=== PATIENT | female | born 1960 | race Hispanic/Latino ===

== ENCOUNTER 2016-11-11 12:01 | Inpatient (IN) | payer MEDICARE, MEDICAID ==
[2016-11-11 12:01] VITALS: BMI 23.3
[2016-11-11 13:24] LABS: BASO % 0.8 % (0.0-2.0); EOS % 0.9 % (0.0-4.0); HEMOGLOBIN 14.1 g/dL (11.0-16.0); LYMPH # 1.2 K/uL (1.0-4.3); LYMPH % 28.2 % (20.0-40.0); MEAN CORPUSCULAR HEMOGLOBIN 27.5 pg (27.0-31.0); MEAN CORPUSCULAR HGB CONC 32.6 g/dL (33.0-37.0); MEAN PLATELET VOLUME 9.6 fL (7.2-11.7); MONO # 0.3 K/uL (0.0-0.8); MONO % 8.5 % (0.0-10.0); NEUT # 2.5 K/uL (1.8-7.0); NEUT % 61.6 % (50.0-75.0); NRBC % 0.2 % (0.0-2.0); RBC 5.15 Mil/uL (3.80-5.20); RED CELL DISTRIBUTION WIDTH 15.3 % (11.5-14.5); WHITE BLOOD COUNT 4.1 K/uL (4.8-10.8)
[2016-11-11 13:29] LABS: SQUAMOUS EPITHIAL 4 /hpf (0-5); URINE BACTERIA RARE (<OCC); URINE BILIRUBIN NEGATIVE (NEGATIVE); URINE BLOOD NEGATIVE (NEGATIVE); URINE CLARITY Hazy (Clear); URINE COLOR Yellow (YELLOW); URINE GLUCOSE (UA) NORMAL (Normal); URINE LEUKOCYTE ESTERASE 3+ Leu/uL (Negative); URINE NITRATE NEGATIVE (NEGATIVE); URINE PROTEIN 1+ mg/dL (NEGATIVE)
[2016-11-11 13:32] LABS: BARBITURATES, UR NEGATIVE (NEGATIVE); MEAN CELL VOLUME 84.2 fL (81.0-99.0)
[2016-11-11 13:33] LABS: BENZODIAZEPINES, UR NEGATIVE (NEGATIVE)
[2016-11-11 13:35] LABS: ALBUMIN 3.9 g/dL (3.5-5.0)
[2016-11-11 13:36] LABS: OPIATES, UR POSITIVE (NEGATIVE); PHENCYCLIDINE, UR NEGATIVE (NEGATIVE)
[2016-11-11 13:38] LABS: ALB/GLOB RATIO 0.8 (1.0-2.1); ALT/SGPT 50 U/L (9-52); AST/SGOT 51 U/L (14-36); BLOOD UREA NITROGEN 20 mg/dL (7-17); CALCIUM 8.8 mg/dl (8.6-10.4); GFR AFRICAN-AMERICAN > 60; GFR NON-AFRICAN AMERICAN > 60
--- NOTE | 2016-11-11 15:14 | C.PDOC ---
History Of Present Illness 56 year old female presents to the emergency department seeking detox from heroin and complaints of suicidal ideations. Patient has a lengthy history of heroin abuse and denies any physical complaints of homicidal ideations. Time Seen by Provider: 11/11/16 12:56 Chief Complaint (Nursing): Substance Abuse History Per: Patient History/Exam Limitations: no limitations Current Symptoms Are (Timing): Still Present Suicide/Self Injury Attempted (Context): None Associated Symptoms: Suicidal Thoughts Involuntary Hold By: None Recent travel outside of the [place]: No Past Medical History Reviewed: Historical Data, Nursing Documentation, Vital Signs Vital Signs: Last Vital Signs Temp 98.4 F 11/11/16 16:41 Pulse 79 11/11/16 16:41 Resp 18 11/11/16 20:04 BP 127/82 11/11/16 16:41 Pulse Ox 96 11/11/16 16:41 - Medical History PMH: Anemia, Anxiety, Asthma, Bipolar Disorder, Bronchitis, COPD, Depression, HIV, HTN, Mitral Valve Prolapse, Paranoia, Personality Disorder, Seizures ( withdral induced) Surgical History: Tonsillectomy Denies: Pacemaker - [facility] Procedures DETOXIFICATION SERVICES FOR SUBSTANCE ABUSE TREATMENT (02/22/15) GROUP PSYCHOTHERAPY (03/13/16) INDIVID PSYCHOTHERAP NEC (06/09/14) INDIVIDUAL PSYCHOTHERAPY, BEHAVIORAL (03/13/16) INDIVIDUAL PSYCHOTHERAPY, COGNITIVE-BEHAVIORAL (12/07/15) INTRODUCE OF OTH THERAP SUBST INTO RESP TRACT, VIA OPENING (12/07/15) INTRODUCTION OF SERUM/TOX/VACCINE INTO MUSCLE, PERC APPROACH (12/07/15) NEBULIZER THERAPY (03/30/14) OTHER GROUP THERAPY (06/09/14) Family History: States: Unknown Family Hx - Social History Hx Tobacco Use: Yes Hx Alcohol Use: No Hx Substance Use: Yes - Immunization History Hx Tetanus Toxoid Vaccination: Yes Hx Influenza Vaccination: Yes Hx Pneumococcal Vaccination: Yes Review Of Systems Constitutional: Negative for: Fever, Chills Cardiovascular: Negative for: Chest Pain, Palpitations Respiratory: Negative for: Cough, Shortness of Breath Gastrointestinal: Negative for: Nausea, Vomiting, Abdominal Pain, Diarrhea Psych: Positive for: Suicidal ideation Physical Exam - Physical Exam Appears: Non-toxic, No Acute Distress, Unkempt, Other (Patient appears disheveled ) Skin: Warm, Dry Head: Atraumatic Eye(s): bilateral: Other (pin-point pupils ) Oral Mucosa: Moist Teeth: Other (scant, poor dentition ) Neck: Supple Chest: Symmetrical, No Deformity Cardiovascular: Rhythm Regular Respiratory: Normal Breath Sounds, No Rhonchi, No Wheezing Neurological/Psych: Oriented x3, Normal Speech, Normal Cognition, Normal Cranial Nerves, Normal Motor, Normal Sensation ED Course And Treatment - Laboratory Results Result Diagrams: 11/11/16 13:15 11/11/16 13:15 O2 Sat by Pulse Oximetry: 97 (room air ) - Physician Consult Information Outcome Of Conversation: 1500: d/w Dr. Cano and Crisis Team: ok to adm to Psych. asymptomatic pyuria may be followed and NOT treated with abx. HIV meds/ HAART may be addressed by Medicine/ID. Consider restarting when stabilized on psych meds and steady compliance more likely. Disposition Doctor Will See Patient In The: Hospital Counseled Patient/Family Regarding: Studies Performed, Diagnosis - Disposition Disposition: HOSPITALIZED Disposition Time: 15:15 Condition: GOOD - Clinical Impression Clinical Impression: Depression, Opiate abuse, continuous - Scribe Statement The provider has reviewed the documentation as recorded by the Scribe Vale Florentino All medical record entries made by the Scribe were at my direction and personally dictated by me. I have reviewed the chart and agree that the record accurately reflects my personal performance of the history, physical exam, medical decision making, and the department course for this patient. I have also personally directed, reviewed, and agree with the discharge instructions and disposition.
--- NOTE | 2016-11-11 20:58 | PCM.BM ---
<Matt Montez - Last Filed: 11/11/16 20:56> Treatment Plan Problems - Problems identified on initial assessmt Depression Date Initiated: 11/11/16 Time Initiated: 17:00 Assessment reference: NA Status: Active Opiates Abuse Date Initiated: 11/11/16 Time Initiated: 17:00 Assessment reference: NA Status: Active Treatment assets and liabiliti Patient Assests: adapts well, cooperative, good support system (Lives with parents) Patient Liabilities: substance abuse (Heroin), medical problems (HIV, Hep C) - Milieu Protocol Maintain good personal hygiene: daily Encourage regular showers, daily Remind patient to perform daily oral care Maintain personal safety: every shift Educate patient to report safety concerns to staff, every shift Monitor environment for contraband/sharps Medication safety: Monitor for expected outcome, potential side effects: every shift, Assess barriers to learning: every shift, Assess readiness for medication education: every shift <Bettina Larios - Last Filed: 11/13/16 11:36> Family Contact Family involvement: Family/SO is involved Family contact: Patient agrees to contact Family contact name: Father-Saturnino Hinton Family contact comment: - Goals for Treatment Patient goals for treatment: "I want to go to rehab." Discharge/Continuing Care - Education Needs Education Needs: Patient Medication, Patient Coping Skills, Patient Community resources - Discharge Discharge Criteria: Tolerates medication w/o severe side effects, Free of Suicidal thoughts Discharge to:: Substance Abuse Rehab - Treatment Team Participation Discussed with Family/SO: Yes Was Patient/Family/SO present at Treatment Team Meeting: Yes <Roberto Torres - Last Filed: 11/13/16 11:39> - Diagnosis (1) Bipolar 1 disorder Status: Acute Interventions: 11/13/16 11:39 Attend groups take meds (2) Opioid use disorder, severe, dependence Status: Acute Interventions: 11/13/16 11:39 Attend groups take meds
[2016-11-11] MEDS ORDERED: Magnesium Hydroxide Susp 30 ml UD PO PRN (21:54)
--- NOTE | 2016-11-12 19:05 | PCM.PSYCH ---
Initial Psychiatric Evaluation - Initial Psychiatric Evaluation Type of Admission: Voluntary Legal Status: Capacity Chief Complaint (in patient's own words): My withdrawal symptoms are getting better History of Present Illness and Precipitating Events: This is a 56 years old female with the history of Bipoalr depression, heroine use disorder, HIV, Hep C, single, on SSD admitted to the unit for the treatment of depression and opioid detox. She reported that she start abusing heroin at the age of 20. She stated that she had a relapse on heroin six months ago due to depression. She reported she is injecting heroin 5 bags per day, and had positive withdrawal symptoms, if she is unable to receive any heroin. She reported guilt feeling due to heroin abuse. CAGE questionnaire was positive. Additionally she stated that she had multiple rehabs and detox in the past. However, she was unable to give any information of her last rehab. She stated denied using benzo, etoh. She reported depressed mood for more than 3 weeks and which was worsened during last week. she reported depressed mood with anhedonia, difficulty in sleep, low appetite, and difficulty in concentration. She stated that after coming to unit she is feeling safe and her SI start improving. Presently she denied SI, HI, intent or plan. She reported that she had one manic episode at the age of 25. She is on probation for threatening a person on FB. She denied any anxiety, panic attack symptoms. She denied perceptual disturbances. She is and had no children. She is living with his mother. Completed HS. She is on SSD Current Medications: Active Medications Generic Name Dose Route Start Last Admin Trade Name Freq PRN Reason Stop Dose Admin Ibuprofen 600 mg 11/11/16 21:54 Motrin Tab PO TID PRN Pain, moderate (4-7) Loperamide HCl 2 mg 11/11/16 21:54 11/12/16 05:37 Imodium PO 2 mg Q8 PRN Administration Diarrhea Magnesium Hydroxide 30 ml 11/11/16 21:54 Milk Of Magnesia PO 11/14/16 10:01 BID PRN Constipation Methadone HCl 0 mg 11/13/16 09:45 Methadone PO 11/17/16 09:44 Q24H FUAD Taper Ondansetron HCl 4 mg 11/11/16 21:54 11/12/16 05:37 Zofran Tab PO 4 mg Q8 PRN Administration Nausea/Vomiting Quetiapine Fumarate 100 mg 11/12/16 10:00 11/12/16 17:43 Seroquel PO 100 mg BID FUAD Administration Past Psychiatric History - Past Psychiatric History Prior Professional Help: Multiple hospitalization Prior Psychiatric Treatment: Dr. Gates in [place] [facility]: [facility] Duration: Varies from days to week Nature of Treatment: Detox, rehab and stabilization of mood History of Abuse: Denied History of ETOH/Drug Use: Please see HPI History of Family Illness: Denied Pertinent Medical Hx (Current Medical&Sleep Prob, Allergies): Allergies Allergy/AdvReac Type Severity Reaction Status Date / Time Penicillins Allergy pt reports Verified 11/11/16 12:23 seizures QUEtiapine [SEROquel] 300 mg PO HS 11/11/16 HIV, Hep C, but presently she is not any medication Review of Systems - Review of Systems All systems: reviewed and no additional remarkable complaints except ( Psychiatry and please see HPI) Mental Status Examination - Personal Presentation Personal Presentation: Looks older than stated age - Affect Affect: Constricted - Motor Activity Motor Activity: Calm - Reliability in Providing Information Reliability in Providing Information: Fair - Speech Speech: Organized, Coherent - Mood Mood: Depressed - Formal Thought Process Formal Thought Process: No Impairment - Hallucinations/Delusions Additional comments: Denied - Obsessions/Compulsions Obsessions: No Compulsions: No - Cognitive Functions Orientation: Person, Place, Situation, Time Sensorium: Alert Attention/Concentration: Attentive Abstract Thinking: [place] Judgement: Intact, as evidence by: Good judgement, Intact, as evidence by: Insight regarding need for hospitalization Memory: Recent intact, as evidence by: Ability to recall events of the day - Risk Additional comments: low - Strength & Assets Inventory Strength & Assets Inventory: Family support, Interests/hobbies, Cooperative - Limitations Limitations: Other Additional comments: substance abuse history DSM 5 DX - DSM 5 DSM 5 Diagnosis: 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 Start Seroquel 100 mg po BID for mood stabilization, will titrate according to her response. will consider to start Zoloft for her depression. Monitor vitals as per floor protocol. pt was encouraged to attend groups. Recommend individual and group therapy. Supportive therapy was provided. Time spend 33 minutes. Medication benefits and side effects were discussed in detail. pt verbalized understanding and in agreement with the treatment plan. Projected ELOS: 5-7 days Prognosis: fair with the treatment Discharge Plan and Discharge Criteria: as per - Smoking Cessation Smoking Cessation Initiated: Yes
--- NOTE | 2016-11-13 11:36 | PCM.PYCHPN ---
Psychiatric Progress Note - Psychiatric Progress Note Patient seen today, length of contact: 15 min Patient Chief Complaint: I ma feeling depressed. Problems Identified/Issues Discussed: Patient seen and evaluated, chart reviewed and discussed with the nurse. Patient remained isolated, confined and withdrawn. Patient reports withdrawal symptoms including nausea, headaches, cramps and sweating. She reports depressed mood and feelings of hopelessness and helplessness. She is taking medication and denied any side effects. Supportive therapy and psychoeducation were given. Medication Change: Yes (methadone taper) Medical Record Reviewed: Yes Mental Status Examination - Cognitive Function Orientation: Person, Place, Situation, Time Memory: Intact Attention: WNL Concentration: Poor Association: WNL Fund of Knowledge: Poor - Mood Mood: Depressed, Anxious - Affect Affect: Constricted - Speech Speech: Soft - Formal Thought Process Formal Thought Process: No Impairment - Suicidal Ideation Suicidal Ideation: No - Homicidal Ideation Homicidal Ideation: No Goal/Treatment Plan - Goal/Treatment Plan Need for Continued Stay: Discharge may exacerbated symptoms, Failed transitioning Progress Toward Problem(s) and Goals/Treatment Plan: MDD recurrent without psychotic features CBT Psychoeducation Supportive therapy, group therapy, individual therapy Seroquel 100 gm PO BID Sertraline 50 mg PO Daily Opioid use disorder severe CBT Psychoeducation Supportive therapy, individual therapy Use [place] for abstinence Opioid withdrawal CBT Psychoeducation Supportive therapy, individual therapy Clonidine when necessary Methadone taper - Smoking Cessation Smoking Cessation Initiated: No
--- NOTE | 2016-11-14 10:03 | PCM.PYCHPN ---
Psychiatric Progress Note - Psychiatric Progress Note Patient seen today, length of contact: 15 min Patient Chief Complaint: I am having withdrawal symptoms.' Problems Identified/Issues Discussed: Patient seen and evaluated, chart reviewed and discussed with the nurse. Today pt reports a bit improvement in her mood and withdrawal symptoms but still reports nausea, cramps and sweating. She still reports depressed mood and at times feelings of hopelessness and helplessness. She is taking medication and denied any side effects. She needs more time for stabilization. Supportive therapy and psychoeducation were given. Medication Change: Yes (methadone taper) Medical Record Reviewed: Yes Mental Status Examination - Cognitive Function Orientation: Person, Place, Situation, Time Memory: Intact Attention: WNL Concentration: Poor Association: WNL Fund of Knowledge: Poor - Mood Mood: Depressed, Anxious - Affect Affect: Constricted - Speech Speech: Soft - Formal Thought Process Formal Thought Process: No Impairment - Suicidal Ideation Suicidal Ideation: No - Homicidal Ideation Homicidal Ideation: No Goal/Treatment Plan - Goal/Treatment Plan Need for Continued Stay: Discharge may exacerbated symptoms, Severe functional impairment Progress Toward Problem(s) and Goals/Treatment Plan: MDD recurrent without psychotic features CBT Psychoeducation Supportive therapy, group therapy, individual therapy Seroquel 100 gm PO BID Sertraline 50 mg PO Daily Opioid use disorder severe CBT Psychoeducation Supportive therapy, individual therapy Use [place] for abstinence Opioid withdrawal CBT Psychoeducation Supportive therapy, individual therapy Clonidine when necessary Methadone taper - Smoking Cessation Smoking Cessation Initiated: No
--- NOTE | 2016-11-15 14:51 | PCM.PYCHPN ---
Psychiatric Progress Note - Psychiatric Progress Note Patient seen today, length of contact: 15 min Patient Chief Complaint: I am feeling depressed.' Problems Identified/Issues Discussed: Patient seen and evaluated, chart reviewed and discussed with the nurse. She still reports depressed mood and at times feelings of hopelessness and helplessness. She still reports withdrawal symptoms i.e., nausea, cramps and sweating. She is taking medication and denies any side effects. She needs more time for stabilization. Supportive therapy and psychoeducation were given. Medication Change: Yes (methadone taper) Medical Record Reviewed: Yes Mental Status Examination - Cognitive Function Orientation: Person, Place, Situation, Time Memory: Intact Attention: WNL Concentration: Poor Association: WNL Fund of Knowledge: Poor - Mood Mood: Depressed, Anxious - Affect Affect: Constricted - Speech Speech: Soft - Formal Thought Process Formal Thought Process: No Impairment - Suicidal Ideation Suicidal Ideation: No - Homicidal Ideation Homicidal Ideation: No Goal/Treatment Plan - Goal/Treatment Plan Need for Continued Stay: Discharge may exacerbated symptoms, Severe functional impairment Progress Toward Problem(s) and Goals/Treatment Plan: 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
--- NOTE | 2016-11-16 10:40 | PCM.PYCHPN ---
Psychiatric Progress Note - Psychiatric Progress Note Patient seen today, length of contact: 15 min Patient Chief Complaint: I am feeling depressed.' Problems Identified/Issues Discussed: Patient seen and evaluated, chart reviewed and discussed with the nurse. As per the staff pt became increasingly depressed and became isolated and withdrawn and started reporting feelings of hopelessness and helplessness. She is stating some withdrawal symptoms i.e., headache and sweating. She is complaint with her medications and denies any side effects. She needs more time for stabilization. After care discussed, she wants to go to the inpt. rehab. Supportive therapy and psychoeducation were given. Medication Change: Yes (methadone taper, increase zoloft) Medical Record Reviewed: Yes Mental Status Examination - Cognitive Function Orientation: Person, Place, Situation, Time Memory: Intact Attention: WNL Concentration: Poor Association: WNL Fund of Knowledge: Poor - Mood Mood: Depressed, Anxious - Affect Affect: Constricted - Speech Speech: Soft - Formal Thought Process Formal Thought Process: No Impairment - Suicidal Ideation Suicidal Ideation: No - Homicidal Ideation Homicidal Ideation: No Goal/Treatment Plan - Goal/Treatment Plan Need for Continued Stay: Discharge may exacerbated symptoms, Severe functional impairment Progress Toward Problem(s) and Goals/Treatment Plan: 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
--- NOTE | 2016-11-17 10:49 | PCM.PYCHPN ---
Psychiatric Progress Note - Psychiatric Progress Note Patient seen today, length of contact: 15 min Patient Chief Complaint: I am feeling depressed.' Problems Identified/Issues Discussed: Patient seen and evaluated, chart reviewed and discussed with the nurse. Patient reports improvement in her mood and says medications "are helping" and that she is "hanging in there." She remained isolated and withdrawn. Patient reports no problems being able to sleep and denies any physical complaints. Patient still reports improvement in the withdrawal symptoms. She needs more time for stabilization. After care discussed, she wants to go to the inpt. rehab. Supportive therapy and psychoeducation were given. Medication Change: Yes (methadone taper, increase zoloft) Medical Record Reviewed: Yes Mental Status Examination - Cognitive Function Orientation: Person, Place, Situation, Time Memory: Intact Attention: WNL Concentration: Poor Association: WNL Fund of Knowledge: Poor - Mood Mood: Depressed, Anxious - Affect Affect: Constricted - Speech Speech: Soft - Formal Thought Process Formal Thought Process: No Impairment - Suicidal Ideation Suicidal Ideation: No - Homicidal Ideation Homicidal Ideation: No Goal/Treatment Plan - Goal/Treatment Plan Need for Continued Stay: Discharge may exacerbated symptoms, Severe functional impairment Progress Toward Problem(s) and Goals/Treatment Plan: 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
--- NOTE | 2016-11-18 20:18 | PCM.PYCHPN ---
Psychiatric Progress Note - Psychiatric Progress Note Patient seen today, length of contact: 15 min Patient Chief Complaint: "Nervous" Problems Identified/Issues Discussed: The pt is seen, chart reviewed, case discussed with staff. Support given, CBT and SC used briefly No new symptoms reported, improving slowly and needs some more time No SEs from medications, risks discussed. After care discussed, she is interested in rehabs but not sure if she is calling them. Support and guidance provided Medication Change: No Medical Record Reviewed: Yes Mental Status Examination - Cognitive Function Orientation: Person, Place, Situation, Time Memory: Intact Attention: WNL Concentration: Poor Association: WNL Fund of Knowledge: Poor - Mood Mood: Depressed, Anxious - Affect Affect: Constricted - Speech Speech: Soft - Formal Thought Process Formal Thought Process: No Impairment - Suicidal Ideation Suicidal Ideation: No - Homicidal Ideation Homicidal Ideation: No Goal/Treatment Plan - Goal/Treatment Plan Need for Continued Stay: Discharge may exacerbated symptoms, Severe functional impairment Progress Toward Problem(s) and Goals/Treatment Plan: Continue medications Support and psychoeducation daily Attend groups and activities daily After care planning by - inpatient rehab Estimated Date of D/C: 11/22/16
[2016-11-19 08:50] VITALS: O2SAT 99
--- NOTE | 2016-11-19 19:33 | PCM.PYCHPN ---
Psychiatric Progress Note - Psychiatric Progress Note Patient seen today, length of contact: 15 min Patient Chief Complaint: "I can't sleep" Problems Identified/Issues Discussed: The pt is seen, chart reviewed, case discussed with staff. Support given, HS seroquel started No new symptoms reported, improving slowly and needs some more time No SEs from medications, risks discussed. After care discussed, wants rehab Medication Change: No Medical Record Reviewed: Yes Mental Status Examination - Cognitive Function Orientation: Person, Place, Situation, Time Memory: Intact Attention: WNL Concentration: Poor Association: WNL Fund of Knowledge: Poor - Mood Mood: Depressed, Anxious - Affect Affect: Constricted - Speech Speech: Soft - Formal Thought Process Formal Thought Process: No Impairment - Suicidal Ideation Suicidal Ideation: No - Homicidal Ideation Homicidal Ideation: No Goal/Treatment Plan - Goal/Treatment Plan Need for Continued Stay: Discharge may exacerbated symptoms, Severe functional impairment Progress Toward Problem(s) and Goals/Treatment Plan: Continue medications Support and psychoeducation daily Attend groups and activities daily After care planning by GARETT - inpatient rehab Estimated Date of D/C: 11/22/16
[2016-11-20 07:46] VITALS: TEMP 98
[2016-11-21 07:15] VITALS: BP 135/83; PULSE 90; RESP 20
--- NOTE | 2016-11-21 09:46 | PCM.PYCHDC ---
Mental Status Examination - Mental Status Examination Orientation: Person, Place, Situation, Time Memory: Intact Mood: Neutral Affect: Constricted Speech: Soft Attention: WNL Concentration: WNL Association: WNL Fund of Knowledge: WNL Formal Thought Process: No Impairment Description of patient's judgement and insight: good, fair Psychotic Thoughts and Behaviors: denies any AVH Suicidal Ideation: No Current Homicidal Ideation?: No Discharge Summary - Discharge Note Reason for Hospitalization: This is a 56 years old female with the history of Bipoalr depression, heroine use disorder, HIV, Hep C, single, on SSD admitted to the unit for the treatment of depression and opioid detox. She reported that she start abusing heroin at the age of 20. She stated that she had a relapse on heroin six months ago due to depression. She reported she is injecting heroin 5 bags per day, and had positive withdrawal symptoms, if she is unable to receive any heroin. She reported guilt feeling due to heroin abuse. CAGE questionnaire was positive. Additionally she stated that she had multiple rehabs and detox in the past. However, she was unable to give any information of her last rehab. She stated denied using benzo, etoh. She reported depressed mood for more than 3 weeks and which was worsened during last week. she reported depressed mood with anhedonia, difficulty in sleep, low appetite, and difficulty in concentration. She stated that after coming to unit she is feeling safe and her SI start improving. Presently she denied SI, HI, intent or plan. She reported that she had one manic episode at the age of 25. She is on probation for threatening a person on FB. She denied any anxiety, panic attack symptoms. She denied perceptual disturbances. She is and had no children. She is living with his mother. Completed HS. She is on SSD Psychiatric History (includes Medical, Family, Personal Hx): Detox, rehab and stabilization of mood Consultations:: List each consultation separately and include: 1. Reason for request. 2. Findings. 3. Follow-up Summary of Hospital Course include:: 1. Description of specific treatment plan utilized for patients during their course of treatmen. 2. Summarize the time- course for resolution of acute symptoms and/or regressed behaviors. 3. Describe issues identified and worked on during hospitalization. 4. Describe medication utilized. 5. Describe medical problems identified and treated. 6. Reassessment of suicide risk Summary of Hospital Course: During the course of her stay, patient (pt) started progressively improving and she no longer remained anxious, depressed and suicidal. Her mood was getting better and she started attending groups and meetings and started socializing. The doses of her medications were maximized and patient denied any feelings of hopelessness, helplessness, and worthlessness, denied any problem with the sleep or appetite, denied suicidal ideation or homicidal ideation. Pt denied any auditory or visual hallucinations. Patient reported improvement in her mood and tolerated these medications very well and denied any side effects. 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 Pt was educated and counseled about the risks of drinking and abusing drugs. Pt was educated and counseled to go to the ER or call 911 if pt develop suicidal ideation or homicidal ideation, worsening of symptoms or severe side effects of the meds. Prescriptions/Medication Reconciliation: QUEtiapine [Seroquel] 200 mg PO HS #30 tab QUEtiapine [Seroquel] 100 mg PO DAILY #30 tab Sertraline [Zoloft] 100 mg PO DAILY #30 tab - Smoking Cessation Smoking Cessation Medication prescribed: No - Antipsychotic Medications Pt discharged on 2 or more routine antipsychotic medications: No
--- NOTE | 2016-11-21 15:40 | PCM.PYCHPN ---
Psychiatric Progress Note - Psychiatric Progress Note Patient seen today, length of contact: 15 min Patient Chief Complaint: I am feeling depressed.' Problems Identified/Issues Discussed: Patient seen and evaluated, chart reviewed and discussed with the nurse. Staff reports patient is improving and she is attending groups and meetings. She reports improvement in her mood however, she remained isolated and withdrawn. Patient also reports improvement in the withdrawal symptoms. She needs more time for stabilization. After care discussed, she wants to go to the inpt. rehab. Supportive therapy and psychoeducation were given. Medication Change: No Medical Record Reviewed: Yes Mental Status Examination - Cognitive Function Orientation: Person, Place, Situation, Time Memory: Intact Attention: WNL Concentration: WNL Association: WN Fund of Knowledge: [facility] Decription of patient's judgement and insights: good, fair - Mood Mood: Neutral - Affect Affect: Constricted - Speech Speech: Soft - Formal Thought Process Formal Thought Process: No Impairment Psychotic Thoughts and Behaviors: denies any AVH - Suicidal Ideation Suicidal Ideation: No - Homicidal Ideation Homicidal Ideation: No Goal/Treatment Plan - Goal/Treatment Plan Need for Continued Stay: Discharge may exacerbated symptoms, Severe functional impairment Progress Toward Problem(s) and Goals/Treatment Plan: Education: Pt was educated and counseled about the risks and benefits of taking and not taking medications. Pt was educated and counseled about the risks of drinking and abusing drugs. Pt was educated and counseled to go to the ER or call 911 if pt develop suicidal ideation or homicidal ideation, worsening of symptoms or severe side effects of the meds. Estimated Date of D/C: 11/22/16 - Smoking Cessation Smoking Cessation Initiated: No
== END 2016-11-21 11:50 | disposition home or self-care (01) | DRG 885 ==
LOC: C.ER 12:01 → C.9E 15:13 → C.5E 16:32
PROVIDERS: ADMIT Psychiatry & Neurology Psychiatry; ATTEND Psychiatry & Neurology Psychiatry
PROC: GZ3ZZZZ Medication Management (ICD-10-PCS; principal; 2016-11-11)
PROC: GZHZZZZ Group Psychotherapy (ICD-10-PCS; 2016-11-11)
PROC: GZ56ZZZ Individual Psychotherapy, Supportive (ICD-10-PCS; 2016-11-11)
PROC: HZ89ZZZ Medication Management for Substance Abuse Treatment, Other Replacement Medication (ICD-10-PCS; 2016-11-11)
PROC: HZ59ZZZ Individual Psychotherapy for Substance Abuse Treatment, Supportive (ICD-10-PCS; 2016-11-11)
DX: F33.9 Major depressive disorder, recurrent, unspecified (principal); R45.851 Suicidal ideations; F11.23 Opioid dependence with withdrawal; F60.9 Personality disorder, unspecified; J44.9 Chronic obstructive pulmonary disease, unspecified; I10 Essential (primary) hypertension; I34.1 Nonrheumatic mitral (valve) prolapse; Z21 Asymptomatic human immunodeficiency virus [HIV] infection status; B18.2 Chronic viral hepatitis C; F17.210 Nicotine dependence, cigarettes, uncomplicated

== ENCOUNTER 2017-01-29 09:20 | Inpatient (IN) | payer MEDICARE, MEDICAID ==
[2017-01-29 09:20] VITALS: BMI 23.3
[2017-01-29] MEDS ORDERED: Permethrin 5% Cream(60 gm) TOP ONE (09:54)
--- NOTE | 2017-01-29 10:00 | C.PDOC ---
History Of Present Illness 56 year old female with PMHX of HIV (non-compliant) substance abuse, bipolar, depression presents to the ED for evaluation of depression and suicidal ideation for past few days. Patient states she does not have medications including Xanax and "feels depressed". She reports she feels very depressed and wants to kill herself. Patient has had multiple previous admission to psych in the past. Otherwise, pt denies any physical complaints, denies CP, SOB, dyspnea , diaphoresis, palpitation, cough, abd. pain, N/V/D, UTi sx. At the time of evaluation, appears comfortable, not in any apparent distress. Time Seen by Provider: 01/29/17 09:42 Chief Complaint (Nursing): Substance Abuse History Per: Patient History/Exam Limitations: no limitations Onset/Duration Of Symptoms: Persistent Current Symptoms Are (Timing): Still Present Pain Scale Rating Of: 0 Associated Symptoms: Depression, Suicidal Thoughts Involuntary Hold By: None Recent travel outside of the [place]: No Additional History Per: Prior Records Past Medical History Reviewed: Historical Data, Nursing Documentation, Vital Signs Vital Signs: Last Vital Signs Temp 97.6 F 01/29/17 14:39 Pulse 83 01/29/17 16:19 Resp 20 01/29/17 14:39 BP 117/84 01/29/17 16:19 Pulse Ox 98 01/29/17 12:27 - Medical History PMH: Anemia, Anxiety, Asthma, Bipolar Disorder, Bronchitis, COPD, Depression, HIV, HTN, Mitral Valve Prolapse, Paranoia, Personality Disorder, Seizures ( withdrawal induced) Surgical History: Tonsillectomy Denies: Pacemaker - [facility] Procedures DETOXIFICATION SERVICES FOR SUBSTANCE ABUSE TREATMENT (02/22/15) GROUP PSYCHOTHERAPY (11/21/16) INDIV PSYCHOTHERAPY FOR SUBSTANCE ABUSE TREATMENT, SUPPORT (11/11/16) INDIVID PSYCHOTHERAP NEC (06/09/14) INDIVIDUAL PSYCHOTHERAPY, BEHAVIORAL (03/13/16) INDIVIDUAL PSYCHOTHERAPY, COGNITIVE-BEHAVIORAL (12/07/15) INDIVIDUAL PSYCHOTHERAPY, SUPPORTIVE (11/21/16) INTRODUCE OF OTH THERAP SUBST INTO RESP TRACT, VIA OPENING (12/07/15) INTRODUCTION OF SERUM/TOX/VACCINE INTO MUSCLE, PERC APPROACH (12/07/15) MEDICATION MANAGEMENT (11/11/16) MEDS MGMT FOR SUBSTANCE ABUSE TREATMENT, OTH REPL MED (11/11/16) NEBULIZER THERAPY (03/30/14) OTHER GROUP THERAPY (06/09/14) Family History: States: Unknown Family Hx - Social History Hx Tobacco Use: Yes Hx Alcohol Use: No Hx Substance Use: Yes - Immunization History Hx Tetanus Toxoid Vaccination: Yes Hx Influenza Vaccination: Yes Hx Pneumococcal Vaccination: Yes Review Of Systems Constitutional: Negative for: Fever, Chills Cardiovascular: Negative for: Chest Pain Respiratory: Negative for: Cough, Shortness of Breath Gastrointestinal: Negative for: Nausea, Vomiting, Abdominal Pain Psych: Positive for: Depression, Suicidal ideation Physical Exam - Physical Exam Appears: Non-toxic, No Acute Distress Skin: Warm, Dry, Other (Diffuse body scratches. No sign of cellulitis. ) Head: Atraumatic, Normacephalic Eye(s): bilateral: PERRL Nose: No Flaring, No Discharge Oral Mucosa: Moist, No Drooling Tongue: Normal Appearing Lips: Normal Appearing Throat: No Erythema, No Drooling Neck: Trachea Midline, Supple Chest: Symmetrical, No Deformity, No Ecchymosis, No Subcutaneous Emphysema Cardiovascular: Rhythm Regular, No Murmur, No JVD Respiratory: No Decreased Breath Sounds, No Accessory Muscle Use, No Rales, No Rhonchi, No Stridor, No Wheezing Gastrointestinal/Abdominal: Soft, No Tenderness, No Distention, No Guarding, No Rebound Back: No CVA Tenderness Extremity: Normal ROM, No Pedal Edema, No Deformity Neurological/Psych: Oriented x3, Normal Speech, Normal Motor, Normal Sensation, Normal Reflexes ED Course And Treatment - Laboratory Results Result Diagrams: 01/29/17 10:02 01/29/17 10:02 Lab Interpretation: No Changes Compared To Prior Results ECG: Interpreted By Me, Viewed By Me Interpretation Of ECG: SR@77/min, NAD, no acute T wave or ST-T changes. O2 Sat by Pulse Oximetry: 100 (RA) Pulse Ox Interpretation: Normal - Radiology CXR: Interpreted by Me, Viewed By Me, Read By Radiologist CXR Interpretation: Yes: No Acute Disease Progress Note: EKG, CXR, and labs were ordered. Permethrin 5% cream was applied. Patient will be evaluated by electric utility lineworker. Blood work review and appears without acute changes compare to previous visits. Pt was seen by roller shop utility worker and admission to psych floor s/o with Dx: Bipolar, depression, polysubstances abuse recommend. Pt remained stable durig th ED evaluation. non-toxic. Appropriate, agrees with plan. Disposition - Disposition Disposition: HOSPITALIZED Disposition Time: 11:55 Condition: STABLE - Clinical Impression Clinical Impression: Opioid use disorder, severe, dependence, HIV (human immunodeficiency virus infection), Bipolar disorder - PA / DRIVER MANAGER / Resident Statement MD/DO has reviewed & agrees with the documentation as recorded. - Scribe Statement The provider has reviewed the documentation as recorded by the Nahunibbrett Florentino All medical record entries made by the Shraddha were at my direction and personally dictated by me. I have reviewed the chart and agree that the record accurately reflects my personal performance of the history, physical exam, medical decision making, and the department course for this patient. I have also personally directed, reviewed, and agree with the discharge instructions and disposition.
--- NOTE | 2017-01-29 10:07 | RAD ---
HISTORY: Detox/Psy COMPARISON: Comparison made with prior study 05/23/2016. TECHNIQUE: Chest PA and lateral FINDINGS: LUNGS: Mild bibasilar atelectasis left greater than right. PLEURA: No significant pleural effusion identified. No pneumothorax apparent. CARDIOVASCULAR: Normal. OSSEOUS STRUCTURES: Re- demonstrated are several loops left anterolateral rib fracture deformities. Additionally there also appears be old healed fracture deformity left clavicle VISUALIZED UPPER ABDOMEN: Normal. OTHER FINDINGS: None. IMPRESSION: Mild bibasilar atelectasis left greater than right
[2017-01-29 10:08] LABS: BASO # 0.1 K/uL (0.0-0.2); BASO % 1.4 % (0.0-2.0); EOS # 0.2 K/uL (0.0-0.7); EOS % 5.8 % (0.0-4.0); HEMATOCRIT 40.5 % (34.0-47.0); LYMPH # 0.9 K/uL (1.0-4.3); MEAN CELL VOLUME 85.4 fL (81.0-99.0); MEAN CORPUSCULAR HEMOGLOBIN 28.2 pg (27.0-31.0); MEAN PLATELET VOLUME 8.9 fL (7.2-11.7); MONO # 0.2 K/uL (0.0-0.8); MONO % 5.8 % (0.0-10.0); NRBC % 0.1 % (0.0-2.0); RED CELL DISTRIBUTION WIDTH 16.3 % (11.5-14.5); WHITE BLOOD COUNT 4.1 K/uL (4.8-10.8)
[2017-01-29 10:16] LABS: RBC URINE 1 /hpf (0-3); URINE BILIRUBIN NEGATIVE (NEGATIVE); URINE BLOOD NEGATIVE (NEGATIVE); URINE COLOR Yellow (YELLOW); URINE GLUCOSE (UA) NORMAL (Normal); URINE KETONE 2+ mg/dL (NEGATIVE); URINE LEUKOCYTE ESTERASE TRACE Leu/uL (Negative); URINE PROTEIN 1+ mg/dL (NEGATIVE); WBC URINE 3 /hpf (0-5)
[2017-01-29 10:17] LABS: CHLORIDE 104 mmol/L (98-107); POTASSIUM 4.2 mmol/L (3.6-5.2); SODIUM 139 mmol/L (132-148)
[2017-01-29 10:19] LABS: ALB/GLOB RATIO 0.9 (1.0-2.1); ALKALINE PHOSPHATASE 86 U/L (38-126); AST/SGOT 33 U/L (14-36); BILIRUBIN,TOTAL 0.6 mg/dL (0.2-1.3); BLOOD UREA NITROGEN 22 mg/dL (7-17); CARBON DIOXIDE 21 mmol/L (22-30); GFR AFRICAN-AMERICAN > 60
[2017-01-29 10:20] LABS: ALCOHOL SERUM < 10 mg/dl (0-10); ALT/SGPT 30 U/L (9-52); CALCIUM 9.2 mg/dl (8.6-10.4); GLUCOSE,RANDOM 72 mg/dL (65-105)
--- NOTE | 2017-01-29 13:01 | CARD ---
APPROVED REPORT EKG Measurement Heart [id number] <Conclusion> Normal sinus rhythm Normal ECG
--- NOTE | 2017-01-29 14:11 | PCM.BM ---
<Karen Vaughn - Last Filed: 01/29/17 14:08> Treatment Plan Problems - Problems identified on initial assessmt Depression Date Initiated: 01/29/17 Time Initiated: 13:40 Assessment reference: NA Status: Active Substance Abuse Date Initiated: 01/29/17 Time Initiated: 13:40 Assessment reference: NA Status: Active Treatment assets and liabiliti Patient Assests: adapts well, cooperative, self-reliant, ADL independent, good support system, negotiates basic needs, cognitively intact, strong yan Patient Liabilities: live alone (Lives with parents), physical pain, financial problems, substance abuse (Opiates, Xanax 6mg daily), medical problems (HIV, HTN , Neuropathy, Asthma, bronchitis) - Milieu Protocol Maintain good personal hygiene: daily Encourage regular showers, daily Remind patient to perform daily oral care, other Assist patient to perform ADL's (Self) Conduct patient checks and document Observation sheet: Q15 minutes (Safety) Maintain personal safety: every shift Educate patient to report safety concerns to staff, every shift Monitor environment for contraband/sharps Medication safety: Monitor for expected outcome, potential side effects: every shift, Assess barriers to learning: every shift, Assess readiness for medication education: every shift <Bettina Larios - Last Filed: 01/31/17 11:14> Family Contact Family contact: Patient agrees to contact Family contact name: Saturnino Hinton-father Family contacted how many times per week?: 1 - Goals for Treatment Patient goals for treatment: "I want to go to a methadone clinic." Discharge/Continuing Care - Education Needs Education Needs: Patient Medication, Patient Coping Skills, Patient Placement options, Patient Community resources - Discharge Discharge Criteria: Tolerates medication w/o severe side effects, No longer exhibiting s/s of withdrawal, Reduction of target symptoms Discharge to:: Home - Treatment Team Participation Discussed with Family/SO: Yes Was Patient/Family/SO present at Treatment Team Meeting: Yes <Vikash Cuellar - Last Filed: 02/02/17 12:12> - Diagnosis (1) Bipolar disorder, current episode mixed, moderate Status: Acute Interventions: Assess/adjust medications daily and/or as needed SEE patient on him individual basis 7x/week to assess status of hallucinations. Discuss risks, benefits, side effects and alternatives of medications. 02/02/17 12:09 (2) Opiate dependence Status: Acute Interventions: Assess 7x/week regarding severity of withdrawal Educated regarding risks, benefits, side effects and alternatives of medications Used motivational interview for abstinence Used CBT for relapse prevention Medication management for withdrawal symptoms Encouraged medication assisted treatment 02/02/17 12:11 (3) Moderate sedative, hypnotic, or anxiolytic use disorder Status: Acute Interventions: Assess 7x/week regarding severity of withdrawal Educated regarding risks, benefits, side effects and alternatives of medications Used motivational interview for abstinence Used CBT for relapse prevention Medication management for withdrawal symptoms Encouraged medication assisted treatment 02/02/17 12:11
[2017-01-29] MEDS ORDERED: Oxymetazoline 0.05% Nasal Spray (30 ml) NS PRN (16:57)
[2017-01-29] MEDS ORDERED: Albuterol HFA 90 mcg/actuation (8 g) IH PRN (16:57)
[2017-01-29] MEDS: Emtricitabine-Tenofovir 200 mg-300 mg Tab PO SCH (17:34)
[2017-01-29] MEDS ORDERED: Phenytoin 100 mg/4 ml Oral Susp UD PO SCH (18:00)
[2017-01-30] MEDS: Emtricitabine-Tenofovir 200 mg-300 mg Tab PO SCH (09:36)
--- NOTE | 2017-01-30 10:44 | PCM.PSYCH ---
Initial Psychiatric Evaluation - Initial Psychiatric Evaluation Type of Admission: Voluntary Legal Status: Capacity Chief Complaint (in patient's own words): "I just feel sad, I'm using, I need help" History of Present Illness and Precipitating Events: Pt is a 56 year old female with a PMH of Bronchitis, HIV, Neuropathy, and HTN who presented to the ED on 01/29/17 for worsening depression and suicidal ideation. Pt is , has no children and lives in [place] with her parents. Pt is currently unemployed and collecting SSD. Pt's highest level of education is 12th grade. Pt states that lately she has been feeling depressed. She states that this occurs when she feels discouraged because "I get high and I can't stay clean". Pt reports a past psych admission approximately 6-8 months ago on the unit due to worsening depression. She reports following up once a month with Dr. Rory Nolan who prescribes Seroquel and Ambien for her. Pt reports that she has been using heroin since she was 20 years old. She uses approximately 5 bags a day, IV. Pt reports she has been to multiple detoxes in the past "way too many to count" as well as rehab. Her last rehab was 2 years ago at [place]. Pt reports that she was on a Methadone program in the past where she was able to stay clean for approximately 3 years. Pt denies any overdoses in the past. She states she stopped taking her HIV medications because "I was getting high". Pt denies other substance use. Denies alcohol use. States she smokes 1-2 cigarettes a day. Pt also reports taking approximately six 1mg pills a day. Pt reports that in the past when she has stopped taking the Xanax she has had seizures. Pt is currently experiencing mild withdrawal symptoms such as diarrhea, nausea. Pt reports a psychiatric history of Manic depression and Bipolar disorder. After care discussed. Pt states she would like to go back on a Methadone program since this has worked for her in the past. She also mentioned that she would like to follow up with a program where she can speak to a counselor, because "this was so helpful for me". Pt is encouraged to do so and speak with counselors and SW if needed. Current Medications: Active Medications Generic Name Dose Route Start Last Admin Trade Name Freq PRN Reason Stop Dose Admin Acetaminophen 650 mg 01/29/17 16:14 Tylenol 325mg Tab PO Q6 PRN Fever >100.4 F Albuterol 2 puff 01/29/17 16:57 Ventolin Hfa 90 Mcg/Actuation (8 G) IH RQ4 PRN Shortness of Breath Calcium Carbonate 500 mg 01/29/17 17:00 01/30/17 09:35 Oscal PO 500 mg BIDCC FUAD Administration Clonidine HCl 0.1 mg 01/29/17 16:16 Catapres PO Q8 PRN COWS Score More or Equal to 5 Emtricitabine/Tenofovir 1 tab 01/29/17 17:00 01/30/17 09:36 Truvada 200 Mg-300 Mg PO 1 tab DAILY FUAD Administration Ergocalciferol 1 cap 02/05/17 10:00 Drisdol 50,000 Intl Units Cap PO QWK FUAD Hydrochlorothiazide 25 mg 01/29/17 17:15 01/30/17 09:36 Hydrodiuril PO 25 mg DAILY FUAD Administration Loperamide HCl 2 mg 01/29/17 16:14 Imodium PO Q8 PRN Diarrhea Lorazepam 1 mg 01/29/17 16:14 01/29/17 21:36 Ativan PO 1 mg Q6 PRN Administration Anxiety Methadone HCl 10 mg 01/31/17 10:00 Methadone PO 02/03/17 09:59 DAILY FUAD Taper Nevirapine 200 mg 01/29/17 18:00 01/30/17 09:35 Viramune PO 200 mg BID FUAD Administration Ondansetron HCl 4 mg 01/29/17 16:14 Zofran Tab PO Q8H PRN Nausea/Vomiting Oxymetazoline HCl 0 ml 01/29/17 16:57 Afrin 0.05% NS Q12 PRN Nasal congestion Phenytoin Sodium 100 mg 01/29/17 18:00 01/30/17 09:36 Dilantin PO 100 mg TID FUAD Administration Pneumococcal Polyvalent Vaccine 0.5 ml 02/01/17 10:00 Pneumovax 23 Vaccine IM 02/01/17 10:01 .ONCE ONE Raltegravir 400 mg 01/29/17 18:00 01/30/17 09:37 Isentress PO 400 mg BID FUAD Administration Trazodone HCl 50 mg 01/29/17 22:00 01/29/17 21:32 Desyrel PO 50 mg HS FUAD Administration Past Psychiatric History - Past Psychiatric History Previous Treatment History: Inpatient Pertinent Medical Hx (Current Medical&Sleep Prob, Allergies): Allergies Allergy/AdvReac Type Severity Reaction Status Date / Time Penicillins Allergy pt reports Verified 11/11/16 12:23 seizures Albuterol HFA [Ventolin HFA 90 mcg/actuation (8 g)] 2 puff IH Q4H PRN 11/21/16 Emtricitabine/Tenofovir Diso [Truvada 200 MG-300 MG] 1 tab PO DAILY 11/21/16 Fluticasone/Salmeterol 250/50 [Advair Diskus 250/50] 1 puff IH Q12H 11/21/16 Nevirapine [Viramune] 200 mg PO BID 11/21/16 Valsartan/Hydrochlorothiazide [Valsartan-Hctz 80-12.5 mg Tab] 1 tab PO DAILY 11/30 Calcium Carbonate [Oscal] 500 mg PO BIDWM tab 12/08/16 Cholecalciferol [Vitamin D 1000 IU] 1,000 iu PO DAILY tab 12/08/16 Gabapentin [Neurontin] 600 mg PO TID #45 tab 12/08/16 Oxymetazoline HCl [Nasal Decongestant 15 ml] 1 spr NS Q12 PRN bottle 12/08/16 QUEtiapine [SEROquel] 300 mg PO HS #15 tab 12/08/16 QUEtiapine [Seroquel] 100 mg PO BID #30 tab 12/08/16 Raltegravir Potassium [Isentress] 400 mg PO BID tab 12/08/16 Sertraline [Zoloft] 150 mg PO DAILY #45 tab 12/08/16 Valsartan [Diovan] 40 mg PO DAILY tab 12/08/16 Zolpidem [Ambien] 5 mg PO HS PRN #15 tab 12/08/16 Permethrin 5% [Permethrin] 1 appl TP DAILY #1 tube 01/23/17 Review of Systems - Review of Systems All systems: reviewed and no additional remarkable complaints except - Gastrointestinal Gastrointestinal: Diarrhea, Nausea - Psychiatric Psychiatric: Anxiety, Irritability, Suicidal Ideation Mental Status Examination - Personal Presentation Personal Presentation: Looks older than stated age - Affect Affect: Constricted, Depressed - Motor Activity Motor Activity: Calm - Reliability in Providing Information Reliability in Providing Information: Good - Speech Speech: Organized - Mood Mood: Depressed, Anxious - Formal Thought Process Formal Thought Process: No Impairment - Obsessions/Compulsions Obsessions: No Compulsions: No - Cognitive Functions Orientation: Person, Place, Situation, Time Sensorium: Alert Attention/Concentration: Attentive Abstract Thinking: [place] Estimate of Intelligence: Average Judgement: Imparied, as evidence by: Poor judgement, Imparied, as evidence by: Lack of insight into illness Memory: Recent intact, as evidence by: Ability to recall events of the day, Remote intact, as evidenced by: Abilit to recall sig. life events - Risk Risk: Suicidal, Diminished functioning - Strength & Assets Inventory Strength & Assets Inventory: Family support, Skills, Life experience, Cooperative - Limitations Limitations: Living alone DSM 5 DX - DSM 5 DSM 5 Diagnosis: Bipolar disorder, mixed moderate Opioid use disorder, severe Opioid withdrawal Sedative/Hypnotic use disorder, severe Sedative/Hypnotic withdrawal - Recommended/Plan of Treatment Treatment Recommendations and Plan of Treatment: Bipolar disorder, mixed moderate Opioid use disorder, severe Opioid withdrawal Sedative/Hypnotic use disorder, severe Sedative/Hypnotic withdrawal Methadone detox Clonidine 0.1mg PO Q8 PRN Lorazepam 1mg PO Q6 PRN Methadone taper Trazodone 50mg PO HS FUAD Continue as needed medications Attend groups and activities Supportive therapy and psychoeducation AL for abstinence CBT for relapse prevention Encourage MAT Refer to rehab or IOP Attend self-help groups as well Projected ELOS: 5-7 days Prognosis: Fair with treatment - Smoking Cessation Smoking Cessation Initiated: No
[2017-01-31] MEDS: Emtricitabine-Tenofovir 200 mg-300 mg Tab PO SCH (10:34)
--- NOTE | 2017-01-31 11:26 | PCM.PYCHPN ---
Psychiatric Progress Note - Psychiatric Progress Note Patient seen today, length of contact: 17 mins Patient Chief Complaint: "I'm hanging in there, but doing okay" Problems Identified/Issues Discussed: The pt is seen, chart reviewed, case discussed with staff. Pt reports that she did not sleep very well last night and is still experiencing some anxiety. Pt complains of some withdrawal symptoms such as nausea and diarrhea. She reports that her mood is "okay". Support given, CBT and CO used briefly No new symptoms reported, improving slowly and needs more time No SEs from medications, risks discussed. After care discussed. Pt plans to attend a Methadone program, most likely [facility], since she has been there in the past. Pt is encouraged to do so. She also reports that she previously attend [facility] and would like to attend this program as well. Will speak with counselors and SW to help with this. Medication Change: Yes (Methadone dose changes daily ) Medical Record Reviewed: Yes Mental Status Examination - Cognitive Function Orientation: Person, Place, Situation, Time Memory: Intact Attention: WNL Concentration: WNL Association: WNL Fund of Knowledge: WNL - Mood Mood: Depressed, Anxious - Affect Affect: Constricted, Depressed - Speech Speech: Appropriate - Formal Thought Process Formal Thought Process: No Impairment - Suicidal Ideation Suicidal Ideation: No - Homicidal Ideation Homicidal Ideation: No Goal/Treatment Plan - Goal/Treatment Plan Need for Continued Stay: Remain at risks for inpatient hospitalization, Discharge may exacerbated symptoms Progress Toward Problem(s) and Goals/Treatment Plan: Bipolar disorder, mixed moderate Opioid use disorder, severe Opioid withdrawal Sedative/Hypnotic use disorder, severe Sedative/Hypnotic withdrawal Methadone detox Continue as needed medications Attend groups and activities Supportive therapy and psychoeducation CO for abstinence CBT for relapse prevention Encourage MAT Refer to rehab or IOP Attend self-help groups as well 17 mins
[2017-02-01] MEDS ORDERED: Pneumococcal 23-Valent Vaccine IM ONE (10:00)
[2017-02-01] MEDS: Emtricitabine-Tenofovir 200 mg-300 mg Tab PO SCH (10:29)
--- NOTE | 2017-02-01 11:25 | PCM.PYCHPN ---
Psychiatric Progress Note - Psychiatric Progress Note Patient seen today, length of contact: 18 mins Patient Chief Complaint: " I can not stop throwing up" Problems Identified/Issues Discussed: The pt is seen, chart reviewed, case discussed with staff. Pt reports that although she is taking Zofran, she is still vomiting and feeling nauseous and therefore has not been eating much. She also reports that she has not been sleeping well. Her mood is improving. Support given, CBT and MD used briefly No new symptoms reported, improving slowly and needs more time No SEs from medications, risks discussed. After care discussed. Pt wants to attend [facility] [place] in order to start a Methadone program which she has tried in the past with success. Pt is encouraged to do so. Medication Change: Yes (Methadone dose changes daily ) Medical Record Reviewed: Yes Mental Status Examination - Cognitive Function Orientation: Person, Place, Situation, Time Memory: Intact Attention: WNL Concentration: WNL Association: WNL Fund of Knowledge: WNL - Mood Mood: Neutral - Affect Affect: Constricted - Speech Speech: Appropriate - Formal Thought Process Formal Thought Process: No Impairment - Suicidal Ideation Suicidal Ideation: No - Homicidal Ideation Homicidal Ideation: No Goal/Treatment Plan - Goal/Treatment Plan Need for Continued Stay: Remain at risks for inpatient hospitalization, Discharge may exacerbated symptoms Progress Toward Problem(s) and Goals/Treatment Plan: Methadone detox Continue as needed medications Attend groups and activities Supportive therapy and psychoeducation MD for abstinence CBT for relapse prevention Encourage MAT Refer to rehab or IOP Attend self-help groups as well 18 mins
[2017-02-02] MEDS: Emtricitabine-Tenofovir 200 mg-300 mg Tab PO SCH (10:47)
--- NOTE | 2017-02-02 12:15 | PCM.PYCHPN ---
Psychiatric Progress Note - Psychiatric Progress Note Patient seen today, length of contact: 15 minute Patient Chief Complaint: I'm feeling better Problems Identified/Issues Discussed: Patient seen. Chart reviewed. Case discussed with the staff. Issues related to illness and treatment were discussed with the patient. Reported compliant with treatment with no adverse affects. Tolerating treatment very well. Feels better with very mild withdrawal symptoms. Better mood but decreased sleep. We will increase the dose of trazodone from 50 mg to 100 mg at night Continue rest of the treatment as before At the time of evaluation, patient was awake alert oriented 3, had no delusions , no auditory or visual hallucinations, no suicidal ideations or homicidal ideations. Medical Problems: Bronchitis Hypertension HIV Neuropathy Diagnostic Results: Reviewed DSM 5 Symptoms Update: Some improvement with treatment Medication Change: No (Dose of trazodone increased to 100 mg) Medical Record Reviewed: Yes Mental Status Examination - Cognitive Function Orientation: Person, Place, Situation, Time Memory: Intact Attention: WNL Concentration: WNL Association: WNL Fund of Knowledge: [facility] Decription of patient's judgement and insights: Fair - Mood Mood: Depressed - Affect Affect: Depressed - Speech Speech: Appropriate - Formal Thought Process Formal Thought Process: No Impairment Psychotic Thoughts and Behaviors: None - Suicidal Ideation Suicidal Ideation: No - Homicidal Ideation Homicidal Ideation: No Goal/Treatment Plan - Goal/Treatment Plan Need for Continued Stay: Remain at risks for inpatient hospitalization, Discharge may exacerbated symptoms, Severe functional impairment Progress Toward Problem(s) and Goals/Treatment Plan: Patient education Supportive therapy Continue treatment as before with increased the dose of trazodone from 50 mg to 100 mg [facility], for follow-up care. Estimated Date of D/C: 02/05/17 - Smoking Cessation Smoking Cessation Initiated: No
[2017-02-03] MEDS: Emtricitabine-Tenofovir 200 mg-300 mg Tab PO SCH (09:51)
--- NOTE | 2017-02-03 20:31 | PCM.PYCHPN ---
Psychiatric Progress Note - Psychiatric Progress Note Patient seen today, length of contact: 15 minute Patient Chief Complaint: I need Methadone Problems Identified/Issues Discussed: Patient was seen. Chart was reviewed important content noted. Nurse input received. Patient has no new complaints. No events overnight. Patient slept well and is eating well. Patient stated that he wants to start on Methadone maintenance treatment before d/c. She denies any depressive symptoms. Denies suicidal or homicidal ideations. Patient does not report hallucinations. No delusions elicited. No paranoia elicited. Patient has remained in good clinical and behavioral control. Patient is finding medications beneficial and would like to continue with treatment plan. Patient appreciated that treatment team is trying to help. Diagnostic Results: reviewed Medication Change: Yes (Dose of trazodone increased to 100 mg) Medical Record Reviewed: Yes Mental Status Examination - Cognitive Function Orientation: Person, Place, Situation, Time Memory: Intact Attention: WNL Concentration: WNL Association: WNL Fund of Knowledge: WNL - Mood Mood: Depressed - Affect Affect: Depressed - Speech Speech: Appropriate - Formal Thought Process Formal Thought Process: No Impairment - Suicidal Ideation Suicidal Ideation: No - Homicidal Ideation Homicidal Ideation: No Goal/Treatment Plan - Goal/Treatment Plan Need for Continued Stay: Remain at risks for inpatient hospitalization, Discharge may exacerbated symptoms, Severe functional impairment Progress Toward Problem(s) and Goals/Treatment Plan: Continue current management and medications. Attend groups and activities Individual therapy Patient educated about risks, benefits, side effects & alternatives of meds. Pt verbalized understanding & agreed with the above. Therapy in milieu. Estimated Date of D/C: 02/05/17 - Smoking Cessation Smoking Cessation Initiated: No
[2017-02-04] MEDS: Emtricitabine-Tenofovir 200 mg-300 mg Tab PO SCH (10:29)
--- NOTE | 2017-02-04 18:46 | PCM.PYCHPN ---
Psychiatric Progress Note - Psychiatric Progress Note Patient seen today, length of contact: 15 minute Patient Chief Complaint: I'm better Problems Identified/Issues Discussed: Patient was seen. Chart was reviewed important content noted. Nurse input received that pt has med seeking behavior. Patient has no new complaints. No events overnight. Patient slept well and is eating well. Patient stated that he wants to start on Methadone maintenance treatment before d/c. She denies any depressive symptoms. Denies suicidal or homicidal ideations. Patient does not report hallucinations. No delusions elicited. No paranoia elicited. Patient has remained in good clinical and behavioral control. Patient is finding medications beneficial and would like to continue with treatment plan. Patient appreciated that treatment team is trying to help. Diagnostic Results: reviewed DSM 5 Symptoms Update: Bipolar d/o current mixed episode Opioid use d/o Opioid withdrawal. Sedative, hypnotic or anxiolytic use d/o Medication Change: No Medical Record Reviewed: Yes Mental Status Examination - Cognitive Function Orientation: Person, Place, Situation, Time Memory: Intact Attention: WNL Concentration: WNL Association: WNL Fund of Knowledge: WNL Decription of patient's judgement and insights: limited/limited Addtional comments: Pt is superficially cooperative - Mood Mood: Depressed - Affect Affect: Constricted, Depressed - Speech Speech: Appropriate - Formal Thought Process Formal Thought Process: No Impairment - Suicidal Ideation Suicidal Ideation: No - Homicidal Ideation Homicidal Ideation: No Goal/Treatment Plan - Goal/Treatment Plan Need for Continued Stay: Remain at risks for inpatient hospitalization, Discharge may exacerbated symptoms, Severe functional impairment Progress Toward Problem(s) and Goals/Treatment Plan: Continue current management and medications. Attend groups and activities Individual therapy Patient educated about risks, benefits, side effects & alternatives of meds. Pt verbalized understanding & agreed with the above. Therapy in milieu. Estimated Date of D/C: 02/05/17 - Smoking Cessation Smoking Cessation Initiated: Yes
[2017-02-05 08:13] VITALS: BP 103/69; PULSE 84; RESP 16; TEMP 97.9; O2SAT 99
[2017-02-05] MEDS: Emtricitabine-Tenofovir 200 mg-300 mg Tab PO SCH (09:25)
[2017-02-05] MEDS ORDERED: Ergocalciferol 50,000 Intl Units Cap PO SCH (10:00)
--- NOTE | 2017-02-05 18:46 | PCM.PYCHDC ---
Mental Status Examination - Mental Status Examination Orientation: Person, Place, Situation, Time Memory: Intact Mood: Neutral Affect: Other (Appropriate) Speech: Appropriate Attention: WNL Concentration: WNL Association: WNL Fund of Knowledge: WNL Formal Thought Process: No Impairment Description of patient's judgement and insight: Fair Psychotic Thoughts and Behaviors: None Suicidal Ideation: No Current Homicidal Ideation?: No Discharge Summary - Discharge Note Reason for Hospitalization: Bipolar disorder Opiate use disorder Anxiolytics use disorder Laboratory Data: Review Consultations:: List each consultation separately and include: 1. Reason for request. 2. Findings. 3. Follow-up Summary of Hospital Course include:: 1. Description of specific treatment plan utilized for patients during their course of treatmen. 2. Summarize the time- course for resolution of acute symptoms and/or regressed behaviors. 3. Describe issues identified and worked on during hospitalization. 4. Describe medication utilized. 5. Describe medical problems identified and treated. 6. Reassessment of suicide risk Summary of Hospital Course: Pt is a 56 year old female with a PMH of Bronchitis, HIV, Neuropathy, and HTN who presented to the ED on 01/29/17 for worsening depression and suicidal ideation. Pt is , has no children and lives in [place] with her parents. Pt is currently unemployed and collecting SSD. Pt's highest level of education is 12th grade. Pt states that lately she has been feeling depressed. She states that this occurs when she feels discouraged because "I get high and I can't stay clean". Pt reports a past psych admission approximately 6-8 months ago on the unit due to worsening depression. She reports following up once a month with Dr. Rory Nolan who prescribes Seroquel and Ambien for her. Pt reports that she has been using heroin since she was 20 years old. She uses approximately 5 bags a day, IV. Pt reports she has been to multiple detoxes in the past "way too many to count" as well as rehab. Her last rehab was 2 years ago at [place]. Pt reports that she was on a Methadone program in the past where she was able to stay clean for approximately 3 years. Pt denies any overdoses in the past. She states she stopped taking her HIV medications because "I was getting high". Pt denies other substance use. Denies alcohol use. States she smokes 1-2 cigarettes a day. Pt also reports taking approximately six 1mg pills a day. Pt reports that in the past when she has stopped taking the Xanax she has had seizures. Pt is currently experiencing mild withdrawal symptoms such as diarrhea, nausea. Pt reports a psychiatric history of Manic depression and Bipolar disorder. After care discussed. Pt states she would like to go back on a Methadone program since this has worked for her in the past. She also mentioned that she would like to follow up with a program where she can speak to a counselor, because "this was so helpful for me". Pt is encouraged to do so and speak with counselors and SW if needed. During her stay in the hospital patient was treated with methadone, Ativan, Psychotropic medications and when necessary medications. With the above treatment patient started feeling better. She was also attending groups and other activities on the unit. Today patient was stable and ready for discharge. History time of evaluation and discharge, patient was stable, awake alert oriented 3, had no delusions, no auditory or visual hallucinations, no suicidal ideations or homicidal ideations. - Diagnosis (1) Bipolar disorder, current episode mixed, moderate Status: Acute (2) Opiate dependence Status: Acute (3) Moderate sedative, hypnotic, or anxiolytic use disorder Status: Acute - Final Diagnosis (DSM 5) Condition upon Discharge: STABLE Disposition: HOME/ ROUTINE Follow-up Treatment Plan: Patient wants to go [facility] after discharge from the hospital, for follow-up care. - Smoking Cessation Smoking Cessation Medication prescribed: No - Antipsychotic Medications Pt discharged on 2 or more routine antipsychotic medications: No
== END 2017-02-05 11:57 | disposition home or self-care (01) | DRG 885 ==
LOC: C.ER 09:20 → C.9E 12:00 → C.5E 12:39
PROVIDERS: ADMIT Psychiatry & Neurology Psychiatry; ATTEND Psychiatry & Neurology Psychiatry
PROC: GZ56ZZZ Individual Psychotherapy, Supportive (ICD-10-PCS; principal; 2017-01-29)
PROC: HZ52ZZZ Individual Psychotherapy for Substance Abuse Treatment, Cognitive-Behavioral (ICD-10-PCS; 2017-01-29)
PROC: HZ59ZZZ Individual Psychotherapy for Substance Abuse Treatment, Supportive (ICD-10-PCS; 2017-01-29)
PROC: HZ56ZZZ Individual Psychotherapy for Substance Abuse Treatment, Psychoeducation (ICD-10-PCS; 2017-01-29)
PROC: HZ2ZZZZ Detoxification Services for Substance Abuse Treatment (ICD-10-PCS; 2017-01-29)
PROC: GZ58ZZZ Individual Psychotherapy, Cognitive-Behavioral (ICD-10-PCS; 2017-01-29)
DX: F31.62 Bipolar disorder, current episode mixed, moderate (principal); B20 Human immunodeficiency virus [HIV] disease; R45.851 Suicidal ideations; F11.23 Opioid dependence with withdrawal; F13.239 Sedative, hypnotic or anxiolytic dependence with withdrawal, unspecified; F17.210 Nicotine dependence, cigarettes, uncomplicated; J44.9 Chronic obstructive pulmonary disease, unspecified; D64.9 Anemia, unspecified; F41.9 Anxiety disorder, unspecified; G62.9 Polyneuropathy, unspecified; I10 Essential (primary) hypertension; Z91.19 Patient's noncompliance with other medical treatment and regimen

== ENCOUNTER 2017-11-11 17:23 | Inpatient (IN) | payer MEDICARE, MEDICAID ==
[2017-11-11 17:24] VITALS: BMI 23.3
[2017-11-11 18:22] LABS: EOS # 0.1 K/uL (0.0-0.7); EOS % 1.7 % (0.0-4.0); HEMOGLOBIN 12.5 g/dL (11.0-16.0); LYMPH # 1.3 K/uL (1.0-4.3); LYMPH % 33.3 % (20.0-40.0); MEAN CELL VOLUME 84.9 fL (81.0-99.0); MEAN CORPUSCULAR HEMOGLOBIN 28.2 pg (27.0-31.0); MEAN CORPUSCULAR HGB CONC 33.2 g/dL (33.0-37.0); MEAN PLATELET VOLUME 8.7 fL (7.2-11.7); MONO # 0.3 K/uL (0.0-0.8); MONO % 7.2 % (0.0-10.0); NEUT # 2.1 K/uL (1.8-7.0); NEUT % 56.8 % (50.0-75.0); NRBC % 0.1 % (0.0-2.0); RBC 4.45 Mil/uL (3.80-5.20); RED CELL DISTRIBUTION WIDTH 16.7 % (11.5-14.5); WHITE BLOOD COUNT 3.8 K/uL (4.8-10.8)
[2017-11-11 18:37] LABS: SQUAMOUS EPITHIAL 1 /hpf (0-5); URINE BACTERIA RARE (<OCC); URINE BILIRUBIN NEGATIVE (NEGATIVE); URINE BLOOD NEGATIVE (NEGATIVE); URINE CLARITY Clear (Clear); URINE COLOR Yellow (YELLOW); URINE GLUCOSE (UA) NORMAL (Normal); URINE LEUKOCYTE ESTERASE 1+ Leu/uL (Negative); URINE PROTEIN NEGATIVE (NEGATIVE)
[2017-11-11 18:38] LABS: ALB/GLOB RATIO 1.2 (1.0-2.1); ALBUMIN 3.8 g/dL (3.5-5.0); ALT/SGPT 49 U/L (9-52); AST/SGOT 35 U/L (14-36); BLOOD UREA NITROGEN 21 mg/dL (7-17); CALCIUM 8.3 mg/dl (8.6-10.4); GFR AFRICAN-AMERICAN > 60; GFR NON-AFRICAN AMERICAN 57
[2017-11-11 18:39] LABS: BARBITURATES, UR NEGATIVE (NEGATIVE); PHENCYCLIDINE, UR NEGATIVE (NEGATIVE)
[2017-11-11 18:56] LABS: BENZODIAZEPINES, UR POSITIVE (NEGATIVE); OPIATES, UR POSITIVE (NEGATIVE)
--- NOTE | 2017-11-11 19:01 | C.PDOC ---
Time Seen by Provider: 11/11/17 17:51 Chief Complaint (Nursing): Substance Abuse History Per: Patient Onset/Duration Of Symptoms: Days Current Symptoms Are (Timing): Still Present Suicide/Self Injury Attempted (Context): None Modifying Factor(s): Narcotics Severity: Moderate Associated Symptoms: Depression. denies: Suicidal Thoughts, Suicidal Plan Additional History Per: Prior Records Past Medical History Reviewed: Historical Data, Nursing Documentation, Vital Signs Vital Signs: Last Vital Signs Temp 98.7 F 11/11/17 19:53 Pulse 16 L 11/11/17 19:53 Resp 73 H 11/11/17 19:53 BP 118/81 11/11/17 19:53 Pulse Ox 98 11/11/17 19:53 - Medical History PMH: Anemia, Anxiety, Asthma, Bipolar Disorder, Bronchitis, COPD, Depression, HIV, HTN, Hypercholesterolemia, Mitral Valve Prolapse, Paranoia, Personality Disorder, Seizures (withdrawal induced) Surgical History: Tonsillectomy - [facility] Procedures DETOXIFICATION SERVICES FOR SUBSTANCE ABUSE TREATMENT (01/29/17) GROUP PSYCHOTHERAPY (10/08/17) INDIV PSYCHOTHERAPY FOR SUBSTANCE ABUSE TREATMENT, SUPPORT (01/29/17) INDIV PSYCHOTHERAPY FOR SUBSTANCE ABUSE, COGNITIV BEHAVIORAL (01/29/17) INDIV PSYCHOTHERAPY FOR SUBSTANCE ABUSE, PSYCHOEDUCATION (01/29/17) INDIVID PSYCHOTHERAP NEC (06/09/14) INDIVIDUAL PSYCHOTHERAPY, BEHAVIORAL (07/10/17) INDIVIDUAL PSYCHOTHERAPY, COGNITIVE-BEHAVIORAL (10/08/17) INDIVIDUAL PSYCHOTHERAPY, SUPPORTIVE (01/29/17) INTRODUCE OF OTH THERAP SUBST INTO RESP TRACT, VIA OPENING (12/07/15) INTRODUCTION OF SERUM/TOX/VACCINE INTO MUSCLE, PERC APPROACH (12/07/15) MEDICATION MANAGEMENT (11/11/16) MEDS MGMT FOR SUBSTANCE ABUSE TREATMENT, OTH REPL MED (11/11/16) NEBULIZER THERAPY (03/30/14) OTHER GROUP THERAPY (06/09/14) Family History: States: Unknown Family Hx - Social History Hx Tobacco Use: Yes Hx Alcohol Use: No Hx Substance Use: Yes (Snorts Heroin. Abuses Xanax.) - Immunization History Hx Tetanus Toxoid Vaccination: Yes (07/2017) Hx Influenza Vaccination: Yes Hx Pneumococcal Vaccination: Yes (07/2017) Review Of Systems Except As Marked, All Systems Reviewed And Found Negative. Constitutional: Negative for: Fever Cardiovascular: Negative for: Chest Pain Respiratory: Negative for: Shortness of Breath Gastrointestinal: Negative for: Abdominal Pain Genitourinary: Negative for: Dysuria, Incontinence Musculoskeletal: Negative for: Neck Pain Skin: Positive for: Lesions (due to "skin picking" secondary to heroin abuse) Neurological: Negative for: Weakness, Numbness, Seizures Physical Exam - Physical Exam Appears: Non-toxic, No Acute Distress Skin: Warm, Dry Head: Atraumatic Eye(s): bilateral: PERRL, EOMI Neck: Normal ROM, Supple Cardiovascular: Rhythm Regular Respiratory: Normal Breath Sounds, No Accessory Muscle Use Gastrointestinal/Abdominal: Soft, No Tenderness Back: No CVA Tenderness Extremity: Normal ROM, No Pedal Edema, No Calf Tenderness Neurological/Psych: Oriented x3, Normal Motor, Normal Sensation ED Course And Treatment - Laboratory Results Result Diagrams: 11/11/17 18:18 11/11/17 18:18 Interpretation Of Abnormal: 1+ LE in urine, but denies urinary symptoms. Urine C &S sent. O2 Sat by Pulse Oximetry: 98 Pulse Ox Interpretation: Normal Progress Note: Pt is medically stable for detox admission. However, urine C&S should be followed up by the service and pt should be started on an antibiotic if positive. Disposition Counseled Patient/Family Regarding: Studies Performed, Diagnosis - Disposition Disposition: HOSPITALIZED Disposition Time: 19:57 Condition: STABLE - Clinical Impression Clinical Impression: Opioid use disorder, Benzodiazepine abuse Decision To Admit - Pt Status Changed To: Hospital Disposition Of: Inpatient - Admit Certification Admit to Inpatient:: After my assessment, the patient will require hospitalization for at least two midnights. This is because of the severity of symptoms shown, intensity of services needed, and/or the medical risk in this patient being treated as an outpatient. - InPatient: Physician Admission Certification: I certify that this patient requires 2 or more midnights of care for the following reason:: Detox. - . Bed Request Type: Detox Admitting Physician: Monique Cano Patient Diagnosis: Opioid use disorder, Benzodiazepine abuse
--- NOTE | 2017-11-11 20:31 | PCM.BM ---
<Ebenezer Elliott - Last Filed: 11/11/17 20:30> Treatment Plan Problems - Problems identified on initial assessmt potential for opiate withdrawal Date Initiated: 11/11/17 Time Initiated: 20:30 Status: Active Treatment assets and liabiliti Patient Assests: adapts well, cooperative, self-reliant, ADL independent, good support system, negotiates basic needs, cognitively intact, strong yan Patient Liabilities: substance abuse, medical problems - Milieu Protocol Maintain good personal hygiene: daily Encourage regular showers, daily Remind patient to perform daily oral care, daily Assist patient to perform ADL's Conduct patient checks and document Observation sheet: Q15 minutes Maintain personal safety: every shift Educate patient to report safety concerns to staff, every shift Monitor environment for contraband/sharps Medication safety: Monitor for expected outcome, potential side effects: every shift, Assess barriers to learning: every shift, Assess readiness for medication education: every shift <Mica Barbosa - Last Filed: 11/12/17 15:36> Family Contact Family involvement: Famliy/SO not involved - Goals for Treatment Patient goals for treatment: COMPLETE DETOX AND TRANSITION TO AN IOP. Discharge/Continuing Care - Education Needs Education Needs: Patient Medication, Patient Diagnosis/Disease Process, Patient Coping Skills, Patient Anger Management skills, Patient Placement options, Patient Community resources - Discharge Discharge Criteria: No longer exhibiting s/s of withdrawal, Reduction of target symptoms Discharge to:: Home - Treatment Team Participation Patient/Family/SO Statement: 11/12/17 15:37 "I'D LIKE TO TRY FREEDOM OF CHOICE." Discussed with Family/SO: No Was Patient/Family/SO present at Treatment Team Meeting: Yes <Juan José Goodwin - Last Filed: 11/13/17 15:03> - Diagnosis (1) Opioid use disorder Status: Acute Interventions: 11/13/17 15:02 * Assess 7x/week regarding severity of withdrawal * Educate regarding risks, benefits, side effects and alternatives of medications * Use Motivational Interviewing for abstinence * Use CBT for relapse prevention * Medication management for withdrawal symptoms * Encourage medication assisted treatment * (2) Benzodiazepine abuse Status: Chronic Interventions: 11/13/17 15:02 * Assess 7x/week regarding severity of withdrawal * Educate regarding risks, benefits, side effects and alternatives of medications * Use Motivational Interviewing for abstinence * Use CBT for relapse prevention * Medication management for withdrawal symptoms * Encourage medication assisted treatment * (3) Bipolar disorder, current episode mixed, moderate Status: Acute Interventions: 11/13/17 15:03 * Assess/adjust medications daily and /or as needed * See patient on an individual basis 7x/week to assess level of manic behaviors and stability * Discuss risks, benefits, side effects and alternatives of medications *
--- NOTE | 2017-11-12 08:43 | PCM.PSYCH ---
Initial Psychiatric Evaluation - Initial Psychiatric Evaluation Type of Admission: Voluntary Legal Status: Capacity Chief Complaint (in patient's own words): "I am withdrawing" History of Present Illness and Precipitating Events: She is seen, chart reviewed and case discussed. She is well-known from previous admissions. Pt is a 57 year old female with a PMH of Bronchitis, HIV, Neuropathy, and HTN who presented to the ED with opioid and benzo detox. Pt is , has no children and lives in [place] with her parents. Pt is currently unemployed and collecting SSD. Pt's highest level of education is 12th grade. Pt reports that she has been using heroin since she was 20 years old. She uses approximately 10 bags a day, IV. Pt reports she has been to multiple detoxes in the past, as well as rehabs. Her last rehab was 3 years ago at [facility]. Pt reports that she was on a Methadone program in the past where she was able to stay clean for approximately 3 years. Pt denies any overdoses in the past. Pt also reports taking approximately 10 Xanax 1mg pills a day. Pt reports that in the past when she has stopped taking the Xanax she has had seizures. Pt denies other substance use. Denies alcohol use. States she smokes 1-2 cigarettes a day. Pt reports a psychiatric history of bipolar disorder. She has been admitted numerous times She has HIV, but not on meds currently (she will discuss with her PCP) and asthma Family history positive for substance abuse Current Medications: Active Medications Generic Name Dose Route Start Last Admin Trade Name Freq PRN Reason Stop Dose Admin Chlordiazepoxide 25 mg 11/11/17 21:45 11/12/17 05:11 Librium PO 11/15/17 21:44 25 mg Q6 FUAD Administration Taper Clonidine HCl 0.1 mg 11/11/17 21:13 Catapres PO Q4H PRN Symptoms of alcohol withdrawl Dicyclomine HCl 10 mg 11/11/17 21:13 Bentyl PO Q6 PRN Muscle spasm Hydroxyzine HCl 25 mg 11/11/17 21:13 11/12/17 05:30 Atarax PO 25 mg Q6 PRN Administration Anxiety Loperamide HCl 2 mg 11/11/17 21:13 Imodium PO Q8 PRN Diarrhea Methadone HCl 0 mg 11/12/17 10:00 Methadone PO 11/17/17 09:59 Q24H FUAD Taper Multivitamins 1 tab 11/12/17 10:00 Hexavitamin PO DAILY FUAD Ondansetron HCl 4 mg 11/11/17 21:13 Zofran Tab PO Q8H PRN Nausea/Vomiting Trazodone HCl 50 mg 11/11/17 21:13 Desyrel PO HS PRN Insomnia Past Psychiatric History - Past Psychiatric History Previous Treatment History: Inpatient Pertinent Medical Hx (Current Medical&Sleep Prob, Allergies): Allergies Allergy/AdvReac Type Severity Reaction Status Date / Time Penicillins Allergy pt reports Verified 07/09/17 17:08 seizures Albuterol HFA [Ventolin HFA 90 mcg/actuation (8 g)] 2 puff IH Q4H PRN #1 inhaler 07/19/17 Gabapentin [Neurontin] 300 mg PO TID #90 cap 07/19/17 Raltegravir Potassium [Isentress] 400 mg PO BID 10/06/17 Emtricitabine/Tenofovir Diso [Truvada 200 MG-300 MG] 1 tab PO DAILY #30 tab 08/31 Mirtazapine [Remeron] 15 mg PO HS #30 tab 10/18/17 Quetiapine Fumarate [Seroquel] 400 mg PO HS #30 tablet 10/18/17 traZODone [Desyrel] 200 mg PO HS #60 tab 10/18/17 Albuterol HFA [Ventolin HFA 90 mcg/actuation (8 g)] 1 puff IH ASDIR #1 unit 10/31 Review of Systems - Neurological Neurological: Tremor, Weakness - Psychiatric Psychiatric: Abnormal Sleep Pattern, Anhedonia, Anxiety, Behavioral Changes, Change in Appetite, Depression, Difficulty Concentrating, Mood Swings, Panic Attacks. absent: Homicidal Ideation, Suicidal Ideation Mental Status Examination - Personal Presentation Personal Presentation: Looks older than stated age - Affect Affect: Constricted - Motor Activity Motor Activity: Calm - Reliability in Providing Information Reliability in Providing Information: Good - Speech Speech: Organized - Mood Mood: Depressed, Anxious - Formal Thought Process Formal Thought Process: No Impairment - Cognitive Functions Orientation: Person, Place, Situation, Time Sensorium: Alert Attention/Concentration: Easily distracted Estimate of Intelligence: Average Judgement: Intact, as evidence by: Insight regarding need for hospitalization Memory: Recent intact, as evidence by: Ability to recall events of the day, Remote impaired as evidenced by: Inability to recall sig life events - Risk Risk: Seizure, Withdrawal, Diminished functioning - Strength & Assets Inventory Strength & Assets Inventory: Family support, Cooperative DSM 5 DX - DSM 5 DSM 5 Diagnosis: Opioid use disorder, severe Opioid withdrawal Sedative/Hypnotic use disorder, severe Sedative/Hypnotic withdrawal Tobacco Use disorder - severe Bipolar disorder, depressed, moderate HIV Asthma - Recommended/Plan of Treatment Treatment Recommendations and Plan of Treatment: Methadone detox Librium detox Gabapentin for seizure risk, neuropathy Seroquel for bipolar d/o Continue as needed medications Attend groups and activities Supportive therapy and psychoeducation [place] for abstinence CBT for relapse prevention Encourage MAT Refer to rehab or IOP Attend self-help groups as well 35 min Projected ELOS: 5 days Prognosis: good w treatment - Smoking Cessation Smoking Cessation Initiated: Yes
[2017-11-12] MEDS: Multiple Vitamins Tab PO SCH (09:26)
[2017-11-13] MEDS: Multiple Vitamins Tab PO SCH (09:14)
--- NOTE | 2017-11-13 15:02 | PCM.PYCHPN ---
Psychiatric Progress Note - Psychiatric Progress Note Patient seen today, length of contact: 16 min Patient Chief Complaint: "I am better today" Problems Identified/Issues Discussed: The pt is seen, chart reviewed, case discussed with staff. The pt is compliant with medications and reports no side-effects. Symptoms are improving but needs more time to stabilize. Pt attends groups and activities. Support given, psycho-education provided. After care discussed. CD4 and Vit D levels checked b/c of fatigue Medication Change: Yes (detox changes daily) Medical Record Reviewed: Yes Mental Status Examination - Cognitive Function Orientation: Person, Place, Situation, Time Memory: Impaired Attention: Poor Concentration: Poor Association: WNL Fund of Knowledge: WNL - Mood Mood: Depressed, Anxious - Affect Affect: Constricted - Speech Speech: Appropriate - Formal Thought Process Formal Thought Process: No Impairment - Suicidal Ideation Suicidal Ideation: No - Homicidal Ideation Homicidal Ideation: No Goal/Treatment Plan - Goal/Treatment Plan Need for Continued Stay: Discharge may exacerbated symptoms, Severe functional impairment Progress Toward Problem(s) and Goals/Treatment Plan: Methadone detox Librium detox Gabapentin for seizure risk, neuropathy Seroquel for bipolar d/o Continue as needed medications Attend groups and activities Supportive therapy and psychoeducation [place] for abstinence CBT for relapse prevention Encourage MAT Refer to rehab or IOP Attend self-help groups as well
[2017-11-14] MEDS: Multiple Vitamins Tab PO SCH (09:36)
[2017-11-14] MEDS: Tmp-Smz 800 mg-160 mg DS Tab PO SCH (09:38)
[2017-11-14] MEDS: Ergocalciferol 50,000 Intl Units Cap PO SCH (10:04)
--- NOTE | 2017-11-14 12:21 | PCM.PYCHPN ---
Psychiatric Progress Note - Psychiatric Progress Note Patient seen today, length of contact: 16 min Patient Chief Complaint: "I am OK" Problems Identified/Issues Discussed: The pt is seen, chart reviewed, case discussed with staff. The pt is compliant with medications and reports no side-effects. Symptoms are improving but needs more time to stabilize. Pt attends groups and activities. Support given, psycho-education provided. After care discussed. CD4 and Vit D levels checked b/c of fatigue Medication Change: Yes (detox changes daily) Medical Record Reviewed: Yes Mental Status Examination - Cognitive Function Orientation: Person, Place, Situation, Time Memory: Impaired Attention: Poor Concentration: Poor Association: WNL Fund of Knowledge: WNL - Mood Mood: Depressed, Anxious - Affect Affect: Constricted - Speech Speech: Appropriate - Formal Thought Process Formal Thought Process: No Impairment - Suicidal Ideation Suicidal Ideation: No - Homicidal Ideation Homicidal Ideation: No Goal/Treatment Plan - Goal/Treatment Plan Need for Continued Stay: Discharge may exacerbated symptoms, Severe functional impairment Progress Toward Problem(s) and Goals/Treatment Plan: Methadone detox Librium detox Gabapentin for seizure risk, neuropathy Seroquel for bipolar d/o Continue as needed medications Attend groups and activities Supportive therapy and psychoeducation [place] for abstinence CBT for relapse prevention Encourage MAT Refer to rehab or IOP Attend self-help groups as well
[2017-11-15] MEDS ORDERED: Albuterol HFA 90 mcg/actuation (8 g) INH PRN ×2 (07:04→08:00)
--- NOTE | 2017-11-15 07:58 | CP.PCM.CON ---
History of Present Illness - History of Present Illness History of Present Illness: PGY3 Medicine Consult: Patient is a 57 year old female with past medical history of HIV, HIV-neuropathy , Hepatitis C, Hypertension, who is currently admitted to Detox unit for opioid , benzo, heroin detox. Patient reports using 5 bags of heroin daily by combination of IV injection and snorting. Patient admits to history of HIV which was treated with AZT in the past, but she stopped medication due to development of neuropathy. She denies starting alternative HIV treatment. Patient also admits to history of Hepatitis C, diagnosed 26 years ago per patient. She states she was being treated for Hep C at one point but could not continue the therapy (patient does not recall treatment name.) Patient reports she takes methadone chronically for back pain and reports that she scratches herself when she does not get methadone. Medicine team is consulted for fever of 101.5, measured at 6:48AM on 11/15/17. Patient reports waking up around 5:30AM feeling weak. She reports "irritation" with urination, as well as increased urinary frequency. Patient denies hematuria. Patient reports chronic cough that is occasionally productive of white-yellow phlegm, but states she had an episode last night of shortness of breath. Patient admits to watery diarrhea which began during detox. 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 absent: Chills, Fever - EENT Eyes: absent: Change in Vision Nose/Mouth/Throat: Sore Throat. absent: Mouth Pain - Cardiovascular Cardiovascular: absent: Chest Pain, Dyspnea, Edema, Leg Edema, Lightheadedness - Respiratory Respiratory: Cough. absent: Hemoptysis, Pain on Inspiration, Chest Congestion, Pain with Coughing - Gastrointestinal Gastrointestinal: Diarrhea. absent: Constipation, Nausea, Vomiting - Genitourinary Genitourinary: Dysuria, Urinary Frequency. absent: Flank Pain - Musculoskeletal Musculoskeletal: Back Pain, Tingling - Integumentary Integumentary: Wounds (forearm excoriations). absent: Rash, Skin Ulcer, Sores - Neurological Neurological: Tingling (lower extremities), Weakness. absent: Dizziness, Syncope - Psychiatric Psychiatric: Abnormal Sleep Pattern - Endocrine Endocrine: Fatigue Past Patient History - Infectious Disease Hx of Infectious Diseases: None - Past Medical History & Family History Past Medical History?: Yes - Past Social History Smoking Status: Light Smoker < 10 Cigarettes Daily - CARDIAC Hx Cardiac Disorders: No (Patient denied) Hx Hypertension: Yes - PULMONARY Hx Tuberculosis: No (Patient denied) - NEUROLOGICAL HX Cerebrovascular Accident: No (Patient denied) Hx Seizures: Yes (withdrawal induced) - HEENT Other/Comment: uses reading glasses - RENAL Hx Chronic Kidney Disease: No - ENDOCRINE/METABOLIC Hx Endocrine Disorders: No - HEMATOLOGICAL/ONCOLOGICAL Hx Cancer: No (Patient denied) Hx Hepatitis C: Yes Hx Human Immunodeficiency Virus (HIV): Yes - INTEGUMENTARY Other/Comment: scratches on back healing - MUSCULOSKELETAL/RHEUMATOLOGICAL Hx Musculoskeletal Disorders: No - GASTROINTESTINAL Hx Gastrointestinal Disorders: No - GENITOURINARY/GYNECOLOGICAL Hx Sexually Transmitted Disorders: No (Patient denied) - PSYCHIATRIC Hx Substance Use: Yes - SURGICAL HISTORY Hx Tonsillectomy: Yes - ANESTHESIA Hx Anesthesia: Yes Hx Anesthesia Reactions: No Hx Malignant Hyperthermia: No Meds Allergies/Adverse Reactions: Allergies Allergy/AdvReac Type Severity Reaction Status Date / Time Penicillins Allergy pt reports Verified 07/09/17 17:08 seizures - Medications Medications: Current Medications Acetaminophen (Tylenol 325mg Tab) 650 mg PO Q6 PRN PRN Reason: Fever >100.4 F Albuterol (Ventolin Hfa 90 Mcg/Actuation (8 G)) 1 puff INH RQ4 PRN PRN Reason: Shortness of Breath Chlordiazepoxide (Librium) 25 mg PO DAILY FUAD PRN Reason: Taper Stop: 11/15/17 21:44 Last Admin: 11/14/17 17:16 Dose: 25 mg Clonidine HCl (Catapres) 0.1 mg PO Q4H PRN PRN Reason: Symptoms of alcohol withdrawl Dicyclomine HCl (Bentyl) 10 mg PO Q6 PRN PRN Reason: Muscle spasm Ergocalciferol (Drisdol 50,000 Intl Units Cap) 1 cap PO Q7D [facility] Last Admin: 11/14/17 10:04 Dose: 1 cap Gabapentin (Neurontin) 300 mg PO TID [facility] Last Admin: 11/14/17 17:16 Dose: 300 mg Hydroxyzine HCl (Atarax) 25 mg PO Q6 PRN PRN Reason: Anxiety Last Admin: 11/14/17 12:16 Dose: 25 mg Loperamide HCl (Imodium) 2 mg PO Q8 PRN PRN Reason: Diarrhea Methadone HCl (Methadone) 10 mg PO Q24H [facility] PRN Reason: Taper Stop: 11/17/17 09:59 Last Admin: 11/14/17 10:03 Dose: 10 mg Mirtazapine (Remeron) 15 mg PO HS [facility] Last Admin: 11/14/17 21:08 Dose: 15 mg Multivitamins (Hexavitamin) 1 tab PO DAILY [facility] Last Admin: 11/14/17 09:36 Dose: 1 tab Nitrofurantoin Macrocrystals (Macrobid) 100 mg PO Q12H [facility] PRN Reason: Protocol Last Admin: 11/15/17 06:49 Dose: 100 mg Ondansetron HCl (Zofran Tab) 4 mg PO Q8H PRN PRN Reason: Nausea/Vomiting Quetiapine Fumarate (Seroquel) 200 mg PO HS [facility] Last Admin: 11/14/17 21:08 Dose: 200 mg Trazodone HCl (Desyrel) 100 mg PO HS PRN PRN Reason: Insomnia Last Admin: 11/14/17 21:09 Dose: 100 mg Trimethoprim/Sulfamethoxazole (Bactrim Ds Tab) 1 tab PO MWF [facility] PRN Reason: Protocol Last Admin: 11/14/17 09:38 Dose: Not Given Physical Exam - Constitutional Appears: Unkempt, Older Than Stated Age - Head Exam Head Exam: ATRAUMATIC, NORMOCEPHALIC - Eye Exam Eye Exam: EOMI - ENT Exam ENT Exam: Mucous Membranes Moist Additional comments: no white patches/ exudates in oropharynx beefy tongue appearance - Respiratory Exam Respiratory Exam: Rhonchi (cleared after cough), NORMAL BREATHING PATTERN. absent: Respiratory Distress - Cardiovascular Exam Cardiovascular Exam: Tachycardia, +S1, +S2 - GI/Abdominal Exam GI & Abdominal Exam: Normal Bowel Sounds, Soft. absent: Tenderness - Extremities Exam Extremities exam: Positive for: normal inspection, tenderness (light palpation of anterior lower legs bilaterally). Negative for: pedal edema - Back Exam Back exam: absent: CVA tenderness (L), CVA tenderness (R) - Neurological Exam Neurological exam: Alert - Skin Skin Exam: Dry, Warm Additional comments: excoriations on forearms Results - Vital Signs Recent Vital Signs: Last Vital Signs Temp 101 F H 11/15/17 07:04 Pulse 123 H 11/15/17 07:04 Resp 20 11/15/17 07:04 BP 114/65 11/15/17 07:04 Pulse Ox 88 L 11/15/17 07:04 - Labs Result Diagrams: 11/15/17 10:58 11/15/17 10:58 Assessment & Plan - Assessment and Plan (Free Text) Assessment: Fever urine culture obtained 11/11/17 positive for group C strep will repeat culture obtained by straight cath will continue current regimen of macrobid 100mg PO Q12h until repeat cultures result check blood cultures CBC/CMP/ ESR/ CRP tylenol 650mg PO q6 prn fever Chest xray 11/15/17: interval pathology left lung base mixed imaging findings. Inflammatory and neoplastic etiologies compatible with this. Follow up imaging to ensure complete resolution recommended (see full report) Chest CT ordered due to abnormal chest xray. Chest CT 11/15/17: left lower lobe consolidation, multifocal small ill-defined nodular opacities right upper lobe and right lower lobe, likely infectious or inflammatory. Multifocal subsegmental atelectasis. Probable residual thymic tissue in anterior mediastinum. (see full report) Chronic Bronchitis start advair 250/50 Q12h albuterol q4h HIV Absolute CD4 count 214 per 08/2017 labs repeat lymphocyte subset panel pending continue Bactrim DS PO MWF for PCP prophylaxis Hepatitis C HCV RNA Detected in 08/2017 labs 1a genotype patient advised for outpatient GI workup for treatment Opioid/ Heroin detox continue medications and management as per detox/ psychiatry team
--- NOTE | 2017-11-15 08:47 | RAD ---
Date of service: 11/15/2017 HISTORY: cough, fever COMPARISON: 01/29/2017 FINDINGS: LUNGS: Interval nodular opacity in the lateral left lung base infiltrate and or neoplasm considerations. Additional left infrahilar more medial patchy infiltrate suggested. PLEURA: No significant pleural effusion identified, no pneumothorax apparent. CARDIOVASCULAR: Normal heart size. Pulmonary vasculature probably top-normal. OSSEOUS STRUCTURES: Deformities per old healed fractures: Multiple left anterolateral ribs and left clavicle. VISUALIZED UPPER ABDOMEN: Moderate bowel gas distension OTHER FINDINGS: None. IMPRESSION: Interval pathology left lung base mixed imaging findings. Inflammatory and neoplastic etiologies compatible with this. Follow-up imaging to ensure complete resolution recommended.
[2017-11-15] MEDS: Multiple Vitamins Tab PO SCH (09:42)
[2017-11-15] MEDS ORDERED: Albuterol-Ipratrop 3 mg / 0.5 (3 ml) UD INH ONE (11:00)
[2017-11-15 11:13] LABS: BASO % 0.2 % (0.0-2.0); EOS % 0.1 % (0.0-4.0); HEMOGLOBIN 11.6 g/dL (11.0-16.0); LYMPH # 0.6 K/uL (1.0-4.3); LYMPH % 12.5 % (20.0-40.0); MEAN CELL VOLUME 85.9 fL (81.0-99.0); MEAN CORPUSCULAR HEMOGLOBIN 28.5 pg (27.0-31.0); MEAN CORPUSCULAR HGB CONC 33.2 g/dL (33.0-37.0); MEAN PLATELET VOLUME 9.6 fL (7.2-11.7); MONO # 0.3 K/uL (0.0-0.8); MONO % 6.3 % (0.0-10.0); NEUT # 3.7 K/uL (1.8-7.0); NEUT % 80.9 % (50.0-75.0); RBC 4.08 Mil/uL (3.80-5.20); RED CELL DISTRIBUTION WIDTH 16.3 % (11.5-14.5); WHITE BLOOD COUNT 4.6 K/uL (4.8-10.8)
[2017-11-15] MEDS: Saccharomyces Boulardi 250 mg Cap PO SCH ×2 (11:17→18:55)
--- NOTE | 2017-11-15 11:48 | PCM.PYCHPN ---
Psychiatric Progress Note - Psychiatric Progress Note Patient seen today, length of contact: 16 min Patient Chief Complaint: I fell down yesterday.' Problems Identified/Issues Discussed: Patient seen and evaluated, chart reviewed and discussed with the nurse. She reports improvement in the withdrawal symptoms. However she reports she fell down yesterday. She denies any AVH or any paranoia. Patient is compliant with medications and denies any side effects. Symptoms are improving but need more time to stabilize. Support and psychoeducation given. Medication Change: Yes (detox changes daily) Medical Record Reviewed: Yes Mental Status Examination - Cognitive Function Orientation: Person, Place, Situation, Time Memory: Impaired Attention: Poor Concentration: Poor Association: WNL Fund of Knowledge: WNL - Mood Mood: Depressed, Anxious - Affect Affect: Constricted - Speech Speech: Appropriate - Formal Thought Process Formal Thought Process: No Impairment - Suicidal Ideation Suicidal Ideation: No - Homicidal Ideation Homicidal Ideation: No Goal/Treatment Plan - Goal/Treatment Plan Need for Continued Stay: Discharge may exacerbated symptoms, Severe functional impairment Progress Toward Problem(s) and Goals/Treatment Plan: Methadone detox Librium detox Gabapentin for seizure risk, neuropathy Seroquel for bipolar d/o Continue as needed medications Attend groups and activities Supportive therapy and psychoeducation [place] for abstinence CBT for relapse prevention Encourage MAT Refer to rehab or IOP Attend self-help groups as well
[2017-11-15 11:52] LABS: ALB/GLOB RATIO 1.1 (1.0-2.1); ALBUMIN 3.6 g/dL (3.5-5.0); ALT/SGPT 38 U/L (9-52); AST/SGOT 42 U/L (14-36); BLOOD UREA NITROGEN 12 mg/dL (7-17); CALCIUM 8.4 mg/dl (8.6-10.4); GFR AFRICAN-AMERICAN > 60; GFR NON-AFRICAN AMERICAN > 60
--- NOTE | 2017-11-15 12:48 | CT ---
Date of service: 11/15/2017 PROCEDURE: CT HEAD WITHOUT CONTRAST. HISTORY: questionable fall, fever COMPARISON: None available. TECHNIQUE: Axial computed tomography images were obtained through the head/brain without intravenous contrast. Radiation dose: Total exam DLP = 812.68 mGy-cm. This CT exam was performed using one or more of the following dose reduction techniques: Automated exposure control, adjustment of the mA and/or kV according to patient size, and/or use of iterative reconstruction technique. FINDINGS: HEMORRHAGE: No intracranial hemorrhage. BRAIN: Ramirez-white matter differentiation is preserved. There is no mass, mass effect or abnormal extra-axial fluid collection. There is no territorial infarction. The midline sagittal structures are normal. VENTRICLES: The ventricles are normal in size, shape and configuration. CALVARIUM: There is no calvarial fracture or extracranial soft tissue swelling. PARANASAL SINUSES: There is chronic ethmoid sinusitis and mild mucosal thickening in the left sphenoid chamber. MASTOID AIR CELLS: Predominantly clear. OTHER FINDINGS: None. IMPRESSION: No acute intracranial abnormality.
--- NOTE | 2017-11-15 13:18 | CT ---
Date of service: 11/15/2017 PROCEDURE: CT Chest without contrast HISTORY: abnormal chest xray, fever COMPARISON: None available. TECHNIQUE: Contiguous axial images were obtained through the chest without intravenous contrast enhancement. Sagittal and coronal reconstructions were performed. Radiation dose (DLP): 145.80 mGy-cm. This CT exam was performed using one or more of the following dose reduction techniques: Automated exposure control, adjustment of the mA and/or kV according to patient size, and/or use of iterative reconstruction technique. FINDINGS: LUNGS: Left lower lobe consolidation. Patchy consolidations/ atelectasis in superior segment left lower lobe. Multifocal small ill-defined nodular opacities in the posterior segment right upper lobe and in the superior segment right lower lobe, likely infectious or inflammatory. Probable subsegmental atelectasis estella basal segment right lower lobe. . MEDIASTINUM: Unremarkable thoracic aorta. No aneurysm. Normal sized heart. Main pulmonary artery unremarkable. No vascular congestion. No lymphadenopathy. Ill-defined soft tissue density in the anterior mediastinum consistent with residual thymic tissue. Please note that this is mildly unusual in a patient of this age but nevertheless is consistent with this diagnosis. Doubt mediastinal neoplasm. PLEURA: No pleural fluid. No pneumothorax. BONES: No fracture. No destructive lesion. UPPER ABDOMEN: Grossly unremarkable. OTHER FINDINGS: None. IMPRESSION: Left lower lobe consolidation. Multifocal small ill-defined nodular opacities right upper lobe and right lower lobe, likely infectious or inflammatory. Multifocal subsegmental atelectasis. Probable residual thymic tissue in the anterior mediastinum. See discussion above. No other significant abnormality.
--- NOTE | 2017-11-15 13:22 | CP.PCM.PCO ---
Physician Communication Note - Physician Communication Note Physician Communication Note: Pt's Temp was 101.6 at 9:30am.
[2017-11-15] MEDS: Albuterol-Ipratrop 3 mg / 0.5 (3 ml) UD INH SCH ×3 (13:39→23:58)
[2017-11-15 17:35] LABS: % CD4 (T HELPER CELL) 21 Percent (30-61); % CD8 (SUPPRESSOR T CELL) 68 Percent (12-42); ABSOLUTE CD4 CELLS 291 Cells/mcL (490-1740); ABSOLUTE CD8 CELLS 937 Cells/mcL (180-1170); ABSOLUTE LYMPHOCYTES 1376 Cells/mcL (850-3900); HELPER/SUPPRESSOR RATIO 0.31 Ratio (0.86-5.00)
--- NOTE | 2017-11-15 17:44 | CP.PCM.CON ---
History of Present Illness - History of Present Illness History of Present Illness: dictated Past Patient History - Infectious Disease Hx of Infectious Diseases: None - Past Medical History & Family History Past Medical History?: Yes - Past Social History Smoking Status: Light Smoker < 10 Cigarettes Daily - CARDIAC Hx Cardiac Disorders: No (Patient denied) Hx Hypertension: Yes - PULMONARY Hx Tuberculosis: No (Patient denied) - NEUROLOGICAL HX Cerebrovascular Accident: No (Patient denied) Hx Seizures: Yes (withdrawal induced) - HEENT Other/Comment: uses reading glasses - RENAL Hx Chronic Kidney Disease: No - ENDOCRINE/METABOLIC Hx Endocrine Disorders: No - HEMATOLOGICAL/ONCOLOGICAL Hx Cancer: No (Patient denied) Hx Hepatitis C: Yes Hx Human Immunodeficiency Virus (HIV): Yes - INTEGUMENTARY Other/Comment: scratches on back healing - MUSCULOSKELETAL/RHEUMATOLOGICAL Hx Musculoskeletal Disorders: No - GASTROINTESTINAL Hx Gastrointestinal Disorders: No - GENITOURINARY/GYNECOLOGICAL Hx Sexually Transmitted Disorders: No (Patient denied) - PSYCHIATRIC Hx Substance Use: Yes - SURGICAL HISTORY Hx Tonsillectomy: Yes - ANESTHESIA Hx Anesthesia: Yes Hx Anesthesia Reactions: No Hx Malignant Hyperthermia: No Meds Allergies/Adverse Reactions: Allergies Allergy/AdvReac Type Severity Reaction Status Date / Time Penicillins Allergy pt reports Verified 07/09/17 17:08 seizures - Medications Medications: Current Medications Acetaminophen (Tylenol 325mg Tab) 650 mg PO Q6 PRN PRN Reason: Fever >100.4 F Last Admin: 11/15/17 14:23 Dose: 650 mg Albuterol/Ipratropium (Duoneb 3 Mg/0.5 Mg (3 Ml) Ud) 3 ml INH RQ4 [facility] Last Admin: 11/15/17 13:39 Dose: 3 ml Chlordiazepoxide (Librium) 25 mg PO DAILY [facility] PRN Reason: Taper Stop: 11/15/17 21:44 Last Admin: 11/15/17 09:43 Dose: 25 mg Clonidine HCl (Catapres) 0.1 mg PO Q4H PRN PRN Reason: Symptoms of alcohol withdrawl Dicyclomine HCl (Bentyl) 10 mg PO Q6 PRN PRN Reason: Muscle spasm Ergocalciferol (Drisdol 50,000 Intl Units Cap) 1 cap PO Q7D [facility] Last Admin: 11/14/17 10:04 Dose: 1 cap Gabapentin (Neurontin) 300 mg PO TID [facility] Last Admin: 11/15/17 13:39 Dose: 300 mg Hydroxyzine HCl (Atarax) 25 mg PO Q6 PRN PRN Reason: Anxiety Last Admin: 11/14/17 12:16 Dose: 25 mg Sodium Chloride (Sodium Chloride 0.9%) 1,000 mls @ 100 mls/hr IV .Q10H [facility] Tigecycline 100 mg/ Sodium (Chloride) 100 mls @ 100 mls/hr IVPB ONCE ONE Stop: 11/15/17 17:59 Loperamide HCl (Imodium) 2 mg PO Q8 PRN PRN Reason: Diarrhea Methadone HCl (Methadone) 5 mg PO Q24H [facility] PRN Reason: Taper Stop: 11/17/17 09:59 Last Admin: 11/15/17 09:43 Dose: 5 mg Mirtazapine (Remeron) 15 mg PO HS [facility] Last Admin: 11/14/17 21:08 Dose: 15 mg Multivitamins (Hexavitamin) 1 tab PO DAILY [facility] Last Admin: 11/15/17 09:42 Dose: 1 tab Nitrofurantoin Macrocrystals (Macrobid) 100 mg PO Q12H [facility] PRN Reason: Protocol Last Admin: 11/15/17 06:49 Dose: 100 mg Ondansetron HCl (Zofran Tab) 4 mg PO Q8H PRN PRN Reason: Nausea/Vomiting Quetiapine Fumarate (Seroquel) 200 mg PO HS [facility] Last Admin: 11/14/17 21:08 Dose: 200 mg Saccharomyces Boulardii (Florastor) 250 mg PO BID [facility] Last Admin: 11/15/17 11:17 Dose: 250 mg Fluticasone/Salmeterol (Advair Diskus 250/50) 1 puff INH RQ12 [facility] Trazodone HCl (Desyrel) 100 mg PO HS PRN PRN Reason: Insomnia Last Admin: 11/14/17 21:09 Dose: 100 mg Trimethoprim/Sulfamethoxazole (Bactrim Ds Tab) 1 tab PO MWF [facility] PRN Reason: Protocol Last Admin: 11/14/17 09:38 Dose: Not Given Results - Vital Signs Recent Vital Signs: Last Vital Signs Temp 101.1 F H 11/15/17 15:28 Pulse 100 H 11/15/17 15:28 Resp 18 11/15/17 15:28 BP 110/80 11/15/17 15:28 Pulse Ox 95 11/15/17 15:28 - Labs Result Diagrams: 11/15/17 10:58 11/15/17 10:58 Labs: Laboratory Results - last 24 hr 11/13/17 11/15/17 11/15/17 17:00 10:58 10:58 WBC 4.6 L RBC 4.08 Hgb 11.6 Hct 35.1 MCV 85.9 MCH 28.5 MCHC 33.2 RDW 16.3 H Plt Count 125 L MPV 9.6 Neut % (Auto) 80.9 H Lymph % (Auto) 12.5 L Caroline % (Auto) 6.3 Eos % (Auto) 0.1 Baso % (Auto) 0.2 Neut # (Auto) 3.7 Lymph # (Auto) 0.6 L Caroline # (Auto) 0.3 Eos # (Auto) 0.0 Baso # (Auto) 0.0 ESR 36 H Sodium 137 Potassium 4.0 Chloride 101 Carbon Dioxide 27 Anion Gap 14 BUN 12 Creatinine 0.9 Est GFR ( Amer) > 60 Est GFR (Non-Af Amer) > 60 Random Glucose 131 H Calcium 8.4 L Phosphorus 3.1 Magnesium 1.8 Total Bilirubin 0.4 AST 42 H ALT 38 Alkaline Phosphatase 75 C-React Prot High Sens Total Protein 6.8 Albumin 3.6 Globulin 3.2 Albumin/Globulin Ratio 1.1 Beta HCG, Quant < 2.39 Absolute Lymphs (Flow) 1376 % CD4 Cells 21 L Absolute CD4 Count 291 L T-Help/Suppress Ratio 0.31 L % CD8 Cells 68 H Absolute CD8 Count 937 11/15/17 10:58 WBC RBC Hgb Hct MCV MCH MCHC RDW Plt Count MPV Neut % (Auto) Lymph % (Auto) Caroline % (Auto) Eos % (Auto) Baso % (Auto) Neut # (Auto) Lymph # (Auto) Caroline # (Auto) Eos # (Auto) Baso # (Auto) ESR Sodium Potassium Chloride Carbon Dioxide Anion Gap BUN Creatinine Est GFR ( Amer) Est GFR (Non-Af Amer) Random Glucose Calcium Phosphorus Magnesium Total Bilirubin AST ALT Alkaline Phosphatase C-React Prot High Sens > 15.00 H Total Protein Albumin Globulin Albumin/Globulin Ratio Beta HCG, Quant Absolute Lymphs (Flow) % CD4 Cells Absolute CD4 Count T-Help/Suppress Ratio % CD8 Cells Absolute CD8 Count
[2017-11-15] MEDS: Sodium Chloride 0.9% 1,000 ML IV SCH (18:20)
[2017-11-15] MEDS: Fluticasone-Salmeterol 250-50mcg Diskus INH SCH (20:26)
[2017-11-16] MEDS: Sodium Chloride 0.9% 1,000 ML IV SCH ×3 (01:45→21:44)
[2017-11-16] MEDS: Albuterol-Ipratrop 3 mg / 0.5 (3 ml) UD INH SCH ×6 (03:34→23:50)
--- NOTE | 2017-11-16 04:58 | CON ---
Copied To: Cristina Waller MD Attending MD: Cristina Waller MD DATE: 11/15/2017 INFECTIOUS DISEASE CONSULT REQUESTED BY: Tamy Quintanilla DO HISTORY OF PRESENT ILLNESS: This patient is a 57-year-old female. She was transferred today to the medical side as she has been admitted for detox from medications, opioids, benzo, and heroin detox. She says she is 57-year-old, but she started doing drugs when she was 13-year-old. She has HIV for a very long time and she has developed HIV-related neuropathy now, and she has not taken any HIV medicine for now. She has hep C diagnosed 26 years ago and she says she was being treated for hep C at one point, but she did not complete the treatment. She takes chronically methadone for back pain and she scratches herself when she does not get methadone due to anxiety. She did have a fever of 101.5 today this morning and then she felt very weak. She has also burning in urination and increased frequency. Denies any blood in the urine and also has been having cough with whitish sputum. She says two weeks ago she was in [facility] and she was treated for bronchitis. She also received Bactrim as well as Cipro as she is allergic to penicillin. She has outpatient psychiatrist. PAST MEDICAL HISTORY: Significant for HIV, hep C, HIV-related neuropathy, insomnia, IV drug abuse, chronic bronchitis. SURGICAL HISTORY: Significant for tonsillectomy. FAMILY HISTORY: Noncontributory. She says she told her father that she was going to [facility] for detox. SOCIAL HISTORY: She smoked three cigarettes per day for 20 years. Denies alcohol abuse. She lives with her parents in [place]. She uses five bags of heroin per day, she snorts it and also uses IV. She is a life smoker, less than 10 cigarettes a day. ALLERGIES: TO PENICILLIN. SHE SAYS IT CAUSED SEIZURE A CHILD. She does not ever recall taking any other medications. MEDICATIONS: Here include Tylenol, albuterol, Librium. She is on clonidine, dicyclomine, ergocalciferol, gabapentin, hydroxyzine, loperamide, methadone, mirtazapine, multivitamin. She was started on nitrofurantoin yesterday. She is also on Zofran, Seroquel, and trazodone. She is on Bactrim, which was started for Sunday, Sunday and Sunday. REVIEW OF SYSTEMS: She is very tired and sick looking. She denies any ear problems. Denies any sore throat. No eye issues. Denies any chest pain. She is coughing. Denies any sputum with blood. Denies any tightness of chest. She does have diarrhea. She has been on antibiotics recently. She also has dysuria, urinary frequency. Denies any skin rash or open wound. Does complain of tingling in her lower extremities because of neuropathy. She has scratch groves on her forearm. She is chronically fatigued due to her disease. She denies any heart issues with endocarditis. She does give history of hypertension. No history of TB. She denies any stroke in the past, but had withdrawal seizures. She uses reading glasses. She denies any kidney issues. Denies any diabetes. She denies any cancer. She has HIV disease and hep C positive. Scratches her skin and the fever is just a day. She has been having cough for last three days. PHYSICAL EXAMINATION: VITAL SIGNS: I find her temperature is 102.1 right now, heart rate of 101, blood pressure 107/64, respirations are 20. I saw her around 4 o'clock, while she was still going to come down to the medical unit. HEENT: Head is atraumatic, normocephalic. Pupils are reacting to light. NECK: Supple. JVP is flat. LUNGS: Clear. No crackles or rales present. Have rhonchi bilaterally. HEART: S1, S2, tachycardic. No murmurs appreciated. ABDOMEN: Soft, nontender. No guarding, no rigidity present. EXTREMITIES: Have no edema, clubbing, or cyanosis at this time. Scratch groves are present on the upper extremities. LABORATORY DATA: Labs are noted. White count is 4.6, hemoglobin 11.6, hematocrit is 35.8, platelet count is 125, is low. BUN is 12, creatinine 0.9. Glucose is 131. Sodium 137, potassium 4, chloride 101, CO2 is 27. UA had leukocytes 1+ and wbc 15. Urine culture is positive for group C Streptococcus, 50 to 100,000 group C Streptococcus was seen in the urine. She also had chest x-ray done. A chest CT was done which shows left lower consolidation, multifocal, small ill-defined nodular opacity, right upper lobe and right lower lobe, most likely infectious or inflammatory, multifocal subsegmental atelectasis, probable residual thymic in the anterior mediastinum. ASSESSMENT AND PLAN: At this time, since she is a intravenous drug abuser and is for detox, now with pneumonia. The hospital does not have Avelox or Levaquin, and she just used Cipro. She is bolaños allergic. The next choice I would think would be Tygacil. I would start her on that and leave the Bactrim Sunday, Sunday, and Sunday for PCP prophylaxis. CD-4 count has already been sent, we will wait for it and also to get a sputum C and S, as she is coughing and she had group C Streptococcus in the urine. I would also get an echocardiogram just to be sure to rule out any vegetation, and blood cultures have been ordered. She is on a lot of medications for diarrhea including Imodium. I would also check her for Clostridium difficile. Right now, also we will get an LDH level done, but her saturation was 98% as told by the nurse to me. We have to keep in mind that her CD-4 count was 217 in August and she may have Pneumocystis carinii pneumonia, but it seems like a localized pneumonia. We will follow. Cristina Waller MD
--- NOTE | 2017-11-16 07:14 | CP.PCM.PN ---
Subjective - Date & Time of Evaluation Date of Evaluation: 11/16/17 Time of Evaluation: 07:14 - Subjective Subjective: Medicine Progress Note for Dr. Quintanilla Patient examined at bedside. States that she has abdominal pain as well as pain in her lower extremities bilaterally. She attributes her pain due to an episode of falling down stairs prior to admission. Denies chest pain, shortness of breath, nausea, vomiting, changes in bowel movements, dysuria. Objective - Vital Signs/Intake and Output Vital Signs (last 24 hours): Temp Pulse Resp BP Pulse Ox 100.1 F H 107 H 20 110/64 94 L 11/16/17 00:00 11/16/17 00:00 11/16/17 00:00 11/16/17 00:00 11/16/17 00:00 - Medications Medications: Current Medications Acetaminophen (Tylenol 325mg Tab) 650 mg PO Q6 PRN PRN Reason: Fever >100.4 F Last Admin: 11/15/17 20:00 Dose: 650 mg Albuterol/Ipratropium (Duoneb 3 Mg/0.5 Mg (3 Ml) Ud) 3 ml INH RQ4 [facility] Last Admin: 11/16/17 03:34 Dose: 3 ml Clonidine HCl (Catapres) 0.1 mg PO Q4H PRN PRN Reason: Symptoms of alcohol withdrawl Dicyclomine HCl (Bentyl) 10 mg PO Q6 PRN PRN Reason: Muscle spasm Ergocalciferol (Drisdol 50,000 Intl Units Cap) 1 cap PO Q7D [facility] Last Admin: 11/14/17 10:04 Dose: 1 cap Gabapentin (Neurontin) 300 mg PO TID [facility] Last Admin: 11/15/17 18:00 Dose: 300 mg Hydroxyzine HCl (Atarax) 25 mg PO Q6 PRN PRN Reason: Anxiety Last Admin: 11/14/17 12:16 Dose: 25 mg Sodium Chloride (Sodium Chloride 0.9%) 1,000 mls @ 100 mls/hr IV .Q10H [facility] Last Admin: 11/16/17 01:45 Dose: 100 mls/hr Tigecycline 50 mg/ Sodium (Chloride) 100 mls @ 100 mls/hr IVPB Q12H [facility] PRN Reason: Protocol Loperamide HCl (Imodium) 2 mg PO Q8 PRN PRN Reason: Diarrhea Methadone HCl (Methadone) 5 mg PO Q24H [facility] PRN Reason: Taper Stop: 11/17/17 09:59 Last Admin: 11/15/17 09:43 Dose: 5 mg Mirtazapine (Remeron) 15 mg PO HS [facility] Last Admin: 11/15/17 21:54 Dose: 15 mg Multivitamins (Hexavitamin) 1 tab PO DAILY [facility] Last Admin: 11/15/17 09:42 Dose: 1 tab Nitrofurantoin Macrocrystals (Macrobid) 100 mg PO Q12H [facility] PRN Reason: Protocol Last Admin: 11/15/17 19:53 Dose: 100 mg Ondansetron HCl (Zofran Tab) 4 mg PO Q8H PRN PRN Reason: Nausea/Vomiting Quetiapine Fumarate (Seroquel) 200 mg PO HS [facility] Last Admin: 11/15/17 21:54 Dose: 200 mg Saccharomyces Boulardii (Florastor) 250 mg PO BID [facility] Last Admin: 11/15/17 18:55 Dose: 250 mg Fluticasone/Salmeterol (Advair Diskus 250/50) 1 puff INH RQ12 [facility] Last Admin: 11/15/17 20:26 Dose: 1 puff Trazodone HCl (Desyrel) 100 mg PO PRN PRN Reason: Insomnia Last Admin: 11/14/17 21:09 Dose: 100 mg Trimethoprim/Sulfamethoxazole (Bactrim Ds Tab) 1 tab PO MWF [facility] PRN Reason: Protocol Last Admin: 11/14/17 09:38 Dose: Not Given - Labs Labs: 11/15/17 10:58 11/15/17 10:58 - Constitutional Appears: Non-toxic, No Acute Distress, Agitated - Head Exam Head Exam: ATRAUMATIC, NORMOCEPHALIC - Eye Exam Eye Exam: EOMI, Normal appearance - ENT Exam ENT Exam: Mucous Membranes Moist, Normal Exam - Neck Exam Neck Exam: Normal Inspection - Respiratory Exam Respiratory Exam: Rales (rales in left lower lung gilman). absent: Wheezes, Respiratory Distress - Cardiovascular Exam Cardiovascular Exam: REGULAR RHYTHM, +S1, +S2 - GI/Abdominal Exam GI & Abdominal Exam: Distended, Soft, Tenderness, Normal Bowel Sounds. absent: Firm, Rigid, Organomegaly Additional comments: Diffusely tender abdomen - Extremities Exam Extremities Exam: Full ROM, Normal Capillary Refill, Normal Inspection - Back Exam Back Exam: NORMAL INSPECTION - Neurological Exam Neurological Exam: Alert, Awake, CN II-XII Intact, Oriented x3 - Psychiatric Exam Psychiatric exam: Agitated, Normal Mood - Skin Skin Exam: Dry, Intact, Normal Color Assessment and Plan - Assessment and Plan (Free Text) Plan: Community acquired pneumonia - Urine culture positive for group C strep - Mycoplasma negative - ESR 36.0 (H), CRP>15.0 (H) - Chest x-ray shows interval pathology left lung base mixed imaging findings. Inflammatory and neoplastic etiologies compatible with this. - Chest CT shows left lower lobe consolidation, multifocal small ill-defined nodular opacities right upper lobe and right lower lobe, likely infectious or inflammatory. Multifocal subsegmental atelectasis. Probable residual thymic tissue in anterior mediastinum. - ABG pO2 47 - ID consulted. Recs appreciated. - O2 via nonrebreather - Nebulizer treatments - Aztreonam 1 gm Q8H - Tygacil 100 mg IV Q12H - Florastor 250 mg PO BID - IVF 100 ccs/hour - Tylenol 650mg PO q6 PRN fever - Followup blood cultures - Followup strep pneumo urine antigen, legionella urine antigen Chronic bronchitis - Advair 250/50 Q12h - Duonebs RQ4 - Mucinex 600 mg PO BID - Tessalon perles 100 mg PO TID HIV - Absolute CD4 count 214 per 08/2017 labs. Repeat absolute CD4 count 291. - Bactrim DS PO MWF for PCP prophylaxis Hepatitis C - HCV RNA Detected in 08/2017 labs - 1a genotype - Patient advised for outpatient GI workup for treatment Opioid/heroin detox - Continue management as per detox/psychiatry team PPX - SCDs Dispo: Pending resolution of pneumonia. Emily Perdue PGY-1
[2017-11-16] MEDS: Fluticasone-Salmeterol 250-50mcg Diskus INH SCH ×2 (08:18→20:09)
[2017-11-16] MEDS: Tmp-Smz 800 mg-160 mg DS Tab PO SCH (09:37)
[2017-11-16] MEDS: Multiple Vitamins Tab PO SCH (10:37)
[2017-11-16] MEDS: Saccharomyces Boulardi 250 mg Cap PO SCH ×2 (10:37→18:17)
--- NOTE | 2017-11-16 11:13 | PCM.PYCHPN ---
Psychiatric Progress Note - Psychiatric Progress Note Patient seen today, length of contact: 16 min Patient Chief Complaint: "I am not well" Problems Identified/Issues Discussed: The pt is seen, chart reviewed, case discussed with staff. She is now transferred to medicine with pneumonia Support and psychoeducation given No new symptoms reported, improving slowly and needs more time Detox ending soon No SEs from medications, risks discussed. After care discussed: She will go to [facility] Medication Change: Yes (detox changes daily) Medical Record Reviewed: Yes Mental Status Examination - Cognitive Function Orientation: Person, Place, Situation, Time Memory: Impaired Attention: Poor Concentration: Poor Association: WNL Fund of Knowledge: WNL - Mood Mood: Depressed, Anxious - Affect Affect: Constricted - Speech Speech: Appropriate - Formal Thought Process Formal Thought Process: No Impairment - Suicidal Ideation Suicidal Ideation: No - Homicidal Ideation Homicidal Ideation: No Goal/Treatment Plan - Goal/Treatment Plan Need for Continued Stay: Discharge may exacerbated symptoms, Severe functional impairment Progress Toward Problem(s) and Goals/Treatment Plan: Methadone detox Librium detox Gabapentin for seizure risk, neuropathy Seroquel for bipolar d/o Continue as needed medications Attend groups and activities Supportive therapy and psychoeducation [place] for abstinence CBT for relapse prevention Encourage MAT Refer to rehab or IOP Attend self-help groups as well
[2017-11-16 12:23] LABS: ARTERIAL BLOOD GAS HCO3 23.4 mmol/L (21-28); ARTERIAL BLOOD GAS HEMOGLOBIN 10.5 g/dL (11.7-17.4); ARTERIAL BLOOD GAS O2 SAT 87.1 % (95-98); ARTERIAL BLOOD GAS PCO2 45 mm/Hg (35-45); ARTERIAL BLOOD GAS PH 7.34 (7.35-7.45); ARTERIAL BLOOD GAS PO2 47 mm/Hg (80-100); ARTERIAL BLOOD GAS TCO2 25.7 mmol/L (22-28)
--- NOTE | 2017-11-16 16:37 | CP.PCM.PN ---
Subjective - Date & Time of Evaluation Date of Evaluation: 11/16/17 Time of Evaluation: 03:15 - Subjective Subjective: dictated Objective - Vital Signs/Intake and Output Vital Signs (last 24 hours): Temp Pulse Resp BP Pulse Ox 101.0 F H 107 H 20 132/71 112 H 11/16/17 08:04 11/16/17 00:00 11/16/17 08:00 11/16/17 08:00 11/16/17 08:00 Intake and Output: 11/16/17 11/16/17 06:59 18:59 Intake Total 300 Balance 300 - Medications Medications: Current Medications Acetaminophen (Tylenol 325mg Tab) 650 mg PO Q6 PRN PRN Reason: Fever >100.4 F Last Admin: 11/16/17 08:04 Dose: 650 mg Albuterol/Ipratropium (Duoneb 3 Mg/0.5 Mg (3 Ml) Ud) 3 ml INH RQ4 [facility] Last Admin: 11/16/17 15:40 Dose: 3 ml Benzonatate (Tessalon Perles) 100 mg PO TID [facility] Clonidine HCl (Catapres) 0.1 mg PO Q4H PRN PRN Reason: Symptoms of alcohol withdrawl Dicyclomine HCl (Bentyl) 10 mg PO Q6 PRN PRN Reason: Muscle spasm Docusate Sodium (Colace) 100 mg PO BID [facility] Ergocalciferol (Drisdol 50,000 Intl Units Cap) 1 cap PO Q7D [facility] Last Admin: 11/14/17 10:04 Dose: 1 cap Gabapentin (Neurontin) 300 mg PO TID [facility] Last Admin: 11/16/17 14:20 Dose: 300 mg Guaifenesin (Mucinex La) 600 mg PO BID [facility] Hydroxyzine HCl (Atarax) 25 mg PO Q6 PRN PRN Reason: Anxiety Last Admin: 11/14/17 12:16 Dose: 25 mg Sodium Chloride (Sodium Chloride 0.9%) 1,000 mls @ 100 mls/hr IV .Q10H [facility] Last Admin: 11/16/17 10:45 Dose: Not Given Tigecycline 50 mg/ Sodium (Chloride) 100 mls @ 100 mls/hr IVPB Q12H [facility] PRN Reason: Protocol Last Admin: 11/16/17 12:25 Dose: 100 mls/hr Methadone HCl (Methadone) 5 mg PO Q24H [facility] PRN Reason: Taper Stop: 11/17/17 09:59 Last Admin: 11/16/17 10:37 Dose: 5 mg Mirtazapine (Remeron) 15 mg PO HS [facility] Last Admin: 11/15/17 21:54 Dose: 15 mg Multivitamins (Hexavitamin) 1 tab PO DAILY [facility] Last Admin: 11/16/17 10:37 Dose: 1 tab Ondansetron HCl (Zofran Tab) 4 mg PO Q8H PRN PRN Reason: Nausea/Vomiting Quetiapine Fumarate (Seroquel) 200 mg PO HS [facility] Last Admin: 11/15/17 21:54 Dose: 200 mg Saccharomyces Boulardii (Florastor) 250 mg PO BID [facility] Last Admin: 11/16/17 10:37 Dose: 250 mg Fluticasone/Salmeterol (Advair Diskus 250/50) 1 puff INH RQ12 [facility] Last Admin: 11/16/17 08:18 Dose: Not Given Trazodone HCl (Desyrel) 100 mg PO HS PRN PRN Reason: Insomnia Last Admin: 11/14/17 21:09 Dose: 100 mg - Labs Labs: 11/15/17 10:58 11/15/17 10:58
[2017-11-16 17:06] LABS: BASO % 0.2 % (0.0-2.0); EOS % 0.2 % (0.0-4.0); LYMPH # 0.9 K/uL (1.0-4.3); LYMPH % 14.8 % (20.0-40.0); MEAN CELL VOLUME 86.7 fL (81.0-99.0); MEAN CORPUSCULAR HEMOGLOBIN 28.1 pg (27.0-31.0); MEAN CORPUSCULAR HGB CONC 32.4 g/dL (33.0-37.0); MEAN PLATELET VOLUME 8.9 fL (7.2-11.7); MONO # 0.5 K/uL (0.0-0.8); MONO % 8.6 % (0.0-10.0); NEUT # 4.8 K/uL (1.8-7.0); NEUT % 76.2 % (50.0-75.0); NRBC % 0.1 % (0.0-2.0); RBC 4.28 Mil/uL (3.80-5.20); RED CELL DISTRIBUTION WIDTH 16.5 % (11.5-14.5); WHITE BLOOD COUNT 6.3 K/uL (4.8-10.8)
[2017-11-16 17:27] LABS: ALBUMIN 3.4 g/dL (3.5-5.0); ALT/SGPT 30 U/L (9-52); AST/SGOT 31 U/L (14-36); BLOOD UREA NITROGEN 14 mg/dL (7-17); CALCIUM 8.3 mg/dl (8.6-10.4); GFR AFRICAN-AMERICAN > 60; GFR NON-AFRICAN AMERICAN > 60
[2017-11-16] MEDS: guaiFENesin 600 mg ER Tab PO SCH (18:20)
[2017-11-16] MEDS: Aztreonam 1 GM in Sodium Chloride 0.9% 100 ML IVPB SCH (18:21)
--- NOTE | 2017-11-16 20:44 | CARD ---
APPROVED REPORT Date of service: 11/16/2017 EXAM: Two-dimensional and M-mode echocardiogram with Doppler and color Doppler. Other Information Quality : GoodRhythm : INDICATION Infection:Rule out subacute bacterial endocarditis IVDA 2D DIMENSIONS IVSd0.9 (0.7-1.1cm)LVDd3.6 (3.9-5.9cm) PWd0.8 (0.7-1.1cm)LVDs2.0 (2.5-4.0cm) FS (%) 44.2 %LVEF (%)76.3 (>50%) M-Mode DIMENSIONS Left Atrium (MM)3.30 (2.5-4.0cm)IVSd0.81 (0.7-1.1cm) Aortic Root3.28 (2.2-3.7cm)LVDd3.78 (4.0-5.6cm) Aortic Cusp Exc.2.39 (1.5-2.0cm)PWd1.00 (0.7-1.1cm) FS (%) 40 %LVDs2.26 (2.0-3.8cm) LVEF (%)72 (>50%) Mitral Valve MV E Sivjmphv29.5cm/sMV A Fuflpmuz13.0cm/sE/A ratio0.6 TDI E/Lateral E'0.0E/Medial E'0.0 Tricuspid Valve TR Peak [id number]/sTR Peak Gr.[id number] LEFT VENTRICLE The left ventricle is normal size. There is normal left ventricular wall thickness. The left ventricular function is normal. The left ventricular ejection fraction is within the normal range. 66% No regional wall motion abnormalities noted. Transmitral Doppler flow pattern is Grade I-abnormal relaxation pattern. No left ventricle thrombus noted on this study. There is no ventricular septal defect visualized. There is no left ventricular aneurysm. There is no mass noted in the left ventricle. RIGHT VENTRICLE The right ventricle is normal size. There is normal right ventricular wall thickness. The right ventricular systolic function is normal. ATRIA The left atrium size is normal. The right atrium size is normal. The interatrial septum is intact with no evidence for an atrial septal defect. AORTIC VALVE The aortic valve is normal in structure and function. Mild aortic regurgitation is present. There is no aortic valvular stenosis. There is no aortic valvular vegetation. MITRAL VALVE The mitral valve is normal in structure and function. There is no evidence of mitral valve prolapse. There is no mitral valve stenosis. There is no mitral valve regurgitation noted. TRICUSPID VALVE The tricuspid valve is normal in structure and function. There is mild tricuspid valve regurgitation noted. Estimated PA systolic pressure is 37 mm Hg. There is no tricuspid valve prolapse or vegetation. There is no tricuspid valve stenosis. PULMONIC VALVE The pulmonary valve is normal in structure and function. There is no pulmonic valvular regurgitation. There is no pulmonic valvular stenosis. GREAT VESSELS The aortic root is normal in size. The ascending aorta is normal in size. The pulmonary artery is normal. The IVC is normal in size and collapses >50% with inspiration. PERICARDIAL EFFUSION The pericardium appears normal. There is no pleural effusion. <Conclusion> The left ventricular function is normal. Transmitral Doppler flow pattern is Grade I-abnormal relaxation pattern. Mild aortic regurgitation is present.
--- NOTE | 2017-11-16 20:54 | CARD ---
APPROVED REPORT Date of service: 11/15/2017 EKG Measurement Heart [id number] <Conclusion> Sinus tachycardia Otherwise normal ECG
[2017-11-17] MEDS: Aztreonam 1 GM in Sodium Chloride 0.9% 100 ML IVPB SCH ×3 (01:00→18:51)
--- NOTE | 2017-11-17 01:30 | PN ---
Copied To: Cristina Waller MD Attending MD: Cristina Waller MD DATE: 11/16/2017 INFECTIOUS DISEASE FOLLOWUP SUBJECTIVE: The patient is still having fevers of 102, pulse is 88, blood pressure is 148/73, respirations are 20. She was here for substance abuse, and she wanted treatment done. She is a drug addict. She is falling asleep, but she says she feels a little better. I had put her on Tygacil yesterday as she was having fever. She has a history of bronchitis. She was in [facility] before. Has HIV disease, bronchitis. She is not taking any medications for HIV. She was in the methadone program before. She has been using heroin since 20 years. She snores. I am not sure if she is IV drug abuser because she is falling asleep and is still febrile. PHYSICAL EXAMINATION: VITAL SIGNS: Her temperature remains 102, pulse is 88, blood pressure 148/73, respirations are 20. HEENT: Head is atraumatic, normocephalic. NECK: Supple. LUNGS: Have bilateral wheezes and rhonchi bilaterally. Had some decreased breath sounds on left base. HEART: S1, S2 are regular and tachycardic. ABDOMEN: Soft, nontender. No guarding, no rigidity present. EXTREMITIES: Have no edema, clubbing, or cyanosis. LABORATORY DATA: White count is 6.3, hemoglobin 12, hematocrit 37.1, platelet count is 132. She did have an ABG which looks like as pCO2 is 45, pO2 is 47, pH is 7.34. I am not sure if this is measured. Hemoglobin is 12.6, carboxyhemoglobin is 1.7, so that is high. Hemoglobin oxygen saturation is only 85%, so we will need to increase the oxygenation. Sodium is 142, potassium 4.3, chlorides are 105, CO2 is 29, BUN is 13, and creatinine is 0.9 at this time and we did the cultures yesterday. Cultures are all negative so for. Urine culture had group C Streptococci. ASSESSMENT AND PLAN: At this time, I have added Azactam also and continued the Tygacil, and I made the Bactrim once a day dose for PCP prophylaxis, and we will follow. This patient also will get an echocardiogram to be sure she has no vegetation as there is a history of drug abuse and may need a CAT scan of the chest if she does not improve further and a pulmonary evaluation. We will wait for it since we have just added the antibiotics, and she is getting respiratory treatments. She has human immunodeficiency virus, but she has had CD4 count of 271. Last one was 271, so I doubt she has PCP but she does have significant pneumonia with infection versus inflammation in the lungs. LDH was normal, so doubt PCP. Cristina Waller MD
[2017-11-17] MEDS: Albuterol-Ipratrop 3 mg / 0.5 (3 ml) UD INH SCH ×5 (03:26→19:45)
[2017-11-17 07:05] LABS: BASO % 0.2 % (0.0-2.0); EOS % 0.1 % (0.0-4.0); HEMOGLOBIN 11.5 g/dL (11.0-16.0); LYMPH # 0.6 K/uL (1.0-4.3); LYMPH % 10.9 % (20.0-40.0); MEAN CELL VOLUME 86.1 fL (81.0-99.0); MEAN CORPUSCULAR HEMOGLOBIN 28.3 pg (27.0-31.0); MEAN CORPUSCULAR HGB CONC 32.9 g/dL (33.0-37.0); MEAN PLATELET VOLUME 9.4 fL (7.2-11.7); MONO # 0.5 K/uL (0.0-0.8); MONO % 8.1 % (0.0-10.0); NEUT # 4.6 K/uL (1.8-7.0); NEUT % 80.7 % (50.0-75.0); RBC 4.05 Mil/uL (3.80-5.20); RED CELL DISTRIBUTION WIDTH 16.6 % (11.5-14.5); WHITE BLOOD COUNT 5.7 K/uL (4.8-10.8)
[2017-11-17 07:17] LABS: ALBUMIN 3.1 g/dL (3.5-5.0); CALCIUM 8.2 mg/dl (8.6-10.4); GFR AFRICAN-AMERICAN > 60; GFR NON-AFRICAN AMERICAN > 60
[2017-11-17 07:18] LABS: ALT/SGPT 24 U/L (9-52); AST/SGOT 36 U/L (14-36); BLOOD UREA NITROGEN 16 mg/dL (7-17)
[2017-11-17] MEDS: Fluticasone-Salmeterol 250-50mcg Diskus INH SCH ×2 (08:00→19:45)
[2017-11-17] MEDS: Multiple Vitamins Tab PO SCH (09:23)
[2017-11-17] MEDS: Tmp-Smz 800 mg-160 mg DS Tab PO SCH (09:23)
[2017-11-17] MEDS: Saccharomyces Boulardi 250 mg Cap PO SCH ×2 (09:24→18:57)
[2017-11-17] MEDS: guaiFENesin 600 mg ER Tab PO SCH ×2 (09:24→18:55)
--- NOTE | 2017-11-17 11:23 | CP.PCM.PN ---
Subjective - Date & Time of Evaluation Date of Evaluation: 11/17/17 Time of Evaluation: 10:00 - Subjective Subjective: Hospitalist Progress Note for Dr. Quintanilla Patient examined at bedside. States that she is feeling much better today with improved breathing. However still experiencing some abdominal pain as well as constipation. Denies chest pain, nausea, vomiting, dysuria. Objective - Vital Signs/Intake and Output Vital Signs (last 24 hours): Temp Pulse Resp BP Pulse Ox 97.6 F 111 H 20 118/80 97 11/17/17 07:28 11/17/17 07:28 11/17/17 07:28 11/17/17 07:28 11/17/17 07:28 Intake and Output: 11/17/17 11/17/17 06:59 18:59 Intake Total 2150 Balance 2150 - Medications Medications: Current Medications Acetaminophen (Tylenol 325mg Tab) 650 mg PO Q6 PRN PRN Reason: Fever >100.4 F Last Admin: 11/17/17 00:30 Dose: 650 mg Albuterol/Ipratropium (Duoneb 3 Mg/0.5 Mg (3 Ml) Ud) 3 ml INH RQ4 [facility] Last Admin: 11/17/17 08:01 Dose: 3 ml Benzonatate (Tessalon Perles) 100 mg PO TID [facility] Last Admin: 11/17/17 09:24 Dose: 100 mg Clonidine HCl (Catapres) 0.1 mg PO Q4H PRN PRN Reason: Symptoms of alcohol withdrawl Dicyclomine HCl (Bentyl) 10 mg PO Q6 PRN PRN Reason: Muscle spasm Docusate Sodium (Colace) 100 mg PO BID [facility] Last Admin: 11/17/17 09:24 Dose: 100 mg Ergocalciferol (Drisdol 50,000 Intl Units Cap) 1 cap PO Q7D [facility] Last Admin: 11/14/17 10:04 Dose: 1 cap Gabapentin (Neurontin) 300 mg PO TID [facility] Last Admin: 11/17/17 09:23 Dose: 300 mg Guaifenesin (Mucinex La) 600 mg PO BID [facility] Last Admin: 11/17/17 09:24 Dose: 600 mg Hydroxyzine HCl (Atarax) 25 mg PO Q6 PRN PRN Reason: Anxiety Last Admin: 11/17/17 09:23 Dose: 25 mg Sodium Chloride (Sodium Chloride 0.9%) 1,000 mls @ 100 mls/hr IV .Q10H [facility] Last Admin: 11/16/17 21:44 Dose: Not Given Tigecycline 50 mg/ Sodium (Chloride) 100 mls @ 100 mls/hr IVPB Q12H [facility] PRN Reason: Protocol Last Admin: 11/17/17 09:30 Dose: 100 mls/hr Aztreonam 1 gm/ Sodium (Chloride) 100 mls @ 200 mls/hr IVPB Q8H [facility] PRN Reason: Protocol Last Admin: 11/17/17 01:00 Dose: 200 mls/hr Mirtazapine (Remeron) 15 mg PO HS [facility] Last Admin: 11/16/17 21:41 Dose: 15 mg Multivitamins (Hexavitamin) 1 tab PO DAILY [facility] Last Admin: 11/17/17 09:23 Dose: 1 tab Ondansetron HCl (Zofran Tab) 4 mg PO Q8H PRN PRN Reason: Nausea/Vomiting Quetiapine Fumarate (Seroquel) 200 mg PO HS [facility] Last Admin: 11/16/17 21:40 Dose: 200 mg Saccharomyces Boulardii (Florastor) 250 mg PO BID [facility] Last Admin: 11/17/17 09:24 Dose: 250 mg Fluticasone/Salmeterol (Advair Diskus 250/50) 1 puff INH RQ12 [facility] Last Admin: 11/17/17 08:00 Dose: 1 puff Trazodone HCl (Desyrel) 100 mg PO HS PRN PRN Reason: Insomnia Last Admin: 11/14/17 21:09 Dose: 100 mg Trimethoprim/Sulfamethoxazole (Bactrim Ds Tab) 1 tab PO DAILY [facility] PRN Reason: Protocol Last Admin: 11/17/17 09:23 Dose: 1 tab - Labs Labs: 11/17/17 06:52 11/17/17 06:52 - Additional Findings Additional findings: - Constitutional Appears: Non-toxic, No Acute Distress - Head Exam Head Exam: ATRAUMATIC, NORMOCEPHALIC - Eye Exam Eye Exam: EOMI, Normal appearance - ENT Exam ENT Exam: Mucous Membranes Moist, Normal Exam - Neck Exam Neck Exam: Normal Inspection - Respiratory Exam Respiratory Exam: Rales (rales in left lower lung gilman). absent: Wheezes, Respiratory Distress - Cardiovascular Exam Cardiovascular Exam: REGULAR RHYTHM, +S1, +S2 - GI/Abdominal Exam GI & Abdominal Exam: Distended, Soft, Tenderness, Normal Bowel Sounds. absent: Firm, Rigid, Organomegaly Additional comments: Diffusely tender abdomen - Extremities Exam Extremities Exam: Full ROM, Normal Capillary Refill, Normal Inspection - Back Exam Back Exam: NORMAL INSPECTION - Neurological Exam Neurological Exam: Alert, Awake, CN II-XII Intact, Oriented x3 - Psychiatric Exam Psychiatric exam: Normal Affect, Normal Mood - Skin Skin Exam: Dry, Intact, Normal Color. Assessment and Plan - Assessment and Plan (Free Text) Plan: Community acquired pneumonia - Tmax overnight 102.0 - Urine culture positive for group C strep - Mycoplasma negative - ESR 36.0 (H), CRP>15.0 (H) - Chest x-ray shows interval pathology left lung base mixed imaging findings. Inflammatory and neoplastic etiologies compatible with this. - Chest CT shows left lower lobe consolidation, multifocal small ill-defined nodular opacities right upper lobe and right lower lobe, likely infectious or inflammatory. Multifocal subsegmental atelectasis. Probable residual thymic tissue in anterior mediastinum. - ABG pO2 47 - ID consulted. Recs appreciated. - O2 via nonrebreather - Nebulizer treatments - Aztreonam 1 gm Q8H - Tygacil 100 mg IV Q12H - Florastor 250 mg PO BID - IVF 100 ccs/hour - Tylenol 650mg PO q6 PRN fever - Blood cultures x2 no growth after 24 hours. Urine culture no growth. - Followup strep pneumo urine antigen, legionella urine antigen Chronic bronchitis - Advair 250/50 Q12h - Duonebs RQ4 - Mucinex 600 mg PO BID - Tessalon perles 100 mg PO TID HIV - Absolute CD4 count 214 per 08/2017 labs. Repeat absolute CD4 count 291. - Bactrim DS PO MWF for PCP prophylaxis Hepatitis C - HCV RNA Detected in 08/2017 labs - 1a genotype - Patient advised for outpatient GI workup for treatment Opioid/heroin abuse - ECHO ordered to rule out vegetations. Shows normal LVEF, transmitral doppler flow pattern Grade I-abnormal relaxation pattern. Mild aortic regurgitation. - Continue detox management as per detox/psychiatry team PPX - SCDs Dispo: Pending resolution of pneumonia. Emily Perdue PGY-1
--- NOTE | 2017-11-17 14:18 | CP.PCM.PN ---
Subjective - Date & Time of Evaluation Date of Evaluation: 11/17/17 Time of Evaluation: 02:15 - Subjective Subjective: dictated Objective - Vital Signs/Intake and Output Vital Signs (last 24 hours): Temp Pulse Resp BP Pulse Ox 97.6 F 111 H 20 118/80 97 11/17/17 07:28 11/17/17 07:28 11/17/17 07:28 11/17/17 07:28 11/17/17 07:28 Intake and Output: 11/17/17 11/17/17 06:59 18:59 Intake Total 2150 800 Balance 2150 800 - Medications Medications: Current Medications Acetaminophen (Tylenol 325mg Tab) 650 mg PO Q6 PRN PRN Reason: Fever >100.4 F Last Admin: 11/17/17 00:30 Dose: 650 mg Albuterol/Ipratropium (Duoneb 3 Mg/0.5 Mg (3 Ml) Ud) 3 ml INH RQ4 [facility] Last Admin: 11/17/17 12:55 Dose: 3 ml Benzonatate (Tessalon Perles) 100 mg PO TID [facility] Last Admin: 11/17/17 09:24 Dose: 100 mg Clonidine HCl (Catapres) 0.1 mg PO Q4H PRN PRN Reason: Symptoms of alcohol withdrawl Dicyclomine HCl (Bentyl) 10 mg PO Q6 PRN PRN Reason: Muscle spasm Docusate Sodium (Colace) 100 mg PO BID [facility] Last Admin: 11/17/17 09:24 Dose: 100 mg Ergocalciferol (Drisdol 50,000 Intl Units Cap) 1 cap PO Q7D [facility] Last Admin: 11/14/17 10:04 Dose: 1 cap Gabapentin (Neurontin) 300 mg PO TID [facility] Last Admin: 11/17/17 13:30 Dose: 300 mg Guaifenesin (Mucinex La) 600 mg PO BID [facility] Last Admin: 11/17/17 09:24 Dose: 600 mg Hydrocortisone (Cortizone 1% Cream) 0 gm TOP BID [facility] Hydroxyzine HCl (Atarax) 25 mg PO Q6 PRN PRN Reason: Anxiety Last Admin: 11/17/17 09:23 Dose: 25 mg Sodium Chloride (Sodium Chloride 0.9%) 1,000 mls @ 100 mls/hr IV .Q10H [facility] Last Admin: 11/16/17 21:44 Dose: Not Given Tigecycline 50 mg/ Sodium (Chloride) 100 mls @ 100 mls/hr IVPB Q12H [facility] PRN Reason: Protocol Last Admin: 11/17/17 09:30 Dose: 100 mls/hr Aztreonam 1 gm/ Sodium (Chloride) 100 mls @ 200 mls/hr IVPB Q8H [facility] PRN Reason: Protocol Last Admin: 11/17/17 13:27 Dose: 200 mls/hr Mirtazapine (Remeron) 15 mg PO HS [facility] Last Admin: 11/16/17 21:41 Dose: 15 mg Multivitamins (Hexavitamin) 1 tab PO DAILY [facility] Last Admin: 11/17/17 09:23 Dose: 1 tab Ondansetron HCl (Zofran Tab) 4 mg PO Q8H PRN PRN Reason: Nausea/Vomiting Quetiapine Fumarate (Seroquel) 200 mg PO HS [facility] Last Admin: 11/16/17 21:40 Dose: 200 mg Saccharomyces Boulardii (Florastor) 250 mg PO BID [facility] Last Admin: 11/17/17 09:24 Dose: 250 mg Fluticasone/Salmeterol (Advair Diskus 250/50) 1 puff INH RQ12 [facility] Last Admin: 11/17/17 08:00 Dose: 1 puff Trazodone HCl (Desyrel) 100 mg PO HS PRN PRN Reason: Insomnia Last Admin: 11/14/17 21:09 Dose: 100 mg Trimethoprim/Sulfamethoxazole (Bactrim Ds Tab) 1 tab PO DAILY [facility] PRN Reason: Protocol Last Admin: 11/17/17 09:23 Dose: 1 tab - Labs Labs: 11/17/17 06:52 11/17/17 06:52
--- NOTE | 2017-11-17 16:26 | CP.PCM.PN ---
Subjective - Date & Time of Evaluation Date of Evaluation: 11/17/17 Time of Evaluation: 16:20 - Subjective Subjective: Medical Attending note: Patient seen and examined at bedside. Patient denies headache, denies chest pain, denies dizziness, reports has had a bowel movement today, denies abdominal pain, denies urinary complaints. She reports she feels weak but reports she is coughing up phlegm. Objective - Vital Signs/Intake and Output Vital Signs (last 24 hours): Temp Pulse Resp BP Pulse Ox 99.3 F 111 H 20 127/67 94 L 11/17/17 15:10 11/17/17 15:10 11/17/17 15:10 11/17/17 15:10 11/17/17 15:10 Intake and Output: 11/17/17 11/17/17 06:59 18:59 Intake Total 2150 800 Balance 2150 800 - Medications Medications: Current Medications Acetaminophen (Tylenol 325mg Tab) 650 mg PO Q6 PRN PRN Reason: Fever >100.4 F Last Admin: 11/17/17 00:30 Dose: 650 mg Albuterol/Ipratropium (Duoneb 3 Mg/0.5 Mg (3 Ml) Ud) 3 ml INH RQ4 [facility] Last Admin: 11/17/17 12:55 Dose: 3 ml Benzonatate (Tessalon Perles) 100 mg PO TID [facility] Last Admin: 11/17/17 14:51 Dose: 100 mg Clonidine HCl (Catapres) 0.1 mg PO Q4H PRN PRN Reason: Symptoms of alcohol withdrawl Dicyclomine HCl (Bentyl) 10 mg PO Q6 PRN PRN Reason: Muscle spasm Docusate Sodium (Colace) 100 mg PO BID [facility] Last Admin: 11/17/17 09:24 Dose: 100 mg Ergocalciferol (Drisdol 50,000 Intl Units Cap) 1 cap PO Q7D [facility] Last Admin: 11/14/17 10:04 Dose: 1 cap Gabapentin (Neurontin) 300 mg PO TID [facility] Last Admin: 11/17/17 13:30 Dose: 300 mg Guaifenesin (Mucinex La) 600 mg PO BID [facility] Last Admin: 11/17/17 09:24 Dose: 600 mg Hydrocortisone (Cortizone 1% Cream) 0 gm TOP BID [facility] Hydroxyzine HCl (Atarax) 25 mg PO Q6 PRN PRN Reason: Anxiety Last Admin: 11/17/17 09:23 Dose: 25 mg Sodium Chloride (Sodium Chloride 0.9%) 1,000 mls @ 100 mls/hr IV .Q10H [facility] Last Admin: 11/16/17 21:44 Dose: Not Given Tigecycline 50 mg/ Sodium (Chloride) 100 mls @ 100 mls/hr IVPB Q12H [facility] PRN Reason: Protocol Last Admin: 11/17/17 09:30 Dose: 100 mls/hr Aztreonam 1 gm/ Sodium (Chloride) 100 mls @ 200 mls/hr IVPB Q8H [facility] PRN Reason: Protocol Last Admin: 11/17/17 13:27 Dose: 200 mls/hr Mirtazapine (Remeron) 15 mg PO HS [facility] Last Admin: 11/16/17 21:41 Dose: 15 mg Multivitamins (Hexavitamin) 1 tab PO DAILY [facility] Last Admin: 11/17/17 09:23 Dose: 1 tab Ondansetron HCl (Zofran Tab) 4 mg PO Q8H PRN PRN Reason: Nausea/Vomiting Quetiapine Fumarate (Seroquel) 200 mg PO HS [facility] Last Admin: 11/16/17 21:40 Dose: 200 mg Saccharomyces Boulardii (Florastor) 250 mg PO BID [facility] Last Admin: 11/17/17 09:24 Dose: 250 mg Fluticasone/Salmeterol (Advair Diskus 250/50) 1 puff INH RQ12 [facility] Last Admin: 11/17/17 08:00 Dose: 1 puff Trazodone HCl (Desyrel) 100 mg PO HS PRN PRN Reason: Insomnia Last Admin: 11/14/17 21:09 Dose: 100 mg Trimethoprim/Sulfamethoxazole (Bactrim Ds Tab) 1 tab PO DAILY [facility] PRN Reason: Protocol Last Admin: 11/17/17 09:23 Dose: 1 tab - Labs Labs: 11/17/17 06:52 11/17/17 06:52 - Constitutional Appears: Non-toxic, No Acute Distress - Head Exam Head Exam: NORMAL INSPECTION - Eye Exam Eye Exam: EOMI - ENT Exam ENT Exam: Mucous Membranes Moist - Respiratory Exam Respiratory Exam: Decreased Breath Sounds, Rhonchi, NORMAL BREATHING PATTERN - Cardiovascular Exam Cardiovascular Exam: REGULAR RHYTHM, +S1, +S2 - GI/Abdominal Exam GI & Abdominal Exam: Soft, Normal Bowel Sounds. absent: Distended, Firm, Guarding, Rigid, Tenderness, Rebound - Extremities Exam Extremities Exam: absent: Pedal Edema, Tenderness - Back Exam Back Exam: absent: CVA tenderness (L), CVA tenderness (R) - Neurological Exam Neurological Exam: Alert, Awake, Oriented x3 - Psychiatric Exam Psychiatric exam: Normal Affect, Normal Mood - Skin Skin Exam: Dry, Intact, Normal Color, Warm Assessment and Plan (1) Pneumonia Assessment & Plan: Dr. Waller (ID) on case-->help appreciated IV abx: Aztrenonam Igm IVPB Q8H (active since 11/16/17) Tigecycline 50mg IVQ12H (active since 11/16/17) TMP-SMX 1 tab PO daily for PCP ppx CT Chest (11/15/17): left lower lobe consolidation. Multifocal small ill defined nodular opacities right upper and lower lobe, likely infectious or inflammatory. Multifocal subsegmetal atelectasis. Probably residula thymic tissue in the anterior mediastinum. Head CT (11/15/17): no acute abnormality Negative Legionella Negative Mycoplasma Pneumoniae IgM Tylenol 650mg PO Q6H PRN F> 100.4F Albuterol 3ml INH RQ$H [facility] Tessalon Perles 100mg PO TID Mucinex 600mg PO BID 11/15/17 Blood culture: no growth after 48 hours X2 12/06/17 Blood culture: no growth after 24hours Status: Acute (2) COPD (chronic obstructive pulmonary disease) Assessment & Plan: Duoneb RQ4H ]Advair 250/50 1 puff [id number] Status: Acute (3) HIV (human immunodeficiency virus infection) Assessment & Plan: History of noncompliance HIV: 4.39 CD4 291 On Bactrim for PCP ppx Status: Chronic (4) Hepatitis C Assessment & Plan: Hepatitis C+ Type 1a Status: Chronic (5) Tachycardia Assessment & Plan: order ekg check d-dimer Check TSH/ Free T4 If d-dimer positive, then Ct angio Status: Acute (6) Urinary tract infection Assessment & Plan: Macrobid completed 11/16/17 Urine culture 11/15/17: no growth Status: Acute (7) Prophylactic measure Assessment & Plan: Heparin 5000 units subq Q8H Florastor 250mg PO BID PT/OT Eval Status: Acute
[2017-11-17] MEDS: Hydrocortisone 1% Cream (30 GM) TOP SCH (18:53)
--- NOTE | 2017-11-17 20:00 | PN ---
Copied To: Cristina Waller MD Attending MD: Cristina Waller MD DATE: 11/17/2017 SUBJECTIVE: The patient is more awake, alert, but she says she was in [facility], so I do not think she is totally there. She is mixing up Sudheer with [employer]. T-max was 101.5 last night, now it is 97, heart rate of 111, blood pressure 118/80, respirations are 20. She is on Tygacil and Azactam at this time due to her penicillin allergies. She is also on Bactrim for PCP prophylaxis. PHYSICAL EXAMINATION: HEENT: Head is atraumatic. Tongue is moist. NECK: Supple. LUNGS: Have bilateral rhonchi, occasional crackles otherwise. HEART: S1 and S2 tachycardic. ABDOMEN: Soft, nontender. No guarding, no rigidity present. EXTREMITIES: Have no edema. White count is 5.7, hemoglobin 11.5, hematocrit 34.9, platelet count is 136,000. Sodium is 141, potassium 4.3, chloride 108, CO2 is 25, BUN is 16, creatinine 0.7. The patient has a group C UTI. We are waiting for the urine culture. She says she is voiding okay, so we will get that. We will also order a sputum culture as she says she is bringing sputum, and she is being treated for bilateral pneumonia at this time and is HIV positive and the CD4 count is 271 recently, and we are waiting for the viral load. We will continue same antibiotics. Mycoplasma IgM was negative. Immunologic shows her CD4 count is 291, so I do not expect any PCP. Opiates were positive, as she has substance abuse with them. We will follow. I am waiting for UA, urine C and S to be repeated as she did have a urine culture positive and was septic with UTI, pneumonia, and was febrile when admitted here. Cristina Waller MD
[2017-11-17] MEDS ORDERED: Iodixanol 320 MG/ML 100 ML BOTTLE IV ONE (22:12)
[2017-11-18] MEDS: Albuterol-Ipratrop 3 mg / 0.5 (3 ml) UD INH SCH ×7 (01:43→23:58)
[2017-11-18] MEDS: Aztreonam 1 GM in Sodium Chloride 0.9% 100 ML IVPB SCH ×3 (02:31→18:38)
[2017-11-18] MEDS: Fluticasone-Salmeterol 250-50mcg Diskus INH SCH ×2 (07:35→21:13)
[2017-11-18 08:17] LABS: EOS # 0.2 K/uL (0.0-0.7); EOS % 2.7 % (0.0-4.0); HEMOGLOBIN 10.6 g/dL (11.0-16.0); LYMPH # 1.2 K/uL (1.0-4.3); MEAN CORPUSCULAR HEMOGLOBIN 28.4 pg (27.0-31.0); MONO # 0.6 K/uL (0.0-0.8)
[2017-11-18 08:22] LABS: BASO % 0.6 % (0.0-2.0); LYMPH % 15.8 % (20.0-40.0); MEAN CELL VOLUME 85.5 fL (81.0-99.0); MEAN CORPUSCULAR HGB CONC 33.2 g/dL (33.0-37.0); MEAN PLATELET VOLUME 9.2 fL (7.2-11.7); MONO % 7.9 % (0.0-10.0); NEUT # 5.5 K/uL (1.8-7.0); NRBC % 0.3 % (0.0-2.0); RBC 3.75 Mil/uL (3.80-5.20); RED CELL DISTRIBUTION WIDTH 16.8 % (11.5-14.5); WHITE BLOOD COUNT 7.5 K/uL (4.8-10.8)
[2017-11-18 08:47] LABS: ALB/GLOB RATIO 0.9 (1.0-2.1); ALT/SGPT 27 U/L (9-52); AST/SGOT 33 U/L (14-36); BLOOD UREA NITROGEN 20 mg/dL (7-17); CALCIUM 7.9 mg/dl (8.6-10.4); GFR AFRICAN-AMERICAN > 60; GFR NON-AFRICAN AMERICAN > 60
--- NOTE | 2017-11-18 09:14 | CP.PCM.PN ---
Subjective - Date & Time of Evaluation Date of Evaluation: 11/18/17 Time of Evaluation: 09:14 Objective - Vital Signs/Intake and Output Vital Signs (last 24 hours): Temp Pulse Resp BP Pulse Ox 98.3 F 92 H 20 127/82 96 11/18/17 07:20 11/18/17 07:20 11/18/17 07:20 11/18/17 07:20 11/18/17 07:20 Intake and Output: 11/18/17 11/18/17 06:59 18:59 Intake Total 750 Balance 750 - Medications Medications: Current Medications Acetaminophen (Tylenol 325mg Tab) 650 mg PO Q6 PRN PRN Reason: Fever >100.4 F Last Admin: 11/17/17 00:30 Dose: 650 mg Albuterol/Ipratropium (Duoneb 3 Mg/0.5 Mg (3 Ml) Ud) 3 ml INH RQ4 [facility] Last Admin: 11/18/17 07:35 Dose: 3 ml Benzonatate (Tessalon Perles) 100 mg PO TID [facility] Last Admin: 11/17/17 18:59 Dose: 100 mg Clonidine HCl (Catapres) 0.1 mg PO Q4H PRN PRN Reason: Symptoms of alcohol withdrawl Dicyclomine HCl (Bentyl) 10 mg PO Q6 PRN PRN Reason: Muscle spasm Docusate Sodium (Colace) 100 mg PO BID [facility] Last Admin: 11/17/17 18:57 Dose: 100 mg Ergocalciferol (Drisdol 50,000 Intl Units Cap) 1 cap PO Q7D [facility] Last Admin: 11/14/17 10:04 Dose: 1 cap Gabapentin (Neurontin) 300 mg PO TID [facility] Last Admin: 11/17/17 18:56 Dose: 300 mg Guaifenesin (Mucinex La) 600 mg PO BID [facility] Last Admin: 11/17/17 18:55 Dose: 600 mg Heparin Sodium (Porcine) (Heparin) 5,000 units SC Q8 [facility] Last Admin: 11/18/17 06:01 Dose: 5,000 units Hydrocortisone (Cortizone 1% Cream) 0 gm TOP BID [facility] Last Admin: 11/17/17 18:53 Dose: 1 applic Hydroxyzine HCl (Atarax) 25 mg PO Q6 PRN PRN Reason: Anxiety Last Admin: 11/17/17 09:23 Dose: 25 mg Tigecycline 50 mg/ Sodium (Chloride) 100 mls @ 100 mls/hr IVPB Q12H [facility] PRN Reason: Protocol Last Admin: 11/18/17 08:35 Dose: 100 mls/hr Aztreonam 1 gm/ Sodium (Chloride) 100 mls @ 200 mls/hr IVPB Q8H [facility] PRN Reason: Protocol Last Admin: 11/18/17 02:31 Dose: 200 mls/hr Mirtazapine (Remeron) 15 mg PO HS [facility] Last Admin: 11/17/17 21:58 Dose: 15 mg Multivitamins (Hexavitamin) 1 tab PO DAILY [facility] Last Admin: 11/17/17 09:23 Dose: 1 tab Ondansetron HCl (Zofran Tab) 4 mg PO Q8H PRN PRN Reason: Nausea/Vomiting Quetiapine Fumarate (Seroquel) 200 mg PO HS [facility] Last Admin: 11/17/17 21:58 Dose: 200 mg Saccharomyces Boulardii (Florastor) 250 mg PO BID [facility] Last Admin: 11/17/17 18:57 Dose: 250 mg Fluticasone/Salmeterol (Advair Diskus 250/50) 1 puff INH RQ12 [facility] Last Admin: 11/18/17 07:35 Dose: 1 puff Trazodone HCl (Desyrel) 100 mg PO HS PRN PRN Reason: Insomnia Last Admin: 11/14/17 21:09 Dose: 100 mg Trimethoprim/Sulfamethoxazole (Bactrim Ds Tab) 1 tab PO DAILY [facility] PRN Reason: Protocol Last Admin: 11/17/17 09:23 Dose: 1 tab - Labs Labs: 11/18/17 08:01 11/18/17 08:01
[2017-11-18] MEDS: Multiple Vitamins Tab PO SCH (09:44)
[2017-11-18] MEDS: Saccharomyces Boulardi 250 mg Cap PO SCH ×2 (09:44→18:39)
[2017-11-18] MEDS: Tmp-Smz 800 mg-160 mg DS Tab PO SCH (09:44)
[2017-11-18] MEDS: guaiFENesin 600 mg ER Tab PO SCH ×2 (09:44→18:39)
[2017-11-18] MEDS: Hydrocortisone 1% Cream (30 GM) TOP SCH ×2 (09:45→18:19)
--- NOTE | 2017-11-18 10:00 | CP.PCM.PN ---
Subjective - Date & Time of Evaluation Date of Evaluation: 11/18/17 Time of Evaluation: 09:55 - Subjective Subjective: Medical Attending Note: Patient seen and examined at bedside. Patient denies headache, denies chest pain, reports cough is more productive, denies hemotypsis, denies nausea, denies vomitting, denies abdominal pain, reports only had one bowel movement, denies urinary complaints. Objective - Vital Signs/Intake and Output Vital Signs (last 24 hours): Temp Pulse Resp BP Pulse Ox 98.3 F 92 H 20 127/82 96 11/18/17 07:20 11/18/17 07:20 11/18/17 07:20 11/18/17 07:20 11/18/17 07:20 Intake and Output: 11/18/17 11/18/17 06:59 18:59 Intake Total 750 Balance 750 - Medications Medications: Current Medications Acetaminophen (Tylenol 325mg Tab) 650 mg PO Q6 PRN PRN Reason: Fever >100.4 F Last Admin: 11/17/17 00:30 Dose: 650 mg Albuterol/Ipratropium (Duoneb 3 Mg/0.5 Mg (3 Ml) Ud) 3 ml INH RQ4 [facility] Last Admin: 11/18/17 07:35 Dose: 3 ml Benzonatate (Tessalon Perles) 100 mg PO TID [facility] Last Admin: 11/18/17 09:44 Dose: 100 mg Clonidine HCl (Catapres) 0.1 mg PO Q4H PRN PRN Reason: Symptoms of alcohol withdrawl Dicyclomine HCl (Bentyl) 10 mg PO Q6 PRN PRN Reason: Muscle spasm Docusate Sodium (Colace) 100 mg PO BID [facility] Last Admin: 11/18/17 09:44 Dose: 100 mg Ergocalciferol (Drisdol 50,000 Intl Units Cap) 1 cap PO Q7D [facility] Last Admin: 11/14/17 10:04 Dose: 1 cap Gabapentin (Neurontin) 300 mg PO TID [facility] Last Admin: 11/18/17 09:44 Dose: 300 mg Guaifenesin (Mucinex La) 600 mg PO BID [facility] Last Admin: 11/18/17 09:44 Dose: 600 mg Heparin Sodium (Porcine) (Heparin) 5,000 units SC Q8 [facility] Last Admin: 11/18/17 06:01 Dose: 5,000 units Hydrocortisone (Cortizone 1% Cream) 0 gm TOP BID [facility] Last Admin: 11/18/17 09:45 Dose: 1 applic Hydroxyzine HCl (Atarax) 25 mg PO Q6 PRN PRN Reason: Anxiety Last Admin: 11/17/17 09:23 Dose: 25 mg Tigecycline 50 mg/ Sodium (Chloride) 100 mls @ 100 mls/hr IVPB Q12H [facility] PRN Reason: Protocol Last Admin: 11/18/17 08:35 Dose: 100 mls/hr Aztreonam 1 gm/ Sodium (Chloride) 100 mls @ 200 mls/hr IVPB Q8H [facility] PRN Reason: Protocol Last Admin: 11/18/17 09:45 Dose: 200 mls/hr Mirtazapine (Remeron) 15 mg PO HS [facility] Last Admin: 11/17/17 21:58 Dose: 15 mg Multivitamins (Hexavitamin) 1 tab PO DAILY [facility] Last Admin: 11/18/17 09:44 Dose: 1 tab Ondansetron HCl (Zofran Tab) 4 mg PO Q8H PRN PRN Reason: Nausea/Vomiting Potassium Phos/Sodium Phos (Neutra-Phos) 1 pkt PO TIDAC [facility] Stop: 11/18/17 16:31 Quetiapine Fumarate (Seroquel) 200 mg PO HS [facility] Last Admin: 11/17/17 21:58 Dose: 200 mg Saccharomyces Boulardii (Florastor) 250 mg PO BID [facility] Last Admin: 11/18/17 09:44 Dose: 250 mg Fluticasone/Salmeterol (Advair Diskus 250/50) 1 puff INH RQ12 [facility] Last Admin: 11/18/17 07:35 Dose: 1 puff Trazodone HCl (Desyrel) 100 mg PO HS PRN PRN Reason: Insomnia Last Admin: 11/14/17 21:09 Dose: 100 mg Trimethoprim/Sulfamethoxazole (Bactrim Ds Tab) 1 tab PO DAILY [facility] PRN Reason: Protocol Last Admin: 11/18/17 09:44 Dose: 1 tab - Labs Labs: 11/18/17 08:01 11/18/17 08:01 - Constitutional Appears: Non-toxic, No Acute Distress - Head Exam Head Exam: NORMAL INSPECTION - Eye Exam Eye Exam: EOMI - ENT Exam ENT Exam: Mucous Membranes Moist - Respiratory Exam Respiratory Exam: Decreased Breath Sounds, Rales, Rhonchi, NORMAL BREATHING PATTERN. absent: Respiratory Distress, Stridor - Cardiovascular Exam Cardiovascular Exam: REGULAR RHYTHM, +S1, +S2 - GI/Abdominal Exam GI & Abdominal Exam: Soft, Normal Bowel Sounds. absent: Firm, Guarding, Rigid, Tenderness, Pulsatile Mass, Rebound - Extremities Exam Extremities Exam: absent: Pedal Edema, Tenderness - Back Exam Back Exam: absent: CVA tenderness (L), CVA tenderness (R) - Neurological Exam Neurological Exam: Alert, Awake, Oriented x3 - Psychiatric Exam Psychiatric exam: Normal Affect, Normal Mood - Skin Skin Exam: Dry, Intact, Normal Color, Warm Assessment and Plan (1) Pneumonia Status: Acute (2) COPD (chronic obstructive pulmonary disease) Status: Acute (3) HIV (human immunodeficiency virus infection) Status: Chronic (4) Hepatitis C Status: Chronic (5) Tachycardia Status: Acute (6) Urinary tract infection Status: Acute (7) Prophylactic measure Status: Acute Attending/Attestation - Attestation I have personally seen and examined this patient.: Yes I have fully participated in the care of the patient.: Yes I have reviewed all pertinent clinical information, including history, physical exam and plan: Yes Notes (Text): (1) Pneumonia Assessment & Plan: * Dr. Waller (ID) on case-->help appreciated * Dr. Montano (Pulm) consulting engineer-->f/u in regards to worsening pneumonia; will it require thoracentesis? * IV abx: * Aztrenonam Igm IVPB Q8H (active since 11/16/17) * Tigecycline 50mg IVQ12H (active since 11/16/17) * TMP-SMX 1 tab PO daily for PCP ppx (active since 11/17/17) * CT Chest (11/15/17): left lower lobe consolidation. Multifocal small ill defined nodular opacities right upper and lower lobe, likely infectious or inflammatory. Multifocal subsegmetal atelectasis. Probably residula thymic tissue in the anterior mediastinum. * Awaiting official report of CT Chest-->appears worsening compared to 11/15/17 * Head CT (11/15/17): no acute abnormality * Negative Legionella * Negative Mycoplasma Pneumoniae IgM * Tylenol 650mg PO Q6H PRN F> 100.4F * Albuterol 3ml INH RQ4H [facility] * Start Mucomyst INH Q4H * Tessalon Perles 100mg PO TID * Mucinex 600mg PO BID * Nurse communication: for chest physiotherapy given patient report productive cough * 11/15/17 Blood culture: no growth after 48 hours X2 * 12/06/17 Blood culture: no growth after 24hours * Pending sputum culture (11/17/17) * Ordered second sputum culture (11/18/17) Status: Acute (2) COPD (chronic obstructive pulmonary disease) Assessment & Plan: * Duoneb RQ4H * ]Advair 250/50 1 puff [id number] Status: Acute (3) HIV (human immunodeficiency virus infection) Assessment & Plan: * History of noncompliance * HIV: 4.39 * CD4 291 * On Bactrim for PCP ppx Status: Chronic (4) Hepatitis C Assessment & Plan: * Hepatitis C+; Type 1a Status: Chronic (5) Tachycardia Assessment & Plan: * D-dimer: elevated * Per prelim: CT angio negative for PE; awaiting official read * venous doppler in light of positive d-dimer * Thyroid studies within normal Status: Acute (6) Urinary tract infection Assessment & Plan: * Macrobid completed 11/16/17 * Urine culture 11/15/17: no growth Status: Acute (7) Prophylactic measure Assessment & Plan: * Heparin 5000 units subq Q8H * Florastor 250mg PO BID * PT/OT Eval * Incentive spirometer Status: Acute Disposition: Pending pulmonary consult. start incentive spirometry. awaiting sputum sample. Awaiting official report of CT angio (11/17/17) but pneumonia appears worsening. Patient is on IV abx for pnuemona.
[2017-11-18] MEDS: Potassium & Sodium Phosphate PO SCH ×2 (11:20→16:37)
[2017-11-18] MEDS: Acetylcysteine 20% Inhal Soln (4ml) INH SCH ×4 (11:40→23:58)
--- NOTE | 2017-11-18 11:51 | CT ---
Date of service: 11/18/2017 PROCEDURE: CT Chest with contrast (Pulmonary Angiogram) HISTORY: Elevated d-dimer COMPARISON: None available. TECHNIQUE: Axial computed tomography images were obtained of the chest in the pulmonary arterial phase of enhancement. Coronal and sagittal reformatted images were created and reviewed. Intravenous contrast dose: Visipaque 320, 100 cc Radiation dose: Total exam DLP = 228.52 mGy-cm. This CT exam was performed using one or more of the following dose reduction techniques: Automated exposure control, adjustment of the mA and/or kV according to patient size, and/or use of iterative reconstruction technique. FINDINGS: PULMONARY ARTERIES: Unremarkable. No pulmonary embolism. AORTA: No acute findings. No thoracic aortic aneurysm. LUNGS: Bilateral lower lobe infiltrates appear increased at the left greater than right lower lobes and this mild increase noted at the right middle lobe as well. No definite pulmonary mass or central airway lesion is appreciable. PLEURAL SPACES: Mild bilateral pleural effusions are identified. Trace pericardial effusion or thickening HEART: Stable cardiomegaly. LYMPH NODES: No lymphadenopathy. BONES, CHEST WALL: Unremarkable. No fracture or destructive lesion OTHER FINDINGS: Likely residual thymic tissue reiterated with neoplasm not favored. Hyperdense cyst or nodule right renal middle pole laterally. IMPRESSION: 1. No CT evidence to suggest pulmonary embolus. 2. Interval worsening left lower lobe pneumonitis and likely also at right middle and lower lobes though atelectasis is likely a concave min diagnosis. 3. Hyperdense cyst or nodule right midpole kidney. Follow-up renal ultrasound is recommended.
--- NOTE | 2017-11-18 18:00 | CP.PCM.PN ---
Subjective - Date & Time of Evaluation Date of Evaluation: 11/18/17 Time of Evaluation: 01:40 - Subjective Subjective: dictated Objective - Vital Signs/Intake and Output Vital Signs (last 24 hours): Temp Pulse Resp BP Pulse Ox 99.8 F H 89 20 114/76 93 L 11/18/17 15:12 11/18/17 15:12 11/18/17 15:12 11/18/17 15:12 11/18/17 15:12 Intake and Output: 11/18/17 11/18/17 06:59 18:59 Intake Total 750 600 Balance 750 600 - Medications Medications: Current Medications Acetaminophen (Tylenol 325mg Tab) 650 mg PO Q6 PRN PRN Reason: Fever >100.4 F Last Admin: 11/17/17 00:30 Dose: 650 mg Acetylcysteine (Acetylcysteine 20%) 4 ml INH RQ4 [facility] Last Admin: 11/18/17 16:20 Dose: Not Given Albuterol/Ipratropium (Duoneb 3 Mg/0.5 Mg (3 Ml) Ud) 3 ml INH RQ4 [facility] Last Admin: 11/18/17 16:20 Dose: Not Given Benzonatate (Tessalon Perles) 100 mg PO TID [facility] Last Admin: 11/18/17 13:43 Dose: 100 mg Clonidine HCl (Catapres) 0.1 mg PO Q4H PRN PRN Reason: Symptoms of alcohol withdrawl Dicyclomine HCl (Bentyl) 10 mg PO Q6 PRN PRN Reason: Muscle spasm Docusate Sodium (Colace) 100 mg PO BID [facility] Last Admin: 11/18/17 09:44 Dose: 100 mg Ergocalciferol (Drisdol 50,000 Intl Units Cap) 1 cap PO Q7D [facility] Last Admin: 11/14/17 10:04 Dose: 1 cap Gabapentin (Neurontin) 300 mg PO TID [facility] Last Admin: 11/18/17 13:43 Dose: 300 mg Guaifenesin (Mucinex La) 600 mg PO BID [facility] Last Admin: 11/18/17 09:44 Dose: 600 mg Heparin Sodium (Porcine) (Heparin) 5,000 units SC Q8 [facility] Last Admin: 11/18/17 13:43 Dose: 5,000 units Hydrocortisone (Cortizone 1% Cream) 0 gm TOP BID [facility] Last Admin: 11/18/17 09:45 Dose: 1 applic Hydroxyzine HCl (Atarax) 25 mg PO Q6 PRN PRN Reason: Anxiety Last Admin: 11/17/17 09:23 Dose: 25 mg Tigecycline 50 mg/ Sodium (Chloride) 100 mls @ 100 mls/hr IVPB Q12H [facility] PRN Reason: Protocol Last Admin: 11/18/17 08:35 Dose: 100 mls/hr Aztreonam 1 gm/ Sodium (Chloride) 100 mls @ 200 mls/hr IVPB Q8H [facility] PRN Reason: Protocol Last Admin: 11/18/17 09:45 Dose: 200 mls/hr Mirtazapine (Remeron) 15 mg PO HS [facility] Last Admin: 11/17/17 21:58 Dose: 15 mg Multivitamins (Hexavitamin) 1 tab PO DAILY [facility] Last Admin: 11/18/17 09:44 Dose: 1 tab Ondansetron HCl (Zofran Tab) 4 mg PO Q8H PRN PRN Reason: Nausea/Vomiting Quetiapine Fumarate (Seroquel) 200 mg PO HS [facility] Last Admin: 11/17/17 21:58 Dose: 200 mg Saccharomyces Boulardii (Florastor) 250 mg PO BID [facility] Last Admin: 11/18/17 09:44 Dose: 250 mg Fluticasone/Salmeterol (Advair Diskus 250/50) 1 puff INH RQ12 [facility] Last Admin: 11/18/17 07:35 Dose: 1 puff Trazodone HCl (Desyrel) 100 mg PO HS PRN PRN Reason: Insomnia Last Admin: 11/14/17 21:09 Dose: 100 mg Trimethoprim/Sulfamethoxazole (Bactrim Ds Tab) 1 tab PO DAILY [facility] PRN Reason: Protocol Last Admin: 11/18/17 09:44 Dose: 1 tab - Labs Labs: 11/18/17 08:01 11/18/17 08:01
--- NOTE | 2017-11-18 21:07 | PN ---
Copied To: Cristina Waller MD Attending MD: Cristina Waller MD DATE: 11/18/2017 SUBJECTIVE: I went to see her today. She said she was feeling little better and she was still coughing a lot, however, bringing out some sputum. PHYSICAL EXAMINATION VITAL SIGNS: T-max was 101.5 in the middle of the night and when I saw it was 98.3, but when I am writing the note, she had 99.8, pulse is 89, blood pressure 114/76, and respirations are 20. GENERAL: She was more alert, awake. HEENT: Head was atraumatic, normocephalic. Tongue is moist. No thrush noted. NECK: Supple. LUNGS: Have bilateral still rhonchi, occasional crackles. Decreased breath sounds. HEART: S1, S2 is regular. No murmurs appreciated. ABDOMEN: Soft, nontender. No guarding. No rigidity present. EXTREMITIES: No edema, clubbing or cyanosis. She looks little bit improved. LABORATORY DATA: White count is 7.5, hemoglobin 10.6, hematocrit 32, and platelet count is 183. Platelets have improved. Her white count is okay. D-dimers were done which was 783. Sodium 141, potassium 4.1, chloride of 109, BUN is 20, creatinine 0.8, albumin is 0.9, and phosphorus was little low. They are going to supplement. She had a chest CT done yesterday probably with contrast and that shows no evidence of pulmonary embolism, interval worsening left lower lobe pneumonitis and likely also right middle and lower lobe though atelectasis is likely a concave in diagnosis, nodules right mid pole. Followup renal ultrasound is suggested. So, this patient has worsening of the left lower lobe pneumonitis, right middle and lower lobe though atelectasis. Urine and blood cultures are negative. Repeat urine culture is negative. I do not have sputum and we did some serology which shows her viral load is 4.39. Legionella is negative. Mycoplasma is negative. Her CD-4 count is 291. ASSESSMENT AND PLAN: She is allergic to penicillin. She is on Azactam and Tygacil and I want to make sure she is on a cough syrup and we will also check the echo as she is IV drug abuse. She is on Tygacil and Bactrim for pneumocystis pneumonia prophylaxis and Azactam. She is on benzonatate and Tessalon Perles for further cough and she was on acetylcysteine which was not given. We will follow. Cristina Waller MD
[2017-11-19] MEDS: Aztreonam 1 GM in Sodium Chloride 0.9% 100 ML IVPB SCH ×3 (01:27→17:56)
[2017-11-19] MEDS: Acetylcysteine 20% Inhal Soln (4ml) INH SCH ×5 (04:33→19:36)
[2017-11-19] MEDS: Albuterol-Ipratrop 3 mg / 0.5 (3 ml) UD INH SCH ×5 (04:33→19:36)
[2017-11-19 08:10] LABS: BASO % 0.5 % (0.0-2.0); EOS # 0.1 K/uL (0.0-0.7); EOS % 3.6 % (0.0-4.0); HEMOGLOBIN 11.6 g/dL (11.0-16.0); LYMPH # 0.7 K/uL (1.0-4.3); LYMPH % 19.7 % (20.0-40.0); MEAN CELL VOLUME 85.1 fL (81.0-99.0); MEAN CORPUSCULAR HEMOGLOBIN 28.6 pg (27.0-31.0); MEAN CORPUSCULAR HGB CONC 33.6 g/dL (33.0-37.0); MEAN PLATELET VOLUME 8.8 fL (7.2-11.7); MONO # 0.4 K/uL (0.0-0.8); MONO % 10.9 % (0.0-10.0); NEUT # 2.4 K/uL (1.8-7.0); NEUT % 65.3 % (50.0-75.0); NRBC % 0.2 % (0.0-2.0); RBC 4.05 Mil/uL (3.80-5.20)
[2017-11-19 08:12] LABS: WHITE BLOOD COUNT 3.7 K/uL (4.8-10.8)
[2017-11-19 08:18] LABS: ALB/GLOB RATIO 0.9 (1.0-2.1); ALBUMIN 3.2 g/dL (3.5-5.0); ALT/SGPT 31 U/L (9-52); AST/SGOT 29 U/L (14-36); BLOOD UREA NITROGEN 20 mg/dL (7-17); CALCIUM 8.2 mg/dl (8.6-10.4); GFR AFRICAN-AMERICAN > 60; GFR NON-AFRICAN AMERICAN > 60
[2017-11-19] MEDS: Fluticasone-Salmeterol 250-50mcg Diskus INH SCH ×2 (08:36→19:36)
--- NOTE | 2017-11-19 09:37 | CP.PCM.PN ---
<Emily Perdue L - Last Filed: 11/19/17 16:07> Subjective - Date & Time of Evaluation Date of Evaluation: 11/19/17 Time of Evaluation: 09:37 - Subjective Subjective: Resident Progress Note for Hospitalist Service Patient examined at bedside. She is resting comfortably in bed. States her breathing is improved. States that she has been compliant with encouragement to move out of bed to chair. Has no other complaints at this time. Last bowel movement was yesterday. Denies headache, dizziness, chest pain, shortness of breath, abdominal pain, changes in bowel movements, dysuria. Objective - Vital Signs/Intake and Output Vital Signs (last 24 hours): Temp Pulse Resp BP Pulse Ox 98.9 F 93 H 20 112/74 95 11/19/17 08:11 11/19/17 08:11 11/19/17 08:11 11/19/17 08:11 11/19/17 08:11 Intake and Output: 11/19/17 11/19/17 06:59 18:59 Intake Total 680 220 Balance 680 220 - Medications Medications: Current Medications Acetaminophen (Tylenol 325mg Tab) 650 mg PO Q6 PRN PRN Reason: Fever >100.4 F Last Admin: 11/17/17 00:30 Dose: 650 mg Acetylcysteine (Acetylcysteine 20%) 4 ml INH RQ4 [facility] Last Admin: 11/19/17 08:36 Dose: 4 ml Albuterol/Ipratropium (Duoneb 3 Mg/0.5 Mg (3 Ml) Ud) 3 ml INH RQ4 [facility] Last Admin: 11/19/17 08:35 Dose: 3 ml Benzonatate (Tessalon Perles) 100 mg PO TID [facility] Last Admin: 11/18/17 18:39 Dose: 100 mg Clonidine HCl (Catapres) 0.1 mg PO Q4H PRN PRN Reason: Symptoms of alcohol withdrawl Dicyclomine HCl (Bentyl) 10 mg PO Q6 PRN PRN Reason: Muscle spasm Docusate Sodium (Colace) 100 mg PO BID [facility] Last Admin: 11/18/17 18:39 Dose: 100 mg Ergocalciferol (Drisdol 50,000 Intl Units Cap) 1 cap PO Q7D [facility] Last Admin: 11/14/17 10:04 Dose: 1 cap Gabapentin (Neurontin) 300 mg PO TID [facility] Last Admin: 11/18/17 18:39 Dose: 300 mg Guaifenesin (Mucinex La) 600 mg PO BID [facility] Last Admin: 11/18/17 18:39 Dose: 600 mg Heparin Sodium (Porcine) (Heparin) 5,000 units SC Q8 [facility] Last Admin: 11/19/17 06:32 Dose: Not Given Hydrocortisone (Cortizone 1% Cream) 0 gm TOP BID [facility] Last Admin: 11/18/17 18:19 Dose: 1 applic Hydroxyzine HCl (Atarax) 25 mg PO Q6 PRN PRN Reason: Anxiety Last Admin: 11/17/17 09:23 Dose: 25 mg Tigecycline 50 mg/ Sodium (Chloride) 100 mls @ 100 mls/hr IVPB Q12H [facility] PRN Reason: Protocol Last Admin: 11/18/17 19:19 Dose: 100 mls/hr Aztreonam 1 gm/ Sodium (Chloride) 100 mls @ 200 mls/hr IVPB Q8H [facility] PRN Reason: Protocol Last Admin: 11/19/17 01:27 Dose: 200 mls/hr Mirtazapine (Remeron) 15 mg PO HS [facility] Last Admin: 11/18/17 21:22 Dose: 15 mg Multivitamins (Hexavitamin) 1 tab PO DAILY [facility] Last Admin: 11/18/17 09:44 Dose: 1 tab Ondansetron HCl (Zofran Tab) 4 mg PO Q8H PRN PRN Reason: Nausea/Vomiting Quetiapine Fumarate (Seroquel) 200 mg PO HS [facility] Last Admin: 11/18/17 21:22 Dose: 200 mg Saccharomyces Boulardii (Florastor) 250 mg PO BID [facility] Last Admin: 11/18/17 18:39 Dose: 250 mg Fluticasone/Salmeterol (Advair Diskus 250/50) 1 puff INH RQ12 [facility] Last Admin: 11/19/17 08:36 Dose: 1 puff Trazodone HCl (Desyrel) 100 mg PO HS PRN PRN Reason: Insomnia Last Admin: 11/14/17 21:09 Dose: 100 mg Trimethoprim/Sulfamethoxazole (Bactrim Ds Tab) 1 tab PO DAILY [facility] PRN Reason: Protocol Last Admin: 11/18/17 09:44 Dose: 1 tab - Labs Labs: 11/19/17 07:42 11/19/17 07:42 - Additional Findings Additional findings: - Constitutional Appears: Non-toxic, No Acute Distress, Agitated - Head Exam Head Exam: ATRAUMATIC, NORMOCEPHALIC - Eye Exam Eye Exam: EOMI, Normal appearance - ENT Exam ENT Exam: Mucous Membranes Moist, Normal Exam - Neck Exam Neck Exam: Normal Inspection - Respiratory Exam Respiratory Exam: Rales (rales in left lower lung gilman). absent: Wheezes, Respiratory Distress - Cardiovascular Exam Cardiovascular Exam: REGULAR RHYTHM, +S1, +S2 - GI/Abdominal Exam GI & Abdominal Exam: Soft, Nontender, Normal Bowel Sounds. absent: Firm, Rigid , Organomegaly - Extremities Exam Extremities Exam: Full ROM, Normal Capillary Refill, Normal Inspection - Back Exam Back Exam: NORMAL INSPECTION - Neurological Exam Neurological Exam: Alert, Awake, CN II-XII Intact, Oriented x3 - Psychiatric Exam Psychiatric exam: Normal Affect, Normal Mood - Skin Skin Exam: Dry, Intact, Normal Color Assessment and Plan - Assessment and Plan (Free Text) Plan: Community acquired pneumonia - Urine culture positive for group C strep - Mycoplasma negative - ESR 36.0 (H), CRP>15.0 (H) - Chest x-ray shows interval pathology left lung base mixed imaging findings. Inflammatory and neoplastic etiologies compatible with this. - Chest CT on 11/15 shows left lower lobe consolidation, multifocal small ill- defined nodular opacities right upper lobe and right lower lobe, likely infectious or inflammatory. Multifocal subsegmental atelectasis. Probable residual thymic tissue in anterior mediastinum. - Chest CT on 11/[address] evidence to suggest pulmonary embolus. Interval worsening left lower lobe pneumonitis and likely also at right middle and lower lobes though atelectasis is likely a concave min diagnosis. Hyperdense cyst or nodule right midpole kidney. - ABG pO2 47 - ID consulted. Recs appreciated. - O2 via nonrebreather - Nebulizer treatments - Aztreonam 1 gm Q8H (started 11/16) - Tygacil 50 mg IV Q12H (started 11/16) - Florastor 250 mg PO BID - Chest physiotherapy - Tylenol 650mg PO q6 PRN fever - Blood cultures negative - Strep pneumo urine antigen and legionella urine antigen negative - Followup sputum cultures - Pulmonology consulted. Appreciate recs. Kidney cyst vs. nodule - Noted on Chest CT - Followup renal ultrasound Elevated d-dimer - Chest CT negative for PE - Venous dopplers negative for DVT - ECHO shows normal LVEF. Transmitral Doppler flow pattern is Grade I-abnormal relaxation pattern. Mild aortic regurgitation. No vegetations noted. Chronic bronchitis - Advair 250/50 Q12h - Duonebs RQ4 - Mucinex 600 mg PO BID - Tessalon Pereles 100 mg PO TID HIV - Absolute CD4 count 214 per 08/2017 labs. Repeat absolute CD4 count 291. - Bactrim DS PO MWF for PCP prophylaxis (started 11/17) Hepatitis C - HCV RNA Detected in 08/2017 labs - 1a genotype - Patient advised for outpatient GI workup for treatment History of opioid/heroin abuse - Continue management as per detox/psychiatry team PPX - SCDs - Heparin 5000 units SC Q8H Dispo: Pending renal ultrasound and antibiotic therapy for pneumonia Emily Perdue PGY-1 <Omar Morales - Last Filed: 11/19/17 21:48> Objective - Vital Signs/Intake and Output Vital Signs (last 24 hours): Temp Pulse Resp BP Pulse Ox 98.9 F 90 20 125/81 92 L 11/19/17 15:00 11/19/17 15:00 11/19/17 15:00 11/19/17 15:00 11/19/17 15:00 Intake and Output: 11/19/17 11/20/17 18:59 06:59 Intake Total 820 Balance 820 - Medications Medications: Current Medications Acetaminophen (Tylenol 325mg Tab) 650 mg PO Q6 PRN PRN Reason: Fever >100.4 F Last Admin: 11/17/17 00:30 Dose: 650 mg Acetylcysteine (Acetylcysteine 20%) 4 ml INH RQ4 [facility] Last Admin: 11/19/17 19:36 Dose: 4 ml Albuterol/Ipratropium (Duoneb 3 Mg/0.5 Mg (3 Ml) Ud) 3 ml INH RQ4 [facility] Last Admin: 11/19/17 19:36 Dose: 3 ml Benzonatate (Tessalon Perles) 100 mg PO TID [facility] Last Admin: 11/19/17 17:57 Dose: 100 mg Clonidine HCl (Catapres) 0.1 mg PO Q4H PRN PRN Reason: Symptoms of alcohol withdrawl Dicyclomine HCl (Bentyl) 10 mg PO Q6 PRN PRN Reason: Muscle spasm Last Admin: 11/19/17 10:45 Dose: 10 mg Docusate Sodium (Colace) 100 mg PO BID [facility] Last Admin: 11/19/17 17:56 Dose: 100 mg Ergocalciferol (Drisdol 50,000 Intl Units Cap) 1 cap PO Q7D [facility] Last Admin: 11/14/17 10:04 Dose: 1 cap Gabapentin (Neurontin) 300 mg PO TID [facility] Last Admin: 11/19/17 17:57 Dose: 300 mg Guaifenesin (Mucinex La) 600 mg PO BID [facility] Last Admin: 11/19/17 17:56 Dose: 600 mg Heparin Sodium (Porcine) (Heparin) 5,000 units SC Q8 [facility] Last Admin: 11/19/17 21:25 Dose: Not Given Hydrocortisone (Cortizone 1% Cream) 0 gm TOP BID [facility] Last Admin: 11/19/17 18:30 Dose: Not Given Hydroxyzine HCl (Atarax) 25 mg PO Q6 PRN PRN Reason: Anxiety Last Admin: 11/19/17 18:06 Dose: 25 mg Tigecycline 50 mg/ Sodium (Chloride) 100 mls @ 100 mls/hr IVPB Q12H [facility] PRN Reason: Protocol Last Admin: 11/19/17 20:10 Dose: 100 mls/hr Aztreonam 1 gm/ Sodium (Chloride) 100 mls @ 200 mls/hr IVPB Q8H [facility] PRN Reason: Protocol Last Admin: 11/19/17 17:56 Dose: 200 mls/hr Mirtazapine (Remeron) 15 mg PO [facility] Last Admin: 11/19/17 21:24 Dose: 15 mg Multivitamins (Hexavitamin) 1 tab PO DAILY [facility] Last Admin: 11/19/17 09:44 Dose: 1 tab Ondansetron HCl (Zofran Tab) 4 mg PO Q8H PRN PRN Reason: Nausea/Vomiting Quetiapine Fumarate (Seroquel) 200 mg PO [facility] Last Admin: 11/19/17 21:24 Dose: 200 mg Saccharomyces Boulardii (Florastor) 250 mg PO BID [facility] Last Admin: 11/19/17 17:57 Dose: 250 mg Fluticasone/Salmeterol (Advair Diskus 250/50) 1 puff INH RQ12 [facility] Last Admin: 11/19/17 19:36 Dose: 1 puff Trazodone HCl (Desyrel) 100 mg PO HS PRN PRN Reason: Insomnia Last Admin: 11/14/17 21:09 Dose: 100 mg Trimethoprim/Sulfamethoxazole (Bactrim Ds Tab) 1 tab PO DAILY [facility] PRN Reason: Protocol Last Admin: 11/19/17 09:44 Dose: 1 tab - Labs Labs: 11/19/17 07:42 11/19/17 07:42 Attending/Attestation - Attestation I have personally seen and examined this patient.: Yes I have fully participated in the care of the patient.: Yes I have reviewed all pertinent clinical information, including history, physical exam and plan: Yes Notes (Text): 11/19/17 21:32 Patient was seen and examined at 12:15 PM 11/19/17 359 B Exam, assessment and plan were gone over with the resident. Also on ROS: Bilateral pins and needles sensation in the ankles that has been going on for some time (she is already on Gabapentin) Moving bowels normally without any diarrhea Dry cough comes and goes NO dysphagia/odynophagia Also on Exam: Bilateral inspiratory crackles mid to lower lung gilman Early systolic ejection murmur heard in the Right Second Intercostal Space Rest of exam was uremarkable Assessments: 1). LLL/RUL/RLL Consolidation/Nodules/Pneumonia: Aztreonam, Tigecycline, 2D Echo (LVSF normal, Grade I abnormal relaxation, Midl aortic regurgitation) 2). HX COPD: Acetylcysteine, Duoneb, Tessolon Perles, Advair 3). HX HIV: Bactrim PCP Prophylaxis. NOT on any medication as history of noncompliance 4). HX Hepatitis C 5). HX Heroin Abuse: Catapres 6). Tachycardia: CT Angio shows NO PE, Bilateral Venous Doppler Legs negative for DVT 7). UTI: treated with Macrobid. Repeat Urine Culture 11/15/17 shows NO growth 8). Right Midpole Kidney Hyperdense Cyst: F/U Renal U/S 9). Bipolar Disorder: Gabapentin, Atarax, Remeron, Seroquel 10). Low K and Phos: given NeutroPhos 11/18/17. and now they are normal F/U further recommendations from Pulmonology Dr. Giron. I spoke with Office Staff Yara and provided her with this patient information to provide Dr. Giron with. She informed me that he was not at the office and that he had just left to come to [facility] and that she would provide him with patient informatin. I also provided her with my cell phone number F/U Blood Cultures 11/15/17, 11/16/17, 11/17/17 which are negative to date. F/U Sputum Culture 11/17/17 and 11/18/17. F/U Renal U/S. Omar Morales D.O.
[2017-11-19] MEDS: Multiple Vitamins Tab PO SCH (09:44)
[2017-11-19] MEDS: Saccharomyces Boulardi 250 mg Cap PO SCH ×2 (09:44→17:57)
[2017-11-19] MEDS: Tmp-Smz 800 mg-160 mg DS Tab PO SCH (09:44)
[2017-11-19] MEDS: guaiFENesin 600 mg ER Tab PO SCH ×2 (09:53→17:56)
[2017-11-19] MEDS: Hydrocortisone 1% Cream (30 GM) TOP SCH ×2 (10:57→18:30)
--- NOTE | 2017-11-19 13:12 | VASCLAB ---
Date of service: 11/19/2017 PROCEDURE: Lower Extremity Venous Duplex Exam. HISTORY: Elevated d-dimer; r/o DVT PRIORS: None. TECHNIQUE: Bilateral common femoral, femoral, popliteal and posterior tibial, peroneal and great saphenous veins were evaluated. Flow was assessed with color Doppler, compressibility, assessment of phasic flow and augmentation response. Report prepared by AKASH Iglesias FINDINGS: RIGHT: 1. Common Femoral Vein: 1.1. Compressibility - Fully compressible: Thrombus - None : Flow - Phasic: Augmentation -Normal: Reflux - None. 2. Femoral Vein: 2.1. Compressibility - Fully compressible: Thrombus - None : Flow - Phasic: Augmentation -Normal: Reflux - None. 3. Popliteal Vein: 3.1. Compressibility - Fully compressible: Thrombus - None : Flow - Phasic: Augmentation -Normal: Reflux - None. 4. Posterior Tibial Vein: 4.1. Compressibility - Fully compressible: Thrombus - None: Flow - Phasic: Augmentation -Normal: Reflux - None. 5. Peroneal Vein: 5.1. Compressibility - Fully compressible: Thrombus - None: Flow - Phasic: Augmentation -Normal: Reflux - None. 6. Great Saphenous Vein: 6.1. Compressibility - Fully compressible: Thrombus - None: Flow - Phasic: Augmentation - Normal: Reflux - None. LEFT: 1. Common Femoral Vein: 1.1. Compressibility - Fully compressible: Thrombus - None: Flow - Phasic: Augmentation -Normal: Reflux - None. 2. Femoral Vein: 2.1. Compressibility - Fully compressible: Thrombus - None: Flow - Phasic: Augmentation -Normal: Reflux - None. 3. Popliteal Vein: 3.1. Compressibility - Fully compressible: Thrombus - None : Flow - Phasic: Augmentation -Normal: Reflux - None. 4. Posterior Tibial Vein: 4.1. Compressibility - Fully compressible: Thrombus - None: Flow - Phasic: Augmentation -Normal: Reflux - None. 5. Peroneal Vein: 5.1. Compressibility - Fully compressible: Thrombus - None: Flow - Phasic: Augmentation -Normal: Reflux - None. 6. Great Saphenous Vein: 6.1. Compressibility - Fully compressible: Thrombus - None: Flow - Phasic: Augmentation - Normal: Reflux - None. OTHER FINDINGS: Right: None significant. Left: None significant. IMPRESSION: Right: No evidence of deep or superficial vein thrombosis of the right lower extremity. Normal valve function noted of the right side. Left: No evidence of deep or superficial vein thrombosis of the left lower extremity. Normal valve function noted of the left side.
--- NOTE | 2017-11-19 16:08 | US ---
Renal ultrasound History: Cyst. Comparison: CT pulmonary angiogram dated 11/18/2017 Technique: Real-time sonography was performed through the kidneys. Findings: Right kidney: 10.4 x 5.7 x 5.5 centimeters. Mild increased echogenicity of the renal parenchymal cortex suggestive for medical renal disease. Previously noted exophytic low-attenuation lesion in the midpole of the right kidney was not well visualized on the current study. This may be better evaluated with multiphasic CT scan if clinically indicated. Visualized aorta is preserved. Left Kidney: 11.2 x 4.7 x 4.7 centimeters. Mild increased echogenicity of the renal parenchymal cortex suggestive for medical renal disease. Visualized urinary bladder is preserved. Impression: Previously noted midpole exophytic right renal low-attenuation lesion was not well imaged on the current study. Correlation with a multiphasic CT scan through the abdomen and pelvis may be helpful for further evaluation if clinically indicated. Mild increased echogenicity of the bilateral renal parenchymal cortices suggestive for medical renal disease. Clinical correlation.
[2017-11-20] MEDS: Albuterol-Ipratrop 3 mg / 0.5 (3 ml) UD INH SCH ×5 (00:04→20:06)
[2017-11-20] MEDS: Acetylcysteine 20% Inhal Soln (4ml) INH SCH ×4 (00:04→15:46)
[2017-11-20] MEDS: Aztreonam 1 GM in Sodium Chloride 0.9% 100 ML IVPB SCH ×3 (02:06→17:57)
[2017-11-20 06:46] LABS: BASO % 0.4 % (0.0-2.0); EOS # 0.1 K/uL (0.0-0.7); EOS % 2.8 % (0.0-4.0); HEMOGLOBIN 12.2 g/dL (11.0-16.0); LYMPH # 0.8 K/uL (1.0-4.3); MEAN CELL VOLUME 84.1 fL (81.0-99.0); MEAN CORPUSCULAR HEMOGLOBIN 27.9 pg (27.0-31.0); MEAN CORPUSCULAR HGB CONC 33.2 g/dL (33.0-37.0); MEAN PLATELET VOLUME 8.4 fL (7.2-11.7); MONO # 0.5 K/uL (0.0-0.8); MONO % 13.1 % (0.0-10.0); NEUT # 2.3 K/uL (1.8-7.0); NEUT % 62.7 % (50.0-75.0); NRBC % 0.1 % (0.0-2.0); RBC 4.37 Mil/uL (3.80-5.20); RED CELL DISTRIBUTION WIDTH 16.8 % (11.5-14.5); WHITE BLOOD COUNT 3.6 K/uL (4.8-10.8)
[2017-11-20] MEDS: Fluticasone-Salmeterol 250-50mcg Diskus INH SCH ×2 (07:20→20:06)
[2017-11-20 07:32] LABS: ALB/GLOB RATIO 0.8 (1.0-2.1); ALBUMIN 3.1 g/dL (3.5-5.0); ALT/SGPT 26 U/L (9-52); AST/SGOT 44 U/L (14-36); BLOOD UREA NITROGEN 19 mg/dL (7-17); CALCIUM 8.3 mg/dl (8.6-10.4); GFR AFRICAN-AMERICAN > 60; GFR NON-AFRICAN AMERICAN > 60
--- NOTE | 2017-11-20 07:32 | PN ---
Copied To: Cristina Waller MD Attending MD: Cristina Waller MD DATE: 11/19/2017 SUBJECTIVE: The patient was feeling better. She is breathing better, but she still has a lot of findings in the lung. She states she gave the sputum for checking, and she is on oxygen, and she denies any headache. No chest pain on breathing. She does have cough, and she denies any abdominal pain. No urinary symptoms. She is on antibiotics. PHYSICAL EXAMINATION: VITAL SIGNS: T-max is 98.9, pulse 90, blood pressure 125/81, and respirations are still remained on nasal cannula. GENERAL: She is alert, awake. HEENT: Tongue is moist. NECK: Supple. LUNGS: Have bilateral rhonchi. HEART: S1, S2 are regular. ABDOMEN: Soft, nontender. No guarding. No rigidity present. EXTREMITIES: Have no edema. I wanted to see her echo report, as she is active IV drug abuser, was here for detox and fevers, hence was transported to a medical floor, and she is also HIV positive, so she had this which shows grade 1 abnormal relaxation pattern. Mild aortic regurgitation is present. It was read by Dr. Stanton, and ejection fraction is normal at 66%. There is no aortic valve vegetation, no tricuspid, no pulmonary. The patient also had a renal ultrasound, and the renal ultrasound shows previously noted mid pole exophytic right renal low-attenuation lesion, was not well imaged in the current study, correlation with a multiphase CT scan through the abdomen and pelvis may be helpful. Mildly increased echogenicity of bilateral renal parenchyma suggestive of the medical renal disease. So at this time, she had that renal ultrasound. I want to know what are her laboratories. This patient has bilateral pneumonia and is on respiratory treatment. She states she is on IV antibiotics, and her white count today was 3.7. She is also on Bactrim. Hemoglobin is 11.6, hematocrit 34.5, platelet count is 207, BUN is 20, creatinine 0.8. We will follow. Cristina Waller MD
--- NOTE | 2017-11-20 07:46 | CP.PCM.PN ---
Subjective - Date & Time of Evaluation Date of Evaluation: 11/20/17 Time of Evaluation: 07:46 - Subjective Subjective: Resident Progress Note for Hospitalist Service Patient examined at bedside. No acute events overnight. States that she is feeling better and that her breathing is continuously improving. States that she is eating and drinking well. Denies chest pain, shortness of breath, abdominal pain, changes in bowel movement, dysuria. Objective - Vital Signs/Intake and Output Vital Signs (last 24 hours): Temp Pulse Resp BP Pulse Ox 99.0 F 84 20 124/81 95 11/20/17 07:38 11/20/17 07:38 11/20/17 07:38 11/20/17 07:38 11/20/17 07:38 Intake and Output: 11/20/17 11/20/17 06:59 18:59 Intake Total 870 Balance 870 - Medications Medications: Current Medications Acetaminophen (Tylenol 325mg Tab) 650 mg PO Q6 PRN PRN Reason: Fever >100.4 F Last Admin: 11/17/17 00:30 Dose: 650 mg Acetylcysteine (Acetylcysteine 20%) 4 ml INH RQ4 [facility] Last Admin: 11/20/17 07:20 Dose: Not Given Albuterol/Ipratropium (Duoneb 3 Mg/0.5 Mg (3 Ml) Ud) 3 ml INH RQ4 [facility] Last Admin: 11/20/17 07:20 Dose: Not Given Benzonatate (Tessalon Perles) 100 mg PO TID [facility] Last Admin: 11/19/17 17:57 Dose: 100 mg Clonidine HCl (Catapres) 0.1 mg PO Q4H PRN PRN Reason: Symptoms of alcohol withdrawl Dicyclomine HCl (Bentyl) 10 mg PO Q6 PRN PRN Reason: Muscle spasm Last Admin: 11/19/17 10:45 Dose: 10 mg Docusate Sodium (Colace) 100 mg PO BID [facility] Last Admin: 11/19/17 17:56 Dose: 100 mg Ergocalciferol (Drisdol 50,000 Intl Units Cap) 1 cap PO Q7D [facility] Last Admin: 11/14/17 10:04 Dose: 1 cap Gabapentin (Neurontin) 300 mg PO TID [facility] Last Admin: 11/19/17 17:57 Dose: 300 mg Guaifenesin (Mucinex La) 600 mg PO BID [facility] Last Admin: 11/19/17 17:56 Dose: 600 mg Heparin Sodium (Porcine) (Heparin) 5,000 units SC Q8 [facility] Last Admin: 11/20/17 06:27 Dose: Not Given Hydrocortisone (Cortizone 1% Cream) 0 gm TOP BID [facility] Last Admin: 11/19/17 18:30 Dose: Not Given Hydroxyzine HCl (Atarax) 25 mg PO Q6 PRN PRN Reason: Anxiety Last Admin: 11/19/17 18:06 Dose: 25 mg Tigecycline 50 mg/ Sodium (Chloride) 100 mls @ 100 mls/hr IVPB Q12H [facility] PRN Reason: Protocol Last Admin: 11/19/17 20:10 Dose: 100 mls/hr Aztreonam 1 gm/ Sodium (Chloride) 100 mls @ 200 mls/hr IVPB Q8H [facility] PRN Reason: Protocol Last Admin: 11/20/17 02:06 Dose: 200 mls/hr Mirtazapine (Remeron) 15 mg PO HS [facility] Last Admin: 11/19/17 21:24 Dose: 15 mg Multivitamins (Hexavitamin) 1 tab PO DAILY [facility] Last Admin: 11/19/17 09:44 Dose: 1 tab Ondansetron HCl (Zofran Tab) 4 mg PO Q8H PRN PRN Reason: Nausea/Vomiting Quetiapine Fumarate (Seroquel) 200 mg PO HS [facility] Last Admin: 11/19/17 21:24 Dose: 200 mg Saccharomyces Boulardii (Florastor) 250 mg PO BID [facility] Last Admin: 11/19/17 17:57 Dose: 250 mg Fluticasone/Salmeterol (Advair Diskus 250/50) 1 puff INH RQ12 [facility] Last Admin: 11/19/17 19:36 Dose: 1 puff Trazodone HCl (Desyrel) 100 mg PO HS PRN PRN Reason: Insomnia Last Admin: 11/14/17 21:09 Dose: 100 mg Trimethoprim/Sulfamethoxazole (Bactrim Ds Tab) 1 tab PO DAILY [facility] PRN Reason: Protocol Last Admin: 11/19/17 09:44 Dose: 1 tab - Labs Labs: 11/20/17 06:30 11/20/17 06:30 - Additional Findings Additional findings: - Constitutional Appears: Non-toxic, No Acute Distress, Agitated - Head Exam Head Exam: ATRAUMATIC, NORMOCEPHALIC - Eye Exam Eye Exam: EOMI, Normal appearance - ENT Exam ENT Exam: Mucous Membranes Moist, Normal Exam - Neck Exam Neck Exam: Normal Inspection - Respiratory Exam Respiratory Exam: Rales (rales in left lower lung gilman). Improved. absent: Wheezes, Respiratory Distress - Cardiovascular Exam Cardiovascular Exam: REGULAR RHYTHM, +S1, +S2 - GI/Abdominal Exam GI & Abdominal Exam: Soft, Nontender, Normal Bowel Sounds. absent: Firm, Rigid , Organomegaly - Extremities Exam Extremities Exam: Full ROM, Normal Capillary Refill, Normal Inspection - Back Exam Back Exam: NORMAL INSPECTION - Neurological Exam Neurological Exam: Alert, Awake, CN II-XII Intact, Oriented x3 - Psychiatric Exam Psychiatric exam: Normal Affect, Normal Mood - Skin Skin Exam: Dry, Intact, Normal Color Assessment and Plan - Assessment and Plan (Free Text) Plan: Community acquired pneumonia - Urine culture positive for group C strep - Mycoplasma negative - ESR 36.0 (H), CRP>15.0 (H) - Chest x-ray shows interval pathology left lung base mixed imaging findings. Inflammatory and neoplastic etiologies compatible with this. - Chest CT on 11/15 shows left lower lobe consolidation, multifocal small ill- defined nodular opacities right upper lobe and right lower lobe, likely infectious or inflammatory. Multifocal subsegmental atelectasis. Probable residual thymic tissue in anterior mediastinum. - Chest CT on 11/[address] evidence to suggest pulmonary embolus. Interval worsening left lower lobe pneumonitis and likely also at right middle and lower lobes though atelectasis is likely a concave min diagnosis. Hyperdense cyst or nodule right midpole kidney. - ABG pO2 47 - ID consulted. Recs appreciated. - O2 via nonrebreather - Nebulizer treatments - Aztreonam 1 gm Q8H (started 11/16) - Tygacil 50 mg IV Q12H (started 11/16) - Florastor 250 mg PO BID - Chest physiotherapy - Tylenol 650mg PO q6 PRN fever - Blood cultures negative - Strep pneumo urine antigen and legionella urine antigen negative - Followup sputum cultures - Repeat CXR on 11/20 shows interval increase bibasilar subsegmental atelectasis with radiographically progressive patch bibasliar infiltrates. Prior left lateral lung base nodular opacity is currently less dense but not completely cleared. - Pulmonology consulted. Appreciate recs. Kidney cyst vs. nodule - Noted on Chest CT - Renal ultrasound shows on the right kidney: 10.4x5.7x5.5 cm. Miled increased echogenicity of the renal parenchymal cortex suggestive for medical renal disease. Previously noted exophytic low-attenuation lesion in the midpole of the right kidney was not well visualized on the current study. Left kidney: 11.2x4.7x4.7 cm. Mild increased echogenicity of the renal parenchymal cortex suggestive for medical renal disease. Visualized urinary bladder is preserved. Elevated d-dimer - Chest CT negative for PE - Venous dopplers negative for DVT - ECHO shows normal LVEF. Transmitral Doppler flow pattern is Grade I-abnormal relaxation pattern. Mild aortic regurgitation. No vegetations noted. Chronic bronchitis - Advair 250/50 Q12h - Duonebs RQ4 - Mucinex 600 mg PO BID - Tessalon Pereles 100 mg PO TID HIV - Absolute CD4 count 214 per 08/2017 labs. Repeat absolute CD4 count 291. - Bactrim DS PO MWF for PCP prophylaxis (started 11/17) Hepatitis C - HCV RNA Detected in 08/2017 labs - 1a genotype - Patient advised for outpatient GI workup for treatment History of opioid/heroin abuse - Continue management as per detox/psychiatry team PPX - SCDs - Heparin 5000 units SC Q8H Dispo: Pending antibiotic therapy for pneumonia Emily Perdue PGY-1
[2017-11-20] MEDS: Tmp-Smz 800 mg-160 mg DS Tab PO SCH (10:45)
[2017-11-20] MEDS: Hydrocortisone 1% Cream (30 GM) TOP SCH ×2 (10:46→17:57)
[2017-11-20] MEDS: Saccharomyces Boulardi 250 mg Cap PO SCH ×2 (10:46→17:56)
[2017-11-20] MEDS: Multiple Vitamins Tab PO SCH (10:46)
[2017-11-20] MEDS: guaiFENesin 600 mg ER Tab PO SCH ×2 (10:55→17:56)
--- NOTE | 2017-11-20 15:07 | RAD ---
Date of service: 11/20/2017 HISTORY: Evaluate pneumonia COMPARISON: 11/15/2017 TECHNIQUE: Chest PA and lateral FINDINGS: LUNGS: The prior nodular opacity projecting over the lateral left lung base less dense. Continued follow-up here is advised. The bibasilar linear and patchy opacities at each lung base have progressed since the prior exam PLEURA: No significant pleural effusion identified. No pneumothorax apparent. CARDIOVASCULAR: Normal. OSSEOUS STRUCTURES: No significant abnormalities. VISUALIZED UPPER ABDOMEN: Normal. OTHER FINDINGS: None. IMPRESSION: Interval increase bibasilar subsegmental atelectasis with radiographically progressive patchy bibasilar infiltrates. The prior left lateral lung base nodular opacity is currently less dense but not completely cleared. Continued follow-up to ensure clearance of all of the changes at both lung bases is advised.
--- NOTE | 2017-11-20 17:39 | CP.PCM.CON ---
History of Present Illness - History of Present Illness History of Present Illness: admitted with pneumonia, currently feels somewhat better, still with cough and scanty sputum, whitish. h/o smoking for 25+ yrs and IVDA heroine abuse in the past CT hest reviewed with small bilat. pleural effusions L>R and bibasilar patchy densities Review of Systems - Review of Systems All systems: reviewed and no additional remarkable complaints except - Respiratory Respiratory: Wheezing, Chest Congestion, Excessive Mucous Production Past Patient History - Infectious Disease Hx of Infectious Diseases: None - Past Medical History & Family History Past Medical History?: Yes - Past Social History Smoking Status: Light Smoker < 10 Cigarettes Daily - CARDIAC Hx Cardiac Disorders: No (Patient denied) Hx Hypercholesterolemia: Yes Hx Hypertension: Yes - PULMONARY Hx Chronic Obstructive Pulmonary Disease (COPD): Yes - NEUROLOGICAL HX Cerebrovascular Accident: No (Patient denied) - HEENT Other/Comment: uses reading glasses - RENAL Hx Chronic Kidney Disease: No - ENDOCRINE/METABOLIC Hx Endocrine Disorders: No - HEMATOLOGICAL/ONCOLOGICAL Hx Cancer: No (Patient denied) Hx Hepatitis C: Yes Hx Human Immunodeficiency Virus (HIV): Yes - INTEGUMENTARY Other/Comment: scratches on back healing - MUSCULOSKELETAL/RHEUMATOLOGICAL Hx Musculoskeletal Disorders: No - GASTROINTESTINAL Hx Gastrointestinal Disorders: No - GENITOURINARY/GYNECOLOGICAL Hx Sexually Transmitted Disorders: No (Patient denied) - PSYCHIATRIC Hx Substance Use: Yes - SURGICAL HISTORY Hx Tonsillectomy: Yes - ANESTHESIA Hx Anesthesia: Yes Hx Anesthesia Reactions: No Hx Malignant Hyperthermia: No Meds Allergies/Adverse Reactions: Allergies Allergy/AdvReac Type Severity Reaction Status Date / Time Penicillins Allergy pt reports Verified 07/09/17 17:08 seizures - Medications Medications: Current Medications Acetaminophen (Tylenol 325mg Tab) 650 mg PO Q6 PRN PRN Reason: Fever >100.4 F Last Admin: 11/17/17 00:30 Dose: 650 mg Acetylcysteine (Acetylcysteine 20%) 4 ml INH RQ4 [facility] Last Admin: 11/20/17 15:46 Dose: 4 ml Albuterol/Ipratropium (Duoneb 3 Mg/0.5 Mg (3 Ml) Ud) 3 ml INH RQ4 [facility] Last Admin: 11/20/17 15:46 Dose: 3 ml Benzonatate (Tessalon Perles) 100 mg PO TID [facility] Last Admin: 11/20/17 13:55 Dose: 100 mg Clonidine HCl (Catapres) 0.1 mg PO Q4H PRN PRN Reason: Symptoms of alcohol withdrawl Dicyclomine HCl (Bentyl) 10 mg PO Q6 PRN PRN Reason: Muscle spasm Last Admin: 11/19/17 10:45 Dose: 10 mg Docusate Sodium (Colace) 100 mg PO BID [facility] Last Admin: 11/20/17 10:45 Dose: 100 mg Ergocalciferol (Drisdol 50,000 Intl Units Cap) 1 cap PO Q7D [facility] Last Admin: 11/14/17 10:04 Dose: 1 cap Gabapentin (Neurontin) 300 mg PO TID [facility] Last Admin: 11/20/17 13:55 Dose: 300 mg Guaifenesin (Mucinex La) 600 mg PO BID [facility] Last Admin: 11/20/17 10:55 Dose: 600 mg Heparin Sodium (Porcine) (Heparin) 5,000 units SC Q8 [facility] Last Admin: 11/20/17 13:56 Dose: Not Given Hydrocortisone (Cortizone 1% Cream) 0 gm TOP BID [facility] Last Admin: 11/20/17 10:46 Dose: Not Given Hydroxyzine HCl (Atarax) 25 mg PO Q6 PRN PRN Reason: Anxiety Last Admin: 11/20/17 11:28 Dose: 25 mg Tigecycline 50 mg/ Sodium (Chloride) 100 mls @ 100 mls/hr IVPB Q12H [facility] PRN Reason: Protocol Last Admin: 11/20/17 08:35 Dose: 100 mls/hr Aztreonam 1 gm/ Sodium (Chloride) 100 mls @ 200 mls/hr IVPB Q8H [facility] PRN Reason: Protocol Last Admin: 11/20/17 10:43 Dose: 200 mls/hr Mirtazapine (Remeron) 15 mg PO HS [facility] Last Admin: 11/19/17 21:24 Dose: 15 mg Multivitamins (Hexavitamin) 1 tab PO DAILY [facility] Last Admin: 11/20/17 10:46 Dose: 1 tab Ondansetron HCl (Zofran Tab) 4 mg PO Q8H PRN PRN Reason: Nausea/Vomiting Quetiapine Fumarate (Seroquel) 200 mg PO HS [facility] Last Admin: 11/19/17 21:24 Dose: 200 mg Saccharomyces Boulardii (Florastor) 250 mg PO BID [facility] Last Admin: 11/20/17 10:46 Dose: 250 mg Fluticasone/Salmeterol (Advair Diskus 250/50) 1 puff INH RQ12 [facility] Last Admin: 11/20/17 07:20 Dose: Not Given Trazodone HCl (Desyrel) 100 mg PO HS PRN PRN Reason: Insomnia Last Admin: 11/14/17 21:09 Dose: 100 mg Trimethoprim/Sulfamethoxazole (Bactrim Ds Tab) 1 tab PO DAILY [facility] PRN Reason: Protocol Last Admin: 11/20/17 10:45 Dose: 1 tab Physical Exam - Constitutional Appears: Chronically Ill - Head Exam Head Exam: ATRAUMATIC, NORMOCEPHALIC - Eye Exam Eye Exam: Normal appearance Pupil Exam: NORMAL ACCOMODATION - ENT Exam ENT Exam: Mucous Membranes Moist - Neck Exam Neck exam: Positive for: Normal Inspection - Respiratory Exam Respiratory Exam: Decreased Breath Sounds, Rhonchi - Cardiovascular Exam Cardiovascular Exam: RRR, +S1, +S2 - GI/Abdominal Exam GI & Abdominal Exam: Normal Bowel Sounds - Rectal Exam Rectal Exam: Deferred - Neurological Exam Neurological exam: Alert, Oriented x3 - Psychiatric Exam Psychiatric exam: Normal Affect, Normal Mood Results - Vital Signs Recent Vital Signs: Last Vital Signs Temp 98.7 F 11/20/17 15:00 Pulse 94 H 11/20/17 15:00 Resp 20 11/20/17 15:00 BP 122/83 11/20/17 15:00 Pulse Ox 93 L 11/20/17 15:00 - Labs Result Diagrams: 11/20/17 06:30 11/20/17 06:30 Labs: Laboratory Results - last 24 hr 11/20/17 11/20/17 06:30 06:30 WBC 3.6 L RBC 4.37 Hgb 12.2 Hct 36.7 MCV 84.1 MCH 27.9 MCHC 33.2 RDW 16.8 H Plt Count 204 MPV 8.4 Neut % (Auto) 62.7 Lymph % (Auto) 21.0 Nelson % (Auto) 13.1 H Eos % (Auto) 2.8 Baso % (Auto) 0.4 Neut # (Auto) 2.3 Lymph # (Auto) 0.8 L Nelson # (Auto) 0.5 Eos # (Auto) 0.1 Baso # (Auto) 0.0 Sodium 139 Potassium 4.0 Chloride 108 H Carbon Dioxide 22 Anion Gap 13 BUN 19 H Creatinine 0.7 Est GFR ( Amer) > 60 Est GFR (Non-Af Amer) > 60 Random Glucose 79 Calcium 8.3 L Phosphorus 4.0 Magnesium 1.9 Total Bilirubin 0.4 AST 44 H D ALT 26 Alkaline Phosphatase 73 Total Protein 6.7 Albumin 3.1 L Globulin 3.6 Albumin/Globulin Ratio 0.8 L Assessment & Plan (1) Aspiration pneumonia Status: Acute (2) COPD with exacerbation Status: Acute (3) Pleural effusion Status: Acute (4) Pulmonary hypertension Status: Suspected Comment: elevated PAP estimated on echo
--- NOTE | 2017-11-20 21:21 | CP.PCM.PN ---
Subjective - Date & Time of Evaluation Date of Evaluation: 11/20/17 Time of Evaluation: 13:30 - Subjective Subjective: dictated Objective - Vital Signs/Intake and Output Vital Signs (last 24 hours): Temp Pulse Resp BP Pulse Ox 98.7 F 94 H 20 122/83 93 L 11/20/17 15:00 11/20/17 15:00 11/20/17 15:00 11/20/17 15:00 11/20/17 15:00 Intake and Output: 11/20/17 11/21/17 18:59 06:59 Intake Total 700 Balance 700 - Medications Medications: Current Medications Acetaminophen (Tylenol 325mg Tab) 650 mg PO Q6 PRN PRN Reason: Fever >100.4 F Last Admin: 11/17/17 00:30 Dose: 650 mg Acetylcysteine (Acetylcysteine 20%) 4 ml INH RQ4 [facility] Last Admin: 11/20/17 15:46 Dose: 4 ml Albuterol/Ipratropium (Duoneb 3 Mg/0.5 Mg (3 Ml) Ud) 3 ml INH RQ4 [facility] Last Admin: 11/20/17 20:06 Dose: Not Given Benzonatate (Tessalon Perles) 100 mg PO TID [facility] Last Admin: 11/20/17 17:58 Dose: 100 mg Clonidine HCl (Catapres) 0.1 mg PO Q4H PRN PRN Reason: Symptoms of alcohol withdrawl Dicyclomine HCl (Bentyl) 10 mg PO Q6 PRN PRN Reason: Muscle spasm Last Admin: 11/19/17 10:45 Dose: 10 mg Docusate Sodium (Colace) 100 mg PO BID [facility] Last Admin: 11/20/17 17:56 Dose: 100 mg Ergocalciferol (Drisdol 50,000 Intl Units Cap) 1 cap PO Q7D [facility] Last Admin: 11/14/17 10:04 Dose: 1 cap Gabapentin (Neurontin) 300 mg PO TID [facility] Last Admin: 11/20/17 17:56 Dose: 300 mg Guaifenesin (Mucinex La) 600 mg PO BID [facility] Last Admin: 11/20/17 17:56 Dose: 600 mg Heparin Sodium (Porcine) (Heparin) 5,000 units SC Q8 [facility] Last Admin: 11/20/17 13:56 Dose: Not Given Hydrocortisone (Cortizone 1% Cream) 0 gm TOP BID [facility] Last Admin: 11/20/17 17:57 Dose: Not Given Hydroxyzine HCl (Atarax) 25 mg PO Q6 PRN PRN Reason: Anxiety Last Admin: 11/20/17 17:56 Dose: 25 mg Tigecycline 50 mg/ Sodium (Chloride) 100 mls @ 100 mls/hr IVPB Q12H [facility] PRN Reason: Protocol Last Admin: 11/20/17 19:54 Dose: 100 mls/hr Aztreonam 1 gm/ Sodium (Chloride) 100 mls @ 200 mls/hr IVPB Q8H [facility] PRN Reason: Protocol Last Admin: 11/20/17 17:57 Dose: 200 mls/hr Mirtazapine (Remeron) 15 mg PO HS [facility] Last Admin: 11/19/17 21:24 Dose: 15 mg Multivitamins (Hexavitamin) 1 tab PO DAILY [facility] Last Admin: 11/20/17 10:46 Dose: 1 tab Ondansetron HCl (Zofran Tab) 4 mg PO Q8H PRN PRN Reason: Nausea/Vomiting Quetiapine Fumarate (Seroquel) 200 mg PO HS [facility] Last Admin: 11/19/17 21:24 Dose: 200 mg Saccharomyces Boulardii (Florastor) 250 mg PO BID [facility] Last Admin: 11/20/17 17:56 Dose: 250 mg Fluticasone/Salmeterol (Advair Diskus 250/50) 1 puff INH RQ12 [facility] Last Admin: 11/20/17 20:06 Dose: Not Given Tiotropium [place] (Spiriva) 18 mcg INH RQ24 [facility] Trazodone HCl (Desyrel) 100 mg PO HS PRN PRN Reason: Insomnia Last Admin: 11/14/17 21:09 Dose: 100 mg Trimethoprim/Sulfamethoxazole (Bactrim Ds Tab) 1 tab PO DAILY [facility] PRN Reason: Protocol Last Admin: 11/20/17 10:45 Dose: 1 tab - Labs Labs: 11/20/17 06:30 11/20/17 06:30
[2017-11-21] MEDS: Albuterol-Ipratrop 3 mg / 0.5 (3 ml) UD INH SCH ×7 (00:13→23:52)
[2017-11-21] MEDS: Acetylcysteine 20% Inhal Soln (4ml) INH SCH ×6 (00:13→23:51)
[2017-11-21] MEDS: Aztreonam 1 GM in Sodium Chloride 0.9% 100 ML IVPB SCH ×3 (02:12→17:24)
--- NOTE | 2017-11-21 02:57 | PN ---
Copied To: Cristina Waller MD Attending MD: Cristina Waller MD DATE: 11/20/2017 SUBJECTIVE: The patient states she was feeling little better. She also was telling me that she will be seen later by the pulmonary attending, which I appreciated, and the patient still is coughing and has occasional wheeze, but she is more alert now, and she says her oxygenation is low. PHYSICAL EXAMINATION: VITAL SIGNS: T-max is 98.7, pulse was 94, blood pressure 122/83, respirations are 20. HEENT: Head is atraumatic, normocephalic. HEART: S1, S2 are regular. No murmurs appreciated. LUNGS: Had decreased breath sounds and occasional rhonchi and no wheeze. ABDOMEN: Soft, nontender. No guarding, no rigidity present. EXTREMITIES: Had no edema. LABORATORY DATA: Labs are noted. White count is 3.6, hemoglobin 12.2, hematocrit 36.7, platelet count is 204, and the patient's BUN is 19, creatinine is 0.7, AST is 44. MEDICATIONS: She is on Tygacil and Azactam. ASSESSMENT AND PLAN: She also had an unwitnessed fall. 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 She also has hepatitis C positive, hypertension, and right now she has bilateral pneumonia, possible aspiration. She is a heroin addict. Echocardiogram was negative for any vegetation, but showed pulmonary hypertension possibility. She was seen by me on 11/15/2017. So, she has been on antibiotics for the last six days. We will continue the same at this time. The patient seems to be improving. Cristina Waller MD
[2017-11-21] MEDS: Fluticasone-Salmeterol 250-50mcg Diskus INH SCH ×2 (07:22→19:20)
[2017-11-21] MEDS: Tiotropium 18 mcg Cap For Inhalation INH SCH (07:22)
[2017-11-21 07:23] LABS: ALB/GLOB RATIO 0.9 (1.0-2.1); ALBUMIN 3.2 g/dL (3.5-5.0); ALT/SGPT 23 U/L (9-52); AST/SGOT 43 U/L (14-36); BLOOD UREA NITROGEN 20 mg/dL (7-17); CALCIUM 8.3 mg/dl (8.6-10.4); GFR AFRICAN-AMERICAN > 60; GFR NON-AFRICAN AMERICAN > 60
[2017-11-21 07:27] LABS: BASO % 0.7 % (0.0-2.0); EOS # 0.1 K/uL (0.0-0.7); EOS % 4.1 % (0.0-4.0); HEMOGLOBIN 12.7 g/dL (11.0-16.0); LYMPH # 0.7 K/uL (1.0-4.3); LYMPH % 19.8 % (20.0-40.0); MEAN CELL VOLUME 84.5 fL (81.0-99.0); MEAN CORPUSCULAR HEMOGLOBIN 27.7 pg (27.0-31.0); MEAN CORPUSCULAR HGB CONC 32.8 g/dL (33.0-37.0); MEAN PLATELET VOLUME 8.9 fL (7.2-11.7); MONO # 0.4 K/uL (0.0-0.8); MONO % 12.3 % (0.0-10.0); NEUT # 2.3 K/uL (1.8-7.0); NEUT % 63.1 % (50.0-75.0); NRBC % 0.2 % (0.0-2.0); RBC 4.6 Mil/uL (3.80-5.20); RED CELL DISTRIBUTION WIDTH 16.9 % (11.5-14.5); WHITE BLOOD COUNT 3.6 K/uL (4.8-10.8)
--- NOTE | 2017-11-21 07:37 | CP.PCM.PN ---
Subjective - Date & Time of Evaluation Date of Evaluation: 11/21/17 Time of Evaluation: 07:37 - Subjective Subjective: Resident Progress Note for Hospitalist Service Patient examined at bedside. No acute events overnight. Patient states that her breathing is improved. She has no other complaints at this time. She states that she is eating and drinking well. Denies chest pain, shortness of breath, abdominal pain, changes in bowel movements, dysuria. Objective - Vital Signs/Intake and Output Vital Signs (last 24 hours): Temp Pulse Resp BP Pulse Ox 98 F 95 H 20 98/65 L 95 11/20/17 23:34 11/20/17 23:34 11/20/17 23:34 11/20/17 23:34 11/20/17 23:34 Intake and Output: 11/21/17 11/21/17 06:59 18:59 Intake Total 900 Balance 900 - Medications Medications: Current Medications Acetaminophen (Tylenol 325mg Tab) 650 mg PO Q6 PRN PRN Reason: Fever >100.4 F Last Admin: 11/20/17 21:41 Dose: 650 mg Acetylcysteine (Acetylcysteine 20%) 4 ml INH RQ4 [facility] Last Admin: 11/21/17 07:23 Dose: 4 ml Albuterol/Ipratropium (Duoneb 3 Mg/0.5 Mg (3 Ml) Ud) 3 ml INH RQ4 [facility] Last Admin: 11/21/17 07:22 Dose: 3 ml Benzonatate (Tessalon Perles) 100 mg PO TID [facility] Last Admin: 11/20/17 17:58 Dose: 100 mg Clonidine HCl (Catapres) 0.1 mg PO Q4H PRN PRN Reason: Symptoms of alcohol withdrawl Dicyclomine HCl (Bentyl) 10 mg PO Q6 PRN PRN Reason: Muscle spasm Last Admin: 11/19/17 10:45 Dose: 10 mg Docusate Sodium (Colace) 100 mg PO BID [facility] Last Admin: 11/20/17 17:56 Dose: 100 mg Ergocalciferol (Drisdol 50,000 Intl Units Cap) 1 cap PO Q7D [facility] Last Admin: 11/14/17 10:04 Dose: 1 cap Gabapentin (Neurontin) 300 mg PO TID [facility] Last Admin: 11/20/17 17:56 Dose: 300 mg Guaifenesin (Mucinex La) 600 mg PO BID [facility] Last Admin: 11/20/17 17:56 Dose: 600 mg Heparin Sodium (Porcine) (Heparin) 5,000 units SC Q8 [facility] Last Admin: 11/21/17 06:49 Dose: Not Given Hydrocortisone (Cortizone 1% Cream) 0 gm TOP BID [facility] Last Admin: 11/20/17 17:57 Dose: Not Given Hydroxyzine HCl (Atarax) 25 mg PO Q6 PRN PRN Reason: Anxiety Last Admin: 11/20/17 17:56 Dose: 25 mg Tigecycline 50 mg/ Sodium (Chloride) 100 mls @ 100 mls/hr IVPB Q12H [facility] PRN Reason: Protocol Last Admin: 11/20/17 19:54 Dose: 100 mls/hr Aztreonam 1 gm/ Sodium (Chloride) 100 mls @ 200 mls/hr IVPB Q8H [facility] PRN Reason: Protocol Last Admin: 11/21/17 02:12 Dose: 200 mls/hr Mirtazapine (Remeron) 15 mg PO HS [facility] Last Admin: 11/20/17 21:29 Dose: 15 mg Multivitamins (Hexavitamin) 1 tab PO DAILY [facility] Last Admin: 11/20/17 10:46 Dose: 1 tab Ondansetron HCl (Zofran Tab) 4 mg PO Q8H PRN PRN Reason: Nausea/Vomiting Quetiapine Fumarate (Seroquel) 200 mg PO HS [facility] Last Admin: 11/20/17 21:29 Dose: 200 mg Saccharomyces Boulardii (Florastor) 250 mg PO BID [facility] Last Admin: 11/20/17 17:56 Dose: 250 mg Fluticasone/Salmeterol (Advair Diskus 250/50) 1 puff INH RQ12 [facility] Last Admin: 11/21/17 07:22 Dose: 1 puff Tiotropium [place] (Spiriva) 18 mcg INH RQ24 [facility] Last Admin: 11/21/17 07:22 Dose: 18 mcg Trazodone HCl (Desyrel) 100 mg PO HS PRN PRN Reason: Insomnia Last Admin: 11/14/17 21:09 Dose: 100 mg Trimethoprim/Sulfamethoxazole (Bactrim Ds Tab) 1 tab PO DAILY [facility] PRN Reason: Protocol Last Admin: 11/20/17 10:45 Dose: 1 tab - Labs Labs: 11/21/17 06:51 11/21/17 06:51 - Additional Findings Additional findings: - Constitutional Appears: Non-toxic, No Acute Distress - Head Exam Head Exam: ATRAUMATIC, NORMOCEPHALIC - Eye Exam Eye Exam: EOMI, Normal appearance - ENT Exam ENT Exam: Mucous Membranes Moist, Normal Exam - Neck Exam Neck Exam: Normal Inspection - Respiratory Exam Respiratory Exam: Rales (rales in left lower lung gilman) with Decreased Breath Sounds. Improved. absent: Wheezes, Respiratory Distress - Cardiovascular Exam Cardiovascular Exam: REGULAR RHYTHM, +S1, +S2 - GI/Abdominal Exam GI & Abdominal Exam: Soft, Nontender, Normal Bowel Sounds. absent: Firm, Rigid , Organomegaly - Extremities Exam Extremities Exam: Full ROM, Normal Capillary Refill, Normal Inspection - Back Exam Back Exam: NORMAL INSPECTION - Neurological Exam Neurological Exam: Alert, Awake, CN II-XII Intact, Oriented x3 - Psychiatric Exam Psychiatric exam: Normal Affect, Normal Mood - Skin Skin Exam: Dry, Intact, Normal Color Assessment and Plan - Assessment and Plan (Free Text) Plan: Community acquired pneumonia - Urine culture positive for group C strep - Mycoplasma negative - ESR 36.0 (H), CRP>15.0 (H) - Chest x-ray shows interval pathology left lung base mixed imaging findings. Inflammatory and neoplastic etiologies compatible with this. - Chest CT on 11/15 shows left lower lobe consolidation, multifocal small ill- defined nodular opacities right upper lobe and right lower lobe, likely infectious or inflammatory. Multifocal subsegmental atelectasis. Probable residual thymic tissue in anterior mediastinum. - Chest CT on 11/[address] evidence to suggest pulmonary embolus. Interval worsening left lower lobe pneumonitis and likely also at right middle and lower lobes though atelectasis is likely a concave min diagnosis. Hyperdense cyst or nodule right midpole kidney. - ABG pO2 47 - ID consulted. Recs appreciated. - O2 via nonrebreather - Nebulizer treatments - Aztreonam 1 gm Q8H (started 11/16) - Tygacil 50 mg IV Q12H (started 11/16) - Florastor 250 mg PO BID - Chest physiotherapy - Tylenol 650mg PO q6 PRN fever - Blood cultures negative - Strep pneumo urine antigen and legionella urine antigen negative - Followup sputum cultures - Repeat CXR on 11/20 shows interval increase bibasilar subsegmental atelectasis with radiographically progressive patch bibasliar infiltrates. Prior left lateral lung base nodular opacity is currently less dense but not completely cleared. - Pulmonology consulted. Recs appreciated. Kidney cyst vs. nodule - Noted on Chest CT - Renal ultrasound shows on the right kidney: 10.4x5.7x5.5 cm. Miled increased echogenicity of the renal parenchymal cortex suggestive for medical renal disease. Previously noted exophytic low-attenuation lesion in the midpole of the right kidney was not well visualized on the current study. Left kidney: 11.2x4.7x4.7 cm. Mild increased echogenicity of the renal parenchymal cortex suggestive for medical renal disease. Visualized urinary bladder is preserved. Elevated d-dimer - Chest CT negative for PE - Venous dopplers negative for DVT - ECHO shows normal LVEF. Transmitral Doppler flow pattern is Grade I-abnormal relaxation pattern. Mild aortic regurgitation. No vegetations noted. Chronic bronchitis - Advair 250/50 Q12h - Duonebs RQ4 - Mucinex 600 mg PO BID - Tessalon Pereles 100 mg PO TID HIV - Absolute CD4 count 214 per 08/2017 labs. Repeat absolute CD4 count 291. - Bactrim DS PO MWF for PCP prophylaxis (started 11/17) Hepatitis C - HCV RNA Detected in 08/2017 labs - 1a genotype - Patient advised for outpatient GI workup for treatment History of opioid/heroin abuse - Continue management as per detox/psychiatry team PPX - SCDs - Heparin 5000 units SC Q8H Dispo: Pending antibiotic therapy for pneumonia Emily Perdue PGY-1
[2017-11-21] MEDS: guaiFENesin 600 mg ER Tab PO SCH ×2 (10:11→17:23)
[2017-11-21] MEDS: Multiple Vitamins Tab PO SCH (10:12)
[2017-11-21] MEDS: Ergocalciferol 50,000 Intl Units Cap PO SCH (10:12)
[2017-11-21] MEDS: Saccharomyces Boulardi 250 mg Cap PO SCH ×2 (10:12→17:23)
[2017-11-21] MEDS: Tmp-Smz 800 mg-160 mg DS Tab PO SCH (10:12)
[2017-11-21] MEDS: Hydrocortisone 1% Cream (30 GM) TOP SCH ×2 (10:13→17:28)
[2017-11-22] MEDS: Aztreonam 1 GM in Sodium Chloride 0.9% 100 ML IVPB SCH ×3 (02:04→17:41)
[2017-11-22] MEDS: Acetylcysteine 20% Inhal Soln (4ml) INH SCH ×5 (03:16→19:31)
[2017-11-22] MEDS: Albuterol-Ipratrop 3 mg / 0.5 (3 ml) UD INH SCH ×5 (03:17→19:31)
--- NOTE | 2017-11-22 05:10 | PN ---
Copied To: Cristina Waller MD Attending MD: Cristina Waller MD DATE: 11/21/2017 INFECTIOUS DISEASE FOLLOWUP SUBJECTIVE: The patient says she is little better, and she was seen by the photograph editor yesterday, and he thinks she is improving on the current treatment, so I am going to renew the antibiotics. OBJECTIVE: VITAL SIGNS: T-max is 98.9, pulse 90, blood pressure is 103/69, heart rate remains at 95, saturations 94. GENERAL: She is more alert and awake. HEENT: Head is atraumatic. NECK: Supple. LUNGS: Have occasional rhonchi bilaterally. HEART: S1, S2 regular. ABDOMEN: Soft, nontender. No guarding. No rigidity present. EXTREMITIES: Have no edema, clubbing, or cyanosis. She is on antibiotics from 11/15/2017, six days. Labs are noted. Labs show white count is 3.6. She is also HIV positive, and we will need treatment for that later. White count is 12.7, hemoglobin , platelet count is 212. Her BUN is 20, creatinine 0.7. HIV viral load, her CD4 count is 291, and she looks to be improving. Her chest x-ray was done yesterday which shows interval increased bibasilar subsegmental atelectasis with radiographically progressing patchy bibasilar infiltrate, a prior left lateral lung base nodular opacity is currently less dense but not completely cleared. Continued followup to ensure clearance of all the changes of both lung bases is advised. Still has a lot to go, and some places, they are saying the infiltrate is increasing, so we will follow recommendations of Pulmonary. SHE IS ALLERGIC TO PENICILLIN, and she remains on Azactam and Tygacil but I see that some of her things that she is refusing or not taking, so was not given. The compliance is still an issue. The patient with bilateral infiltrates, human immunodeficiency virus positive, substance abuse, IV drug abuser, and recent use of heroin, so we will follow and very slow progress. Cristina Waller MD
[2017-11-22] MEDS: Fluticasone-Salmeterol 250-50mcg Diskus INH SCH ×2 (07:31→19:31)
[2017-11-22] MEDS: Tiotropium 18 mcg Cap For Inhalation INH SCH (07:31)
--- NOTE | 2017-11-22 07:31 | CP.PCM.PN ---
Subjective - Date & Time of Evaluation Date of Evaluation: 11/22/17 Time of Evaluation: 13:10 - Subjective Subjective: Patient examined at bedside. Pt in no acute distress and no acute events overnight. Patient reports she continues to have chest tightness, worse with deep inspiration. Patient admits she is coughing and producing sputum. Patient denies chest pain, SOB, abdominal pain, nausea, diarrhea. Patient reports she has been ambulating. Objective - Vital Signs/Intake and Output Vital Signs (last 24 hours): Temp Pulse Resp BP Pulse Ox 97.5 F L 75 18 115/76 99 11/21/17 23:14 11/21/17 23:14 11/21/17 23:14 11/21/17 23:14 11/21/17 23:14 Intake and Output: 11/22/17 11/22/17 06:59 18:59 Intake Total 800 Output Total 500 Balance 300 - Medications Medications: Current Medications Acetaminophen (Tylenol 325mg Tab) 650 mg PO Q6 PRN PRN Reason: Fever >100.4 F Last Admin: 11/20/17 21:41 Dose: 650 mg Acetylcysteine (Acetylcysteine 20%) 4 ml INH RQ4 [facility] Last Admin: 11/22/17 03:16 Dose: Not Given Albuterol/Ipratropium (Duoneb 3 Mg/0.5 Mg (3 Ml) Ud) 3 ml INH RQ4 [facility] Last Admin: 11/22/17 03:17 Dose: Not Given Benzonatate (Tessalon Perles) 100 mg PO TID [facility] Last Admin: 11/21/17 17:23 Dose: 100 mg Clonidine HCl (Catapres) 0.1 mg PO Q4H PRN PRN Reason: Symptoms of alcohol withdrawl Dicyclomine HCl (Bentyl) 10 mg PO Q6 PRN PRN Reason: Muscle spasm Last Admin: 11/19/17 10:45 Dose: 10 mg Docusate Sodium (Colace) 100 mg PO BID [facility] Last Admin: 11/21/17 17:23 Dose: 100 mg Ergocalciferol (Drisdol 50,000 Intl Units Cap) 1 cap PO Q7D [facility] Last Admin: 11/21/17 10:12 Dose: 1 cap Gabapentin (Neurontin) 300 mg PO TID [facility] Last Admin: 11/21/17 17:23 Dose: 300 mg Guaifenesin (Mucinex La) 600 mg PO BID [facility] Last Admin: 11/21/17 17:23 Dose: 600 mg Heparin Sodium (Porcine) (Heparin) 5,000 units SC Q8 [facility] Last Admin: 11/22/17 06:00 Dose: Not Given Hydrocortisone (Cortizone 1% Cream) 0 gm TOP BID [facility] Last Admin: 11/21/17 17:28 Dose: Not Given Hydroxyzine HCl (Atarax) 25 mg PO Q6 PRN PRN Reason: Anxiety Last Admin: 11/21/17 17:23 Dose: 25 mg Tigecycline 50 mg/ Sodium (Chloride) 100 mls @ 100 mls/hr IVPB Q12H [facility] PRN Reason: Protocol Last Admin: 11/21/17 20:00 Dose: 100 mls/hr Aztreonam 1 gm/ Sodium (Chloride) 100 mls @ 200 mls/hr IVPB Q8H [facility] PRN Reason: Protocol Last Admin: 11/22/17 02:04 Dose: 200 mls/hr Mirtazapine (Remeron) 15 mg PO HS [facility] Last Admin: 11/21/17 21:31 Dose: 15 mg Multivitamins (Hexavitamin) 1 tab PO DAILY [facility] Last Admin: 11/21/17 10:12 Dose: 1 tab Ondansetron HCl (Zofran Tab) 4 mg PO Q8H PRN PRN Reason: Nausea/Vomiting Quetiapine Fumarate (Seroquel) 200 mg PO HS [facility] Last Admin: 11/21/17 21:31 Dose: 200 mg Saccharomyces Boulardii (Florastor) 250 mg PO BID [facility] Last Admin: 11/21/17 17:23 Dose: 250 mg Fluticasone/Salmeterol (Advair Diskus 250/50) 1 puff INH RQ12 [facility] Last Admin: 11/21/17 19:20 Dose: Not Given Tiotropium [place] (Spiriva) 18 mcg INH RQ24 [facility] Last Admin: 11/21/17 07:22 Dose: 18 mcg Trazodone HCl (Desyrel) 100 mg PO HS PRN PRN Reason: Insomnia Last Admin: 11/14/17 21:09 Dose: 100 mg Trimethoprim/Sulfamethoxazole (Bactrim Ds Tab) 1 tab PO DAILY [facility] PRN Reason: Protocol Last Admin: 11/21/17 10:12 Dose: 1 tab - Labs Labs: 11/21/17 06:51 11/21/17 06:51 - Constitutional Appears: Non-toxic, No Acute Distress - Head Exam Head Exam: ATRAUMATIC, NORMAL INSPECTION, NORMOCEPHALIC - Eye Exam Eye Exam: EOMI, Normal appearance - ENT Exam ENT Exam: Mucous Membranes Moist - Neck Exam Neck Exam: Normal Inspection - Respiratory Exam Respiratory Exam: Wheezes (left sided expiratory wheeze), NORMAL BREATHING PATTERN. absent: Accessory Muscle Use, Chest Wall Tenderness, Respiratory Distress - Cardiovascular Exam Cardiovascular Exam: REGULAR RHYTHM, +S1, +S2. absent: Tachycardia, Murmur - GI/Abdominal Exam GI & Abdominal Exam: Soft, Normal Bowel Sounds. absent: Distended, Tenderness - Extremities Exam Extremities Exam: Normal Capillary Refill, Normal Inspection. absent: Calf Tenderness, Pedal Edema - Neurological Exam Neurological Exam: Alert, Awake, Normal Gait, Oriented x3 - Psychiatric Exam Psychiatric exam: Normal Affect, Normal Mood - Skin Skin Exam: Intact, Normal Color, Rash (areas notable for injection sites associated w/ IV drug use noted), Warm Assessment and Plan - Assessment and Plan (Free Text) Assessment: CAP - Chest CT on 11/[address] evidence to suggest pulmonary embolus. Interval worsening left lower lobe pneumonitis and likely also at right middle and lower lobes though atelectasis is likely a concave min diagnosis. Hyperdense cyst or nodule right midpole kidney. - Repeat CXR on 11/20 shows interval increase bibasilar subsegmental atelectasis with radiographically progressive patch bibasliar infiltrates. Prior left lateral lung base nodular opacity is currently less dense but not completely cleared. -strep and Lg urina Ag negative - O2 via NC - Nebs - Mucinex 600mg BID - Aztreonam 1 gm Q8H (started 11/16) - Tygacil 50 mg IV Q12H (started 11/16) - Florastor 250 mg PO BID - Tylenol 650mg PO q6 PRN fever - ID consult, Dr. Waller - Pulm consult Dr. Giron Kidney cyst vs. nodule - Noted on Chest CT - Renal ultrasound shows on the right kidney: 10.4x5.7x5.5 cm. Miled increased echogenicity of the renal parenchymal cortex suggestive for medical renal disease. Previously noted exophytic low-attenuation lesion in the midpole of the right kidney was not well visualized on the current study. Left kidney: 11.2x4.7x4.7 cm. Mild increased echogenicity of the renal parenchymal cortex suggestive for medical renal disease. Visualized urinary bladder is preserved. Elevated d-dimer - Chest CT negative for PE - Venous dopplers negative for DVT - ECHO shows normal LVEF. Transmitral Doppler flow pattern is Grade I-abnormal relaxation pattern. Mild aortic regurgitation. No vegetations noted. Chronic bronchitis - Advair 250/50 Q12h - Duonebs RQ4 - Mucinex 600 mg PO BID - Tessalon Pereles 100 mg PO TID HIV - Absolute CD4 count 214 per 08/2017 labs. Repeat absolute CD4 count 291. - Bactrim DS PO for PCP prophylaxis (started 11/17) Hepatitis C - HCV RNA Detected in 08/2017 labs - 1a genotype - Patient advised for outpatient GI workup for treatment History of opioid/heroin abuse - Continue management as per detox/psychiatry team PPX - SCDs - Heparin 5000 units SC Q8H Dispo: Pending antibiotic therapy for pneumonia
[2017-11-22 07:39] LABS: BASO % 0.7 % (0.0-2.0); EOS # 0.1 K/uL (0.0-0.7); HEMOGLOBIN 13.1 g/dL (11.0-16.0); LYMPH # 0.9 K/uL (1.0-4.3); LYMPH % 22.8 % (20.0-40.0); MEAN CELL VOLUME 83.9 fL (81.0-99.0); MEAN CORPUSCULAR HEMOGLOBIN 28.3 pg (27.0-31.0); MEAN CORPUSCULAR HGB CONC 33.8 g/dL (33.0-37.0); MEAN PLATELET VOLUME 9.2 fL (7.2-11.7); MONO # 0.5 K/uL (0.0-0.8); MONO % 11.7 % (0.0-10.0); NEUT # 2.4 K/uL (1.8-7.0); NEUT % 61.8 % (50.0-75.0); NRBC % 0.2 % (0.0-2.0); RBC 4.61 Mil/uL (3.80-5.20); RED CELL DISTRIBUTION WIDTH 16.9 % (11.5-14.5); WHITE BLOOD COUNT 3.9 K/uL (4.8-10.8)
[2017-11-22 07:46] VITALS: RESP 20
[2017-11-22 07:54] LABS: ALB/GLOB RATIO 0.9 (1.0-2.1); ALBUMIN 3.2 g/dL (3.5-5.0); ALT/SGPT 27 U/L (9-52); AST/SGOT 31 U/L (14-36); BLOOD UREA NITROGEN 19 mg/dL (7-17); CALCIUM 8.2 mg/dl (8.6-10.4); GFR AFRICAN-AMERICAN > 60; GFR NON-AFRICAN AMERICAN > 60
[2017-11-22] MEDS: guaiFENesin 600 mg ER Tab PO SCH ×2 (10:21→17:47)
[2017-11-22] MEDS: Tmp-Smz 800 mg-160 mg DS Tab PO SCH (10:21)
[2017-11-22] MEDS: Multiple Vitamins Tab PO SCH (10:21)
[2017-11-22] MEDS: Saccharomyces Boulardi 250 mg Cap PO SCH ×2 (10:22→17:41)
[2017-11-22] MEDS ORDERED: MethylPREDNISolone 40 mg Vial IVP ONE (14:00)
[2017-11-22] MEDS: Hydrocortisone 1% Cream (30 GM) TOP SCH ×2 (14:40→17:42)
--- NOTE | 2017-11-22 18:08 | CP.PCM.PN ---
Subjective - Date & Time of Evaluation Date of Evaluation: 11/22/17 Time of Evaluation: 18:06 - Subjective Subjective: feels better, but still with cough and congestion Objective - Vital Signs/Intake and Output Vital Signs (last 24 hours): Temp Pulse Resp BP Pulse Ox 99 F 94 H 20 124/84 93 L 11/22/17 16:00 11/22/17 16:00 11/22/17 16:00 11/22/17 16:00 11/22/17 16:00 Intake and Output: 11/22/17 11/22/17 06:59 18:59 Intake Total 800 800 Output Total 500 Balance 300 800 - Medications Medications: Current Medications Acetaminophen (Tylenol 325mg Tab) 650 mg PO Q6 PRN PRN Reason: Fever >100.4 F Last Admin: 11/20/17 21:41 Dose: 650 mg Acetylcysteine (Acetylcysteine 20%) 4 ml INH RQ4 [facility] Last Admin: 11/22/17 16:25 Dose: Not Given Albuterol/Ipratropium (Duoneb 3 Mg/0.5 Mg (3 Ml) Ud) 3 ml INH RQ4 [facility] Last Admin: 11/22/17 16:25 Dose: Not Given Benzonatate (Tessalon Perles) 100 mg PO TID [facility] Last Admin: 11/22/17 17:41 Dose: 100 mg Clonidine HCl (Catapres) 0.1 mg PO Q4H PRN PRN Reason: Symptoms of alcohol withdrawl Dicyclomine HCl (Bentyl) 10 mg PO Q6 PRN PRN Reason: Muscle spasm Last Admin: 11/19/17 10:45 Dose: 10 mg Docusate Sodium (Colace) 100 mg PO BID [facility] Last Admin: 11/22/17 17:42 Dose: 100 mg Ergocalciferol (Drisdol 50,000 Intl Units Cap) 1 cap PO Q7D [facility] Last Admin: 11/21/17 10:12 Dose: 1 cap Gabapentin (Neurontin) 300 mg PO TID [facility] Last Admin: 11/22/17 17:42 Dose: 300 mg Guaifenesin (Mucinex La) 600 mg PO BID [facility] Last Admin: 11/22/17 17:47 Dose: 600 mg Heparin Sodium (Porcine) (Heparin) 5,000 units SC Q8 [facility] Last Admin: 11/22/17 14:40 Dose: Not Given Hydrocortisone (Cortizone 1% Cream) 0 gm TOP BID [facility] Last Admin: 11/22/17 17:42 Dose: Not Given Hydroxyzine HCl (Atarax) 25 mg PO Q6 PRN PRN Reason: Anxiety Last Admin: 11/22/17 17:41 Dose: 25 mg Tigecycline 50 mg/ Sodium (Chloride) 100 mls @ 100 mls/hr IVPB Q12H [facility] PRN Reason: Protocol Last Admin: 11/22/17 08:35 Dose: 100 mls/hr Aztreonam 1 gm/ Sodium (Chloride) 100 mls @ 200 mls/hr IVPB Q8H [facility] PRN Reason: Protocol Last Admin: 11/22/17 17:41 Dose: 200 mls/hr Mirtazapine (Remeron) 15 mg PO HS [facility] Last Admin: 11/21/17 21:31 Dose: 15 mg Multivitamins (Hexavitamin) 1 tab PO DAILY [facility] Last Admin: 11/22/17 10:21 Dose: 1 tab Ondansetron HCl (Zofran Tab) 4 mg PO Q8H PRN PRN Reason: Nausea/Vomiting Quetiapine Fumarate (Seroquel) 200 mg PO HS [facility] Last Admin: 11/21/17 21:31 Dose: 200 mg Saccharomyces Boulardii (Florastor) 250 mg PO BID [facility] Last Admin: 11/22/17 17:41 Dose: 250 mg Fluticasone/Salmeterol (Advair Diskus 250/50) 1 puff INH RQ12 [facility] Last Admin: 11/22/17 07:31 Dose: 1 puff Tiotropium [place] (Spiriva) 18 mcg INH RQ24 [facility] Last Admin: 11/22/17 07:31 Dose: 18 mcg Trazodone HCl (Desyrel) 100 mg PO HS PRN PRN Reason: Insomnia Last Admin: 11/14/17 21:09 Dose: 100 mg Trimethoprim/Sulfamethoxazole (Bactrim Ds Tab) 1 tab PO DAILY [facility] PRN Reason: Protocol Last Admin: 11/22/17 10:21 Dose: 1 tab - Labs Labs: 11/22/17 07:23 11/22/17 07:23 - Constitutional Appears: No Acute Distress, Chronically Ill - Head Exam Head Exam: ATRAUMATIC, NORMOCEPHALIC - Eye Exam Eye Exam: Normal appearance Pupil Exam: NORMAL ACCOMODATION - ENT Exam ENT Exam: Mucous Membranes Moist - Respiratory Exam Respiratory Exam: Decreased Breath Sounds, Rhonchi - Cardiovascular Exam Cardiovascular Exam: REGULAR RHYTHM, +S1, +S2 - GI/Abdominal Exam GI & Abdominal Exam: Normal Bowel Sounds - Rectal Exam Rectal Exam: Deferred - Extremities Exam Extremities Exam: Normal Inspection - Neurological Exam Neurological Exam: Alert, Awake, Oriented x3 - Psychiatric Exam Psychiatric exam: Normal Affect, Normal Mood - Skin Skin Exam: Intact Assessment and Plan (1) Aspiration pneumonia Status: Acute (2) COPD with exacerbation Status: Acute (3) Pleural effusion Status: Acute (4) Pulmonary hypertension Status: Suspected
--- NOTE | 2017-11-22 20:04 | CP.PCM.PN ---
Subjective - Date & Time of Evaluation Date of Evaluation: 11/22/17 Time of Evaluation: 15:00 - Subjective Subjective: dictated Objective - Vital Signs/Intake and Output Vital Signs (last 24 hours): Temp Pulse Resp BP Pulse Ox 99 F 94 H 20 124/84 93 L 11/22/17 16:00 11/22/17 16:00 11/22/17 16:00 11/22/17 16:00 11/22/17 16:00 Intake and Output: 11/22/17 11/23/17 18:59 06:59 Intake Total 800 Balance 800 - Medications Medications: Current Medications Acetaminophen (Tylenol 325mg Tab) 650 mg PO Q6 PRN PRN Reason: Fever >100.4 F Last Admin: 11/20/17 21:41 Dose: 650 mg Acetylcysteine (Acetylcysteine 20%) 4 ml INH RQ4 [facility] Last Admin: 11/22/17 19:31 Dose: Not Given Albuterol/Ipratropium (Duoneb 3 Mg/0.5 Mg (3 Ml) Ud) 3 ml INH RQ4 [facility] Last Admin: 11/22/17 19:31 Dose: Not Given Benzonatate (Tessalon Perles) 100 mg PO TID [facility] Last Admin: 11/22/17 17:41 Dose: 100 mg Clonidine HCl (Catapres) 0.1 mg PO Q4H PRN PRN Reason: Symptoms of alcohol withdrawl Dicyclomine HCl (Bentyl) 10 mg PO Q6 PRN PRN Reason: Muscle spasm Last Admin: 11/19/17 10:45 Dose: 10 mg Docusate Sodium (Colace) 100 mg PO BID [facility] Last Admin: 11/22/17 17:42 Dose: 100 mg Ergocalciferol (Drisdol 50,000 Intl Units Cap) 1 cap PO Q7D [facility] Last Admin: 11/21/17 10:12 Dose: 1 cap Gabapentin (Neurontin) 300 mg PO TID [facility] Last Admin: 11/22/17 17:42 Dose: 300 mg Guaifenesin (Mucinex La) 600 mg PO BID [facility] Last Admin: 11/22/17 17:47 Dose: 600 mg Heparin Sodium (Porcine) (Heparin) 5,000 units SC Q8 [facility] Last Admin: 11/22/17 14:40 Dose: Not Given Hydrocortisone (Cortizone 1% Cream) 0 gm TOP BID [facility] Last Admin: 11/22/17 17:42 Dose: Not Given Hydroxyzine HCl (Atarax) 25 mg PO Q6 PRN PRN Reason: Anxiety Last Admin: 11/22/17 17:41 Dose: 25 mg Tigecycline 50 mg/ Sodium (Chloride) 100 mls @ 100 mls/hr IVPB Q12H [facility] PRN Reason: Protocol Last Admin: 11/22/17 19:08 Dose: 100 mls/hr Aztreonam 1 gm/ Sodium (Chloride) 100 mls @ 200 mls/hr IVPB Q8H [facility] PRN Reason: Protocol Last Admin: 11/22/17 17:41 Dose: 200 mls/hr Mirtazapine (Remeron) 15 mg PO HS [facility] Last Admin: 11/21/17 21:31 Dose: 15 mg Multivitamins (Hexavitamin) 1 tab PO DAILY [facility] Last Admin: 11/22/17 10:21 Dose: 1 tab Ondansetron HCl (Zofran Tab) 4 mg PO Q8H PRN PRN Reason: Nausea/Vomiting Quetiapine Fumarate (Seroquel) 200 mg PO HS [facility] Last Admin: 11/21/17 21:31 Dose: 200 mg Saccharomyces Boulardii (Florastor) 250 mg PO BID [facility] Last Admin: 11/22/17 17:41 Dose: 250 mg Fluticasone/Salmeterol (Advair Diskus 250/50) 1 puff INH RQ12 [facility] Last Admin: 11/22/17 19:31 Dose: Not Given Tiotropium [place] (Spiriva) 18 mcg INH RQ24 [facility] Last Admin: 11/22/17 07:31 Dose: 18 mcg Trazodone HCl (Desyrel) 100 mg PO HS PRN PRN Reason: Insomnia Last Admin: 11/14/17 21:09 Dose: 100 mg Trimethoprim/Sulfamethoxazole (Bactrim Ds Tab) 1 tab PO DAILY [facility] PRN Reason: Protocol Last Admin: 11/22/17 10:21 Dose: 1 tab - Labs Labs: 11/22/17 07:23 11/22/17 07:23
--- NOTE | 2017-11-23 00:22 | PN ---
Copied To: Cristina Waller MD Attending MD: Cristina Waller MD DATE: 11/22/2017 SUBJECTIVE: The patient is feeling a lot better. I spoke to Dr. Morales and he said that she was still sounding bad on the lungs, and he gave a steroid shot. I saw a few hours after that, and she was breathing easier. She still has a cough though. She says she is not able to ambulate well, and she probably will be going to rehab. PHYSICAL EXAMINATION: VITAL SIGNS: T-max was 99, pulse 94, blood pressure , respirations are 20. HEENT: Head is atraumatic. NECK: Supple. LUNGS: Have bilateral rhonchi. No wheezing at this time. Decreased breath sounds. HEART: S1, S2 are regular. ABDOMEN: Soft, nontender. No guarding, no rigidity present. EXTREMITIES: Have no edema. LABORATORY DATA: White count is 3.9 today, hemoglobin 13.1, hematocrit 38.7, platelet count is 230. ASSESSMENT AND PLAN: Since she is improving on the current regimen, we started these on 11/15/2017 and today is the seventh day. If she goes to a rehab, to continue Tygacil for next three days and see for clinical improvement. If it does not improve, then to give either Levaquin for four more days 500 mg p.o. daily and to continue respiratory treatments. The patient also has human immunodeficiency virus disease. She needs to follow up in the human immunodeficiency virus clinic. She was in detox and I hope I specified on her to stay away from all the intravenous drugs as those are also causing a lot of changes in her lung parenchyma. Cristina Waller MD
[2017-11-23] MEDS: Albuterol-Ipratrop 3 mg / 0.5 (3 ml) UD INH SCH ×5 (00:34→16:33)
[2017-11-23] MEDS: Acetylcysteine 20% Inhal Soln (4ml) INH SCH ×5 (00:34→16:33)
[2017-11-23] MEDS: Aztreonam 1 GM in Sodium Chloride 0.9% 100 ML IVPB SCH ×2 (02:02→10:29)
[2017-11-23 06:42] LABS: BASO % 0.8 % (0.0-2.0); EOS % 0.3 % (0.0-4.0); HEMOGLOBIN 12.9 g/dL (11.0-16.0); LYMPH # 1.2 K/uL (1.0-4.3); LYMPH % 26.7 % (20.0-40.0); MEAN CELL VOLUME 84.2 fL (81.0-99.0); MEAN CORPUSCULAR HEMOGLOBIN 28.2 pg (27.0-31.0); MEAN CORPUSCULAR HGB CONC 33.5 g/dL (33.0-37.0); MONO # 0.4 K/uL (0.0-0.8); MONO % 9.5 % (0.0-10.0); NEUT # 2.8 K/uL (1.8-7.0); NEUT % 62.7 % (50.0-75.0); RBC 4.57 Mil/uL (3.80-5.20); RED CELL DISTRIBUTION WIDTH 16.9 % (11.5-14.5); WHITE BLOOD COUNT 4.4 K/uL (4.8-10.8)
--- NOTE | 2017-11-23 06:57 | CP.PCM.PN ---
Subjective - Date & Time of Evaluation Date of Evaluation: 11/23/17 Objective - Vital Signs/Intake and Output Vital Signs (last 24 hours): Temp Pulse Resp BP Pulse Ox 97.8 F 90 20 100/70 95 11/22/17 23:17 11/22/17 23:17 11/22/17 23:17 11/22/17 23:17 11/22/17 23:17 Intake and Output: 11/22/17 11/23/17 18:59 06:59 Intake Total 800 1050 Balance 800 1050 - Medications Medications: Current Medications Acetaminophen (Tylenol 325mg Tab) 650 mg PO Q6 PRN PRN Reason: Fever >100.4 F Last Admin: 11/20/17 21:41 Dose: 650 mg Acetylcysteine (Acetylcysteine 20%) 4 ml INH RQ4 FUAD Last Admin: 11/23/17 04:48 Dose: Not Given Albuterol/Ipratropium (Duoneb 3 Mg/0.5 Mg (3 Ml) Ud) 3 ml INH RQ4 FUAD Last Admin: 11/23/17 04:48 Dose: Not Given Benzonatate (Tessalon Perles) 100 mg PO TID [facility] Last Admin: 11/22/17 17:41 Dose: 100 mg Clonidine HCl (Catapres) 0.1 mg PO Q4H PRN PRN Reason: Symptoms of alcohol withdrawl Dicyclomine HCl (Bentyl) 10 mg PO Q6 PRN PRN Reason: Muscle spasm Last Admin: 11/19/17 10:45 Dose: 10 mg Docusate Sodium (Colace) 100 mg PO BID [facility] Last Admin: 11/22/17 17:42 Dose: 100 mg Ergocalciferol (Drisdol 50,000 Intl Units Cap) 1 cap PO Q7D [facility] Last Admin: 11/21/17 10:12 Dose: 1 cap Gabapentin (Neurontin) 300 mg PO TID [facility] Last Admin: 11/22/17 17:42 Dose: 300 mg Guaifenesin (Mucinex La) 600 mg PO BID [facility] Last Admin: 11/22/17 17:47 Dose: 600 mg Heparin Sodium (Porcine) (Heparin) 5,000 units SC Q8 [facility] Last Admin: 11/23/17 06:00 Dose: Not Given Hydrocortisone (Cortizone 1% Cream) 0 gm TOP BID [facility] Last Admin: 11/22/17 17:42 Dose: Not Given Hydroxyzine HCl (Atarax) 25 mg PO Q6 PRN PRN Reason: Anxiety Last Admin: 11/22/17 17:41 Dose: 25 mg Tigecycline 50 mg/ Sodium (Chloride) 100 mls @ 100 mls/hr IVPB Q12H [facility]UAD PRN Reason: Protocol Last Admin: 11/22/17 19:08 Dose: 100 mls/hr Aztreonam 1 gm/ Sodium (Chloride) 100 mls @ 200 mls/hr IVPB Q8H FUAD PRN Reason: Protocol Last Admin: 11/23/17 02:02 Dose: 200 mls/hr Mirtazapine (Remeron) 15 mg PO HS [facility] Last Admin: 11/22/17 21:22 Dose: 15 mg Multivitamins (Hexavitamin) 1 tab PO DAILY [facility] Last Admin: 11/22/17 10:21 Dose: 1 tab Ondansetron HCl (Zofran Tab) 4 mg PO Q8H PRN PRN Reason: Nausea/Vomiting Quetiapine Fumarate (Seroquel) 200 mg PO HS [facility] Last Admin: 11/22/17 21:22 Dose: 200 mg Saccharomyces Boulardii (Florastor) 250 mg PO BID [facility] Last Admin: 11/22/17 17:41 Dose: 250 mg Fluticasone/Salmeterol (Advair Diskus 250/50) 1 puff INH RQ12 [facility] Last Admin: 11/22/17 19:31 Dose: Not Given Tiotropium [place] (Spiriva) 18 mcg INH RQ24 [facility] Last Admin: 11/22/17 07:31 Dose: 18 mcg Trazodone HCl (Desyrel) 100 mg PO HS PRN PRN Reason: Insomnia Last Admin: 11/14/17 21:09 Dose: 100 mg Trimethoprim/Sulfamethoxazole (Bactrim Ds Tab) 1 tab PO DAILY [facility] PRN Reason: Protocol Last Admin: 11/22/17 10:21 Dose: 1 tab - Labs Labs: 11/23/17 06:36 11/22/17 07:23
[2017-11-23 07:04] LABS: ALB/GLOB RATIO 0.8 (1.0-2.1); ALT/SGPT 22 U/L (9-52); AST/SGOT 26 U/L (14-36); BLOOD UREA NITROGEN 29 mg/dL (7-17); CALCIUM 8.4 mg/dl (8.6-10.4); GFR AFRICAN-AMERICAN > 60; GFR NON-AFRICAN AMERICAN > 60
[2017-11-23] MEDS: Fluticasone-Salmeterol 250-50mcg Diskus INH SCH (07:28)
[2017-11-23] MEDS: Tiotropium 18 mcg Cap For Inhalation INH SCH (07:28)
[2017-11-23] MEDS: Multiple Vitamins Tab PO SCH (10:22)
[2017-11-23] MEDS: Tmp-Smz 800 mg-160 mg DS Tab PO SCH (10:22)
[2017-11-23] MEDS: Saccharomyces Boulardi 250 mg Cap PO SCH ×2 (10:23→18:09)
[2017-11-23] MEDS: guaiFENesin 600 mg ER Tab PO SCH ×2 (10:23→18:10)
[2017-11-23] MEDS: Hydrocortisone 1% Cream (30 GM) TOP SCH (11:24)
--- NOTE | 2017-11-23 11:28 | CP.PCM.PN ---
Subjective - Date & Time of Evaluation Date of Evaluation: 11/23/17 Time of Evaluation: 11:30 - Subjective Subjective: Hospitalist Progress Note Patient was seen and examined at 11: 15 AM 11/23/17 [address] FULL ROS (+) Cough is still present although less and less productive of white material (+) Chest tightness is still present but better than yesterday NO dysphagia/odynopahgia NO soreness in throat NO sinus/nasal congestion NO fever/chills NO muscle aches/pains NO joint pain NO chest pain/palpations NO SOB NO abdominal pain NO n/v/d/c: moving her bowels normally NO burning pain with urination NO ARTHUR NO lightheadedness/dizziness NO paresthesias Exam: General: AAOX3, NAD HEENT: NCA, EOMI, PERRLA, NO cervical/supraclavicular/submandibular lymphadenopathy, NO pharyngeal erythema/exudate, Nasal Turbinates are nonerythematous/nonedematous, Oral Mucosa is moist Cardio: NS1 and NS2, Sytolic Ejection Murmur heard best Right Second Intercostal Space Resp: Course breath sounds with inspiration and expiration mid to lower lung gilman GI: BSx4, Soft, NT, NO HSM, NO guarding/rebound tenderness Ext: Pulses are strong and equal, Capillary Refill is 2 seconds, NO edema Neuro: CN II through XII are grossly intact Assessments: 1). Bilateral Pneumonia 2). COPD 3). HIV: history of noncompliance 4). Hepatitis C 5). Heroin Abuse 6). Tachycardia 7). UTI 8). Right Kidney Midpole Cyst/Nodule 9). Bipolar Disorder Blood Culture is negative at 5 days Sputum Culture is negative Urine Culture is negative CT Angio Chest shows NO PE and Bilateral Venous Dopplers show NO DVT She is fever free > 48 hours Her breathing status has improved and no signs of respiratory distress Patient is stable for discharge to Subacute Rehab at [facility] in [place] Continue current medications as currently in orders section with continuing Tigecycline 50 mg IV Q12H through 11/25/17 and then starting on Sunday11/26/17 through 11/29/17 she will need to be on Levofloxacin 500 mg PO 1x/day Once discharged from [facility], she will need to follow up with her PMD Dr. Gates for the coordination of her health care. Through Dr. Gates's office she will need a CT Abdomen/Pelvis for further characterization of the Right Kidney Midpole Cyst/Nodule and setting up with Infectious Disease physician as patient stated that she would like to restart treatment for the HIV and that she is ready/motivated to be compliant with the treatment regimen. Omar Morales D.O. Objective - Vital Signs/Intake and Output Vital Signs (last 24 hours): Temp Pulse Resp BP Pulse Ox 97.6 F 76 20 118/84 95 11/23/17 07:40 11/23/17 07:40 11/23/17 07:40 11/23/17 07:40 11/23/17 07:40 Intake and Output: 11/23/17 11/23/17 06:59 18:59 Intake Total 1050 Balance 1050 - Medications Medications: Current Medications Acetaminophen (Tylenol 325mg Tab) 650 mg PO Q6 PRN PRN Reason: Fever >100.4 F Last Admin: 11/20/17 21:41 Dose: 650 mg Acetylcysteine (Acetylcysteine 20%) 4 ml INH RQ4 [facility] Last Admin: 11/23/17 07:28 Dose: 4 ml Albuterol/Ipratropium (Duoneb 3 Mg/0.5 Mg (3 Ml) Ud) 3 ml INH RQ4 FUAD Last Admin: 11/23/17 07:28 Dose: 3 ml Benzonatate (Tessalon Perles) 100 mg PO TID [facility] Last Admin: 11/22/17 17:41 Dose: 100 mg Clonidine HCl (Catapres) 0.1 mg PO Q4H PRN PRN Reason: Symptoms of alcohol withdrawl Dicyclomine HCl (Bentyl) 10 mg PO Q6 PRN PRN Reason: Muscle spasm Last Admin: 11/19/17 10:45 Dose: 10 mg Docusate Sodium (Colace) 100 mg PO BID [facility] Last Admin: 11/22/17 17:42 Dose: 100 mg Ergocalciferol (Drisdol 50,000 Intl Units Cap) 1 cap PO Q7D [facility] Last Admin: 11/21/17 10:12 Dose: 1 cap Gabapentin (Neurontin) 300 mg PO TID [facility] Last Admin: 11/22/17 17:42 Dose: 300 mg Guaifenesin (Mucinex La) 600 mg PO BID [facility] Last Admin: 11/22/17 17:47 Dose: 600 mg Heparin Sodium (Porcine) (Heparin) 5,000 units SC Q8 [facility] Last Admin: 11/23/17 06:00 Dose: Not Given Hydrocortisone (Cortizone 1% Cream) 0 gm TOP BID [facility] Last Admin: 11/22/17 17:42 Dose: Not Given Hydroxyzine HCl (Atarax) 25 mg PO Q6 PRN PRN Reason: Anxiety Last Admin: 11/22/17 17:41 Dose: 25 mg Tigecycline 50 mg/ Sodium (Chloride) 100 mls @ 100 mls/hr IVPB Q12H [facility]UAD PRN Reason: Protocol Last Admin: 11/23/17 08:00 Dose: 100 mls/hr Aztreonam 1 gm/ Sodium (Chloride) 100 mls @ 200 mls/hr IVPB Q8H [facility]UAD PRN Reason: Protocol Last Admin: 11/23/17 02:02 Dose: 200 mls/hr Mirtazapine (Remeron) 15 mg PO HS [facility] Last Admin: 11/22/17 21:22 Dose: 15 mg Multivitamins (Hexavitamin) 1 tab PO DAILY [facility] Last Admin: 11/22/17 10:21 Dose: 1 tab Ondansetron HCl (Zofran Tab) 4 mg PO Q8H PRN PRN Reason: Nausea/Vomiting Quetiapine Fumarate (Seroquel) 200 mg PO HS [facility] Last Admin: 11/22/17 21:22 Dose: 200 mg Saccharomyces Boulardii (Florastor) 250 mg PO BID [facility] Last Admin: 11/22/17 17:41 Dose: 250 mg Fluticasone/Salmeterol (Advair Diskus 250/50) 1 puff INH RQ12 [facility] Last Admin: 11/23/17 07:28 Dose: 1 puff Tiotropium [place] (Spiriva) 18 mcg INH RQ24 [facility] Last Admin: 11/23/17 07:28 Dose: 18 mcg Trazodone HCl (Desyrel) 100 mg PO HS PRN PRN Reason: Insomnia Last Admin: 11/14/17 21:09 Dose: 100 mg Trimethoprim/Sulfamethoxazole (Bactrim Ds Tab) 1 tab PO DAILY [facility] PRN Reason: Protocol Last Admin: 11/22/17 10:21 Dose: 1 tab - Labs Labs: 11/23/17 06:36 11/23/17 06:36
--- NOTE | 2017-11-23 12:38 | CP.PCM.DIS ---
Provider - Provider Date of Admission: 11/11/17 19:58 Attending physician: Tamy Quintanilla DO Primary care physician: Dr. Falcon Consults: Dr. Christa Giron Time Spent in preparation of Discharge (in minutes): 29 Diagnosis - Discharge Diagnosis (1) Bilateral pneumonia Status: Acute Comment: CT chest releaved B/L pneumonia. Patient treated with antibiotics during stay. Continue Tigecycline 50 mg IV Q12 through 11/25/17. From 11/26/17 through 11/29/17, patient is to take Levofloxacin 500mg PO QD. Sputum cultures negative, cough improved. (2) COPD (chronic obstructive pulmonary disease) Status: Acute Comment: Breathing improved, stable for discharge to [facility]. Patient is to continue with medications as ordered (3) HIV (human immunodeficiency virus infection) Status: Chronic Comment: After discharge from subacute rehab, patient is to follow up with her PMD to arrange care with an Infectious Disease specialist to coordinate HIV care management. Patient is advised to restart HIV meds. Patient was placed on Bactrim for prophylaxix. (4) Hepatitis C Status: Chronic Comment: Patient has a history of Hep C. Follow up with PMD is advised. (5) Opioid use disorder, severe, dependence Status: Chronic Comment: Patient detoxed from heroin during admission. Patient is advised to abstain from drug abuse. Stable for discharge to [facility] (6) Tachycardia Status: Acute Comment: Patient remained tachycardic during stay. EKG showed sinus tachycardia. Echo revealed no acute pathology. B/L venous dopplers negative. CTA chest negative. Blood, sputum and urine cultures negative upon discharge. Fever free. (7) UTI (urinary tract infection) Status: Acute Comment: UA revealed UTI. Patient treated with antibiotics. Subsequent urine culture negative. (8) Renal lesion Status: Acute Comment: Right midpole lesion noted on US. Patient advised to follow up with PMD following discharge from [facility] and undergo further eval of right midpole lesion with CT abd/pelvis (9) Bipolar 1 disorder Status: Chronic Comment: Patient is advised to continue with psych meds as prescribed and follow up with psychiatry outpatient Hospital Course - Lab Results Lab Results: Micro Results 11/17/17 17:00 Blood Blood Culture - Final NO GROWTH AFTER 5 DAYS 11/17/17 17:00 Blood Gram Stain - Final TEST NOT PERFORMED 11/17/17 16:30 Blood Blood Culture - Final NO GROWTH AFTER 5 DAYS 11/17/17 16:30 Blood Gram Stain - Final TEST NOT PERFORMED 11/16/17 16:45 Blood Blood Culture - Final NO GROWTH AFTER 5 DAYS 11/16/17 16:45 Blood Gram Stain - Final TEST NOT PERFORMED 11/19/17 21:46 Sputum Gram Stain - Final 11/19/17 21:46 Sputum Sputum Culture - Final NORMAL ORAL KAJAL 11/15/17 13:50 Blood-Venous Blood Culture - Final NO GROWTH AFTER 5 DAYS 11/15/17 13:50 Blood-Venous Gram Stain - Final TEST NOT PERFORMED 11/15/17 10:58 Blood-Venous Blood Culture - Final NO GROWTH AFTER 5 DAYS 11/15/17 10:58 Blood-Venous Gram Stain - Final TEST NOT PERFORMED 11/15/17 08:59 Urine,Catheterized Urine Culture - Final No Growth (<1,000 CFU/ML) 11/11/17 19:07 Urine Urine Culture - Final Group C Streptococcus Most Recent Lab Values WBC 4.4 K/uL (4.8-10.8) L 11/23/17 06:36 RBC 4.57 Mil/uL (3.80-5.20) 11/23/17 06:36 Hgb 12.9 g/dL (11.0-16.0) 11/23/17 06:36 Hct 38.5 % (34.0-47.0) 11/23/17 06:36 MCV 84.2 fL (81.0-99.0) 11/23/17 06:36 MCH 28.2 pg (27.0-31.0) 11/23/17 06:36 MCHC 33.5 g/dL (33.0-37.0) 11/23/17 06:36 RDW 16.9 % (11.5-14.5) H 11/23/17 06:36 Plt Count 229 K/uL (130-400) 11/23/17 06:36 MPV 9.0 fL (7.2-11.7) 11/23/17 06:36 Neut % (Auto) 62.7 % (50.0-75.0) 11/23/17 06:36 Lymph % (Auto) 26.7 % (20.0-40.0) 11/23/17 06:36 [place] % (Auto) 9.5 % (0.0-10.0) 11/23/17 06:36 Eos % (Auto) 0.3 % (0.0-4.0) 11/23/17 06:36 Baso % (Auto) 0.8 % (0.0-2.0) 11/23/17 06:36 Neut # (Auto) 2.8 K/uL (1.8-7.0) 11/23/17 06:36 Lymph # (Auto) 1.2 K/uL (1.0-4.3) 11/23/17 06:36 [place] # (Auto) 0.4 K/uL (0.0-0.8) 11/23/17 06:36 Eos # (Auto) 0.0 K/uL (0.0-0.7) 11/23/17 06:36 Baso # (Auto) 0.0 K/uL (0.0-0.2) 11/23/17 06:36 ESR 36 mm/hr (0-20) H 11/15/17 10:58 D-Dimer, Quantitative 783 ng/mlDDU (0-243) H 11/17/17 19:36 Puncture Site Rb 11/16/17 12:20 pCO2 45 mm/Hg (35-45) 11/16/17 12:20 pO2 47 mm/Hg (80-100) L 11/16/17 12:20 HCO3 23.4 mmol/L (21-28) 11/16/17 12:20 ABG pH 7.34 (7.35-7.45) L 11/16/17 12:20 ABG Total CO2 25.7 mmol/L (22-28) 11/16/17 12:20 ABG O2 Saturation 87.1 % (95-98) L 11/16/17 12:20 ABG Base Excess -1.6 mmol/L (-2.0-3.0) 11/16/17 12:20 ABG Hemoglobin 10.5 g/dL (11.7-17.4) L 11/16/17 12:20 ABG Carboxyhemoglobin 1.7 % (0.5-1.5) H 11/16/17 12:20 POC ABG HHb (Measured) 12.6 % (0.0-5.0) H 11/16/17 12:20 ABG Methemoglobin 0.7 % (0.0-3.0) 11/16/17 12:20 Abundio Test Na 11/16/17 12:20 A-a O2 Difference 46.0 mm/Hg 11/16/17 12:20 Respiratory Index 1.0 11/16/17 12:20 Hgb O2 Saturation 85.0 % (95.0-98.0) L 11/16/17 12:20 FiO2 21.0 % 11/16/17 12:20 Sodium 142 mmol/L (132-148) 11/23/17 06:36 Potassium 4.1 mmol/L (3.6-5.2) 11/23/17 06:36 Chloride 110 mmol/L (98-107) H 11/23/17 06:36 Carbon Dioxide 19 mmol/L (22-30) L 11/23/17 06:36 Anion Gap 16 (10-20) 11/23/17 06:36 BUN 29 mg/dL (7-17) H 11/23/17 06:36 Creatinine 0.7 mg/dL (0.7-1.2) 11/23/17 06:36 Est GFR ( Amer) > 60 11/23/17 06:36 Est GFR (Non-Af Amer) > 60 11/23/17 06:36 Random Glucose 96 mg/dL (65-105) 11/23/17 06:36 Calcium 8.4 mg/dl (8.6-10.4) L 11/23/17 06:36 Phosphorus 3.8 mg/dL (2.5-4.5) 11/23/17 06:36 Magnesium 1.8 mg/dL (1.6-2.3) 11/23/17 06:36 Total Bilirubin 0.3 mg/dL (0.2-1.3) 11/23/17 06:36 AST 26 U/L (14-36) 11/23/17 06:36 ALT 22 U/L (9-52) 11/23/17 06:36 Alkaline Phosphatase 86 U/L (38-126) 11/23/17 06:36 Lactate Dehydrogenase 483 U/L (313-618) 11/15/17 16:45 C-React Prot High Sens > 15.00 mg/L (1.00-3.00) H 11/15/17 10:58 Total Protein 6.8 g/dL (6.3-8.3) 11/23/17 06:36 Albumin 3.0 g/dL (3.5-5.0) L 11/23/17 06:36 Globulin 3.7 gm/dL (2.2-3.9) 11/23/17 06:36 Albumin/Globulin Ratio 0.8 (1.0-2.1) L 11/23/17 06:36 25-OH Vitamin D Total 22.4 NG/ML (30.0-100.0) L 11/13/17 17:00 Free T4 1.05 ng/dL (0.78-2.19) 11/18/17 08:01 TSH 3rd Generation 1.39 mIU/L (0.46-4.68) 11/18/17 08:01 Beta HCG, Quant < 2.39 mIU/ML 11/15/17 10:58 Urine Color Yellow (YELLOW) 11/11/17 18:18 Urine Clarity Clear (Clear) 11/11/17 18:18 Urine pH 6.0 (5.0-8.0) 11/11/17 18:18 Ur Specific [place] 1.020 (1.003-1.030) 11/11/17 18:18 Urine Protein Negative mg/dL (NEGATIVE) 11/11/17 18:18 Urine Glucose (UA) Normal mg/dL (Normal) 11/11/17 18:18 Urine Ketones Negative mg/dL (NEGATIVE) 11/11/17 18:18 Urine Blood Negative (NEGATIVE) 11/11/17 18:18 Urine Nitrate Negative (NEGATIVE) 11/11/17 18:18 Urine Bilirubin Negative (NEGATIVE) 11/11/17 18:18 Urine Urobilinogen 2.0 mg/dL (0.2-1.0) H 11/11/17 18:18 Ur Leukocyte Esterase 1+ Juanita/uL (Negative) H 11/11/17 18:18 Urine WBC (Auto) 15 /hpf (0-5) H 11/11/17 18:18 Urine RBC (Auto) 1 /hpf (0-3) 11/11/17 18:18 Ur Squamous Epith Cells 1 /hpf (0-5) 11/11/17 18:18 Urine Bacteria Rare (<OCC) 11/11/17 18:18 Urine Opiates Screen Positive (NEGATIVE) H 11/11/17 18:18 Urine Methadone Screen Negative (NEGATIVE) 11/11/17 18:18 Ur Barbiturates Screen Negative (NEGATIVE) 11/11/17 18:18 Ur Phencyclidine Scrn Negative (NEGATIVE) 11/11/17 18:18 Ur Amphetamines Screen Negative (NEGATIVE) 11/11/17 18:18 U Benzodiazepines Scrn Positive (NEGATIVE) 11/11/17 18:18 U Oth Cocaine Metabols Negative (NEGATIVE) 11/11/17 18:18 U Cannabinoids Screen Negative (NEGATIVE) 11/11/17 18:18 Alcohol, Quantitative < 10 mg/dl (0-10) 11/11/17 18:18 Absolute Lymphs (Flow) 1376 Cells/mcL (850-3900) 11/13/17 17:00 % CD4 Cells 21 Percent (30-61) L 11/13/17 17:00 Absolute CD4 Count 291 Cells/mcL (490-1740) L 11/13/17 17:00 T-Help/Suppress Ratio 0.31 Ratio (0.86-5.00) L 11/13/17 17:00 % CD8 Cells 68 Percent (12-42) H 11/13/17 17:00 Absolute CD8 Count 937 Cells/mcL (180-1170) 11/13/17 17:00 HIV-1 RNA Qnt (RT-PCR) 4.39 (Not Detected) H 11/15/17 16:45 Ur L.pneumophila Ag Negative (NEGATIVE) 11/17/17 14:49 Mycoplasma pneumon IgM Negative (NEGATIVE) 11/15/17 18:52 - Hospital Course Hospital Course: Patient was seen in the hospital at the request of detox until for fevers and tachycardia. Blood Culture is negative at 5 days Sputum Culture is negative Urine Culture is negative CT Angio Chest shows NO PE and Bilateral Venous Dopplers show NO DVT She is fever free > 48 hours Her breathing status has improved and no signs of respiratory distress Patient is stable for discharge to Subacute Rehab at [facility] in [place] Continue current medications as currently in orders section with continuing Tigecycline 50 mg IV Q12H through 11/25/17 and then starting on Sunday11/26/17 through 11/29/17 she will need to be on Levofloxacin 500 mg PO 1x/day Once discharged from [facility], she will need to follow up with her PMD Dr. Gates for the coordination of her health care. Through Dr. Gates's office she will need a CT Abdomen/Pelvis for further characterization of the Right Kidney Midpole Cyst/Nodule and setting up with Infectious Disease physician as patient stated that she would like to restart treatment for the HIV and that she is ready/motivated to be compliant with the treatment regimen. HPI on admission: Patient is a 57 year old female with past medical history of HIV, HIV-neuropathy , Hepatitis C, Hypertension, who is currently admitted to Detox unit for opioid , benzo, heroin detox. Patient reports using 5 bags of heroin daily by combination of IV injection and snorting. Patient admits to history of HIV which was treated with AZT in the past, but she stopped medication due to development of neuropathy. She denies starting alternative HIV treatment. Patient also admits to history of Hepatitis C, diagnosed 26 years ago per patient. She states she was being treated for Hep C at one point but could not continue the therapy (patient does not recall treatment name.) Patient reports she takes methadone chronically for back pain and reports that she scratches herself when she does not get methadone. Medicine team is consulted for fever of 101.5, measured at 6:48AM on 11/15/17. Patient reports waking up around 5:30AM feeling weak. She reports "irritation" with urination, as well as increased urinary frequency. Patient denies hematuria. Patient reports chronic cough that is occasionally productive of white-yellow phlegm, but states she had an episode last night of shortness of breath. Patient admits to watery diarrhea which began during detox. " Discharge Exam - Head Exam Head Exam: ATRAUMATIC, NORMAL INSPECTION, NORMOCEPHALIC - Eye Exam Eye Exam: EOMI, Normal appearance Pupil Exam: NORMAL ACCOMODATION - Respiratory Exam Respiratory Exam: Rhonchi, NORMAL BREATHING PATTERN. absent: Wheezes, Respiratory Distress - Cardiovascular Exam Cardiovascular Exam: REGULAR RHYTHM, Systolic Murmur. absent: Tachycardia - GI/Abdominal Exam GI & Abdominal Exam: Normal Bowel Sounds, Soft, Unremarkable. absent: Distended , Tenderness - Extremities Exam Extremities exam: full ROM, normal capillary refill, normal inspection, pedal pulses present - Neurological Exam Neurological exam: Alert, CN II-XII Intact, Normal Gait, Oriented x3 - Psychiatric Exam Psychiatric exam: Normal Affect, Normal Mood - Skin Skin Exam: Intact, Normal Color, Warm Discharge Plan - Discharge Medications Prescriptions: levoFLOXacin [Levaquin] 500 mg PO DAILY #4 tab - Follow Up Plan Condition: STABLE Disposition: REHAB FACILITY/REHAB UNIT Instructions: Pneumonia, Adult (DC), Drug Abuse and Drug Addiction (DC) Additional Instructions: Patient is being discharged to sub-acute rehab. Patient advised to continue with medications as prescribed. Patient is to continue on Tigecycline 50mg IVPB Q12 through 11/25/17. On 11/26/17 patient is to transition to Levaquin 500mg PO once per day. Patient will continue Levaquin through 11/29. Erika is advised to follow up with her PMD within 1 week of discharge and as well with Dr. Giron, Pulmonology. Patient is advised to return to the Emergency Department with any worsening of symptoms. Discharge Hotline Numbers: [facility] Crisis 24 Hour Hotline: 5-273-754 HELP (0768) AA- Alcoholics Anonymous 24 Hour Hotline: 8-794-117- 0937 NA- Narcotics Anonymous 24 Hour Hotline: [place] Addictions Services Hotline - [place] Quitline ~ If needed you can reach the detox unit at ~ Avoid all mood and mind altering substances including alcohol. Make every effort to make 90 meetings in 90 days and obtain a sponsor and get involved in 12 step recovery. Follow up with you primary doctor for your medical needs ~ Discharge Medications: ~ ~ Nutrition: Eat balanced meals incorporating fruits, vegetables and protein. Drink plenty of water throughout the day at least 8 to 10 cups. Sleep is extremely important in your recovery. ~ Follow Up Appointments: Pt has an appointment on 11-19-17@7am [employer] [address] [address] Transportation Referrals: Rustam Giron MD [Staff Provider] -
[2017-11-23] MEDS ORDERED: MethylPREDNISolone 40 mg Vial IVP STA (13:56)
[2017-11-23 16:20] VITALS: BP 126/74; PULSE 73; TEMP 98.6; O2SAT 96
== END 2017-11-23 19:24 | DRG 975 ==
LOC: C.ER 17:23 → C.7D 19:58 → C.3T 11-15 14:25
PROVIDERS: ADMIT Hospitalist; ATTEND Hospitalist
DX: B20 Human immunodeficiency virus [HIV] disease (principal); J18.9 Pneumonia, unspecified organism; J90 Pleural effusion, not elsewhere classified; J98.11 Atelectasis; N39.0 Urinary tract infection, site not specified; F31.62 Bipolar disorder, current episode mixed, moderate; F11.23 Opioid dependence with withdrawal; J44.1 Chronic obstructive pulmonary disease with (acute) exacerbation; F60.9 Personality disorder, unspecified; I10 Essential (primary) hypertension; I27.20 Pulmonary hypertension, unspecified; I34.1 Nonrheumatic mitral (valve) prolapse; Z88.0 Allergy status to penicillin; F41.9 Anxiety disorder, unspecified; F17.210 Nicotine dependence, cigarettes, uncomplicated; F19.10 Other psychoactive substance abuse, uncomplicated; E78.00 Pure hypercholesterolemia, unspecified; B19.20 Unspecified viral hepatitis C without hepatic coma

== ENCOUNTER 2018-09-01 14:07 | Inpatient (IN) | payer MEDICARE, MEDICAID ==
[2018-09-01 14:09] VITALS: BMI 22.6
[2018-09-01] MEDS ORDERED: Sodium Chloride 0.9% 1,000 ML IV ONE ×2 (14:10→16:12)
--- NOTE | 2018-09-01 15:02 | CT ---
Date of service: 09/01/2018 PROCEDURE: CT HEAD WITHOUT CONTRAST. HISTORY: new onset seizure COMPARISON: Noncontrast head CT performed 11/15/17 TECHNIQUE: Axial computed tomography images were obtained through the head/brain without intravenous contrast. Radiation dose: Total exam DLP = 1534.13 mGy-cm. This CT exam was performed using one or more of the following dose reduction techniques: Automated exposure control, adjustment of the mA and/or kV according to patient size, and/or use of iterative reconstruction technique. FINDINGS: Examination markedly limited by patient motion and streak artifact. HEMORRHAGE: No intracranial hemorrhage. BRAIN: Diffuse atrophy with prominence of the ventricles and sulci noted. No mass effect or edema. Intracranial atherosclerosis. Encephalomalacia noted within the left high frontal and left occipital parietal lobes. Patchy and confluent periventricular and subcortical white matter hypodensities, which are nonspecific, but often seen with chronic microvascular ischemic disease. Please note that MRI with diffusion imaging is more sensitive in the detection of acute ischemic event. VENTRICLES: No hydrocephalus. CALVARIUM: Unremarkable. PARANASAL SINUSES: Unremarkable as visualized. No significant inflammatory changes. MASTOID AIR CELLS: Unremarkable as visualized. No inflammatory changes. OTHER FINDINGS: None. IMPRESSION: Interval development of encephalomalacia noted within the left high frontal and left occipital parietal lobes. Patchy and confluent non-specific white matter changes.
[2018-09-01 15:09] LABS: BASO % 0.6 % (0.0-2.0); EOS # 0.1 K/uL (0.0-0.7); EOS % 1.8 % (0.0-4.0); HEMOGLOBIN 13.7 g/dL (11.0-16.0); LYMPH # 0.7 K/uL (1.0-4.3); LYMPH % 10.5 % (20.0-40.0); MEAN CELL VOLUME 87.8 fL (81.0-99.0); MEAN CORPUSCULAR HEMOGLOBIN 28.9 pg (27.0-31.0); MEAN CORPUSCULAR HGB CONC 32.9 g/dL (33.0-37.0); MEAN PLATELET VOLUME 9.3 fL (7.2-11.7); MONO # 0.2 K/uL (0.0-0.8); MONO % 3.6 % (0.0-10.0); NEUT # 5.4 K/uL (1.8-7.0); NEUT % 83.5 % (50.0-75.0); RBC 4.75 Mil/uL (3.80-5.20); RED CELL DISTRIBUTION WIDTH 13.8 % (11.5-14.5); WHITE BLOOD COUNT 6.5 K/uL (4.8-10.8)
[2018-09-01 15:23] LABS: ALB/GLOB RATIO 1.1 (1.0-2.1); ALBUMIN 4.2 g/dL (3.5-5.0); ALT/SGPT 15 U/L (9-52); AST/SGOT 27 U/L (14-36); BLOOD UREA NITROGEN 12 mg/dL (7-17); CALCIUM 9.3 mg/dl (8.6-10.4); GFR NON-AFRICAN AMERICAN > 60
--- NOTE | 2018-09-01 15:26 | C.PDOC ---
History Of Present Illness Patient BIBA from [place] for evaluaiton of a total of 4 tonic clonic seizures, one witnessed by EMS. Patient was given Versed in the field for the seizure. PMHx is as per EMS and [place] records. EMS states patient has no known h/o seizure disorder. 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, HTN, HIV, bipolar disorder, COPD/asthma, opiate use disorder, rhabdomyolysis Time Seen by Provider: 09/01/18 14:09 Chief Complaint (Nursing): Seizure History Per: EMS, Other ([place] records) Recent Seizure Activity Began: Just Before Arrival Number Of Seizures: Multiple Length Of Seizures (Duration): Seconds Quality Of Seizure: Generalized Past Medical History Reviewed: Historical Data, Nursing Documentation, Vital Signs Vital Signs: Last Vital Signs Temp 98.7 F 09/01/18 14:10 Pulse 108 H 09/01/18 15:10 Resp 18 09/01/18 15:10 BP 128/80 09/01/18 15:10 Pulse Ox 100 09/01/18 15:10 Primary Care Provider: Bettina Conway - Medical History PMH: Anxiety, Asthma, Bipolar Disorder, Bronchitis, COPD, Depression, HIV, HTN, Hypercholesterolemia, Hyperlipidemia, Mitral Valve Prolapse, Paranoia, Personality Disorder, Pneumonia, Chronic Kidney Disease, Seizures Surgical History: Tonsillectomy - [facility] Procedures APHASIA TREATMENT (04/21/18) DETOXIFICATION SERVICES FOR SUBSTANCE ABUSE TREATMENT (01/29/17) DRESSING TECHNIQUES TREATMENT USING ASSIST EQUIPMENT (04/21/18) EXERCISE TRMT MUSCULOSK LOW BACK/LE W AEROBIC EQUIP (04/21/18) GAIT TRAINING/AMBULAT TREATMENT USING ASSIST EQUIPMENT (04/21/18) GROOMING/PERSONAL HYGIENE TREATMENT USING ASSIST EQUIPMENT (04/21/18) GROUP PSYCHOTHERAPY (04/02/18) INDIV PSYCHOTHERAPY FOR SUBSTANCE ABUSE TREATMENT, SUPPORT (01/29/17) INDIV PSYCHOTHERAPY FOR SUBSTANCE ABUSE, COGNITIV BEHAVIORAL (01/29/17) INDIV PSYCHOTHERAPY FOR SUBSTANCE ABUSE, PSYCHOEDUCATION (04/02/18) INDIVID PSYCHOTHERAP NEC (06/09/14) INDIVIDUAL PSYCHOTHERAPY, BEHAVIORAL (02/20/18) INDIVIDUAL PSYCHOTHERAPY, COGNITIVE-BEHAVIORAL (10/08/17) INDIVIDUAL PSYCHOTHERAPY, SUPPORTIVE (02/20/18) INSERTION OF ENDOTRACHEAL AIRWAY INTO TRACHEA, VIA OPENING (04/10/18) INSERTION OF INFUSION DEVICE INTO LOWER VEIN, PERC APPROACH (04/10/18) INTRODUCE OF OTH ANTI-INFECT INTO PERIPH VEIN, PERC APPROACH (04/10/18) INTRODUCE OF OTH THERAP SUBST INTO RESP TRACT, VIA OPENING (12/07/15) INTRODUCTION OF SERUM/TOX/VACCINE INTO MUSCLE, PERC APPROACH (12/07/15) MANUAL THERAPY TECHNIQUES TREATMENT OF MUSCULOSK LOW BACK/LE (04/21/18) MEDICATION MANAGEMENT (11/11/16) MEDS MGMT FOR SUBSTANCE ABUSE TREATMENT, OTH REPL MED (11/11/16) NEBULIZER THERAPY (03/30/14) OTHER GROUP THERAPY (06/09/14) RESPIRATORY VENTILATION, GREATER THAN 96 CONSECUTIVE HOURS (04/10/18) Family History: States: No Known Family Hx - Social History Hx Tobacco Use: Yes Hx Alcohol Use: No Hx Substance Use: Yes - Immunization History Hx Tetanus Toxoid Vaccination: Yes (07/2017) Hx Influenza Vaccination: Yes Hx Pneumococcal Vaccination: Yes (07/2017) Review Of Systems Review Of Systems: ROS cannot be obtained secondary to pt's inabilty to answer questions. Physical Exam - Physical Exam Appears: Chronically Ill, Other (lethargic/drowsy) Skin: Warm, Dry, Pale Eye(s): bilateral: Other (dilated pupils B/L ) Oral Mucosa: Dry Cardiovascular: Rhythm Regular (tachycardic ) Respiratory: Normal Breath Sounds, No Rales, No Rhonchi, No Wheezing Gastrointestinal/Abdominal: Normal Exam, Bowel Sounds, Soft, No Tenderness Extremity: Bilateral: Atraumatic, Normal Color And Temperature Pulses: Left Dorsalis Pedis: Normal, Right Dorsalis Pedis: Normal Neurological/Psych: No Normal Motor (right sided hemiplegia- chronic), Expressiv e Aphasia (chronically ), Other (postictal, withdraws from painful stimuli) ED Course And Treatment - Laboratory Results Result Diagrams: 09/01/18 15:01 09/01/18 15:01 Lab Results: Total Bilirubin 0.4 mg/dL (0.2-1.3) 09/01/18 15:01 AST 27 U/L (14-36) 09/01/18 15:01 ALT 15 U/L (9-52) 09/01/18 15:01 Alkaline Phosphatase 79 U/L (38-126) 09/01/18 15:01 Total Protein 8.2 g/dL (6.3-8.3) 09/01/18 15:01 Albumin 4.2 g/dL (3.5-5.0) 09/01/18 15:01 Globulin 3.9 gm/dL (2.2-3.9) 09/01/18 15:01 Albumin/Globulin Ratio 1.1 (1.0-2.1) 09/01/18 15:01 O2 Sat by Pulse Oximetry: 100 (RA) Pulse Ox Interpretation: Normal Progress Note: Blood work, CT head, EKG, UA, UDS ordered and reviewed. Patient given IV NS bolus, IV dilantin. 4:00pm- Patient's father arrived in ED, states he saw her yesterday and she was awake and alert, eating at the NH, able to s peak with him (though she does speech difficulties from CVA). MRI currently unavailable. EEG ordered, will check with nursing protective signal operations supervisor to see if able to get one done now. 4:35pm- As per nursing protective signal operations supervisor, unable to get EEG at this time. Reevaluation Time: 04:00 Reassessment Condition: Improved (Patient less lethargic, is opening her mouth and moaning, but won't open eyes. Localizes to her fathers voice.) Medical Decision Making Medical Decision Making: Lei Coma Scale/Score (GCS) from One Month on 09/01/2018 All calculations should be rechecked by clinician prior to use RESULT SUMMARY: 9 points [id number] INPUTS: Best eye response > 2 = To pain (+2) Best verbal response > 2 = Incomprehensible sounds (+2) Best motor response > 5 = Localizes pain (+5) Disposition - Disposition Forms: Nomi (Lithuanian)
[2018-09-01] MEDS ORDERED: Sodium Chloride 0.9% 1,000 ML ONE (17:00)
[2018-09-01 18:11] LABS: ABG ALLEN TEST POS; ARTERIAL BLOOD GAS HCO3 23.7 mmol/L (21-28); ARTERIAL BLOOD GAS O2 SAT 96.6 % (95-98); ARTERIAL BLOOD GAS PCO2 41 mm/Hg (35-45); ARTERIAL BLOOD GAS PH 7.37 (7.35-7.45); ARTERIAL BLOOD GAS PO2 77 mm/Hg (80-100)
--- NOTE | 2018-09-01 18:19 | CP.PCM.CON ---
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 Patient does not provide any history. 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, Bi-Polar, Hep C, insomnia, chronic bronchitis PSHx: unknown FamHx: unknown SocialHx: h/o smokes 3 cigarettes/ day for 20+ years, denies alcohol use, lives with parents in [place], uses 5 bags heroin/day combo snort/IV Allergies: penicillin- reports being told she had a seizure as a child as result; does not recall ever taking Keflex or other cephalosporin Review of Systems - Review of Systems Systems not reviewed;Unavailable: Altered Mental Status Past Patient History - Infectious Disease Hx of Infectious Diseases: None - Tetanus Immunizations Tetanus Immunization: Unknown - Past Medical History & Family History Past Medical History?: Yes - Past Social History Smoking Status: Light Smoker < 10 Cigarettes Daily - CARDIAC Hx Hypercholesterolemia: Yes Hx Hypertension: Yes Hx Mitral Valve Prolapse: Yes - PULMONARY Hx Asthma: Yes Hx Bronchitis: Yes Hx Chronic Obstructive Pulmonary Disease (COPD): Yes Hx Pneumonia: Yes - NEUROLOGICAL Hx Seizures: Yes - HEENT Hx HEENT Problems: No - RENAL Hx Chronic Kidney Disease: Yes - ENDOCRINE/METABOLIC Hx Diabetes Mellitus Type 2: No - HEMATOLOGICAL/ONCOLOGICAL Hx Human Immunodeficiency Virus (HIV): Yes - INTEGUMENTARY Hx Dermatological Problems: No - MUSCULOSKELETAL/RHEUMATOLOGICAL Hx Musculoskeletal Disorders: Yes Hx Rhabdomyolysis: Yes - GASTROINTESTINAL Hx Gastrointestinal Disorders: No - GENITOURINARY/GYNECOLOGICAL Hx Sexually Transmitted Disorders: No (Patient denied) - PSYCHIATRIC Hx Anxiety: Yes Hx Bipolar Disorder: Yes Hx Depression: Yes Hx Paranoia: Yes Hx Substance Use: Yes - SURGICAL HISTORY Hx Tonsillectomy: Yes - ANESTHESIA Hx Anesthesia: Yes Hx Anesthesia Reactions: No Hx Malignant Hyperthermia: No Meds Allergies/Adverse Reactions: Allergies Allergy/AdvReac Type Severity Reaction Status Date / Time Penicillins Allergy pt reports Verified 09/01/18 14:08 seizures Physical Exam - Head Exam Head Exam: ATRAUMATIC, NORMAL INSPECTION, NORMOCEPHALIC - Respiratory Exam Respiratory Exam: Clear to Auscultation Bilateral, Rhonchi, NORMAL BREATHING PATTERN. absent: Rales, Wheezes, Respiratory Distress, Stridor - Cardiovascular Exam Cardiovascular Exam: REGULAR RHYTHM, +S1, +S2 - GI/Abdominal Exam GI & Abdominal Exam: Normal Bowel Sounds, Soft. absent: Organomegaly, Pulsatile Mass, Rebound, Rigid, Tenderness - Extremities Exam Extremities exam: Positive for: pedal edema Additional comments: edema right hand site IV access - Neurological Exam Neurological exam: Altered - Skin Skin Exam: Normal Color, Warm Results - Vital Signs Recent Vital Signs: Last Vital Signs Temp 99.3 F 09/01/18 17:25 Pulse 111 H 09/01/18 17:25 Resp 18 09/01/18 17:25 BP 139/89 09/01/18 17:25 Pulse Ox 97 09/01/18 17:25 - Labs Result Diagrams: 09/01/18 15:01 09/01/18 15:01 Labs: Laboratory Results - last 24 hr 09/01/18 09/01/18 09/01/18 15:01 15:01 16:22 WBC 6.5 RBC 4.75 Hgb 13.7 Hct 41.7 MCV 87.8 D MCH 28.9 MCHC 32.9 L RDW 13.8 Plt Count 174 MPV 9.3 Neut % (Auto) 83.5 H Lymph % (Auto) 10.5 L [place] % (Auto) 3.6 Eos % (Auto) 1.8 Baso % (Auto) 0.6 Neut # (Auto) 5.4 Lymph # (Auto) 0.7 L [place] # (Auto) 0.2 Eos # (Auto) 0.1 Baso # (Auto) 0.0 Puncture Site pCO2 pO2 HCO3 ABG pH ABG Total CO2 ABG O2 Saturation ABG Base Excess Abundio Test ABG Potassium A-a O2 Difference Respiratory Index Glucose Lactate Liter Flow FiO2 Sodium 138 Potassium 3.5 L Chloride 102 Carbon Dioxide 26 Anion Gap 14 BUN 12 Creatinine 0.8 Est GFR ( Amer) > 60 Est GFR (Non-Af Amer) > 60 Random Glucose 197 H D Calcium 9.3 Total Bilirubin 0.4 AST 27 ALT 15 Alkaline Phosphatase 79 Ammonia 26 CK-MB (Mass) Total Protein 8.2 Albumin 4.2 Globulin 3.9 Albumin/Globulin Ratio 1.1 Arterial Blood Potassium 09/01/18 09/01/18 17:25 18:00 WBC RBC Hgb Hct MCV MCH MCHC RDW Plt Count MPV Neut % (Auto) Lymph % (Auto) [place] % (Auto) Eos % (Auto) Baso % (Auto) Neut # (Auto) Lymph # (Auto) [place] # (Auto) Eos # (Auto) Baso # (Auto) Puncture Site Rradial pCO2 41 pO2 77 L HCO3 23.7 ABG pH 7.37 ABG Total CO2 25.0 ABG O2 Saturation 96.6 ABG Base Excess -1.5 Abundio Test Pos ABG Potassium 2.9 L A-a O2 Difference 71.0 Respiratory Index 0.9 Glucose 140 H Lactate 0.8 Liter Flow 2.0 FiO2 28.0 Sodium 144.0 Potassium Chloride 112.0 H Carbon Dioxide Anion Gap BUN Creatinine Est GFR ( Amer) Est GFR (Non-Af Amer) Random Glucose Calcium Total Bilirubin AST ALT Alkaline Phosphatase Ammonia CK-MB (Mass) < 0.22 Total Protein Albumin Globulin Albumin/Globulin Ratio Arterial Blood Potassium 2.9 L Assessment & Plan - Assessment and Plan (Free Text) Assessment: Seizure disorder: avoid medications which can decrase seizure threshold, check Utox/drug screen, start keppra IV 750 gm loading and 500 mg q12hrs -COPD: continue bronchodilators -HIV: continue HAART -Hepatitis C: consult ID for ART -opioid use disorder: check Utox -continue dvt/pud ppx -patient remains hemodynamically stable - Date & Time Date: 09/01/18 Time: 18:23
[2018-09-01] MEDS: Lactated Ringer's 1,000 ML IV SCH (18:50)
--- NOTE | 2018-09-01 19:24 | CP.PCM.HP ---
History of Present Illness - History of Present Illness History of Present Illness: PGY-1 Ariana Lindquist D.O. H&P for Dr. Stefania Jon's service: Patient is a 57 yo female with 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 Patient is aphasic at baseline, so all information is obtained from medical record. Patient was observed having [facility] cl[facility] seizures at her [facility]. A seizure was witnessed by EMS, and patient was given Versed in the field. She was given Phenytoin in the ED. Patient does not have a known seizure disorder; however, she recently had a CVA in April of this year. 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 with residual R- sided hemiplegia and aphasia, HIV, HCV, HTN, HLD, bipolar disorder, COPD/bronchitis PSH: unknown Meds: ASA 81 mg PO daily, Lipitor 20 mg PO daily, Duoneb Q8H PRN, Tylenol 650 mg PO Q4H PRN, Norvasc 10 mg PO daily, Protonix 40 mg PO daily, Seroquel 200 mg PO QHS, Cymbalta 30 mg PO BID, Mag-oxide 400 mg PO BID, Truvada 200-300 mg PO daily, Tivicay 50 mg PO daily, Senokot PO daily All: Penicillins- seizure as a child FH: unknown SH: lives in [facility], h/o tobacco and heroin use PMD: unknown Present on Admission - Present on Admission Any Indicators Present on Admission: No History of DVT/PE: No History of Uncontrolled Diabetes: No Urinary Catheter: No Decubitus Ulcer Present: No History Surgical Site Infection Following: None Review of Systems - Review of Systems Systems not reviewed;Unavailable: Language Barrier (aphasic) Past Patient History - Infectious Disease Hx of Infectious Diseases: None - Tetanus Immunizations Tetanus Immunization: Unknown - Past Medical History & Family History Past Medical History?: Yes Past Family History: Reviewed and not pertinent - Past Social History Smoking Status: Former Smoker Chewing Tobacco Use: No Cigar Use: No Alcohol: None Drugs: Opiates (former heroin) - CARDIAC Hx Hypercholesterolemia: Yes Hx Hypertension: Yes Hx Mitral Valve Prolapse: Yes - PULMONARY Hx Asthma: Yes Hx Bronchitis: Yes Hx Chronic Obstructive Pulmonary Disease (COPD): Yes Hx Pneumonia: Yes - NEUROLOGICAL Hx Seizures: Yes - HEENT Hx HEENT Problems: No - RENAL Hx Chronic Kidney Disease: Yes - ENDOCRINE/METABOLIC Hx Diabetes Mellitus Type 2: No - HEMATOLOGICAL/ONCOLOGICAL Hx Human Immunodeficiency Virus (HIV): Yes - INTEGUMENTARY Hx Dermatological Problems: No - MUSCULOSKELETAL/RHEUMATOLOGICAL Hx Musculoskeletal Disorders: Yes Hx Rhabdomyolysis: Yes - GASTROINTESTINAL Hx Gastrointestinal Disorders: No - GENITOURINARY/GYNECOLOGICAL Hx Sexually Transmitted Disorders: No (Patient denied) - PSYCHIATRIC Hx Psychophysiologic Disorder: Yes Hx Substance Use: Yes - SURGICAL HISTORY Hx Tonsillectomy: Yes - ANESTHESIA Hx Anesthesia: Yes Hx Anesthesia Reactions: No Hx Malignant Hyperthermia: No Meds Allergies/Adverse Reactions: Allergies Allergy/AdvReac Type Severity Reaction Status Date / Time Penicillins Allergy pt reports Verified 09/01/18 14:08 seizures Physical Exam - Constitutional Appears: No Acute Distress, Chronically Ill - Head Exam Head Exam: ATRAUMATIC, NORMAL INSPECTION - Eye Exam Eye Exam: EOMI, Normal appearance, PERRL - ENT Exam ENT Exam: Mucous Membranes Moist - Neck Exam Neck exam: Positive for: Normal Inspection - Respiratory Exam Respiratory Exam: Clear to Auscultation Bilateral, NORMAL BREATHING PATTERN - Cardiovascular Exam Cardiovascular Exam: RRR, +S1, +S2 - GI/Abdominal Exam GI & Abdominal Exam: Soft. absent: Distended, Tenderness - Extremities Exam Extremities exam: Positive for: normal inspection - Neurological Exam Neurological exam: Alert Additional comments: R-sided hemiplegia, aphasic - Skin Skin Exam: Dry, Normal Color, Warm Results - Vital Signs Recent Vital Signs: Last Vital Signs Temp 97.2 F L 09/01/18 18:00 Pulse 86 09/01/18 19:10 Resp 18 09/01/18 19:10 BP 145/87 09/01/18 19:03 Pulse Ox 99 09/01/18 19:10 - Labs Result Diagrams: 09/01/18 15:01 09/01/18 15:01 Labs: Laboratory Results - last 24 hr 09/01/18 09/01/18 09/01/18 15:01 15:01 16:22 WBC 6.5 RBC 4.75 Hgb 13.7 Hct 41.7 MCV 87.8 D MCH 28.9 MCHC 32.9 L RDW 13.8 Plt Count 174 MPV 9.3 Neut % (Auto) 83.5 H Lymph % (Auto) 10.5 L [place] % (Auto) 3.6 Eos % (Auto) 1.8 Baso % (Auto) 0.6 Neut # (Auto) 5.4 Lymph # (Auto) 0.7 L [place] # (Auto) 0.2 Eos # (Auto) 0.1 Baso # (Auto) 0.0 Puncture Site pCO2 pO2 HCO3 ABG pH ABG Total CO2 ABG O2 Saturation ABG Base Excess Abundio Test ABG Potassium A-a O2 Difference Respiratory Index Glucose Lactate Liter Flow FiO2 Sodium 138 Potassium 3.5 L Chloride 102 Carbon Dioxide 26 Anion Gap 14 BUN 12 Creatinine 0.8 Est GFR ( Amer) > 60 Est GFR (Non-Af Amer) > 60 Random Glucose 197 H D Calcium 9.3 Total Bilirubin 0.4 AST 27 ALT 15 Alkaline Phosphatase 79 Ammonia 26 CK-MB (Mass) Total Protein 8.2 Albumin 4.2 Globulin 3.9 Albumin/Globulin Ratio 1.1 Arterial Blood Potassium 09/01/18 09/01/18 17:25 18:00 WBC RBC Hgb Hct MCV MCH MCHC RDW Plt Count MPV Neut % (Auto) Lymph % (Auto) [place] % (Auto) Eos % (Auto) Baso % (Auto) Neut # (Auto) Lymph # (Auto) [place] # (Auto) Eos # (Auto) Baso # (Auto) Puncture Site Rradial pCO2 41 pO2 77 L HCO3 23.7 ABG pH 7.37 ABG Total CO2 25.0 ABG O2 Saturation 96.6 ABG Base Excess -1.5 Abundio Test Pos ABG Potassium 2.9 L A-a O2 Difference 71.0 Respiratory Index 0.9 Glucose 140 H Lactate 0.8 Liter Flow 2.0 FiO2 28.0 Sodium 144.0 Potassium Chloride 112.0 H Carbon Dioxide Anion Gap BUN Creatinine Est GFR ( Amer) Est GFR (Non-Af Amer) Random Glucose Calcium Total Bilirubin AST ALT Alkaline Phosphatase Ammonia CK-MB (Mass) < 0.22 Total Protein Albumin Globulin Albumin/Globulin Ratio Arterial Blood Potassium 2.9 L Assessment & Plan - Assessment and Plan (Free Text) Assessment: Patient is a 57 yo female with h/o CVA with residual R-sided hemiplegia and aphasia, HIV, HCV, HTN, HLD, bipolar disorder, COPD/bronchitis, and h/o heroin use who presents with new-onset seizures. Plan: Seizures- suspect due to recent CVA - CT head: encephalomalacia of left frontal, occipital, and parietal regions; no acute pathology - Video EEG pending - UDS- benzos (received Versed) - Serum drug panel pending - Lactate 0.8, WBC wnl, CK-MB wnl - Procal pending - Seizure precautions - Aspiration precautions - Fall precautions - Neuro checks - LR @ 75 cc/hr - Keppra 500 mg IV Q12H - PT/OT/ST - Neurology consulted (Bush) H/o Cerebral vascular accident- ischemic-->hemorrhagic conversion - Restart meds when able to tolerate PO (ASA 81 mg PO daily, Lipitor 20 mg PO daily) Chronic obstructive pulmonary disease, chronic - Duoneb Q6H PRN Human immunodeficiency virus, chronic - CD4 pending - Restart HAART when able to tolerate PO (Truvada 200-300 mg PO daily, Tivicay 50 mg PO daily) Hypertension, chronic - Vitals Q6H - Restart antihypertensives when able to tolerate PO (Norvasc 10 mg PO daily) Bipolar disorder, chronic - Restart meds when able to tolerate PO (Seroquel 200 mg PO QHS, Cymbalta 30 mg PO BID) Ppx: VTE: SCDs, chemical anticoag contraindicated due to h/o hemorrhagic CVA GI: Protonix 40 mg IV daily Diet: NPO pending IMPORT SPECIALIST eval Code status: full code Dispo: f/u EEG, f/u neuro recs Case discussed with attending, Dr. Jon.
[2018-09-01 21:21] LABS: HCG,QUALITATIVE URINE NEGATIVE (NEGATIVE)
[2018-09-01 21:23] LABS: URINE BACTERIA OCC (<OCC); URINE BILIRUBIN NEGATIVE (NEGATIVE); URINE BLOOD NEGATIVE (NEGATIVE); URINE CLARITY Clear (Clear); URINE COLOR Straw (YELLOW); URINE GLUCOSE (UA) 1+ mg/dL (Normal); URINE LEUKOCYTE ESTERASE NEG Leu/uL (Negative); URINE PROTEIN NEGATIVE (NEGATIVE); URINE UROBILINOGEN NORMAL mg/dL (0.2-1.0)
[2018-09-01 21:29] LABS: BARBITURATES, UR NEGATIVE (NEGATIVE); OPIATES, UR NEGATIVE (NEGATIVE); PHENCYCLIDINE, UR NEGATIVE (NEGATIVE)
[2018-09-01 21:31] LABS: BENZODIAZEPINES, UR POSITIVE (NEGATIVE)
[2018-09-02] MEDS ORDERED: Albuterol-Ipratrop 3 mg / 0.5 (3 ml) UD INH PRN (04:26)
[2018-09-02] MEDS: Lactated Ringer's 1,000 ML IV SCH ×2 (06:02→08:05)
[2018-09-02 06:26] LABS: BASO # 0.1 K/uL (0.0-0.2); BASO % 0.9 % (0.0-2.0); EOS % 0.4 % (0.0-4.0); HEMOGLOBIN 13.2 g/dL (11.0-16.0); LYMPH % 18.4 % (20.0-40.0); MEAN CELL VOLUME 88.3 fL (81.0-99.0); MEAN CORPUSCULAR HEMOGLOBIN 28.7 pg (27.0-31.0); MEAN CORPUSCULAR HGB CONC 32.6 g/dL (33.0-37.0); MEAN PLATELET VOLUME 9.4 fL (7.2-11.7); MONO # 0.5 K/uL (0.0-0.8); MONO % 8.7 % (0.0-10.0); NEUT # 3.9 K/uL (1.8-7.0); NEUT % 71.6 % (50.0-75.0); NRBC % 0.1 % (0.0-2.0); RBC 4.6 Mil/uL (3.80-5.20); WHITE BLOOD COUNT 5.5 K/uL (4.8-10.8)
[2018-09-02 06:36] LABS: ALB/GLOB RATIO 1.2 (1.0-2.1); ALBUMIN 4.1 g/dL (3.5-5.0); ALT/SGPT 17 U/L (9-52); AST/SGOT 25 U/L (14-36); BLOOD UREA NITROGEN 8 mg/dL (7-17); GFR NON-AFRICAN AMERICAN > 60
[2018-09-02] MEDS: Potassium Chloride 20 mEq ER Tab PO SCH ×2 (08:09→12:47)
--- NOTE | 2018-09-02 08:59 | CP.CCUPN ---
CCU Subjective - Physician Review Subjective (Free Text): 09/02/18 08:50 Corinna Arreaga PGY1 Progress Note for Dr. Kee Pt was examined at bedside this morning. No acute events overnight. Patient is verbal, however unable to follow commands. She has no complaints this morning. CCU Objective - Vital Signs / Intake & Output Vital Signs (Last 4 hours): Vital Signs Pulse Resp BP Pulse Ox 09/02/18 06:03 89 23 136/85 99 09/02/18 05:03 88 20 133/85 99 Intake and Output (Last 8hrs): Intake & Output 09/01/18 09/02/18 09/02/18 22:59 06:59 14:59 Intake Total 450 775 Output Total 500 1100 Balance -50 -325 Weight 65.771 kg 65.771 kg Intake: Intake, IV Amount 450 775 Left External Jugular 75 Left Wrist 175 Right External Jugular 150 Right Hand 225 600 Oral 0 0 Output: Urine 500 1100 Urine, Voided 500 1100 Other: # Voids Urine, Voided 1 1 - Physical Exam Physical Exam Limitations: Positive for: Other (aphasic) Head: Positive for: Atraumatic, Normocephalic Pupils: Positive for: PERRL Extroacular Muscles: Positive for: EOMI Conjunctiva: Positive for: Normal Mouth: Positive for: Dry Neck: Positive for: Normal Range of Motion Respiratory/Chest: Positive for: Clear to Auscultation, Good Air Exchange. Negative for: Respiratory Distress, Accessory Muscle Use Cardiovascular: Positive for: Regular Rate and Rhythm, Normal S1, S2. Negative for: Murmurs Abdomen: Positive for: Normal Bowel Sounds. Negative for: Tenderness, Distention, Peritoneal Signs Upper Extremity: Positive for: Normal Inspection. Negative for: Cyanosis, Edema, Normal ROM Lower Extremity: Positive for: Normal Inspection. Negative for: Edema Neurological: Positive for: Norm Deep Tendon Reflexes, Other. Negative for: GCS=15, Speech Normal, Motor Func Grossly Intact Skin: Positive for: Warm, Normal Color. Negative for: Dry, Rashes Psychiatric: Positive for: Alert. Negative for: Oriented x 3, Normal Insight, Normal Concentration - Medications Active Medications: Active Medications Generic Name Dose Route Start Last Admin Trade Name Freq PRN Reason Stop Dose Admin Albuterol/Ipratropium 3 ml 09/02/18 04:26 Duoneb 3 Mg/0.5 Mg (3 Ml) Ud INH RQ6 PRN Shortness of Breath Levetiracetam 500 mg/ Dextrose 105 mls @ 420 mls/hr 09/01/18 18:30 09/02/18 05:59 IVPB 420 mls/hr Q12H FUAD Administration Lactated Ringer's 1,000 mls @ 75 mls/hr 09/01/18 18:30 09/02/18 08:05 Lactated Ringer's IV 75 mls/hr .[id number] FUAD Administration Pantoprazole Sodium 40 mg 09/02/18 10:00 Protonix Inj IVP DAILY FUAD Potassium Chloride 40 meq 09/02/18 07:45 09/02/18 08:09 K-Dur 20 Meq Er Tab PO 09/02/18 11:46 40 meq Q4H FUAD Administration - Patient Studies Lab Studies: Lab Studies 09/02/18 09/02/18 09/01/18 Range/Units 06:17 06:07 21:07 WBC 5.5 (4.8-10.8) K/uL RBC 4.60 (3.80-5.20) Mil/uL Hgb 13.2 (11.0-16.0) g/dL Hct 40.6 (34.0-47.0) % MCV 88.3 (81.0-99.0) fL MCH 28.7 (27.0-31.0) pg MCHC 32.6 L (33.0-37.0) g/dL RDW 14.0 (11.5-14.5) % Plt Count 172 (130-400) K/uL MPV 9.4 (7.2-11.7) fL Neut % (Auto) 71.6 (50.0-75.0) % Lymph % (Auto) 18.4 L (20.0-40.0) % Stanton % (Auto) 8.7 (0.0-10.0) % Eos % (Auto) 0.4 (0.0-4.0) % Baso % (Auto) 0.9 (0.0-2.0) % Neut # (Auto) 3.9 (1.8-7.0) K/uL Lymph # (Auto) 1.0 (1.0-4.3) K/uL Stanton # (Auto) 0.5 (0.0-0.8) K/uL Eos # (Auto) 0.0 (0.0-0.7) K/uL Baso # (Auto) 0.1 (0.0-0.2) K/uL Puncture Site pCO2 (35-45) mm/Hg pO2 (80-100) mm/Hg HCO3 (21-28) mmol/L ABG pH (7.35-7.45) ABG Total CO2 (22-28) mmol/L ABG O2 Saturation (95-98) % ABG Base Excess (-2.0-3.0) mmol/L Abundio Test ABG Potassium (3.6-5.2) mmol/L A-a O2 Difference mm/Hg Respiratory Index Glucose (65-105) mg/dl Lactate (0.7-2.1) mmol/L Liter Flow FiO2 % Sodium 141 (132-148) mmol/L Potassium 3.3 L (3.6-5.2) mmol/L Chloride 105 (98-107) mmol/L Carbon Dioxide 26 (22-30) mmol/L Anion Gap 13 (10-20) BUN 8 (7-17) mg/dL Creatinine 0.7 (0.7-1.2) mg/dL Est GFR ( Amer) > 60 Est GFR (Non-Af Amer) > 60 Random Glucose 88 D (65-105) mg/dL Calcium 9.0 (8.6-10.4) mg/dl Phosphorus 2.8 (2.5-4.5) mg/dL Magnesium 2.0 (1.6-2.3) mg/dL Total Bilirubin 0.4 (0.2-1.3) mg/dL AST 25 (14-36) U/L ALT 17 (9-52) U/L Alkaline Phosphatase 79 (38-126) U/L Ammonia (9-33) umol/L CK-MB (Mass) (0.0-3.38) ng/mL Total Protein 7.5 (6.3-8.3) g/dL Albumin 4.1 (3.5-5.0) g/dL Globulin 3.3 (2.2-3.9) gm/dL Albumin/Globulin Ratio 1.2 (1.0-2.1) Arterial Blood Potassium (3.6-5.2) mmol/L Urine Color (YELLOW) Urine Clarity (Clear) Urine pH (5.0-8.0) Ur Specific [place] (1.003-1.030) Urine Protein (NEGATIVE) mg/dL Urine Glucose (UA) (Normal) mg/dL Urine Ketones (NEGATIVE) mg/dL Urine Blood (NEGATIVE) Urine Nitrate (NEGATIVE) Urine Bilirubin (NEGATIVE) Urine Urobilinogen (0.2-1.0) mg/dL Ur Leukocyte Esterase (Negative) Juanita/uL Urine WBC (Auto) (0-5) /hpf Urine RBC (Auto) (0-3) /hpf Urine Bacteria (<OCC) Urine HCG, Qual (NEGATIVE) Urine Opiates Screen Negative (NEGATIVE) Urine Methadone Screen Negative (NEGATIVE) Ur Barbiturates Screen Negative (NEGATIVE) Ur Phencyclidine Scrn Negative (NEGATIVE) Ur Amphetamines Screen Negative (NEGATIVE) U Benzodiazepines Scrn Positive (NEGATIVE) U Oth Cocaine Metabols Negative (NEGATIVE) U Cannabinoids Screen Negative (NEGATIVE) 09/01/18 09/01/18 09/01/18 Range/Units 21:07 18:00 17:25 WBC (4.8-10.8) K/uL RBC (3.80-5.20) Mil/uL Hgb (11.0-16.0) g/dL Hct (34.0-47.0) % MCV (81.0-99.0) fL MCH (27.0-31.0) pg MCHC (33.0-37.0) g/dL RDW (11.5-14.5) % Plt Count (130-400) K/uL MPV (7.2-11.7) fL Neut % (Auto) (50.0-75.0) % Lymph % (Auto) (20.0-40.0) % Stanton % (Auto) (0.0-10.0) % Eos % (Auto) (0.0-4.0) % Baso % (Auto) (0.0-2.0) % Neut # (Auto) (1.8-7.0) K/uL Lymph # (Auto) (1.0-4.3) K/uL Stanton # (Auto) (0.0-0.8) K/uL Eos # (Auto) (0.0-0.7) K/uL Baso # (Auto) (0.0-0.2) K/uL Puncture Site Rradial pCO2 41 (35-45) mm/Hg pO2 77 L (80-100) mm/Hg HCO3 23.7 (21-28) mmol/L ABG pH 7.37 (7.35-7.45) ABG Total CO2 25.0 (22-28) mmol/L ABG O2 Saturation 96.6 (95-98) % ABG Base Excess -1.5 (-2.0-3.0) mmol/L Abundio Test Pos ABG Potassium 2.9 L (3.6-5.2) mmol/L A-a O2 Difference 71.0 mm/Hg Respiratory Index 0.9 Glucose 140 H (65-105) mg/dl Lactate 0.8 (0.7-2.1) mmol/L Liter Flow 2.0 FiO2 28.0 % Sodium 144.0 (132-148) mmol/L Potassium (3.6-5.2) mmol/L Chloride 112.0 H (98-107) mmol/L Carbon Dioxide (22-30) mmol/L Anion Gap (10-20) BUN (7-17) mg/dL Creatinine (0.7-1.2) mg/dL Est GFR ( Amer) Est GFR (Non-Af Amer) Random Glucose (65-105) mg/dL Calcium (8.6-10.4) mg/dl Phosphorus (2.5-4.5) mg/dL Magnesium (1.6-2.3) mg/dL Total Bilirubin (0.2-1.3) mg/dL AST (14-36) U/L ALT (9-52) U/L Alkaline Phosphatase (38-126) U/L Ammonia (9-33) umol/L CK-MB (Mass) < 0.22 (0.0-3.38) ng/mL Total Protein (6.3-8.3) g/dL Albumin (3.5-5.0) g/dL Globulin (2.2-3.9) gm/dL Albumin/Globulin Ratio (1.0-2.1) Arterial Blood Potassium 2.9 L (3.6-5.2) mmol/L Urine Color Straw (YELLOW) Urine Clarity Clear (Clear) Urine pH 8.0 (5.0-8.0) Ur Specific [place] 1.006 (1.003-1.030) Urine Protein Negative (NEGATIVE) mg/dL Urine Glucose (UA) 1+ (Normal) mg/dL Urine Ketones Negative (NEGATIVE) mg/dL Urine Blood Negative (NEGATIVE) Urine Nitrate Negative (NEGATIVE) Urine Bilirubin Negative (NEGATIVE) Urine Urobilinogen Normal (0.2-1.0) mg/dL Ur Leukocyte Esterase Neg (Negative) Juanita/uL Urine WBC (Auto) < 1 (0-5) /hpf Urine RBC (Auto) 2 (0-3) /hpf Urine Bacteria Occ H (<OCC) Urine HCG, Qual Negative (NEGATIVE) Urine Opiates Screen (NEGATIVE) Urine Methadone Screen (NEGATIVE) Ur Barbiturates Screen (NEGATIVE) Ur Phencyclidine Scrn (NEGATIVE) Ur Amphetamines Screen (NEGATIVE) U Benzodiazepines Scrn (NEGATIVE) U Oth Cocaine Metabols (NEGATIVE) U Cannabinoids Screen (NEGATIVE) 09/01/18 09/01/18 09/01/18 Range/Units 16:22 15:01 15:01 WBC 6.5 (4.8-10.8) K/uL RBC 4.75 (3.80-5.20) Mil/uL Hgb 13.7 (11.0-16.0) g/dL Hct 41.7 (34.0-47.0) % MCV 87.8 D (81.0-99.0) fL MCH 28.9 (27.0-31.0) pg MCHC 32.9 L (33.0-37.0) g/dL RDW 13.8 (11.5-14.5) % Plt Count 174 (130-400) K/uL MPV 9.3 (7.2-11.7) fL Neut % (Auto) 83.5 H (50.0-75.0) % Lymph % (Auto) 10.5 L (20.0-40.0) % Stanton % (Auto) 3.6 (0.0-10.0) % Eos % (Auto) 1.8 (0.0-4.0) % Baso % (Auto) 0.6 (0.0-2.0) % Neut # (Auto) 5.4 (1.8-7.0) K/uL Lymph # (Auto) 0.7 L (1.0-4.3) K/uL Stanton # (Auto) 0.2 (0.0-0.8) K/uL Eos # (Auto) 0.1 (0.0-0.7) K/uL Baso # (Auto) 0.0 (0.0-0.2) K/uL Puncture Site pCO2 (35-45) mm/Hg pO2 (80-100) mm/Hg HCO3 (21-28) mmol/L ABG pH (7.35-7.45) ABG Total CO2 (22-28) mmol/L ABG O2 Saturation (95-98) % ABG Base Excess (-2.0-3.0) mmol/L Abundio Test ABG Potassium (3.6-5.2) mmol/L A-a O2 Difference mm/Hg Respiratory Index Glucose (65-105) mg/dl Lactate (0.7-2.1) mmol/L Liter Flow FiO2 % Sodium 138 (132-148) mmol/L Potassium 3.5 L (3.6-5.2) mmol/L Chloride 102 (98-107) mmol/L Carbon Dioxide 26 (22-30) mmol/L Anion Gap 14 (10-20) BUN 12 (7-17) mg/dL Creatinine 0.8 (0.7-1.2) mg/dL Est GFR ( Amer) > 60 Est GFR (Non-Af Amer) > 60 Random Glucose 197 H D (65-105) mg/dL Calcium 9.3 (8.6-10.4) mg/dl Phosphorus (2.5-4.5) mg/dL Magnesium (1.6-2.3) mg/dL Total Bilirubin 0.4 (0.2-1.3) mg/dL AST 27 (14-36) U/L ALT 15 (9-52) U/L Alkaline Phosphatase 79 (38-126) U/L Ammonia 26 (9-33) umol/L CK-MB (Mass) (0.0-3.38) ng/mL Total Protein 8.2 (6.3-8.3) g/dL Albumin 4.2 (3.5-5.0) g/dL Globulin 3.9 (2.2-3.9) gm/dL Albumin/Globulin Ratio 1.1 (1.0-2.1) Arterial Blood Potassium (3.6-5.2) mmol/L Urine Color (YELLOW) Urine Clarity (Clear) Urine pH (5.0-8.0) Ur Specific [place] (1.003-1.030) Urine Protein (NEGATIVE) mg/dL Urine Glucose (UA) (Normal) mg/dL Urine Ketones (NEGATIVE) mg/dL Urine Blood (NEGATIVE) Urine Nitrate (NEGATIVE) Urine Bilirubin (NEGATIVE) Urine Urobilinogen (0.2-1.0) mg/dL Ur Leukocyte Esterase (Negative) Juanita/uL Urine WBC (Auto) (0-5) /hpf Urine RBC (Auto) (0-3) /hpf Urine Bacteria (<OCC) Urine HCG, Qual (NEGATIVE) Urine Opiates Screen (NEGATIVE) Urine Methadone Screen (NEGATIVE) Ur Barbiturates Screen (NEGATIVE) Ur Phencyclidine Scrn (NEGATIVE) Ur Amphetamines Screen (NEGATIVE) U Benzodiazepines Scrn (NEGATIVE) U Oth Cocaine Metabols (NEGATIVE) U Cannabinoids Screen (NEGATIVE) Laboratory Results - last 24 hr 09/01/18 09/01/18 09/01/18 15:01 15:01 16:22 WBC 6.5 RBC 4.75 Hgb 13.7 Hct 41.7 MCV 87.8 D MCH 28.9 MCHC 32.9 L RDW 13.8 Plt Count 174 MPV 9.3 Neut % (Auto) 83.5 H Lymph % (Auto) 10.5 L Stanton % (Auto) 3.6 Eos % (Auto) 1.8 Baso % (Auto) 0.6 Neut # (Auto) 5.4 Lymph # (Auto) 0.7 L Stanton # (Auto) 0.2 Eos # (Auto) 0.1 Baso # (Auto) 0.0 Puncture Site pCO2 pO2 HCO3 ABG pH ABG Total CO2 ABG O2 Saturation ABG Base Excess Abundio Test ABG Potassium A-a O2 Difference Respiratory Index Glucose Lactate Liter Flow FiO2 Sodium 138 Potassium 3.5 L Chloride 102 Carbon Dioxide 26 Anion Gap 14 BUN 12 Creatinine 0.8 Est GFR ( Amer) > 60 Est GFR (Non-Af Amer) > 60 Random Glucose 197 H D Calcium 9.3 Phosphorus Magnesium Total Bilirubin 0.4 AST 27 ALT 15 Alkaline Phosphatase 79 Ammonia 26 CK-MB (Mass) Total Protein 8.2 Albumin 4.2 Globulin 3.9 Albumin/Globulin Ratio 1.1 Arterial Blood Potassium Urine Color Urine Clarity Urine pH Ur Specific [place] Urine Protein Urine Glucose (UA) Urine Ketones Urine Blood Urine Nitrate Urine Bilirubin Urine Urobilinogen Ur Leukocyte Esterase Urine WBC (Auto) Urine RBC (Auto) Urine Bacteria Urine HCG, Qual Urine Opiates Screen Urine Methadone Screen Ur Barbiturates Screen Ur Phencyclidine Scrn Ur Amphetamines Screen U Benzodiazepines Scrn U Oth Cocaine Metabols U Cannabinoids Screen 09/01/18 09/01/18 09/01/18 17:25 18:00 21:07 WBC RBC Hgb Hct MCV MCH MCHC RDW Plt Count MPV Neut % (Auto) Lymph % (Auto) Stanton % (Auto) Eos % (Auto) Baso % (Auto) Neut # (Auto) Lymph # (Auto) Stanton # (Auto) Eos # (Auto) Baso # (Auto) Puncture Site Rradial pCO2 41 pO2 77 L HCO3 23.7 ABG pH 7.37 ABG Total CO2 25.0 ABG O2 Saturation 96.6 ABG Base Excess -1.5 Abundio Test Pos ABG Potassium 2.9 L A-a O2 Difference 71.0 Respiratory Index 0.9 Glucose 140 H Lactate 0.8 Liter Flow 2.0 FiO2 28.0 Sodium 144.0 Potassium Chloride 112.0 H Carbon Dioxide Anion Gap BUN Creatinine Est GFR ( Amer) Est GFR (Non-Af Amer) Random Glucose Calcium Phosphorus Magnesium Total Bilirubin AST ALT Alkaline Phosphatase Ammonia CK-MB (Mass) < 0.22 Total Protein Albumin Globulin Albumin/Globulin Ratio Arterial Blood Potassium 2.9 L Urine Color Straw Urine Clarity Clear Urine pH 8.0 Ur Specific [place] 1.006 Urine Protein Negative Urine Glucose (UA) 1+ Urine Ketones Negative Urine Blood Negative Urine Nitrate Negative Urine Bilirubin Negative Urine Urobilinogen Normal Ur Leukocyte Esterase Neg Urine WBC (Auto) < 1 Urine RBC (Auto) 2 Urine Bacteria Occ H Urine HCG, Qual Negative Urine Opiates Screen Urine Methadone Screen Ur Barbiturates Screen Ur Phencyclidine Scrn Ur Amphetamines Screen U Benzodiazepines Scrn U Oth Cocaine Metabols U Cannabinoids Screen 09/01/18 09/02/18 09/02/18 21:07 06:07 06:17 WBC 5.5 RBC 4.60 Hgb 13.2 Hct 40.6 MCV 88.3 MCH 28.7 MCHC 32.6 L RDW 14.0 Plt Count 172 MPV 9.4 Neut % (Auto) 71.6 Lymph % (Auto) 18.4 L Stanton % (Auto) 8.7 Eos % (Auto) 0.4 Baso % (Auto) 0.9 Neut # (Auto) 3.9 Lymph # (Auto) 1.0 Stanton # (Auto) 0.5 Eos # (Auto) 0.0 Baso # (Auto) 0.1 Puncture Site pCO2 pO2 HCO3 ABG pH ABG Total CO2 ABG O2 Saturation ABG Base Excess Abundio Test ABG Potassium A-a O2 Difference Respiratory Index Glucose Lactate Liter Flow FiO2 Sodium 141 Potassium 3.3 L Chloride 105 Carbon Dioxide 26 Anion Gap 13 BUN 8 Creatinine 0.7 Est GFR ( Amer) > 60 Est GFR (Non-Af Amer) > 60 Random Glucose 88 D Calcium 9.0 Phosphorus 2.8 Magnesium 2.0 Total Bilirubin 0.4 AST 25 ALT 17 Alkaline Phosphatase 79 Ammonia CK-MB (Mass) Total Protein 7.5 Albumin 4.1 Globulin 3.3 Albumin/Globulin Ratio 1.2 Arterial Blood Potassium Urine Color Urine Clarity Urine pH Ur Specific [place] Urine Protein Urine Glucose (UA) Urine Ketones Urine Blood Urine Nitrate Urine Bilirubin Urine Urobilinogen Ur Leukocyte Esterase Urine WBC (Auto) Urine RBC (Auto) Urine Bacteria Urine HCG, Qual Urine Opiates Screen Negative Urine Methadone Screen Negative Ur Barbiturates Screen Negative Ur Phencyclidine Scrn Negative Ur Amphetamines Screen Negative U Benzodiazepines Scrn Positive U Oth Cocaine Metabols Negative U Cannabinoids Screen Negative Radiology Impressions: Radiology Impressions Head CT 09/01/18 14:10 IMPRESSION: Interval development of encephalomalacia noted within the left high frontal and left occipital parietal lobes. Patchy and confluent non-specific white matter changes. EKG/Cardiology Studies: Cardiology / EKG Studies 09/01/18 14:10 ELECTROCARDIOGRAM Stat Comment: bed11 Mode Of Transportation: BED Reason For Exam: tachycardia 09/01/18 15:52 ELECTROCARDIOGRAM Stat Comment: bed11 Mode Of Transportation: BED Reason For Exam: tachycardia Fingerstick Blood Sugar Results: 143 Review of Systems - Review of Systems Systems not reviewed;Unavailable: Other (aphasic) Assessment/Plan - Assessment and Plan (Free Text) Assessment: 57yo F with PMH CVA with R sided deficits, HTN, HIV, COPD, seizures, MVP, admitted for tonic/clonic seizures. CT head showing chronic L sided changes in frontal and occipital parietal lobes. EEG showing focal cortical abnormalities in L side, no seizures or status epilepticus captured. On Keppra IV, no further witnessed episodes. Patient hemodynamically stable at this time. Plan: Neuro: - expressive aphasia - alert, unable to assess orientation - witnessed tonic/clonic seizure prior to admission, no further episodes - h/o CVA - Keppra 500mg IV q12h - CT head: encephalomalacia in L frontal and occipital parietal lobes - EEG: No seizure activity. Not in status epilepticus. mild non specific diffuse disturbance of cortical activity in keeping with a diffuse aguilar matter dysfunction, these findings do not support a specific etiology. focal cortical abnormality involving the left frontal/temporal, in keeping with a structural abnormality in the same area. - Neuro consulted, Dr. Bush: f/u recs - Speech/swallow ordered: f/u recs - seizure precautions - aspiration precautions Cardio: - h/o HTN - maintain normotension Resp: - h/o COPD - duonebs q6h PRN - maintain SpO2 >92% GI: - protonix 40mg IV daily Renal: - K+ 3.3 today - repleted with 40meq x2 - LR @75 cc/hr Heme: - H/H stable ID: - h/o HIV - f/u HIV ab, CD4 count, procal - antiretroviral therapy held until patient passes speech/swallow - ID consulted, Dr. Wright - f/u recs PPx: - GI: protonix - DVT: SCDs - f/u speech swallow to advance diet Dispo: no further seizure episodes. f/u neuro recs. Patient seen and case discussed with Dr. Kee.
--- NOTE | 2018-09-02 09:32 | CP.PCM.PN ---
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 No family bedside. Patient is attempting video eeg but there is an issue with the connection; when I spoke with her nurse, [place]os[place]. Patient repeats "hello" "hello" "hello" to every question. Patient is attempting to get out of bed. Unable to ROS secondary to clinical condition. Objective - Vital Signs/Intake and Output Vital Signs (last 24 hours): Temp Pulse Resp BP Pulse Ox 97.2 F L 89 20 135/89 96 09/01/18 18:00 09/02/18 08:03 09/02/18 08:03 09/02/18 08:03 09/02/18 08:03 Intake and Output: 09/02/18 09/02/18 06:59 18:59 Intake Total 1075 75 Output Total 1600 300 Balance -525 -225 - Medications Medications: Current Medications Albuterol/Ipratropium (Duoneb 3 Mg/0.5 Mg (3 Ml) Ud) 3 ml INH RQ6 PRN PRN Reason: Shortness of Breath Levetiracetam 500 mg/ Dextrose 105 mls @ 420 mls/hr IVPB Q12H [facility] Last Admin: 09/02/18 05:59 Dose: 420 mls/hr Lactated Ringer's (Lactated Ringer's) 1,000 mls @ 75 mls/hr IV .[id number] [facility] Last Admin: 09/02/18 08:05 Dose: 75 mls/hr Pantoprazole Sodium (Protonix Inj) 40 mg IVP DAILY [facility] Potassium Chloride (K-Dur 20 Meq Er Tab) 40 meq PO Q4H FUAD Stop: 09/02/18 11:46 Last Admin: 09/02/18 08:09 Dose: 40 meq - Labs Labs: 09/02/18 06:17 09/02/18 06:07 - Constitutional Appears: Non-toxic, No Acute Distress - Head Exam Head Exam: NORMAL INSPECTION Additional comments: abrasion noted left face - Eye Exam Eye Exam: EOMI Pupil Exam: PERRL - ENT Exam ENT Exam: Mucous Membranes Moist - Respiratory Exam Respiratory Exam: Clear to Ausculation Bilateral, Wheezes. absent: Rales, Rhonchi - Cardiovascular Exam Cardiovascular Exam: REGULAR RHYTHM, +S1, +S2 - GI/Abdominal Exam GI & Abdominal Exam: Soft, Normal Bowel Sounds. absent: Distended, Firm, Guarding, Rigid, Tenderness, Rebound - Extremities Exam Extremities Exam: absent: Pedal Edema, Tenderness Additional comments: prevalon boots - Neurological Exam Neurological Exam: Alert, Awake Neuro motor strength exam: Left Upper Extremity: 5, Right Upper Extremity: 2/1, Left Lower Extremity: 5, Right Lower Extremity: 2/1 - Skin Skin Exam: Abrasion (on sacrum and face)), Dry, Normal Color, Warm Assessment and Plan (1) New onset seizure Status: Acute (2) History of stroke with current residual effects Status: Acute (3) HIV (human immunodeficiency virus infection) Status: Acute (4) Hepatitis C Status: Acute (5) Cerebrovascular accident (CVA) with right hemiparesis Status: Acute (6) HIV (human immunodeficiency virus infection) Status: Acute (7) Prophylactic measure Status: Acute Attending/Attestation - Attestation I have personally seen and examined this patient.: Yes I have fully participated in the care of the patient.: Yes I have reviewed all pertinent clinical information, including history, physical exam and plan: Yes Notes (Text): 1) Seizure disorder, new onset Assessment/Plan * observed on icu * video eeg in progress (disconnected by 4-5am); nurse is trying to get in contact to reconnect * UDS: positive for benzo * On admission, patient given phentyoin 1g at 3PM on 09/01/18 * Patient is on Keppra 500mg IVPB Q12H * LR 75cc/hr * Neurology on consult * CT head (09/01/18): interval development of encephalomalacia noted within the left high frontol and left occipatal parietal lobes, patchy and confluent nonspecific white matter changes * MRI (04/2018): interval hemorrhagic transformation of subacute infarction in the left posterior centrum semiovale. interval evolution of subacute b/l MCA [employer] watershed terriotities and left deep white batter border zone territory and small subacute infarction in posterior limb of the left interval capsule. * Had prior modifed barium swallow in apr 2018 when hospitalized for the stroke 2) History of CVA with right sided residual weakness (noted hemorrhagic conversion in apr 2018) Assessment/Plan * Apr 2018 hospitalization noted hemorrhagic conversion * Neurology on consult * will need to f/u with neurology regarding anti-platelet therapy * CT head (09/01/18): interval development of encephalomalacia noted within the left high frontol and left occipatal parietal lobes, patchy and confluent nonspecific white matter changes * MRI (04/2018): interval hemorrhagic transformation of subacute infarction in the left posterior centrum semiovale. interval evolution of subacute b/l MCA [employer] watershed terriotities and left deep white batter border zone territory and small subacute infarction in posterior limb of the left interval capsule. * Had prior modifed barium swallow in apr 2018 when hospitalized for the stroke * check lipid panel, a1c * f/u in regards to aspirin, statin, and dvt ppx 3) History of HIV Assessment/Plan * Prior HAART therapy (2018-->Tivicay 50mg daily and Truvada 200mg-300mg daily) * CD 4 count 413 per 05/03/18; HIV 1 RNA not detected 4) Chronic Hepatitis C Assessment/Plan * Ammonia is normal 5) Bipolar Disorder Depression Paranoia Personality Disorder Assessment/Plan * last admission noted to be Cymbalta and Seroquel 6) Hypokalemia Assessment/Plan * repleted 7) Prophylactic measure * seizure precautions * aspiration precautions * Protonix 40mg IV q daily * f/u neurology to see if DVT ppx can be resumed; patient had a prior hemorrhagic conversion from stroke early this april
--- NOTE | 2018-09-02 09:39 | PCM.VEEG ---
Video EEG - Procedure Start Date: 09/01/18 Start Time: 23:00 End Date: 09/02/18 End Time: 08:20 Technical Summary: DATA ACQUISITION: This was a multichannel inpatient video-EEG, a minimum of 22 channels were uti lized, performed in accordance with recommendations specified by the [place] [employer] (Narinder Obrien et al. ACNS Guideline 1: Minimum Technical Requirements for Performing Clinical Electroencephalography. Journal of Clinical Neurophysiology 2016;33:303-7). The 10-20 electrode placement system was utilized in accordance with guidelines detailed by the International Federation of Clinical Neurophysiology (Sarah Monaco et al. The Ten-Twenty Electrode System of the International Federation. Recommendations for the Practice of Clinical Neurophysiology: Guidelines of the International Federation of Clinical Physiology 1999; EEG Suppl. 52.). DATA REVIEW / SPIKE DETECTION / DIGITAL ANALYSIS: The entire EEG was scanned and reviewed. Synchronized audio and video recording were reviewed at the time of each alarm and whenever an abnormality or suspicious activity was noted. The entire recording was analyzed utilizing an automated digital spike and seizure analysis program and all automatic spike and seizure detections were manually reviewed. A compressed spectral array was displayed and reviewed alongside the raw EEG tracings. In addition, further analysis of the EEG was performed when abnormalities were identified, including montage changes, dipole source localization, and frequency band identification. Video portion of the study is necessary to correlate abnormal EEG activity with clinical behavior. This study was attended 24 hours per day. - Interpretation Description of the study: Indication; status epilepticus. EEG Finding during wakefulness: During active states, the EEG was characterized by 10-12 Hz, 15-30 uV activity bilaterally in fronto-central regions. Resting wakefulness was characterized by a poorly developed, posterior dominant rhythm of 6 Hz, 30-50 uV, which was poorly, but reactive to eye opening and closing. Drowsiness was associated with slow roving eye movements, slowing and fragmentation of the posterior dominant rhythm, and bilateral 4-7 Hz, 40-70 uV theta activity, sometimes with a shifting predominance. EEG Finding during sleep: Light sleep was recorded and was characterized by fronto-central slowing at 5-7 H, 50-125 uV, sharp central vertex waves, bilateral sleep spindles, and K- complexes; shifting asymmetries were evident. Deeper stages of sleep were recorded and were characterized an increasing frequency of 1-4 Hz, 50-100 uV delta activity.. There were no significant asymmetries noted during sleep. Interictal non-epileptiform abnormalities: there was evidence of continuous mid amplitude slowing at 4 to 5 Hz seen in the left frontal/temporal region , in addition there were occasional mid amplitude sharps that were not clearly epileptiform. Interictal epileptiform abnormalities: None Ictal epileptiform abnormalities: None - Impression Impression: This was an abnormal video EEG, monitoring study, due to the presence of: 1- Mild background slowing, and EEG disorganization. 2- Left frontal/temporal focal slowing. No episodes were capture, No seizure activity. Not in status epilepticus. INTERPRETATION: The above findings are in keeping with a mild non specific diffuse disturbance of cortical activity, in keeping with a diffuse aguilar matter dysfunction, these findings do not support a specific etiology. The findings are also in keeping with a focal cortical abnormality involving the left frontal/temporal, in keeping with a n structural abnormality in the same area.
--- NOTE | 2018-09-02 10:24 | CP.CCUPN ---
CCU Subjective - Physician Review Subjective (Free Text): 09/02/18 08:50 Corinna Arreaga PGY1 Progress Note for Dr. Kee Pt was examined at bedside this morning. No acute events overnight. Patient is verbal, however unable to follow commands. She has no complaints this morning. CCU Objective - Vital Signs / Intake & Output Vital Signs (Last 4 hours): Vital Signs Pulse Resp BP Pulse Ox 09/02/18 09:03 85 26 H 136/87 97 09/02/18 09:00 93 H 16 98 09/02/18 08:03 89 20 135/89 96 09/02/18 08:00 89 18 98 09/02/18 07:03 78 17 133/79 100 09/02/18 07:00 83 15 100 Intake and Output (Last 8hrs): Intake & Output 09/01/18 09/02/18 09/02/18 22:59 06:59 14:59 Intake Total 450 775 150 Output Total 500 1100 300 Balance -50 -325 -150 Weight 65.771 kg 65.771 kg Intake: Intake, IV Amount 450 775 150 Left External Jugular 75 Left Wrist 175 Right External Jugular 150 Right Hand 225 600 150 Oral 0 0 Output: Urine 500 1100 300 Urine, Voided 500 1100 300 Other: # Voids Urine, Voided 1 1 - Physical Exam Head: Positive for: Atraumatic, Normocephalic Pupils: Positive for: PERRL Extroacular Muscles: Positive for: EOMI Conjunctiva: Positive for: Normal Mouth: Positive for: Dry Neck: Positive for: Normal Range of Motion Respiratory/Chest: Positive for: Clear to Auscultation, Good Air Exchange. Negative for: Respiratory Distress, Accessory Muscle Use Cardiovascular: Positive for: Regular Rate and Rhythm, Normal S1, S2. Negative for: Murmurs Abdomen: Positive for: Normal Bowel Sounds. Negative for: Tenderness, Distention, Peritoneal Signs Upper Extremity: Positive for: Normal Inspection. Negative for: Cyanosis, Edema, Normal ROM Lower Extremity: Positive for: Normal Inspection. Negative for: Edema Neurological: Positive for: Norm Deep Tendon Reflexes, Other. Negative for: GCS=15, Speech Normal, Motor Func Grossly Intact Skin: Positive for: Warm, Normal Color. Negative for: Dry, Rashes Psychiatric: Positive for: Alert. Negative for: Oriented x 3, Normal Insight, Normal Concentration - Medications Active Medications: Active Medications Generic Name Dose Route Start Last Admin Trade Name Freq PRN Reason Stop Dose Admin Albuterol/Ipratropium 3 ml 09/02/18 04:26 Duoneb 3 Mg/0.5 Mg (3 Ml) Ud INH RQ6 PRN Shortness of Breath Levetiracetam 500 mg/ Dextrose 105 mls @ 420 mls/hr 09/01/18 18:30 09/02/18 05:59 IVPB 420 mls/hr Q12H FUAD Administration Lactated Ringer's 1,000 mls @ 75 mls/hr 09/01/18 18:30 09/02/18 08:05 Lactated Ringer's IV 75 mls/hr .[id number] FUAD Administration Pantoprazole Sodium 40 mg 09/02/18 10:00 Protonix Inj IVP DAILY FUAD Potassium Chloride 40 meq 09/02/18 07:45 09/02/18 08:09 K-Dur 20 Meq Er Tab PO 09/02/18 11:46 40 meq Q4H FUAD Administration - Patient Studies Lab Studies: Lab Studies 09/02/18 09/02/18 09/01/18 Range/Units 06:17 06:07 21:07 WBC 5.5 (4.8-10.8) K/uL RBC 4.60 (3.80-5.20) Mil/uL Hgb 13.2 (11.0-16.0) g/dL Hct 40.6 (34.0-47.0) % MCV 88.3 (81.0-99.0) fL MCH 28.7 (27.0-31.0) pg MCHC 32.6 L (33.0-37.0) g/dL RDW 14.0 (11.5-14.5) % Plt Count 172 (130-400) K/uL MPV 9.4 (7.2-11.7) fL Neut % (Auto) 71.6 (50.0-75.0) % Lymph % (Auto) 18.4 L (20.0-40.0) % [place] % (Auto) 8.7 (0.0-10.0) % Eos % (Auto) 0.4 (0.0-4.0) % Baso % (Auto) 0.9 (0.0-2.0) % Neut # (Auto) 3.9 (1.8-7.0) K/uL Lymph # (Auto) 1.0 (1.0-4.3) K/uL [place] # (Auto) 0.5 (0.0-0.8) K/uL Eos # (Auto) 0.0 (0.0-0.7) K/uL Baso # (Auto) 0.1 (0.0-0.2) K/uL Puncture Site pCO2 (35-45) mm/Hg pO2 (80-100) mm/Hg HCO3 (21-28) mmol/L ABG pH (7.35-7.45) ABG Total CO2 (22-28) mmol/L ABG O2 Saturation (95-98) % ABG Base Excess (-2.0-3.0) mmol/L Abundio Test ABG Potassium (3.6-5.2) mmol/L A-a O2 Difference mm/Hg Respiratory Index Glucose (65-105) mg/dl Lactate (0.7-2.1) mmol/L Liter Flow FiO2 % Sodium 141 (132-148) mmol/L Potassium 3.3 L (3.6-5.2) mmol/L Chloride 105 (98-107) mmol/L Carbon Dioxide 26 (22-30) mmol/L Anion Gap 13 (10-20) BUN 8 (7-17) mg/dL Creatinine 0.7 (0.7-1.2) mg/dL Est GFR ( Amer) > 60 Est GFR (Non-Af Amer) > 60 Random Glucose 88 D (65-105) mg/dL Calcium 9.0 (8.6-10.4) mg/dl Phosphorus 2.8 (2.5-4.5) mg/dL Magnesium 2.0 (1.6-2.3) mg/dL Total Bilirubin 0.4 (0.2-1.3) mg/dL AST 25 (14-36) U/L ALT 17 (9-52) U/L Alkaline Phosphatase 79 (38-126) U/L Ammonia (9-33) umol/L CK-MB (Mass) (0.0-3.38) ng/mL Total Protein 7.5 (6.3-8.3) g/dL Albumin 4.1 (3.5-5.0) g/dL Globulin 3.3 (2.2-3.9) gm/dL Albumin/Globulin Ratio 1.2 (1.0-2.1) Arterial Blood Potassium (3.6-5.2) mmol/L Urine Color (YELLOW) Urine Clarity (Clear) Urine pH (5.0-8.0) Ur Specific [place] (1.003-1.030) Urine Protein (NEGATIVE) mg/dL Urine Glucose (UA) (Normal) mg/dL Urine Ketones (NEGATIVE) mg/dL Urine Blood (NEGATIVE) Urine Nitrate (NEGATIVE) Urine Bilirubin (NEGATIVE) Urine Urobilinogen (0.2-1.0) mg/dL Ur Leukocyte Esterase (Negative) Juanita/uL Urine WBC (Auto) (0-5) /hpf Urine RBC (Auto) (0-3) /hpf Urine Bacteria (<OCC) Urine HCG, Qual (NEGATIVE) Urine Opiates Screen Negative (NEGATIVE) Urine Methadone Screen Negative (NEGATIVE) Ur Barbiturates Screen Negative (NEGATIVE) Ur Phencyclidine Scrn Negative (NEGATIVE) Ur Amphetamines Screen Negative (NEGATIVE) U Benzodiazepines Scrn Positive (NEGATIVE) U Oth Cocaine Metabols Negative (NEGATIVE) U Cannabinoids Screen Negative (NEGATIVE) 09/01/18 09/01/18 09/01/18 Range/Units 21:07 18:00 17:25 WBC (4.8-10.8) K/uL RBC (3.80-5.20) Mil/uL Hgb (11.0-16.0) g/dL Hct (34.0-47.0) % MCV (81.0-99.0) fL MCH (27.0-31.0) pg MCHC (33.0-37.0) g/dL RDW (11.5-14.5) % Plt Count (130-400) K/uL MPV (7.2-11.7) fL Neut % (Auto) (50.0-75.0) % Lymph % (Auto) (20.0-40.0) % [place] % (Auto) (0.0-10.0) % Eos % (Auto) (0.0-4.0) % Baso % (Auto) (0.0-2.0) % Neut # (Auto) (1.8-7.0) K/uL Lymph # (Auto) (1.0-4.3) K/uL [place] # (Auto) (0.0-0.8) K/uL Eos # (Auto) (0.0-0.7) K/uL Baso # (Auto) (0.0-0.2) K/uL Puncture Site Rradial pCO2 41 (35-45) mm/Hg pO2 77 L (80-100) mm/Hg HCO3 23.7 (21-28) mmol/L ABG pH 7.37 (7.35-7.45) ABG Total CO2 25.0 (22-28) mmol/L ABG O2 Saturation 96.6 (95-98) % ABG Base Excess -1.5 (-2.0-3.0) mmol/L Abundio Test Pos ABG Potassium 2.9 L (3.6-5.2) mmol/L A-a O2 Difference 71.0 mm/Hg Respiratory Index 0.9 Glucose 140 H (65-105) mg/dl Lactate 0.8 (0.7-2.1) mmol/L Liter Flow 2.0 FiO2 28.0 % Sodium 144.0 (132-148) mmol/L Potassium (3.6-5.2) mmol/L Chloride 112.0 H (98-107) mmol/L Carbon Dioxide (22-30) mmol/L Anion Gap (10-20) BUN (7-17) mg/dL Creatinine (0.7-1.2) mg/dL Est GFR ( Amer) Est GFR (Non-Af Amer) Random Glucose (65-105) mg/dL Calcium (8.6-10.4) mg/dl Phosphorus (2.5-4.5) mg/dL Magnesium (1.6-2.3) mg/dL Total Bilirubin (0.2-1.3) mg/dL AST (14-36) U/L ALT (9-52) U/L Alkaline Phosphatase (38-126) U/L Ammonia (9-33) umol/L CK-MB (Mass) < 0.22 (0.0-3.38) ng/mL Total Protein (6.3-8.3) g/dL Albumin (3.5-5.0) g/dL Globulin (2.2-3.9) gm/dL Albumin/Globulin Ratio (1.0-2.1) Arterial Blood Potassium 2.9 L (3.6-5.2) mmol/L Urine Color Straw (YELLOW) Urine Clarity Clear (Clear) Urine pH 8.0 (5.0-8.0) Ur Specific [place] 1.006 (1.003-1.030) Urine Protein Negative (NEGATIVE) mg/dL Urine Glucose (UA) 1+ (Normal) mg/dL Urine Ketones Negative (NEGATIVE) mg/dL Urine Blood Negative (NEGATIVE) Urine Nitrate Negative (NEGATIVE) Urine Bilirubin Negative (NEGATIVE) Urine Urobilinogen Normal (0.2-1.0) mg/dL Ur Leukocyte Esterase Neg (Negative) Juanita/uL Urine WBC (Auto) < 1 (0-5) /hpf Urine RBC (Auto) 2 (0-3) /hpf Urine Bacteria Occ H (<OCC) Urine HCG, Qual Negative (NEGATIVE) Urine Opiates Screen (NEGATIVE) Urine Methadone Screen (NEGATIVE) Ur Barbiturates Screen (NEGATIVE) Ur Phencyclidine Scrn (NEGATIVE) Ur Amphetamines Screen (NEGATIVE) U Benzodiazepines Scrn (NEGATIVE) U Oth Cocaine Metabols (NEGATIVE) U Cannabinoids Screen (NEGATIVE) 09/01/18 09/01/18 09/01/18 Range/Units 16:22 15:01 15:01 WBC 6.5 (4.8-10.8) K/uL RBC 4.75 (3.80-5.20) Mil/uL Hgb 13.7 (11.0-16.0) g/dL Hct 41.7 (34.0-47.0) % MCV 87.8 D (81.0-99.0) fL MCH 28.9 (27.0-31.0) pg MCHC 32.9 L (33.0-37.0) g/dL RDW 13.8 (11.5-14.5) % Plt Count 174 (130-400) K/uL MPV 9.3 (7.2-11.7) fL Neut % (Auto) 83.5 H (50.0-75.0) % Lymph % (Auto) 10.5 L (20.0-40.0) % [place] % (Auto) 3.6 (0.0-10.0) % Eos % (Auto) 1.8 (0.0-4.0) % Baso % (Auto) 0.6 (0.0-2.0) % Neut # (Auto) 5.4 (1.8-7.0) K/uL Lymph # (Auto) 0.7 L (1.0-4.3) K/uL [place] # (Auto) 0.2 (0.0-0.8) K/uL Eos # (Auto) 0.1 (0.0-0.7) K/uL Baso # (Auto) 0.0 (0.0-0.2) K/uL Puncture Site pCO2 (35-45) mm/Hg pO2 (80-100) mm/Hg HCO3 (21-28) mmol/L ABG pH (7.35-7.45) ABG Total CO2 (22-28) mmol/L ABG O2 Saturation (95-98) % ABG Base Excess (-2.0-3.0) mmol/L Abundio Test ABG Potassium (3.6-5.2) mmol/L A-a O2 Difference mm/Hg Respiratory Index Glucose (65-105) mg/dl Lactate (0.7-2.1) mmol/L Liter Flow FiO2 % Sodium 138 (132-148) mmol/L Potassium 3.5 L (3.6-5.2) mmol/L Chloride 102 (98-107) mmol/L Carbon Dioxide 26 (22-30) mmol/L Anion Gap 14 (10-20) BUN 12 (7-17) mg/dL Creatinine 0.8 (0.7-1.2) mg/dL Est GFR ( Amer) > 60 Est GFR (Non-Af Amer) > 60 Random Glucose 197 H D (65-105) mg/dL Calcium 9.3 (8.6-10.4) mg/dl Phosphorus (2.5-4.5) mg/dL Magnesium (1.6-2.3) mg/dL Total Bilirubin 0.4 (0.2-1.3) mg/dL AST 27 (14-36) U/L ALT 15 (9-52) U/L Alkaline Phosphatase 79 (38-126) U/L Ammonia 26 (9-33) umol/L CK-MB (Mass) (0.0-3.38) ng/mL Total Protein 8.2 (6.3-8.3) g/dL Albumin 4.2 (3.5-5.0) g/dL Globulin 3.9 (2.2-3.9) gm/dL Albumin/Globulin Ratio 1.1 (1.0-2.1) Arterial Blood Potassium (3.6-5.2) mmol/L Urine Color (YELLOW) Urine Clarity (Clear) Urine pH (5.0-8.0) Ur Specific [place] (1.003-1.030) Urine Protein (NEGATIVE) mg/dL Urine Glucose (UA) (Normal) mg/dL Urine Ketones (NEGATIVE) mg/dL Urine Blood (NEGATIVE) Urine Nitrate (NEGATIVE) Urine Bilirubin (NEGATIVE) Urine Urobilinogen (0.2-1.0) mg/dL Ur Leukocyte Esterase (Negative) Juanita/uL Urine WBC (Auto) (0-5) /hpf Urine RBC (Auto) (0-3) /hpf Urine Bacteria (<OCC) Urine HCG, Qual (NEGATIVE) Urine Opiates Screen (NEGATIVE) Urine Methadone Screen (NEGATIVE) Ur Barbiturates Screen (NEGATIVE) Ur Phencyclidine Scrn (NEGATIVE) Ur Amphetamines Screen (NEGATIVE) U Benzodiazepines Scrn (NEGATIVE) U Oth Cocaine Metabols (NEGATIVE) U Cannabinoids Screen (NEGATIVE) Laboratory Results - last 24 hr 09/01/18 09/01/18 09/01/18 15:01 15:01 16:22 WBC 6.5 RBC 4.75 Hgb 13.7 Hct 41.7 MCV 87.8 D MCH 28.9 MCHC 32.9 L RDW 13.8 Plt Count 174 MPV 9.3 Neut % (Auto) 83.5 H Lymph % (Auto) 10.5 L [place] % (Auto) 3.6 Eos % (Auto) 1.8 Baso % (Auto) 0.6 Neut # (Auto) 5.4 Lymph # (Auto) 0.7 L [place] # (Auto) 0.2 Eos # (Auto) 0.1 Baso # (Auto) 0.0 Puncture Site pCO2 pO2 HCO3 ABG pH ABG Total CO2 ABG O2 Saturation ABG Base Excess Abundio Test ABG Potassium A-a O2 Difference Respiratory Index Glucose Lactate Liter Flow FiO2 Sodium 138 Potassium 3.5 L Chloride 102 Carbon Dioxide 26 Anion Gap 14 BUN 12 Creatinine 0.8 Est GFR ( Amer) > 60 Est GFR (Non-Af Amer) > 60 Random Glucose 197 H D Calcium 9.3 Phosphorus Magnesium Total Bilirubin 0.4 AST 27 ALT 15 Alkaline Phosphatase 79 Ammonia 26 CK-MB (Mass) Total Protein 8.2 Albumin 4.2 Globulin 3.9 Albumin/Globulin Ratio 1.1 Arterial Blood Potassium Urine Color Urine Clarity Urine pH Ur Specific [place] Urine Protein Urine Glucose (UA) Urine Ketones Urine Blood Urine Nitrate Urine Bilirubin Urine Urobilinogen Ur Leukocyte Esterase Urine WBC (Auto) Urine RBC (Auto) Urine Bacteria Urine HCG, Qual Urine Opiates Screen Urine Methadone Screen Ur Barbiturates Screen Ur Phencyclidine Scrn Ur Amphetamines Screen U Benzodiazepines Scrn U Oth Cocaine Metabols U Cannabinoids Screen 09/01/18 09/01/18 09/01/18 17:25 18:00 21:07 WBC RBC Hgb Hct MCV MCH MCHC RDW Plt Count MPV Neut % (Auto) Lymph % (Auto) [place] % (Auto) Eos % (Auto) Baso % (Auto) Neut # (Auto) Lymph # (Auto) [place] # (Auto) Eos # (Auto) Baso # (Auto) Puncture Site Rradial pCO2 41 pO2 77 L HCO3 23.7 ABG pH 7.37 ABG Total CO2 25.0 ABG O2 Saturation 96.6 ABG Base Excess -1.5 Abundio Test Pos ABG Potassium 2.9 L A-a O2 Difference 71.0 Respiratory Index 0.9 Glucose 140 H Lactate 0.8 Liter Flow 2.0 FiO2 28.0 Sodium 144.0 Potassium Chloride 112.0 H Carbon Dioxide Anion Gap BUN Creatinine Est GFR ( Amer) Est GFR (Non-Af Amer) Random Glucose Calcium Phosphorus Magnesium Total Bilirubin AST ALT Alkaline Phosphatase Ammonia CK-MB (Mass) < 0.22 Total Protein Albumin Globulin Albumin/Globulin Ratio Arterial Blood Potassium 2.9 L Urine Color Straw Urine Clarity Clear Urine pH 8.0 Ur Specific [place] 1.006 Urine Protein Negative Urine Glucose (UA) 1+ Urine Ketones Negative Urine Blood Negative Urine Nitrate Negative Urine Bilirubin Negative Urine Urobilinogen Normal Ur Leukocyte Esterase Neg Urine WBC (Auto) < 1 Urine RBC (Auto) 2 Urine Bacteria Occ H Urine HCG, Qual Negative Urine Opiates Screen Urine Methadone Screen Ur Barbiturates Screen Ur Phencyclidine Scrn Ur Amphetamines Screen U Benzodiazepines Scrn U Oth Cocaine Metabols U Cannabinoids Screen 09/01/18 09/02/18 09/02/18 21:07 06:07 06:17 WBC 5.5 RBC 4.60 Hgb 13.2 Hct 40.6 MCV 88.3 MCH 28.7 MCHC 32.6 L RDW 14.0 Plt Count 172 MPV 9.4 Neut % (Auto) 71.6 Lymph % (Auto) 18.4 L [place] % (Auto) 8.7 Eos % (Auto) 0.4 Baso % (Auto) 0.9 Neut # (Auto) 3.9 Lymph # (Auto) 1.0 [place] # (Auto) 0.5 Eos # (Auto) 0.0 Baso # (Auto) 0.1 Puncture Site pCO2 pO2 HCO3 ABG pH ABG Total CO2 ABG O2 Saturation ABG Base Excess Abundio Test ABG Potassium A-a O2 Difference Respiratory Index Glucose Lactate Liter Flow FiO2 Sodium 141 Potassium 3.3 L Chloride 105 Carbon Dioxide 26 Anion Gap 13 BUN 8 Creatinine 0.7 Est GFR ( Amer) > 60 Est GFR (Non-Af Amer) > 60 Random Glucose 88 D Calcium 9.0 Phosphorus 2.8 Magnesium 2.0 Total Bilirubin 0.4 AST 25 ALT 17 Alkaline Phosphatase 79 Ammonia CK-MB (Mass) Total Protein 7.5 Albumin 4.1 Globulin 3.3 Albumin/Globulin Ratio 1.2 Arterial Blood Potassium Urine Color Urine Clarity Urine pH Ur Specific [place] Urine Protein Urine Glucose (UA) Urine Ketones Urine Blood Urine Nitrate Urine Bilirubin Urine Urobilinogen Ur Leukocyte Esterase Urine WBC (Auto) Urine RBC (Auto) Urine Bacteria Urine HCG, Qual Urine Opiates Screen Negative Urine Methadone Screen Negative Ur Barbiturates Screen Negative Ur Phencyclidine Scrn Negative Ur Amphetamines Screen Negative U Benzodiazepines Scrn Positive U Oth Cocaine Metabols Negative U Cannabinoids Screen Negative Radiology Impressions: Radiology Impressions Head CT 09/01/18 14:10 IMPRESSION: Interval development of encephalomalacia noted within the left high frontal and left occipital parietal lobes. Patchy and confluent non-specific white matter changes. EKG/Cardiology Studies: Cardiology / EKG Studies 09/01/18 14:10 ELECTROCARDIOGRAM Stat Comment: bed11 Mode Of Transportation: BED Reason For Exam: tachycardia 09/01/18 15:52 ELECTROCARDIOGRAM Stat Comment: bed11 Mode Of Transportation: BED Reason For Exam: tachycardia Fingerstick Blood Sugar Results: 143
--- NOTE | 2018-09-02 13:54 | CP.PCM.CON ---
History of Present Illness - History of Present Illness History of Present Illness: Neurology consult dictated. Patient with new onset seiuzre and what appears to be subacute infarct, evolving on ct head. Plan: 1. MRI Brain astre without contrast. 2. Not TPA candidate as time of onset not known. 3. Stroke workup: CTA head and neck aster 4. aspirin 5. Keep BP elevated at 180/90 6. Iv fluids normal saline at 100ccs per hour. 7. PT ST OT 8. Start keppra for seizure Thank you Dr. peguero Neurology Past Patient History - Infectious Disease Hx of Infectious Diseases: None - Tetanus Immunizations Tetanus Immunization: Unknown - Past Medical History & Family History Past Medical History?: Yes Past Family History: Reviewed and not pertinent - Past Social History Smoking Status: Former Smoker Chewing Tobacco Use: No Cigar Use: No Alcohol: None Drugs: Opiates (former heroin) - CARDIAC Hx Hypertension: Yes - PULMONARY Hx Chronic Obstructive Pulmonary Disease (COPD): Yes - NEUROLOGICAL HX Cerebrovascular Accident: Yes (right side hemiparesis) - HEENT Hx HEENT Problems: No - RENAL Hx Chronic Kidney Disease: Yes - ENDOCRINE/METABOLIC Hx Diabetes Mellitus Type 2: No - HEMATOLOGICAL/ONCOLOGICAL Hx Human Immunodeficiency Virus (HIV): Yes - INTEGUMENTARY Hx Dermatological Problems: No - MUSCULOSKELETAL/RHEUMATOLOGICAL Hx Musculoskeletal Disorders: Yes Hx Rhabdomyolysis: Yes - GASTROINTESTINAL Hx Gastrointestinal Disorders: No - GENITOURINARY/GYNECOLOGICAL Hx Sexually Transmitted Disorders: No (Patient denied) - PSYCHIATRIC Hx Psychophysiologic Disorder: Yes Hx Substance Use: Yes - SURGICAL HISTORY Hx Tonsillectomy: Yes - ANESTHESIA Hx Anesthesia: Yes Hx Anesthesia Reactions: No Hx Malignant Hyperthermia: No Meds Allergies/Adverse Reactions: Allergies Allergy/AdvReac Type Severity Reaction Status Date / Time Penicillins Allergy pt reports Verified 09/01/18 14:08 seizures - Medications Medications: Current Medications Albuterol/Ipratropium (Duoneb 3 Mg/0.5 Mg (3 Ml) Ud) 3 ml INH RQ6 PRN PRN Reason: Shortness of Breath Duloxetine HCl (Cymbalta) 30 mg PO Q12 [facility] Levetiracetam 500 mg/ Dextrose 105 mls @ 420 mls/hr IVPB Q12H [facility] Last Admin: 09/02/18 05:59 Dose: 420 mls/hr Lactated Ringer's (Lactated Ringer's) 1,000 mls @ 75 mls/hr IV .[id number] [facility] Last Admin: 09/02/18 08:05 Dose: 75 mls/hr Pantoprazole Sodium (Protonix Inj) 40 mg IVP DAILY [facility] Last Admin: 09/02/18 12:48 Dose: 40 mg Quetiapine Fumarate (Seroquel) 200 mg PO HS [facility] Results - Vital Signs Recent Vital Signs: Last Vital Signs Temp 97.2 F L 09/01/18 18:00 Pulse 86 09/02/18 13:03 Resp 25 H 09/02/18 13:03 BP 138/84 09/02/18 13:03 Pulse Ox 97 09/02/18 13:03 - Labs Result Diagrams: 09/02/18 06:17 09/02/18 06:07 Labs: Laboratory Results - last 24 hr 09/01/18 09/01/18 09/01/18 15:01 15:01 16:22 WBC 6.5 RBC 4.75 Hgb 13.7 Hct 41.7 MCV 87.8 D MCH 28.9 MCHC 32.9 L RDW 13.8 Plt Count 174 MPV 9.3 Neut % (Auto) 83.5 H Lymph % (Auto) 10.5 L Milam % (Auto) 3.6 Eos % (Auto) 1.8 Baso % (Auto) 0.6 Neut # (Auto) 5.4 Lymph # (Auto) 0.7 L Mil[place] # (Auto) 0.2 Eos # (Auto) 0.1 Baso # (Auto) 0.0 Puncture Site pCO2 pO2 HCO3 ABG pH ABG Total CO2 ABG O2 Saturation ABG Base Excess Abundio Test ABG Potassium A-a O2 Difference Respiratory Index Glucose Lactate Liter Flow FiO2 Sodium 138 Potassium 3.5 L Chloride 102 Carbon Dioxide 26 Anion Gap 14 BUN 12 Creatinine 0.8 Est GFR ( Amer) > 60 Est GFR (Non-Af Amer) > 60 POC Glucose (mg/dL) Random Glucose 197 H D Calcium 9.3 Phosphorus Magnesium Total Bilirubin 0.4 AST 27 ALT 15 Alkaline Phosphatase 79 Ammonia 26 CK-MB (Mass) Total Protein 8.2 Albumin 4.2 Globulin 3.9 Albumin/Globulin Ratio 1.1 Procalcitonin Arterial Blood Potassium Urine Color Urine Clarity Urine pH Ur Specific [place] Urine Protein Urine Glucose (UA) Urine Ketones Urine Blood Urine Nitrate Urine Bilirubin Urine Urobilinogen Ur Leukocyte Esterase Urine WBC (Auto) Urine RBC (Auto) Urine Bacteria Urine HCG, Qual Urine Opiates Screen Urine Methadone Screen Ur Barbiturates Screen Ur Phencyclidine Scrn Ur Amphetamines Screen U Benzodiazepines Scrn U Oth Cocaine Metabols U Cannabinoids Screen 09/01/18 09/01/18 09/01/18 17:25 18:00 18:58 WBC RBC Hgb Hct MCV MCH MCHC RDW Plt Count MPV Neut % (Auto) Lymph % (Auto) [place] % (Auto) Eos % (Auto) Baso % (Auto) Neut # (Auto) Lymph # (Auto) [place] # (Auto) Eos # (Auto) Baso # (Auto) Puncture Site Rradial pCO2 41 pO2 77 L HCO3 23.7 ABG pH 7.37 ABG Total CO2 25.0 ABG O2 Saturation 96.6 ABG Base Excess -1.5 Abundio Test Pos ABG Potassium 2.9 L A-a O2 Difference 71.0 Respiratory Index 0.9 Glucose 140 H Lactate 0.8 Liter Flow 2.0 FiO2 28.0 Sodium 144.0 Potassium Chloride 112.0 H Carbon Dioxide Anion Gap BUN Creatinine Est GFR ( Amer) Est GFR (Non-Af Amer) POC Glucose (mg/dL) 143 H Random Glucose Calcium Phosphorus Magnesium Total Bilirubin AST ALT Alkaline Phosphatase Ammonia CK-MB (Mass) < 0.22 Total Protein Albumin Globulin Albumin/Globulin Ratio Procalcitonin Arterial Blood Potassium 2.9 L Urine Color Urine Clarity Urine pH Ur Specific [place] Urine Protein Urine Glucose (UA) Urine Ketones Urine Blood Urine Nitrate Urine Bilirubin Urine Urobilinogen Ur Leukocyte Esterase Urine WBC (Auto) Urine RBC (Auto) Urine Bacteria Urine HCG, Qual Urine Opiates Screen Urine Methadone Screen Ur Barbiturates Screen Ur Phencyclidine Scrn Ur Amphetamines Screen U Benzodiazepines Scrn U Oth Cocaine Metabols U Cannabinoids Screen 09/01/18 09/01/18 09/01/18 21:07 21:07 23:36 WBC RBC Hgb Hct MCV MCH MCHC RDW Plt Count MPV Neut % (Auto) Lymph % (Auto) [place] % (Auto) Eos % (Auto) Baso % (Auto) Neut # (Auto) Lymph # (Auto) [place] # (Auto) Eos # (Auto) Baso # (Auto) Puncture Site pCO2 pO2 HCO3 ABG pH ABG Total CO2 ABG O2 Saturation ABG Base Excess Abundio Test ABG Potassium A-a O2 Difference Respiratory Index Glucose Lactate Liter Flow FiO2 Sodium Potassium Chloride Carbon Dioxide Anion Gap BUN Creatinine Est GFR ( Amer) Est GFR (Non-Af Amer) POC Glucose (mg/dL) 103 Random Glucose Calcium Phosphorus Magnesium Total Bilirubin AST ALT Alkaline Phosphatase Ammonia CK-MB (Mass) Total Protein Albumin Globulin Albumin/Globulin Ratio Procalcitonin Arterial Blood Potassium Urine Color Straw Urine Clarity Clear Urine pH 8.0 Ur Specific [place] 1.006 Urine Protein Negative Urine Glucose (UA) 1+ Urine Ketones Negative Urine Blood Negative Urine Nitrate Negative Urine Bilirubin Negative Urine Urobilinogen Normal Ur Leukocyte Esterase Neg Urine WBC (Auto) < 1 Urine RBC (Auto) 2 Urine Bacteria Occ H Urine HCG, Qual Negative Urine Opiates Screen Negative Urine Methadone Screen Negative Ur Barbiturates Screen Negative Ur Phencyclidine Scrn Negative Ur Amphetamines Screen Negative U Benzodiazepines Scrn Positive U Oth Cocaine Metabols Negative U Cannabinoids Screen Negative 09/02/18 09/02/18 09/02/18 06:07 06:07 06:17 WBC 5.5 RBC 4.60 Hgb 13.2 Hct 40.6 MCV 88.3 MCH 28.7 MCHC 32.6 L RDW 14.0 Plt Count 172 MPV 9.4 Neut % (Auto) 71.6 Lymph % (Auto) 18.4 L [place] % (Auto) 8.7 Eos % (Auto) 0.4 Baso % (Auto) 0.9 Neut # (Auto) 3.9 Lymph # (Auto) 1.0 Milam # (Auto) 0.5 Eos # (Auto) 0.0 Baso # (Auto) 0.1 Puncture Site pCO2 pO2 HCO3 ABG pH ABG Total CO2 ABG O2 Saturation ABG Base Excess Abundio Test ABG Potassium A-a O2 Difference Respiratory Index Glucose Lactate Liter Flow FiO2 Sodium 141 Potassium 3.3 L Chloride 105 Carbon Dioxide 26 Anion Gap 13 BUN 8 Creatinine 0.7 Est GFR ( Amer) > 60 Est GFR (Non-Af Amer) > 60 POC Glucose (mg/dL) Random Glucose 88 D Calcium 9.0 Phosphorus 2.8 Magnesium 2.0 Total Bilirubin 0.4 AST 25 ALT 17 Alkaline Phosphatase 79 Ammonia CK-MB (Mass) Total Protein 7.5 Albumin 4.1 Globulin 3.3 Albumin/Globulin Ratio 1.2 Procalcitonin 0.52 H Arterial Blood Potassium Urine Color Urine Clarity Urine pH Ur Specific [place] Urine Protein Urine Glucose (UA) Urine Ketones Urine Blood Urine Nitrate Urine Bilirubin Urine Urobilinogen Ur Leukocyte Esterase Urine WBC (Auto) Urine RBC (Auto) Urine Bacteria Urine HCG, Qual Urine Opiates Screen Urine Methadone Screen Ur Barbiturates Screen Ur Phencyclidine Scrn Ur Amphetamines Screen U Benzodiazepines Scrn U Oth Cocaine Metabols U Cannabinoids Screen 09/02/18 06:34 WBC RBC Hgb Hct MCV MCH MCHC RDW Plt Count MPV Neut % (Auto) Lymph % (Auto) [place] % (Auto) Eos % (Auto) Baso % (Auto) Neut # (Auto) Lymph # (Auto) [place] # (Auto) Eos # (Auto) Baso # (Auto) Puncture Site pCO2 pO2 HCO3 ABG pH ABG Total CO2 ABG O2 Saturation ABG Base Excess Abundio Test ABG Potassium A-a O2 Difference Respiratory Index Glucose Lactate Liter Flow FiO2 Sodium Potassium Chloride Carbon Dioxide Anion Gap BUN Creatinine Est GFR ( Amer) Est GFR (Non-Af Amer) POC Glucose (mg/dL) 109 Random Glucose Calcium Phosphorus Magnesium Total Bilirubin AST ALT Alkaline Phosphatase Ammonia CK-MB (Mass) Total Protein Albumin Globulin Albumin/Globulin Ratio Procalcitonin Arterial Blood Potassium Urine Color Urine Clarity Urine pH Ur Specific [place] Urine Protein Urine Glucose (UA) Urine Ketones Urine Blood Urine Nitrate Urine Bilirubin Urine Urobilinogen Ur Leukocyte Esterase Urine WBC (Auto) Urine RBC (Auto) Urine Bacteria Urine HCG, Qual Urine Opiates Screen Urine Methadone Screen Ur Barbiturates Screen Ur Phencyclidine Scrn Ur Amphetamines Screen U Benzodiazepines Scrn U Oth Cocaine Metabols U Cannabinoids Screen
--- NOTE | 2018-09-02 15:30 | CARD ---
APPROVED REPORT Date of service: 09/01/2018 EKG Measurement Heart [id number] <Conclusion> Sinus tachycardia Otherwise normal ECG
[2018-09-02] MEDS: Sodium Chloride 0.9% 1,000 ML IV SCH (16:00)
[2018-09-03] MEDS: Sodium Chloride 0.9% 1,000 ML IV SCH ×3 (01:45→13:37)
[2018-09-03 06:14] LABS: EOS # 0.1 K/uL (0.0-0.7); EOS % 2.8 % (0.0-4.0); HEMOGLOBIN 12.1 g/dL (11.0-16.0); LYMPH # 1.2 K/uL (1.0-4.3); LYMPH % 29.7 % (20.0-40.0); MEAN CELL VOLUME 86.9 fL (81.0-99.0); MEAN CORPUSCULAR HEMOGLOBIN 28.9 pg (27.0-31.0); MEAN CORPUSCULAR HGB CONC 33.3 g/dL (33.0-37.0); MEAN PLATELET VOLUME 9.4 fL (7.2-11.7); MONO # 0.3 K/uL (0.0-0.8); MONO % 7.3 % (0.0-10.0); NEUT # 2.5 K/uL (1.8-7.0); NEUT % 59.2 % (50.0-75.0); NRBC % 0.1 % (0.0-2.0); RBC 4.17 Mil/uL (3.80-5.20); RED CELL DISTRIBUTION WIDTH 13.7 % (11.5-14.5); WHITE BLOOD COUNT 4.2 K/uL (4.8-10.8)
[2018-09-03 06:27] LABS: ALB/GLOB RATIO 1.2 (1.0-2.1); ALBUMIN 3.7 g/dL (3.5-5.0); ALT/SGPT 18 U/L (9-52); AST/SGOT 24 U/L (14-36); BLOOD UREA NITROGEN 7 mg/dL (7-17); CALCIUM 8.6 mg/dl (8.6-10.4); GFR NON-AFRICAN AMERICAN > 60
[2018-09-03] MEDS: Potassium Chloride 20 mEq ER Tab PO SCH ×2 (09:00→13:07)
--- NOTE | 2018-09-03 09:28 | CP.PCM.PN ---
Subjective - Date & Time of Evaluation Date of Evaluation: 09/03/18 Time of Evaluation: 09:20 - Subjective Subjective: Medical attending Patient seen at bedside. Family not present at bedside patient is pleasant and appears more hydrated. Patient's speech is improving still aphasic however she is able to say words like I hope I feel better patient still unable to move right upper arm. No events overnight. Objective - Vital Signs/Intake and Output Vital Signs (last 24 hours): Temp Pulse Resp BP Pulse Ox 97.3 F L 78 13 105/68 98 09/03/18 04:00 09/03/18 06:02 09/03/18 06:02 09/03/18 06:02 09/03/18 06:02 Intake and Output: 09/03/18 09/03/18 06:59 18:59 Intake Total 2009 Output Total 800 Balance 1210 - Medications Medications: Current Medications Albuterol/Ipratropium (Duoneb 3 Mg/0.5 Mg (3 Ml) Ud) 3 ml INH RQ6 PRN PRN Reason: Shortness of Breath Aspirin (Ecotrin) 81 mg PO DAILY [facility] Duloxetine HCl (Cymbalta) 30 mg PO Q12 [facility] Last Admin: 09/02/18 21:41 Dose: 30 mg Levetiracetam 500 mg/ Dextrose 105 mls @ 420 mls/hr IVPB Q12H [facility] Last Admin: 09/03/18 06:00 Dose: 420 mls/hr Sodium Chloride (Sodium Chloride 0.9%) 1,000 mls @ 100 mls/hr IV .Q10H [facility] Last Admin: 09/03/18 03:46 Dose: 100 mls/hr Lorazepam (Ativan) 0.5 mg IVP ONCE PRN PRN Reason: Agitation Last Admin: 09/02/18 16:35 Dose: 0.5 mg Pantoprazole Sodium (Protonix Inj) 40 mg IVP DAILY [facility] Last Admin: 09/02/18 12:48 Dose: 40 mg Potassium Chloride (K-Dur 20 Meq Er Tab) 40 meq PO Q4H [facility] Stop: 09/03/18 12:31 Quetiapine Fumarate (Seroquel) 200 mg PO HS [facility] Last Admin: 09/02/18 21:41 Dose: 200 mg - Labs Labs: 09/03/18 05:50 09/03/18 05:50 - Constitutional Appears: Non-toxic, No Acute Distress - Head Exam Head Exam: NORMAL INSPECTION - Eye Exam Eye Exam: EOMI - ENT Exam ENT Exam: Mucous Membranes Moist - Respiratory Exam Respiratory Exam: Clear to Ausculation Bilateral, NORMAL BREATHING PATTERN. absent: Rales, Rhonchi, Wheezes - Cardiovascular Exam Cardiovascular Exam: REGULAR RHYTHM, +S1, +S2 - GI/Abdominal Exam GI & Abdominal Exam: Soft, Normal Bowel Sounds. absent: Distended, Firm, Guar ding, Rigid, Tenderness, Rebound - Extremities Exam Extremities Exam: absent: Pedal Edema, Tenderness (prevalon boots) - Neurological Exam Neurological Exam: Alert, Awake Additional comments: unable to move right arm weak over the right lower extremity strength preserved over the left upper and left lower extremity - Skin Skin Exam: Abrasion (sacrum), Normal Color, Warm Assessment and Plan (1) New onset seizure Status: Acute (2) History of stroke with current residual effects Status: Acute (3) HIV (human immunodeficiency virus infection) Status: Acute (4) Hepatitis C Status: Acute (5) Cerebrovascular accident (CVA) with right hemiparesis Status: Acute (6) HIV (human immunodeficiency virus infection) Status: Acute (7) Prophylactic measure Status: Acute Attending/Attestation - Attestation I have personally seen and examined this patient.: Yes I have fully participated in the care of the patient.: Yes I have reviewed all pertinent clinical information, including history, physical exam and plan: Yes Notes (Text): 1) Seizure disorder, new onset Assessment/Plan * observed on icu * video eeg completed * UDS: positive for benzo * On admission, patient given phentyoin 1g at 3PM on 09/01/18 * Patient is on Keppra 500mg IVPB Q12H * LR 75cc/hr * Neurology on consult * CT head (09/01/18): interval development of encephalomalacia noted within the left high frontol and left occipatal parietal lobes, patchy and confluent nonspecific white matter changes * MRI (04/2018): interval hemorrhagic transformation of subacute infarction in the left posterior centrum semiovale. interval evolution of subacute b/l MCA [employer] watershed terriotities and left deep white batter border zone territory and small subacute infarction in posterior limb of the left interval capsule. * Had prior modifed barium swallow in apr 2018 when hospitalized for the stroke 2) History of CVA with right sided residual weakness (noted hemorrhagic conversion in apr 2018) Assessment/Plan * Apr 2018 hospitalization noted hemorrhagic conversion * Neurology on consult * will need to f/u with neurology regarding anti-platelet therapy * CT head (09/01/18): interval development of encephalomalacia noted within the left high frontol and left occipatal parietal lobes, patchy and confluent nonspecific white matter changes * MRI (04/2018): interval hemorrhagic transformation of subacute infarction in the left posterior centrum semiovale. interval evolution of subacute b/l MCA [employer] watershed terriotities and left deep white batter border zone territory and small subacute infarction in posterior limb of the left interval capsule. * Had prior modifed barium swallow in apr 2018 when hospitalized for the stroke * unable to complete Brain MRI in spite of Ativan 4mg 09/02/18; will reattempt today * CT head and neck * Aspirin 81mg PO daily 3) History of HIV Assessment/Plan * Prior HAART therapy (2018-->Tivicay 50mg daily and Truvada 200mg-300mg daily) * CD 4 count 413 per 05/03/18; HIV 1 RNA not detected 4) Chronic Hepatitis C Assessment/Plan * Ammonia is normal 5) Bipolar Disorder Depression Paranoia Personality Disorder Assessment/Plan * last admission noted to be Cymbalta and Seroquel 6) Hypokalemia Assessment/Plan * repleted 7) Prior history of pneumonia, elevated procalcitonin Assessment/Plan * Allergy PCN * chest xray ordered * Aztreonam 1gm IV 12 * Florastor 250mg PO BID 8) Prophylactic measure * seizure precautions * aspiration precautions * Protonix 40mg IV q daily * SCDS * Lovenox 40mg Ivq daily
--- NOTE | 2018-09-03 10:36 | CP.CCUPN ---
<Corinna Arreaga - Last Filed: 09/03/18 15:01> CCU Subjective - Physician Review Subjective (Free Text): 09/03/18 10:30 Corinna Arreaga PGY1 Progress Note for Dr. Andrea Pt was examined at bedside this morning. No acute events overnight. Patient is verbal and attempts to follow some commands. Noted improvement with expressive aphasia as patient is using more words than yesterday. She has no complaints this morning. CCU Objective - Vital Signs / Intake & Output Intake and Output (Last 8hrs): Intake & Output 09/02/18 09/03/18 09/03/18 22:59 06:59 14:59 Intake Total 2360 1260 Output Total 400 800 Balance 1960 460 Weight 65.136 kg Intake: Intake, IV Amount 1070 1010 Left Wrist 75 110 Right Forearm 20 Right Hand 975 900 Oral 1290 250 Output: Urine 400 800 Urine, Voided 400 800 Other: # Bowel Movements 1 1 - Physical Exam Head: Positive for: Atraumatic, Normocephalic Pupils: Positive for: PERRL Extroacular Muscles: Positive for: EOMI Conjunctiva: Positive for: Normal Mouth: Positive for: Dry Neck: Positive for: Normal Range of Motion Respiratory/Chest: Positive for: Clear to Auscultation, Good Air Exchange. Negative for: Respiratory Distress, Accessory Muscle Use Cardiovascular: Positive for: Regular Rate and Rhythm, Normal S1, S2. Negative for: Murmurs Abdomen: Positive for: Normal Bowel Sounds. Negative for: Tenderness, Distention, Peritoneal Signs Upper Extremity: Positive for: Normal Inspection. Negative for: Cyanosis, Edema, Normal ROM Lower Extremity: Positive for: Normal Inspection. Negative for: Edema Neurological: Positive for: Norm Deep Tendon Reflexes, Other. Negative for: GC S=15, Speech Normal, Motor Func Grossly Intact Skin: Positive for: Warm, Normal Color. Negative for: Dry, Rashes Psychiatric: Positive for: Alert. Negative for: Oriented x 3, Normal Insight, Normal Concentration - Medications Active Medications: Active Medications Generic Name Dose Route Start Last Admin Trade Name Freq PRN Reason Stop Dose Admin Albuterol/Ipratropium 3 ml 09/02/18 04:26 Duoneb 3 Mg/0.5 Mg (3 Ml) Ud INH RQ6 PRN Shortness of Breath Aspirin 81 mg 09/03/18 10:00 09/03/18 09:34 Ecotrin PO 81 mg DAILY FUAD Administration Duloxetine HCl 30 mg 09/02/18 13:45 09/03/18 09:35 Cymbalta PO 30 mg Q12 FUAD Administration Enoxaparin Sodium 40 mg 09/03/18 10:00 Lovenox SC DAILY FUAD Levetiracetam 500 mg/ Dextrose 105 mls @ 420 mls/hr 09/01/18 18:30 09/03/18 06:00 IVPB 420 mls/hr Q12H FUAD Administration Sodium Chloride 1,000 mls @ 100 mls/hr 09/02/18 15:45 09/03/18 03:46 Sodium Chloride 0.9% IV 100 mls/hr .Q10H FUAD Administration Aztreonam 1 gm/ Sodium 100 mls @ 200 mls/hr 09/03/18 11:00 Chloride IVPB Q8H FUAD Protocol Vancomycin/Sodium Chloride 1 gm in 200 mls @ 133 mls/hr 09/03/18 13:00 Vancomycin 1 Gm/Ns 200 Ml IVPB 09/08/18 13:01 Q12H FUAD Protocol Lorazepam 0.5 mg 09/02/18 15:27 09/02/18 16:35 Ativan IVP 0.5 mg ONCE PRN Administration Agitation Pantoprazole Sodium 40 mg 09/02/18 10:00 09/03/18 09:34 Protonix Inj IVP 40 mg DAILY FUAD Administration Potassium Chloride 40 meq 09/03/18 08:30 09/03/18 09:00 K-Dur 20 Meq Er Tab PO 09/03/18 12:31 40 meq Q4H FUAD Administration Quetiapine Fumarate 200 mg 09/02/18 22:00 09/02/18 21:41 Seroquel PO 200 mg HS FUAD Administration - Patient Studies Lab Studies: Microbiology Studies 09/01/18 18:15 MRSA Culture (Admit) - Final Naris MRSA DETECTED Lab Studies 09/03/18 09/03/18 09/03/18 Range/Units 05:50 05:50 05:50 WBC 4.2 L (4.8-10.8) K/uL RBC 4.17 (3.80-5.20) Mil/uL Hgb 12.1 (11.0-16.0) g/dL Hct 36.3 (34.0-47.0) % MCV 86.9 (81.0-99.0) fL MCH 28.9 (27.0-31.0) pg MCHC 33.3 (33.0-37.0) g/dL RDW 13.7 (11.5-14.5) % Plt Count 148 (130-400) K/uL MPV 9.4 (7.2-11.7) fL Neut % (Auto) 59.2 (50.0-75.0) % Lymph % (Auto) 29.7 (20.0-40.0) % Bay % (Auto) 7.3 (0.0-10.0) % Eos % (Auto) 2.8 (0.0-4.0) % Baso % (Auto) 1.0 (0.0-2.0) % Neut # (Auto) 2.5 (1.8-7.0) K/uL Lymph # (Auto) 1.2 (1.0-4.3) K/uL Bay # (Auto) 0.3 (0.0-0.8) K/uL Eos # (Auto) 0.1 (0.0-0.7) K/uL Baso # (Auto) 0.0 (0.0-0.2) K/uL Sodium 141 (132-148) mmol/L Potassium 2.9 L (3.6-5.2) mmol/L Chloride 105 (98-107) mmol/L Carbon Dioxide 25 (22-30) mmol/L Anion Gap 15 (10-20) BUN 7 (7-17) mg/dL Creatinine 0.7 (0.7-1.2) mg/dL Est GFR ( Amer) > 60 Est GFR (Non-Af Amer) > 60 POC Glucose (mg/dL) (65-110) mg/dL Random Glucose 77 (65-105) mg/dL Calcium 8.6 (8.6-10.4) mg/dl Phosphorus 3.0 (2.5-4.5) mg/dL Magnesium 1.9 (1.6-2.3) mg/dL Total Bilirubin 0.4 (0.2-1.3) mg/dL AST 24 (14-36) U/L ALT 18 (9-52) U/L Alkaline Phosphatase 68 (38-126) U/L Total Protein 7.0 (6.3-8.3) g/dL Albumin 3.7 (3.5-5.0) g/dL Globulin 3.2 (2.2-3.9) gm/dL Albumin/Globulin Ratio 1.2 (1.0-2.1) Procalcitonin (0.19-0.49) NG/ML Beta HCG, Quant < 2.39 mIU/ML HIV 1&2 Antibody Screen (NEGATIVE) 09/03/18 09/02/18 09/02/18 Range/Units 05:50 06:34 06:07 WBC (4.8-10.8) K/uL RBC (3.80-5.20) Mil/uL Hgb (11.0-16.0) g/dL Hct (34.0-47.0) % MCV (81.0-99.0) fL MCH (27.0-31.0) pg MCHC (33.0-37.0) g/dL RDW (11.5-14.5) % Plt Count (130-400) K/uL MPV (7.2-11.7) fL Neut % (Auto) (50.0-75.0) % Lymph % (Auto) (20.0-40.0) % Bay % (Auto) (0.0-10.0) % Eos % (Auto) (0.0-4.0) % Baso % (Auto) (0.0-2.0) % Neut # (Auto) (1.8-7.0) K/uL Lymph # (Auto) (1.0-4.3) K/uL Bay # (Auto) (0.0-0.8) K/uL Eos # (Auto) (0.0-0.7) K/uL Baso # (Auto) (0.0-0.2) K/uL Sodium (132-148) mmol/L Potassium (3.6-5.2) mmol/L Chloride (98-107) mmol/L Carbon Dioxide (22-30) mmol/L Anion Gap (10-20) BUN (7-17) mg/dL Creatinine (0.7-1.2) mg/dL Est GFR ( Amer) Est GFR (Non-Af Amer) POC Glucose (mg/dL) 109 (65-110) mg/dL Random Glucose (65-105) mg/dL Calcium (8.6-10.4) mg/dl Phosphorus (2.5-4.5) mg/dL Magnesium (1.6-2.3) mg/dL Total Bilirubin (0.2-1.3) mg/dL AST (14-36) U/L ALT (9-52) U/L Alkaline Phosphatase (38-126) U/L Total Protein (6.3-8.3) g/dL Albumin (3.5-5.0) g/dL Globulin (2.2-3.9) gm/dL Albumin/Globulin Ratio (1.0-2.1) Procalcitonin 0.52 H (0.19-0.49) NG/ML Beta HCG, Quant mIU/ML HIV 1&2 Antibody Screen Reactive (NEGATIVE) 09/01/18 09/01/18 Range/Units 23:36 18:58 WBC (4.8-10.8) K/uL RBC (3.80-5.20) Mil/uL Hgb (11.0-16.0) g/dL Hct (34.0-47.0) % MCV (81.0-99.0) fL MCH (27.0-31.0) pg MCHC (33.0-37.0) g/dL RDW (11.5-14.5) % Plt Count (130-400) K/uL MPV (7.2-11.7) fL Neut % (Auto) (50.0-75.0) % Lymph % (Auto) (20.0-40.0) % Bay % (Auto) (0.0-10.0) % Eos % (Auto) (0.0-4.0) % Baso % (Auto) (0.0-2.0) % Neut # (Auto) (1.8-7.0) K/uL Lymph # (Auto) (1.0-4.3) K/uL Bay # (Auto) (0.0-0.8) K/uL Eos # (Auto) (0.0-0.7) K/uL Baso # (Auto) (0.0-0.2) K/uL Sodium (132-148) mmol/L Potassium (3.6-5.2) mmol/L Chloride (98-107) mmol/L Carbon Dioxide (22-30) mmol/L Anion Gap (10-20) BUN (7-17) mg/dL Creatinine (0.7-1.2) mg/dL Est GFR ( Amer) Est GFR (Non-Af Amer) POC Glucose (mg/dL) 103 143 H (65-110) mg/dL Random Glucose (65-105) mg/dL Calcium (8.6-10.4) mg/dl Phosphorus (2.5-4.5) mg/dL Magnesium (1.6-2.3) mg/dL Total Bilirubin (0.2-1.3) mg/dL AST (14-36) U/L ALT (9-52) U/L Alkaline Phosphatase (38-126) U/L Total Protein (6.3-8.3) g/dL Albumin (3.5-5.0) g/dL Globulin (2.2-3.9) gm/dL Albumin/Globulin Ratio (1.0-2.1) Procalcitonin (0.19-0.49) NG/ML Beta HCG, Quant mIU/ML HIV 1&2 Antibody Screen (NEGATIVE) Laboratory Results - last 24 hr 09/01/18 09/01/18 09/02/18 18:58 23:36 06:07 WBC RBC Hgb Hct MCV MCH MCHC RDW Plt Count MPV Neut % (Auto) Lymph % (Auto) Bay % (Auto) Eos % (Auto) Baso % (Auto) Neut # (Auto) Lymph # (Auto) Bay # (Auto) Eos # (Auto) Baso # (Auto) Sodium Potassium Chloride Carbon Dioxide Anion Gap BUN Creatinine Est GFR ( Amer) Est GFR (Non-Af Amer) POC Glucose (mg/dL) 143 H 103 Random Glucose Calcium Phosphorus Magnesium Total Bilirubin AST ALT Alkaline Phosphatase Total Protein Albumin Globulin Albumin/Globulin Ratio Procalcitonin 0.52 H Beta HCG, Quant HIV 1&2 Antibody Screen 09/02/18 09/03/18 09/03/18 06:34 05:50 05:50 WBC RBC Hgb Hct MCV MCH MCHC RDW Plt Count MPV Neut % (Auto) Lymph % (Auto) Bay % (Auto) Eos % (Auto) Baso % (Auto) Neut # (Auto) Lymph # (Auto) Bay # (Auto) Eos # (Auto) Baso # (Auto) Sodium Potassium Chloride Carbon Dioxide Anion Gap BUN Creatinine Est GFR ( Amer) Est GFR (Non-Af Amer) POC Glucose (mg/dL) 109 Random Glucose Calcium Phosphorus Magnesium Total Bilirubin AST ALT Alkaline Phosphatase Total Protein Albumin Globulin Albumin/Globulin Ratio Procalcitonin Beta HCG, Quant < 2.39 HIV 1&2 Antibody Screen Reactive 09/03/18 09/03/18 05:50 05:50 WBC 4.2 L RBC 4.17 Hgb 12.1 Hct 36.3 MCV 86.9 MCH 28.9 MCHC 33.3 RDW 13.7 Plt Count 148 MPV 9.4 Neut % (Auto) 59.2 Lymph % (Auto) 29.7 Bay % (Auto) 7.3 Eos % (Auto) 2.8 Baso % (Auto) 1.0 Neut # (Auto) 2.5 Lymph # (Auto) 1.2 Bay # (Auto) 0.3 Eos # (Auto) 0.1 Baso # (Auto) 0.0 Sodium 141 Potassium 2.9 L Chloride 105 Carbon Dioxide 25 Anion Gap 15 BUN 7 Creatinine 0.7 Est GFR ( Amer) > 60 Est GFR (Non-Af Amer) > 60 POC Glucose (mg/dL) Random Glucose 77 Calcium 8.6 Phosphorus 3.0 Magnesium 1.9 Total Bilirubin 0.4 AST 24 ALT 18 Alkaline Phosphatase 68 Total Protein 7.0 Albumin 3.7 Globulin 3.2 Albumin/Globulin Ratio 1.2 Procalcitonin Beta HCG, Quant HIV 1&2 Antibody Screen Fingerstick Blood Sugar Results: 91 Critical Care Progress Note - Nutrition Nutrition: Nutrition Category Date Time Status Pureed [Dysphagia/Modified Consistency Diet] [DIET] Diets 09/02/18 Lunch Active Assessment/Plan - Assessment and Plan (Free Text) Assessment: 57yo F with PMH CVA with R sided deficits, HTN, HIV, COPD, seizures, MVP, admitted for tonic/clonic seizures. CT head showing chronic L sided changes in frontal and occipital parietal lobes. EEG showing focal cortical abnormalities in L side, no seizures or status epilepticus captured. On Keppra IV, no further witnessed episodes. Patient hemodynamically stable at this time. Plan: Neuro: - expressive aphasia improving - alert, unable to assess orientation - witnessed tonic/clonic seizure prior to admission, no further episodes - h/o CVA - Keppra 500mg IV q12h - CT head: encephalomalacia in L frontal and occipital parietal lobes - EEG: No seizure activity. Not in status epilepticus. mild non specific diffuse disturbance of cortical activity in keeping with a diffuse aguilar matter dysfunction, these findings do not support a specific etiology. focal cortical abnormality involving the left frontal/temporal, in keeping with a structural abnormality in the same area. - will try to repeat MRI today - Neuro consulted, Dr. Bush: recs appreciated - Speech/swallow recommending pureed diet at this time - seizure precautions - aspiration precautions Cardio: - h/o HTN - permissive hypertension Resp: - h/o COPD - duonebs q6h PRN - maintain SpO2 >92% - PNA, empirically treat with aztreonam and vanco GI: - protonix 40mg IV daily Renal: - hypokalemia - repleted with 40meq x2 - NS @100cc/hr Heme: - H/H stable ID: - h/o HIV - HIV ab reactive - f/u CD4 count - elevated procal, h/o pneumonia - CXR: consolidation - empirically treat HCAP with aztreonam and vanco - antiretroviral therapy held until patient passes speech/swallow - ID consulted, Dr. Wright - f/u recs PPx: - GI: protonix - DVT: SCDs - pureed diet Dispo: no further seizure episodes, monitor for repeat stroke signs and symptoms Patient seen and case discussed with Dr. Andrea <Miguel Andrea - Last Filed: 09/03/18 18:37> CCU Subjective - Physician Review Critical Care Time Spent (in minutes): 45 CCU Objective - Vital Signs / Intake & Output Vital Signs (Last 4 hours): Vital Signs Temp Pulse Resp BP Pulse Ox 09/03/18 17:02 91 H 13 154/103 H 94 L 09/03/18 17:00 87 19 96 09/03/18 16:41 81 21 140/96 H 09/03/18 16:39 16 09/03/18 16:00 97.4 F L 97 09/03/18 15:02 89 22 137/90 92 L 09/03/18 15:00 83 16 94 L Intake and Output (Last 8hrs): Intake & Output 09/03/18 09/03/18 09/03/18 06:59 14:59 22:59 Intake Total 1260 1340 260 Output Total 800 0 0 Balance 460 1340 260 Weight 143 lb 9.6 oz Intake: Intake, IV Amount 1010 900 200 Left Wrist 110 Right Hand 900 900 200 Oral 250 440 60 Output: Urine 800 Urine, Voided 800 Emesis 0 0 Other: # Bowel Movements 1 0 0 - Medications Active Medications: Active Medications Generic Name Dose Route Start Last Admin Trade Name Freq PRN Reason Stop Dose Admin Albuterol/Ipratropium 3 ml 09/02/18 04:26 Duoneb 3 Mg/0.5 Mg (3 Ml) Ud INH RQ6 PRN Shortness of Breath Aspirin 81 mg 09/03/18 10:00 09/03/18 09:34 Ecotrin PO 81 mg DAILY FUAD Administration Duloxetine HCl 30 mg 09/02/18 13:45 09/03/18 09:35 Cymbalta PO 30 mg Q12 FUAD Administration Enoxaparin Sodium 40 mg 09/03/18 10:00 09/03/18 10:57 Lovenox SC 40 mg DAILY FUAD Administration Levetiracetam 500 mg/ Dextrose 105 mls @ 420 mls/hr 09/01/18 18:30 09/03/18 06:00 IVPB 420 mls/hr Q12H FUAD Administration Aztreonam 1 gm/ Sodium 100 mls @ 200 mls/hr 09/03/18 11:00 09/03/18 12:00 Chloride IVPB 200 mls/hr Q8H FUAD Administration Protocol Vancomycin/Sodium Chloride 1 gm in 200 mls @ 133 mls/hr 09/03/18 13:00 09/03/18 13:40 Vancomycin 1 Gm/Ns 200 Ml IVPB 09/08/18 13:01 133 mls/hr Q12H FUAD Administration Protocol Dextrose/Sodium Chloride 1,000 mls @ 100 mls/hr 09/03/18 17:30 09/03/18 17:30 Dextrose 5%/0.9% Ns 1000 Ml IV 100 mls/hr .Q10H FUAD Administration Lorazepam 0.5 mg 09/02/18 15:27 09/02/18 16:35 Ativan IVP 0.5 mg ONCE PRN Administration Agitation Lorazepam 2 mg 09/03/18 14:14 09/03/18 15:10 Ativan IVP 2 mg ONCE PRN Administration Sedation Pantoprazole Sodium 40 mg 09/02/18 10:00 09/03/18 09:34 Protonix Inj IVP 40 mg DAILY FUAD Administration Quetiapine Fumarate 200 mg 09/02/18 22:00 09/02/18 21:41 Seroquel PO 200 mg HS FUAD Administration - Patient Studies Lab Studies: Microbiology Studies 09/01/18 18:15 MRSA Culture (Admit) - Final N[facility] MRSA DETECTED Lab Studies 09/03/18 09/03/18 09/03/18 Range/Units 05:50 05:50 05:50 WBC 4.2 L (4.8-10.8) K/uL RBC 4.17 (3.80-5.20) Mil/uL Hgb 12.1 (11.0-16.0) g/dL Hct 36.3 (34.0-47.0) % MCV 86.9 (81.0-99.0) fL MCH 28.9 (27.0-31.0) pg MCHC 33.3 (33.0-37.0) g/dL RDW 13.7 (11.5-14.5) % Plt Count 148 (130-400) K/uL MPV 9.4 (7.2-11.7) fL Neut % (Auto) 59.2 (50.0-75.0) % Lymph % (Auto) 29.7 (20.0-40.0) % Bay % (Auto) 7.3 (0.0-10.0) % Eos % (Auto) 2.8 (0.0-4.0) % Baso % (Auto) 1.0 (0.0-2.0) % Neut # (Auto) 2.5 (1.8-7.0) K/uL Lymph # (Auto) 1.2 (1.0-4.3) K/uL Bay # (Auto) 0.3 (0.0-0.8) K/uL Eos # (Auto) 0.1 (0.0-0.7) K/uL Baso # (Auto) 0.0 (0.0-0.2) K/uL Sodium 141 (132-148) mmol/L Potassium 2.9 L (3.6-5.2) mmol/L Chloride 105 (98-107) mmol/L Carbon Dioxide 25 (22-30) mmol/L Anion Gap 15 (10-20) BUN 7 (7-17) mg/dL Creatinine 0.7 (0.7-1.2) mg/dL Est GFR ( Amer) > 60 Est GFR (Non-Af Amer) > 60 Random Glucose 77 (65-105) mg/dL Calcium 8.6 (8.6-10.4) mg/dl Phosphorus 3.0 (2.5-4.5) mg/dL Magnesium 1.9 (1.6-2.3) mg/dL Total Bilirubin 0.4 (0.2-1.3) mg/dL AST 24 (14-36) U/L ALT 18 (9-52) U/L Alkaline Phosphatase 68 (38-126) U/L Total Protein 7.0 (6.3-8.3) g/dL Albumin 3.7 (3.5-5.0) g/dL Globulin 3.2 (2.2-3.9) gm/dL Albumin/Globulin Ratio 1.2 (1.0-2.1) Procalcitonin (0.19-0.49) NG/ML Beta HCG, Quant mIU/ML Ur Opiates (GC/MS) (Negative) 300 Ur Methadone, Qual (Negative) 300 Urine Propoxyphene (Negative) 300 Methaqualone (Negative) 300 Ur Barbiturates, Qual (Negative) 300 Ur Phencyclidine (PCP) (Negative) 25 Ur Amphetamines Screen (Negative) 1000 U Benzodiazepines Qual (Negative) 300 Urine Cocaine (Negative) 300 U Marijuana (THC) Screen (Negative) 50 Drugs of Abuse Note Absolute Lymphs (Flow) (850-3900) Cells/mcL % CD4 Cells (30-61) Percent Absolute CD4 Count (490-1740) Cells/mcL T-Help/Suppress Ratio (0.86-5.00) Ratio % CD8 Cells (12-42) Percent Absolute CD8 Count (180-1170) Cells/mcL RPR Nonreactive (NONREACTIVE) HIV 1&2 Antibody Screen (NEGATIVE) 0509/03/18 09/03/18 Range/Units 05:50 05:50 02:47 WBC (4.8-10.8) K/uL RBC (3.80-5.20) Mil/uL Hgb (11.0-16.0) g/dL Hct (34.0-47.0) % MCV (81.0-99.0) fL MCH (27.0-31.0) pg MCHC (33.0-37.0) g/dL RDW (11.5-14.5) % Plt Count (130-400) K/uL MPV (7.2-11.7) fL Neut % (Auto) (50.0-75.0) % Lymph % (Auto) (20.0-40.0) % Bay % (Auto) (0.0-10.0) % Eos % (Auto) (0.0-4.0) % Baso % (Auto) (0.0-2.0) % Neut # (Auto) (1.8-7.0) K/uL Lymph # (Auto) (1.0-4.3) K/uL Bay # (Auto) (0.0-0.8) K/uL Eos # (Auto) (0.0-0.7) K/uL Baso # (Auto) (0.0-0.2) K/uL Sodium (132-148) mmol/L Potassium (3.6-5.2) mmol/L Chloride (98-107) mmol/L Carbon Dioxide (22-30) mmol/L Anion Gap (10-20) BUN (7-17) mg/dL Creatinine (0.7-1.2) mg/dL Est GFR ( Amer) Est GFR (Non-Af Amer) Random Glucose (65-105) mg/dL Calcium (8.6-10.4) mg/dl Phosphorus (2.5-4.5) mg/dL Magnesium (1.6-2.3) mg/dL Total Bilirubin (0.2-1.3) mg/dL AST (14-36) U/L ALT (9-52) U/L Alkaline Phosphatase (38-126) U/L Total Protein (6.3-8.3) g/dL Albumin (3.5-5.0) g/dL Globulin (2.2-3.9) gm/dL Albumin/Globulin Ratio (1.0-2.1) Procalcitonin 0.44 (0.19-0.49) NG/ML Beta HCG, Quant < 2.39 mIU/ML Ur Opiates (GC/MS) (Negative) 300 Ur Methadone, Qual (Negative) 300 Urine Propoxyphene (Negative) 300 Methaqualone (Negative) 300 Ur Barbiturates, Qual (Negative) 300 Ur Phencyclidine (PCP) (Negative) 25 Ur Amphetamines Screen (Negative) 1000 U Benzodiazepines Qual (Negative) 300 Urine Cocaine (Negative) 300 U Marijuana (THC) Screen (Negative) 50 Drugs of Abuse Note Absolute Lymphs (Flow) (850-3900) Cells/mcL % CD4 Cells (30-61) Percent Absolute CD4 Count (490-1740) Cells/mcL T-Help/Suppress Ratio (0.86-5.00) Ratio % CD8 Cells (12-42) Percent Absolute CD8 Count (180-1170) Cells/mcL RPR (NONREACTIVE) HIV 1&2 Antibody Screen Reactive (NEGATIVE) 09/02/18 09/01/18 Range/Units 06:17 08:06 WBC (4.8-10.8) K/uL RBC (3.80-5.20) Mil/uL Hgb (11.0-16.0) g/dL Hct (34.0-47.0) % MCV (81.0-99.0) fL MCH (27.0-31.0) pg MCHC (33.0-37.0) g/dL RDW (11.5-14.5) % Plt Count (130-400) K/uL MPV (7.2-11.7) fL Neut % (Auto) (50.0-75.0) % Lymph % (Auto) (20.0-40.0) % Bay % (Auto) (0.0-10.0) % Eos % (Auto) (0.0-4.0) % Baso % (Auto) (0.0-2.0) % Neut # (Auto) (1.8-7.0) K/uL Lymph # (Auto) (1.0-4.3) K/uL Bay # (Auto) (0.0-0.8) K/uL Eos # (Auto) (0.0-0.7) K/uL Baso # (Auto) (0.0-0.2) K/uL Sodium (132-148) mmol/L Potassium (3.6-5.2) mmol/L Chloride (98-107) mmol/L Carbon Dioxide (22-30) mmol/L Anion Gap (10-20) BUN (7-17) mg/dL Creatinine (0.7-1.2) mg/dL Est GFR ( Amer) Est GFR (Non-Af Amer) Random Glucose (65-105) mg/dL Calcium (8.6-10.4) mg/dl Phosphorus (2.5-4.5) mg/dL Magnesium (1.6-2.3) mg/dL Total Bilirubin (0.2-1.3) mg/dL AST (14-36) U/L ALT (9-52) U/L Alkaline Phosphatase (38-126) U/L Total Protein (6.3-8.3) g/dL Albumin (3.5-5.0) g/dL Globulin (2.2-3.9) gm/dL Albumin/Globulin Ratio (1.0-2.1) Procalcitonin (0.19-0.49) NG/ML Beta HCG, Quant mIU/ML Ur Opiates (GC/MS) Negative (Negative) 300 Ur Methadone, Qual Negative (Negative) 300 Urine Propoxyphene Negative (Negative) 300 Methaqualone Negative (Negative) 300 Ur Barbiturates, Qual Negative (Negative) 300 Ur Phencyclidine (PCP) Negative (Negative) 25 Ur Amphetamines Screen Negative (Negative) 1000 U Benzodiazepines Qual Positive H (Negative) 300 Urine Cocaine Negative (Negative) 300 U Marijuana (THC) Screen Negative (Negative) 50 Drugs of Abuse Note See note Absolute Lymphs (Flow) 971 (850-3900) Cells/mcL % CD4 Cells 25 L (30-61) Percent Absolute CD4 Count 243 L (490-1740) Cells/mcL T-Help/Suppress Ratio 0.42 L (0.86-5.00) Ratio % CD8 Cells 59 H (12-42) Percent Absolute CD8 Count 577 (180-1170) Cells/mcL RPR (NONREACTIVE) HIV 1&2 Antibody Screen (NEGATIVE) Laboratory Results - last 24 hr 09/01/18 09/02/18 09/03/18 08:06 06:17 02:47 WBC RBC Hgb Hct MCV MCH MCHC RDW Plt Count MPV Neut % (Auto) Lymph % (Auto) Bay % (Auto) Eos % (Auto) Baso % (Auto) Neut # (Auto) Lymph # (Auto) Bay # (Auto) Eos # (Auto) Baso # (Auto) Sodium Potassium Chloride Carbon Dioxide Anion Gap BUN Creatinine Est GFR ( Amer) Est GFR (Non-Af Amer) Random Glucose Calcium Phosphorus Magnesium Total Bilirubin AST ALT Alkaline Phosphatase Total Protein Albumin Globulin Albumin/Globulin Ratio Procalcitonin 0.44 Beta HCG, Quant Ur Opiates (GC/MS) Negative Ur Methadone, Qual Negative Urine Propoxyphene Negative Methaqualone Negative Ur Barbiturates, Qual Negative Ur Phencyclidine (PCP) Negative Ur Amphetamines Screen Negative U Benzodiazepines Qual Positive H Urine Cocaine Negative U Marijuana (THC) Screen Negative Drugs of Abuse Note See note Absolute Lymphs (Flow) 971 % CD4 Cells 25 L Absolute CD4 Count 243 L T-Help/Suppress Ratio 0.42 L % CD8 Cells 59 H Absolute CD8 Count 577 RPR HIV 1&2 Antibody Screen 09/03/18 09/03/18 09/03/18 05:50 05:50 05:50 WBC 4.2 L RBC 4.17 Hgb 12.1 Hct 36.3 MCV 86.9 MCH 28.9 MCHC 33.3 RDW 13.7 Plt Count 148 MPV 9.4 Neut % (Auto) 59.2 Lymph % (Auto) 29.7 Bay % (Auto) 7.3 Eos % (Auto) 2.8 Baso % (Auto) 1.0 Neut # (Auto) 2.5 Lymph # (Auto) 1.2 Bay # (Auto) 0.3 Eos # (Auto) 0.1 Baso # (Auto) 0.0 Sodium Potassium Chloride Carbon Dioxide Anion Gap BUN Creatinine Est GFR ( Amer) Est GFR (Non-Af Amer) Random Glucose Calcium Phosphorus Magnesium Total Bilirubin AST ALT Alkaline Phosphatase Total Protein Albumin Globulin Albumin/Globulin Ratio Procalcitonin Beta HCG, Quant < 2.39 Ur Opiates (GC/MS) Ur Methadone, Qual Urine Propoxyphene Methaqualone Ur Barbiturates, Qual Ur Phencyclidine (PCP) Ur Amphetamines Screen U Benzodiazepines Qual Urine Cocaine U Marijuana (THC) Screen Drugs of Abuse Note Absolute Lymphs (Flow) % CD4 Cells Absolute CD4 Count T-Help/Suppress Ratio % CD8 Cells Absolute CD8 Count RPR HIV 1&2 Antibody Screen Reactive 09/03/18 09/03/18 05:50 05:50 WBC RBC Hgb Hct MCV MCH MCHC RDW Plt Count MPV Neut % (Auto) Lymph % (Auto) Bay % (Auto) Eos % (Auto) Baso % (Auto) Neut # (Auto) Lymph # (Auto) Bay # (Auto) Eos # (Auto) Baso # (Auto) Sodium 141 Potassium 2.9 L Chloride 105 Carbon Dioxide 25 Anion Gap 15 BUN 7 Creatinine 0.7 Est GFR ( Amer) > 60 Est GFR (Non-Af Amer) > 60 Random Glucose 77 Calcium 8.6 Phosphorus 3.0 Magnesium 1.9 Total Bilirubin 0.4 AST 24 ALT 18 Alkaline Phosphatase 68 Total Protein 7.0 Albumin 3.7 Globulin 3.2 Albumin/Globulin Ratio 1.2 Procalcitonin Beta HCG, Quant Ur Opiates (GC/MS) Ur Methadone, Qual Urine Propoxyphene Methaqualone Ur Barbiturates, Qual Ur Phencyclidine (PCP) Ur Amphetamines Screen U Benzodiazepines Qual Urine Cocaine U Marijuana (THC) Screen Drugs of Abuse Note Absolute Lymphs (Flow) % CD4 Cells Absolute CD4 Count T-Help/Suppress Ratio % CD8 Cells Absolute CD8 Count RPR Nonreactive HIV 1&2 Antibody Screen Radiology Impressions: Radiology Impressions Chest X-Ray 09/03/18 09:23 IMPRESSION: Patchy nodular consolidation at the left lung base. Interval follow-up is recommended and or correlation with chest CT if clinically indicated. Question deformity of the mid left clavicle. Suggestion of left lateral rib deformities. Brain MRI 09/03/18 15:27 IMPRESSION: No evidence of diffusion restriction to suggest acute or subacute infarction. No evidence of intracranial hemorrhage. Atrophy and chronic microvascular ischemic changes. 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 Small infarction in the right parietal lobe. Critical Care Progress Note - Nutrition Nutrition: Nutrition Category Date Time Status Pureed [Dysphagia/Modified Consistency Diet] [DIET] Diets 09/02/18 Lunch Active Attending/Attestation - Attestation I have personally seen and examined this patient.: Yes I have fully participated in the care of the patient.: Yes I have reviewed all pertinent clinical information: Yes Notes (Text): 09/03/18 18:36 Patient seen and examined in the intensive care unit. Case discussed with housestaff in the morning rounds. 57-year-old female admitted with tonic-clonic seizures Continue Keppra Continue antibiotics for pneumonia MRI of head Neurology follow-up Speech and swallow evaluation
[2018-09-03] MEDS: Enoxaparin 40 mg Syringe SC SCH (10:57)
--- NOTE | 2018-09-03 11:57 | CP.PCM.PN ---
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, HIV, HCV, HTN, HLD, bipolar disorder, COPD /bronchitis PSH: unknown Meds: ASA 81 mg PO daily, Lipitor 20 mg PO daily, Duoneb Q8H PRN, Tylenol 650 mg PO Q4H PRN, Norvasc 10 mg PO daily, Protonix 40 mg PO daily, Seroquel 200 mg PO QHS, Cymbalta 30 mg PO BID, Mag-oxide 400 mg PO BID, Truvada 200-300 mg PO daily, Tivicay 50 mg PO daily, Senokot PO daily All: Penicillins- seizure as a child FH: unknown SH: lives in shelter, h/o tobacco and heroin use Objective - Vital Signs/Intake and Output Vital Signs (last 24 hours): Temp Pulse Resp BP Pulse Ox 97 F L 80 19 136/77 95 09/03/18 08:00 09/03/18 11:02 09/03/18 11:02 09/03/18 11:02 09/03/18 11:02 Intake and Output: 09/03/18 09/03/18 06:59 18:59 Intake Total 2009 720 Output Total 800 0 Balance 1210 720 - Medications Medications: Current Medications Albuterol/Ipratropium (Duoneb 3 Mg/0.5 Mg (3 Ml) Ud) 3 ml INH RQ6 PRN PRN Reason: Shortness of Breath Aspirin (Ecotrin) 81 mg PO DAILY [facility] Last Admin: 09/03/18 09:34 Dose: 81 mg Duloxetine HCl (Cymbalta) 30 mg PO Q12 [facility] Last Admin: 09/03/18 09:35 Dose: 30 mg Enoxaparin Sodium (Lovenox) 40 mg SC DAILY [facility] Last Admin: 09/03/18 10:57 Dose: 40 mg Levetiracetam 500 mg/ Dextrose 105 mls @ 420 mls/hr IVPB Q12H [facility] Last Admin: 09/03/18 06:00 Dose: 420 mls/hr Sodium Chloride (Sodium Chloride 0.9%) 1,000 mls @ 100 mls/hr IV .Q10H [facility] Last Admin: 09/03/18 03:46 Dose: 100 mls/hr Aztreonam 1 gm/ Sodium (Chloride) 100 mls @ 200 mls/hr IVPB Q8H [facility]; Protocol Vancomycin/Sodium Chloride (Vancomycin 1 Gm/Ns 200 Ml) 1 gm in 200 mls @ 133 mls/hr IVPB Q12H [facility]; Protocol Stop: 09/08/18 13:01 Lorazepam (Ativan) 0.5 mg IVP ONCE PRN PRN Reason: Agitation Last Admin: 09/02/18 16:35 Dose: 0.5 mg Pantoprazole Sodium (Protonix Inj) 40 mg IVP DAILY [facility] Last Admin: 09/03/18 09:34 Dose: 40 mg Potassium Chloride (K-Dur 20 Meq Er Tab) 40 meq PO Q4H [facility] Stop: 09/03/18 12:31 Last Admin: 09/03/18 09:00 Dose: 40 meq Quetiapine Fumarate (Seroquel) 200 mg PO HS [facility] Last Admin: 09/02/18 21:41 Dose: 200 mg - Labs Labs: 09/03/18 05:50 09/03/18 05:50 - Constitutional Appears: Non-toxic, No Acute Distress, Chronically Ill - Head Exam Head Exam: ATRAUMATIC, NORMAL INSPECTION, NORMOCEPHALIC - Eye Exam Eye Exam: EOMI, Normal appearance, PERRL Pupil Exam: NORMAL ACCOMODATION, PERRL - ENT Exam ENT Exam: Mucous Membranes Moist, Normal Exam - Neck Exam Neck Exam: Full ROM, Normal Inspection. absent: Lymphadenopathy - Respiratory Exam Respiratory Exam: Clear to Ausculation Bilateral, NORMAL BREATHING PATTERN - Cardiovascular Exam Cardiovascular Exam: REGULAR RHYTHM, +S1, +S2. absent: Murmur - GI/Abdominal Exam GI & Abdominal Exam: Soft, Normal Bowel Sounds. absent: Tenderness - Rectal Exam Rectal Exam: Deferred - Exam Exam: NORMAL INSPECTION - Extremities Exam Extremities Exam: Full ROM, Normal Capillary Refill, Normal Inspection. absent: Joint Swelling, Pedal Edema - Back Exam Back Exam: NORMAL INSPECTION - Neurological Exam Neurological Exam: Alert, Awake, CN II-XII Intact, Oriented x3. absent: Normal Gait Neuro motor strength exam: Left Upper Extremity: 4, Right Upper Extremity: 2/1, Left Lower Extremity: 4, Right Lower Extremity: 2/1 - Psychiatric Exam Psychiatric exam: Normal Affect, Normal Mood - Skin Skin Exam: Dry, Intact, Normal Color, Warm Assessment and Plan (1) HIV (human immunodeficiency virus infection) Status: Acute (2) Hepatitis C Status: Acute (3) History of stroke with current residual effects Status: Acute (4) New onset seizure Status: Acute - Assessment and Plan (Free Text) Assessment: cont HAART rx neuro eval in progress OI to be ruled out cultures all neg thus far await MRI
[2018-09-03] MEDS: Aztreonam 1 GM in Sodium Chloride 0.9% 100 ML IVPB SCH ×2 (12:00→18:35)
--- NOTE | 2018-09-03 12:17 | RAD ---
Date of service: 09/03/2018 HISTORY: cough COMPARISON: 11/20/2017 FINDINGS: LUNGS: Patchy nodular consolidation at the left lung base. PLEURA: No significant pleural effusion identified, no pneumothorax apparent. CARDIOVASCULAR: Tortuous ectatic aorta. Normal cardiac size. OSSEOUS STRUCTURES: Degenerative changes in the spine. Question deformity of the mid left clavicle. Suggestion of left lateral rib deformities. VISUALIZED UPPER ABDOMEN: Normal. OTHER FINDINGS: None. IMPRESSION: Patchy nodular consolidation at the left lung base. Interval follow-up is recommended and or correlation with chest CT if clinically indicated. Question deformity of the mid left clavicle. Suggestion of left lateral rib deformities.
[2018-09-03] MEDS: Vancomycin 1 gm/NS 200 ml 1 GM/200 ML BAG IVPB SCH (13:40)
--- NOTE | 2018-09-03 15:08 | CP.PCM.PN ---
Subjective - Date & Time of Evaluation Date of Evaluation: 09/03/18 Time of Evaluation: 15:05 - Subjective Subjective: Neuro Follow-Up Note: Ms. Hinton was evaluated this afternoon in the ICU. Pt is known to me from her last admission at [facility] acute rehab, where she was treated for acute CVA. She still has expressive aphasia but is able to follow commands. She denies any complaints today and states "I feel better." We are pending an MRI brain to be done since yesterday, however, pt could not tolerate remaining still for the exam. No further seizure activity since being started on the Keppra. Objective - Vital Signs/Intake and Output Vital Signs (last 24 hours): Temp Pulse Resp BP Pulse Ox 96.3 F L 69 16 138/79 100 09/03/18 12:00 09/03/18 12:02 09/03/18 12:02 09/03/18 12:02 09/03/18 12:02 Intake and Output: 09/03/18 09/03/18 06:59 18:59 Intake Total 2010 820 Output Total 800 0 Balance 1210 820 - Medications Medications: Current Medications Albuterol/Ipratropium (Duoneb 3 Mg/0.5 Mg (3 Ml) Ud) 3 ml INH RQ6 PRN PRN Reason: Shortness of Breath Aspirin (Ecotrin) 81 mg PO DAILY [facility] Last Admin: 09/03/18 09:34 Dose: 81 mg Duloxetine HCl (Cymbalta) 30 mg PO Q12 [facility] Last Admin: 09/03/18 09:35 Dose: 30 mg Enoxaparin Sodium (Lovenox) 40 mg SC DAILY [facility] Last Admin: 09/03/18 10:57 Dose: 40 mg Levetiracetam 500 mg/ Dextrose 105 mls @ 420 mls/hr IVPB Q12H [facility] Last Admin: 09/03/18 06:00 Dose: 420 mls/hr Sodium Chloride (Sodium Chloride 0.9%) 1,000 mls @ 100 mls/hr IV .Q10H [facility] Last Admin: 09/03/18 13:37 Dose: 100 mls/hr Aztreonam 1 gm/ Sodium (Chloride) 100 mls @ 200 mls/hr IVPB Q8H [facility]; Protocol Last Admin: 09/03/18 12:00 Dose: 200 mls/hr Vancomycin/Sodium Chloride (Vancomycin 1 Gm/Ns 200 Ml) 1 gm in 200 mls @ 133 mls/hr IVPB Q12H [facility]; Protocol Stop: 09/08/18 13:01 Last Admin: 09/03/18 13:40 Dose: 133 mls/hr Lorazepam (Ativan) 0.5 mg IVP ONCE PRN PRN Reason: Agitation Last Admin: 09/02/18 16:35 Dose: 0.5 mg Lorazepam (Ativan) 2 mg IVP ONCE PRN PRN Reason: Sedation Pantoprazole Sodium (Protonix Inj) 40 mg IVP DAILY [facility] Last Admin: 09/03/18 09:34 Dose: 40 mg Quetiapine Fumarate (Seroquel) 200 mg PO HS [facility] Last Admin: 09/02/18 21:41 Dose: 200 mg - Labs Labs: 09/03/18 05:50 09/03/18 05:50 - Constitutional Appears: Non-toxic, No Acute Distress - Head Exam Head Exam: ATRAUMATIC, NORMAL INSPECTION, NORMOCEPHALIC - Eye Exam Eye Exam: EOMI, Normal appearance, PERRL Pupil Exam: NORMAL ACCOMODATION, PERRL - ENT Exam ENT Exam: Mucous Membranes Moist - Neck Exam Neck Exam: Full ROM, Normal Inspection - Respiratory Exam Respiratory Exam: NORMAL BREATHING PATTERN - Extremities Exam Extremities Exam: absent: Calf Tenderness, Full ROM, Pedal Edema Additional comments: No focal motor deficits to the left side. Unable to move RUE 2/2 previous CVA; + weakness to RLE 2/2 previous CVA - Neurological Exam Neurological Exam: Alert, Awake. absent: Reflexes Normal Neuro motor strength exam: Left Upper Extremity: 5 (distal 5/5), Right Upper Extremity: 0 (distal 0/5), Left Lower Extremity: 5 (distal 5/5), Right Lower Ex tremity: 3 (distal 3-4/5) Additional comments: Pt has expressive aphasia with some slurred speech and slight right facial asymmetry 2/2 previous CVA. Unable to move RUE; weakness to the RLE 2/2 previous CVA. No focal deficits to the left side. No tremors or abnormal movements. Hypereflexia to the right (from previous CVA). - Psychiatric Exam Psychiatric exam: Normal Mood - Skin Skin Exam: Normal Color Assessment and Plan (1) New onset seizure Assessment & Plan: Imaging reviewed: -CT Head (09/01/18): Interval development of encephalomalacia noted within the left high frontal and left occipital parietal lobes. Patchy and confluent non- specific white matter changes. -Brain MRI without contrast ordered since yesterday---will f/u with results. Please do aster; it was ordered stat yesterday by Dr. Bush. -Continue seizure precautions. -Continue Keppra 500 mg Q12. -Continue secondary stroke prevention; DVT ppx. -Continue PT/OT. -Notify neuro team of any acute changes in pt's condition. Juana Fuller DNP, [employer] ESTATE AGENT/BROKER d/w Dr. Bush Status: Acute
[2018-09-03] MEDS: Dextrose 5%/0.9% NS 1,000 ML IV SCH (17:30)
[2018-09-03 17:53] LABS: % CD4 (T HELPER CELL) 25 Percent (30-61); % CD8 (SUPPRESSOR T CELL) 59 Percent (12-42); ABSOLUTE CD4 CELLS 243 Cells/mcL (490-1740); ABSOLUTE CD8 CELLS 577 Cells/mcL (180-1170); ABSOLUTE LYMPHOCYTES 971 Cells/mcL (850-3900); HELPER/SUPPRESSOR RATIO 0.42 Ratio (0.86-5.00)
--- NOTE | 2018-09-03 18:14 | MRI ---
Date of service: 09/03/2018 PROCEDURE: MRI BRAIN WITHOUT CONTRAST HISTORY: cva bleed COMPARISON: None available. TECHNIQUE: Multiplanar, multisequence MR images of the brain were obtained without intravenous contrast enhancement. FINDINGS: HEMORRHAGE: None DWI: No evidence of an acute or early subacute infarction. BRAIN PARENCHYMA: There are foci of encephalomalacia in the left temporal parietal and posterior frontal lobes suggestive of old infarctions. There is also focal encephalomalacia at the right parietal lobe adjacent to the lateral ventricle suggestive of small old infarction. Moderate to large size white matter changes are noted suggestive of chronic microvascular ischemic disease. VENTRICLES: Mildly dilated compatible with mild atrophy. CRANIUM: Unremarkable. ORBITS: Grossly unremarkable. PARANASAL SINUSES/MASTOIDS: Clear VASCULAR SYSTEM: Skull base flow voids intact. OTHER FINDINGS: None. IMPRESSION: No evidence of diffusion restriction to suggest acute or subacute infarction. No evidence of intracranial hemorrhage. Atrophy and chronic microvascular ischemic changes. 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 Small infarction in the right parietal lobe.
--- NOTE | 2018-09-04 00:17 | CP.PCM.CON ---
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- sided hemiplegia and aphasia, HIV, HCV, HTN, HLD, bipolar disorder, [employer] D/bronchitis PSH: unknown Meds: ASA 81 mg PO daily, Lipitor 20 mg PO daily, Duoneb Q8H PRN, Tylenol 650 mg PO Q4H PRN, Norvasc 10 mg PO daily, Protonix 40 mg PO daily, Seroquel 200 mg PO QHS, Cymbalta 30 mg PO BID, Mag-oxide 400 mg PO BID, Truvada 200-300 mg PO daily, Tivicay 50 mg PO daily, Senokot PO daily All: Penicillins- seizure as a child FH: unknown SH: lives in [facility], h/o tobacco and heroin use Past Patient History - Infectious Disease Hx of Infectious Diseases: None - Tetanus Immunizations Tetanus Immunization: Unknown - Past Medical History & Family History Past Medical History?: Yes Past Family History: Reviewed and not pertinent - Past Social History Smoking Status: Former Smoker Chewing Tobacco Use: No Cigar Use: No Alcohol: None Drugs: Opiates (former heroin) - CARDIAC Hx Hypertension: Yes - PULMONARY Hx Chronic Obstructive Pulmonary Disease (COPD): Yes - NEUROLOGICAL HX Cerebrovascular Accident: Yes (right side hemiparesis) - HEENT Hx HEENT Problems: No - RENAL Hx Chronic Kidney Disease: Yes - ENDOCRINE/METABOLIC Hx Diabetes Mellitus Type 2: No - HEMATOLOGICAL/ONCOLOGICAL Hx Human Immunodeficiency Virus (HIV): Yes - INTEGUMENTARY Hx Dermatological Problems: No - MUSCULOSKELETAL/RHEUMATOLOGICAL Hx Musculoskeletal Disorders: Yes Hx Rhabdomyolysis: Yes - GASTROINTESTINAL Hx Gastrointestinal Disorders: No - GENITOURINARY/GYNECOLOGICAL Hx Sexually Transmitted Disorders: No (Patient denied) - PSYCHIATRIC Hx Psychophysiologic Disorder: Yes Hx Substance Use: Yes - SURGICAL HISTORY Hx Tonsillectomy: Yes - ANESTHESIA Hx Anesthesia: Yes Hx Anesthesia Reactions: No Hx Malignant Hyperthermia: No Meds Allergies/Adverse Reactions: Allergies Allergy/AdvReac Type Severity Reaction Status Date / Time Penicillins Allergy pt reports Verified 09/01/18 14:08 seizures - Medications Medications: Current Medications Albuterol/Ipratropium (Duoneb 3 Mg/0.5 Mg (3 Ml) Ud) 3 ml INH RQ6 PRN PRN Reason: Shortness of Breath Duloxetine HCl (Cymbalta) 30 mg PO Q12 [facility] Last Admin: 09/02/18 21:41 Dose: 30 mg Levetiracetam 500 mg/ Dextrose 105 mls @ 420 mls/hr IVPB Q12H [facility] Last Admin: 09/02/18 18:40 Dose: 420 mls/hr Sodium Chloride (Sodium Chloride 0.9%) 1,000 mls @ 100 mls/hr IV .Q10H [facility] Last Admin: 09/02/18 16:00 Dose: 100 mls/hr Lorazepam (Ativan) 0.5 mg IVP ONCE PRN PRN Reason: Agitation Last Admin: 09/02/18 16:35 Dose: 0.5 mg Pantoprazole Sodium (Protonix Inj) 40 mg IVP DAILY [facility] Last Admin: 09/02/18 12:48 Dose: 40 mg Quetiapine Fumarate (Seroquel) 200 mg PO HS [facility] Last Admin: 09/02/18 21:41 Dose: 200 mg Results - Vital Signs Recent Vital Signs: Last Vital Signs Temp 98.6 F 09/02/18 19:00 Pulse 79 09/02/18 21:59 Resp 19 09/02/18 21:59 BP 128/85 09/02/18 21:59 Pulse Ox 88 L 09/02/18 20:29 - Labs Result Diagrams: 09/02/18 06:17 09/02/18 06:07 Labs: Laboratory Results - last 24 hr 09/01/18 09/01/18 09/02/18 18:58 23:36 06:07 WBC RBC Hgb Hct MCV MCH MCHC RDW Plt Count MPV Neut % (Auto) Lymph % (Auto) [place] % (Auto) Eos % (Auto) Baso % (Auto) Neut # (Auto) Lymph # (Auto) [place] # (Auto) Eos # (Auto) Baso # (Auto) Sodium Potassium Chloride Carbon Dioxide Anion Gap BUN Creatinine Est GFR ( Amer) Est GFR (Non-Af Amer) POC Glucose (mg/dL) 143 H 103 Random Glucose Calcium Phosphorus Magnesium Total Bilirubin AST ALT Alkaline Phosphatase Total Protein Albumin Globulin Albumin/Globulin Ratio Procalcitonin 0.52 H 09/02/18 09/02/18 09/02/18 06:07 06:17 06:34 WBC 5.5 RBC 4.60 Hgb 13.2 Hct 40.6 MCV 88.3 MCH 28.7 MCHC 32.6 L RDW 14.0 Plt Count 172 MPV 9.4 Neut % (Auto) 71.6 Lymph % (Auto) 18.4 L [place] % (Auto) 8.7 Eos % (Auto) 0.4 Baso % (Auto) 0.9 Neut # (Auto) 3.9 Lymph # (Auto) 1.0 [place] # (Auto) 0.5 Eos # (Auto) 0.0 Baso # (Auto) 0.1 Sodium 141 Potassium 3.3 L Chloride 105 Carbon Dioxide 26 Anion Gap 13 BUN 8 Creatinine 0.7 Est GFR ( Amer) > 60 Est GFR (Non-Af Amer) > 60 POC Glucose (mg/dL) 109 Random Glucose 88 D Calcium 9.0 Phosphorus 2.8 Magnesium 2.0 Total Bilirubin 0.4 AST 25 ALT 17 Alkaline Phosphatase 79 Total Protein 7.5 Albumin 4.1 Globulin 3.3 Albumin/Globulin Ratio 1.2 Procalcitonin
[2018-09-04] MEDS: Vancomycin 1 gm/NS 200 ml 1 GM/200 ML BAG IVPB SCH ×2 (01:00→13:18)
[2018-09-04] MEDS: Aztreonam 1 GM in Sodium Chloride 0.9% 100 ML IVPB SCH ×3 (03:06→18:49)
[2018-09-04] MEDS: Dextrose 5%/0.9% NS 1,000 ML IV SCH ×4 (03:46→23:30)
[2018-09-04 06:20] LABS: BASO % 1.2 % (0.0-2.0); EOS # 0.2 K/uL (0.0-0.7); EOS % 5.7 % (0.0-4.0); LYMPH # 0.9 K/uL (1.0-4.3); MEAN CORPUSCULAR HEMOGLOBIN 28.8 pg (27.0-31.0); MEAN CORPUSCULAR HGB CONC 32.7 g/dL (33.0-37.0); MEAN PLATELET VOLUME 9.6 fL (7.2-11.7); MONO # 0.3 K/uL (0.0-0.8); MONO % 8.3 % (0.0-10.0); NEUT % 57.8 % (50.0-75.0); NRBC % 0.3 % (0.0-2.0); RBC 4.16 Mil/uL (3.80-5.20); RED CELL DISTRIBUTION WIDTH 13.9 % (11.5-14.5); WHITE BLOOD COUNT 3.4 K/uL (4.8-10.8)
[2018-09-04 06:27] LABS: ALB/GLOB RATIO 1.1 (1.0-2.1); ALBUMIN 3.1 g/dL (3.5-5.0); ALT/SGPT 18 U/L (9-52); AST/SGOT 20 U/L (14-36); BLOOD UREA NITROGEN 6 mg/dL (7-17); CALCIUM 8.1 mg/dl (8.6-10.4); GFR NON-AFRICAN AMERICAN > 60
[2018-09-04] MEDS: Potassium Chloride 20 mEq ER Tab PO SCH ×2 (08:00→15:00)
--- NOTE | 2018-09-04 09:25 | CP.PCM.PN ---
Subjective - Date & Time of Evaluation Date of Evaluation: 09/04/18 Time of Evaluation: 09:20 - Subjective Subjective: Medical attending note Patient seen this morning. Patient speech is getting much better she is able to say good morning. We will follow with her left upper extremity ask how you are doing speech is still affected but content is much improved. Patient does recognize me from her admission last October. Patient still unable to move her right upper extremity. Noted notable swelling I did speak with her nurse Sandy knowing for likely IV access infiltration. Given the swelling. Patient reports she is having bowel movement though I spoke with the nurse noted that she has not had active bowel movement since coming to the hospital. She is also not much other than juice as well. We did change her diet to something that would be more satisfactory for the patient. Patient denies any pain. She is very nice and grateful and saying thank you. Also pertinent patient's mother is admitted to [place] will need to follow-up with case or social in terms of placement for patient since she would not be appropriate for home hopefully for possible long-term care placement when she is ready for discharge. Objective - Vital Signs/Intake and Output Vital Signs (last 24 hours): Temp Pulse Resp BP Pulse Ox 97.4 F L 78 14 141/72 100 09/04/18 04:00 09/04/18 09:02 09/04/18 09:02 09/04/18 09:02 09/04/18 09:02 Intake and Output: 09/04/18 09/04/18 06:59 18:59 Intake Total 1776 410 Output Total 900 0 Balance 876 410 - Medications Medications: Current Medications Albuterol/Ipratropium (Duoneb 3 Mg/0.5 Mg (3 Ml) Ud) 3 ml INH RQ6 PRN PRN Reason: Shortness of Breath Aspirin (Ecotrin) 81 mg PO DAILY [facility] Last Admin: 09/03/18 09:34 Dose: 81 mg Dolutegravir Sodium (Tivicay) 50 mg PO DAILY [facility]; Protocol Duloxetine HCl (Cymbalta) 30 mg PO Q12 [facility] Last Admin: 09/03/18 22:14 Dose: 30 mg Emtricitabine/Tenofovir (Truvada 200 Mg-300 Mg) 1 tab PO DAILY [facility]; Protocol Enoxaparin Sodium (Lovenox) 40 mg SC DAILY [facility] Last Admin: 09/03/18 10:57 Dose: 40 mg Levetiracetam 500 mg/ Dextrose 105 mls @ 420 mls/hr IVPB Q12H [facility] Last Admin: 09/04/18 06:27 Dose: 420 mls/hr Aztreonam 1 gm/ Sodium (Chloride) 100 mls @ 200 mls/hr IVPB Q8H [facility]; Protocol Last Admin: 09/04/18 03:06 Dose: 200 mls/hr Vancomycin/Sodium Chloride (Vancomycin 1 Gm/Ns 200 Ml) 1 gm in 200 mls @ 133 mls/hr IVPB Q12H [facility]; Protocol Stop: 09/08/18 13:01 Last Admin: 09/04/18 01:00 Dose: 133 mls/hr Dextrose/Sodium Chloride (Dextrose 5%/0.9% Ns 1000 Ml) 1,000 mls @ 100 mls/hr IV .Q10H [facility] Last Admin: 09/04/18 06:38 Dose: 100 mls/hr Lorazepam (Ativan) 0.5 mg IVP ONCE PRN PRN Reason: Agitation Last Admin: 09/02/18 16:35 Dose: 0.5 mg Lorazepam (Ativan) 2 mg IVP ONCE PRN PRN Reason: Sedation Last Admin: 09/03/18 15:10 Dose: 2 mg Mupirocin (Bactroban 2% Nasal) 0.25 gm CARI BID [facility] Pantoprazole Sodium (Protonix Inj) 40 mg IVP DAILY [facility] Last Admin: 09/03/18 09:34 Dose: 40 mg Potassium Chloride (K-Dur 20 Meq Er Tab) 40 meq PO Q4H [facility] Stop: 09/04/18 11:31 Last Admin: 09/04/18 08:00 Dose: 40 meq Quetiapine Fumarate (Seroquel) 200 mg PO HS [facility] Last Admin: 09/03/18 22:22 Dose: 200 mg Sennosides (Senokot Tab) 8.6 mg PO DAILY [facility] - Labs Labs: 09/04/18 06:09 09/04/18 06:07 - Constitutional Appears: Non-toxic, No Acute Distress - Head Exam Head Exam: NORMAL INSPECTION Additional comments: Paralysis noted over the right side of face noticeably at the corner when she does smile - Eye Exam Eye Exam: EOMI - ENT Exam ENT Exam: Mucous Membranes Moist - Respiratory Exam Respiratory Exam: Rhonchi (Mild), NORMAL BREATHING PATTERN. absent: Wheezes, Respiratory Distress - Cardiovascular Exam Cardiovascular Exam: REGULAR RHYTHM, +S1, +S2 - GI/Abdominal Exam GI & Abdominal Exam: Soft, Normal Bowel Sounds. absent: Distended, Firm, Guarding, Rigid, Tenderness, Rebound - Extremities Exam Extremities Exam: absent: Pedal Edema, Tenderness Additional comments: Prevalon boots - Neurological Exam Neurological Exam: Alert, Awake, Oriented x3 Neuro motor strength exam: Left Upper Extremity: 5, Right Upper Extremity: 0, Left Lower Extremity: 5, Right Lower Extremity: 3 - Psychiatric Exam Psychiatric exam: Normal Affect, Normal Mood - Skin Skin Exam: Dry, Normal Color, Warm Assessment and Plan (1) New onset seizure Status: Acute (2) History of stroke with current residual effects Status: Acute (3) HIV (human immunodeficiency virus infection) Status: Acute (4) Hepatitis C Status: Acute (5) Cerebrovascular accident (CVA) with right hemiparesis Status: Acute (6) HIV (human immunodeficiency virus infection) Status: Acute (7) MRSA (methicillin resistant Staphylococcus aureus) carrier Status: Acute (8) Pneumonia Status: Acute (9) Constipation Status: Acute (10) Prophylactic measure Status: Acute Attending/Attestation - Attestation I have personally seen and examined this patient.: Yes I have fully participated in the care of the patient.: Yes I have reviewed all pertinent clinical information, including history, physical exam and plan: Yes Notes (Text): 1) Seizure disorder, new onset Assessment/Plan * observed on icu * video eeg completed * UDS: positive for benzo * On admission, patient given phentyoin 1g at 3PM on 09/01/18 * Patient is on Keppra 500mg IVPB Q12H * Neurology on consult help appreciated * CT head (09/01/18): interval development of encephalomalacia noted within the left high frontol and left occipatal parietal lobes, patchy and confluent nonspecific white matter changes * MRI (04/2018): interval hemorrhagic transformation of subacute infarction in the left posterior centrum semiovale. interval evolution of subacute b/l MCA [employer] watershed terriotities and left deep white batter border zone territory and small subacute infarction in posterior limb of the left interval capsule. * Had prior modifed barium swallow in apr 2018 when hospitalized for the stroke * Brain MRI September 03, 2018. No evidence of diffusion restriction to suggest acute or subacute infarction. No evidence of intracranial hemorrhage. Atrophy and chronic microvascular ischemic changes. Foci of encephalomalacia in the left cerebral hemisphere suggestive of infarction. Small infarction of the right parietal lobe. * f/u neurology for any further recommendations 2) History of CVA with right sided residual weakness (noted hemorrhagic conversion in apr 2018) Assessment/Plan * Apr 2018 hospitalization noted hemorrhagic conversion * Neurology on consult * CT head (09/01/18): interval development of encephalomalacia noted within the left high frontol and left occipatal parietal lobes, patchy and confluent nonspecific white matter changes * MRI (04/2018): interval hemorrhagic transformation of subacute infarction in the left posterior centrum semiovale. interval evolution of subacute b/l MCA [employer] watershed terriotities and left deep white batter border zone territory and small subacute infarction in posterior limb of the left interval capsule. * Had prior modifed barium swallow in apr 2018 when hospitalized for the stroke * unable to complete Brain MRI in spite of Ativan 4mg 09/02/18; * Brain MRI September 03, 2018. No evidence of diffusion restriction to suggest acute or subacute infarction. No evidence of intracranial hemorrhage. Atrophy and chronic microvascular ischemic changes. Foci of encephalomalacia in the left cerebral hemisphere suggestive of infarction. Small infarction of the right parietal lobe. * Aspirin 81mg PO daily * Crestor 5mg POqHS * PT/OT on board * Prior A1c 5.7 from April 15, 2018 we will repeat A1c * Prior lipid panel triglycerides 142, cholesterol 135, LDL 54, HDL 39; will repeat lipid panel * Echocardiogram (04/11/18): ejection fraction: 55-60%, right ventricle is mildly dilated. IVC dilated in size and collapses <50% with inspiration 3) History of HIV Assessment/Plan * Prior HAART therapy (2018-->Tivicay 50mg daily and Truvada 200mg-300mg daily) * CD 4 count 413 per 05/03/18; HIV 1 RNA not detected 4) Chronic Hepatitis C Assessment/Plan * Ammonia is normal * unclear if patient has been treated or not; * if she has not been treated, she should follow-up with ID 5) Bipolar Disorder Depression Paranoia Personality Disorder Assessment/Plan * Seroquel 200mg POHS 6) Hypokalemia Assessment/Plan * repleted 7)Healthcare Associated Pneumonia elevated procalcitonin Assessment/Plan * Allergy PCN * Previous hospitalization in Apr 2018 and prior october in 2017 for pneumonia * Chest xray (09/03/18): pathcy nodular consolidation at the left lung ba * Aztreonam 1gm IVPB Q8H (active since 09/03/18) * Vancomycin 1 gram IVPB Q12H (started 09/03/18) * will check vanco trough midnight tonight * Florastor 250mg PO BID * Duoneb PRN shortness of breathe * Procalcitonin: 0.52-->0.44 * Blood cultures (09/03/18): no growth for 24 hours X2 8) Constipation Assessment/Plan * Has not eaten much since admission * Placed on Senna monitor for bowel movement 9) Right arm swelling Assessment/Plan * note paralysis of right upper extremity * ordered for venous doppler of right upper extremity * noted by nurse swelling from recent IV infiltration 10) Prophylactic measure * seizure precautions * aspiration precautions * Protonix 40mg IV q daily * SCDS * Lovenox 40mg Ivq daily * PT/OT eval * Florastor 250mg PO BID * Social/case management plan for [facility] care
[2018-09-04] MEDS: Enoxaparin 40 mg Syringe SC SCH (09:52)
[2018-09-04] MEDS: Mupirocin 2% Ointment (NASAL) NAS SCH ×2 (10:00→17:44)
[2018-09-04] MEDS: Emtricitabine-Tenofovir 200 mg-300 mg Tab PO SCH (10:30)
--- NOTE | 2018-09-04 11:39 | CP.CCUPN ---
<HerijassiCorinna - Last Filed: 09/04/18 11:36> CCU Subjective - Physician Review Subjective (Free Text): 09/04/18 11:36 Ericbrett Gibson PGY1 Progress Note for Dr. Andrea Pt was examined at bedside this morning. No acute events overnight. Patient is much more verbal than yesterday, answering questions and following commands appropriately. She reports feeling swollen, but has no other complaints. CCU Objective - Vital Signs / Intake & Output Vital Signs (Last 4 hours): Vital Signs Temp Pulse Resp BP Pulse Ox 09/04/18 09:02 78 14 141/72 100 09/04/18 09:00 79 14 100 09/04/18 08:09 82 16 133/82 99 09/04/18 08:00 97.4 F L 80 13 98 Intake and Output (Last 8hrs): Intake & Output 09/03/18 09/04/18 09/04/18 22:59 06:59 14:59 Intake Total 1380 876 410 Output Total 500 900 0 Balance 880 -24 410 Weight 64.41 kg Intake: Intake, IV Amount 710 876 300 Left Antecubital 10 10 Left Hand 500 866 300 Right Hand 200 Oral 670 110 Output: Urine 500 900 Urine, Voided 500 900 Emesis 0 0 0 Other: # Voids Urine, Voided 3 # Bowel Movements 0 0 0 - Physical Exam Head: Positive for: Atraumatic, Normocephalic Pupils: Positive for: PERRL Extroacular Muscles: Positive for: EOMI Conjunctiva: Positive for: Normal Mouth: Positive for: Dry Neck: Positive for: Normal Range of Motion Respiratory/Chest: Positive for: Clear to Auscultation, Good Air Exchange. Negative for: Respiratory Distress, Accessory Muscle Use Cardiovascular: Positive for: Regular Rate and Rhythm, Normal S1, S2. Negative for: Murmurs Abdomen: Positive for: Normal Bowel Sounds. Negative for: Tenderness, Distention, Peritoneal Signs Upper Extremity: Positive for: Normal Inspection. Negative for: Cyanosis, Edema, Normal ROM Lower Extremity: Positive for: Normal Inspection. Negative for: Edema Neurological: Positive for: Norm Deep Tendon Reflexes, Other. Negative for: GCS=15, Speech Normal, Motor Func Grossly Intact Skin: Positive for: Warm, Normal Color. Negative for: Dry, Rashes Psychiatric: Positive for: Alert. Negative for: Oriented x 3, Normal Insight, Normal Concentration - Medications Active Medications: Active Medications Generic Name Dose Route Start Last Admin Trade Name Freq PRN Reason Stop Dose Admin Albuterol/Ipratropium 3 ml 09/02/18 04:26 Duoneb 3 Mg/0.5 Mg (3 Ml) Ud INH RQ6 PRN Shortness of Breath Aspirin 81 mg 09/03/18 10:00 09/04/18 09:54 Ecotrin PO 81 mg DAILY FUAD Administration Dolutegravir Sodium 50 mg 09/04/18 10:00 Tivicay PO DAILY FUAD Protocol Duloxetine HCl 30 mg 09/02/18 13:45 09/04/18 09:54 Cymbalta PO 30 mg Q12 FUAD Administration Emtricitabine/Tenofovir 1 tab 09/04/18 10:00 Truvada 200 Mg-300 Mg PO DAILY FUAD Protocol Enoxaparin Sodium 40 mg 09/03/18 10:00 09/04/18 09:52 Lovenox SC 40 mg DAILY FUAD Administration Levetiracetam 500 mg/ Dextrose 105 mls @ 420 mls/hr 09/01/18 18:30 09/04/18 06:27 IVPB 420 mls/hr Q12H FUAD Administration Aztreonam 1 gm/ Sodium 100 mls @ 200 mls/hr 09/03/18 11:00 09/04/18 03:06 Chloride IVPB 200 mls/hr Q8H FUAD Administration Protocol Vancomycin/Sodium Chloride 1 gm in 200 mls @ 133 mls/hr 09/03/18 13:00 09/04/18 01:00 Vancomycin 1 Gm/Ns 200 Ml IVPB 09/08/18 13:01 133 mls/hr Q12H FUAD Administration Protocol Dextrose/Sodium Chloride 1,000 mls @ 100 mls/hr 09/03/18 17:30 09/04/18 06:38 Dextrose 5%/0.9% Ns 1000 Ml IV 100 mls/hr .Q10H FUAD Administration Lorazepam 0.5 mg 09/02/18 15:27 09/02/18 16:35 Ativan IVP 0.5 mg ONCE PRN Administration Agitation Lorazepam 2 mg 09/03/18 14:14 09/03/18 15:10 Ativan IVP 2 mg ONCE PRN Administration Sedation Mupirocin 0.25 gm 09/04/18 10:00 Bactroban 2% Nasal CARI BID FUAD Pantoprazole Sodium 40 mg 09/02/18 10:00 09/04/18 09:51 Protonix Inj IVP 40 mg DAILY FUAD Administration Quetiapine Fumarate 200 mg 09/02/18 22:00 09/03/18 22:22 Seroquel PO 200 mg HS FUAD Administration Rosuvastatin Calcium 5 mg 09/04/18 22:00 Crestor PO HS FUAD Saccharomyces Boulardii 250 mg 09/04/18 10:00 Florastor PO BID FUAD Sennosides 8.6 mg 09/04/18 10:00 09/04/18 09:51 Senokot Tab PO 8.6 mg DAILY FUAD Administration - Patient Studies Lab Studies: Microbiology Studies 09/03/18 10:50 Blood Culture - Preliminary Blood NO GROWTH AFTER 24 HOURS 09/03/18 02:49 Blood Culture - Preliminary Blood-Venous NO GROWTH AFTER 24 HOURS 09/03/18 02:49 Blood Culture - Preliminary Blood-Venous NO GROWTH AFTER 24 HOURS Lab Studies 09/04/18 09/04/18 09/03/18 Range/Units 06:09 06:07 05:50 WBC 3.4 L (4.8-10.8) K/uL RBC 4.16 (3.80-5.20) Mil/uL Hgb 12.0 (11.0-16.0) g/dL Hct 36.6 (34.0-47.0) % MCV 88.0 (81.0-99.0) fL MCH 28.8 (27.0-31.0) pg MCHC 32.7 L (33.0-37.0) g/dL RDW 13.9 (11.5-14.5) % Plt Count 140 (130-400) K/uL MPV 9.6 (7.2-11.7) fL Neut % (Auto) 57.8 (50.0-75.0) % Lymph % (Auto) 27.0 (20.0-40.0) % [place] % (Auto) 8.3 (0.0-10.0) % Eos % (Auto) 5.7 H (0.0-4.0) % Baso % (Auto) 1.2 (0.0-2.0) % Neut # (Auto) 2.0 (1.8-7.0) K/uL Lymph # (Auto) 0.9 L (1.0-4.3) K/uL [place] # (Auto) 0.3 (0.0-0.8) K/uL Eos # (Auto) 0.2 (0.0-0.7) K/uL Baso # (Auto) 0.0 (0.0-0.2) K/uL Sodium 140 (132-148) mmol/L Potassium 3.3 L (3.6-5.2) mmol/L Chloride 111 H (98-107) mmol/L Carbon Dioxide 24 (22-30) mmol/L Anion Gap 9 L (10-20) BUN 6 L (7-17) mg/dL Creatinine 0.5 L (0.7-1.2) mg/dL Est GFR ( Amer) > 60 Est GFR (Non-Af Amer) > 60 Random Glucose 61 L D (65-105) mg/dL Calcium 8.1 L (8.6-10.4) mg/dl Phosphorus 3.0 (2.5-4.5) mg/dL Magnesium 1.7 (1.6-2.3) mg/dL Total Bilirubin 0.7 (0.2-1.3) mg/dL AST 20 (14-36) U/L ALT 18 (9-52) U/L Alkaline Phosphatase 48 (38-126) U/L Total Protein 6.0 L (6.3-8.3) g/dL Albumin 3.1 L (3.5-5.0) g/dL Globulin 2.9 (2.2-3.9) gm/dL Albumin/Globulin Ratio 1.1 (1.0-2.1) Procalcitonin (0.19-0.49) NG/ML Ur Opiates (GC/MS) (Negative) 300 Ur Methadone, Qual (Negative) 300 Urine Propoxyphene (Negative) 300 Methaqualone (Negative) 300 Ur Barbiturates, Qual (Negative) 300 Ur Phencyclidine (PCP) (Negative) 25 Ur Amphetamines Screen (Negative) 1000 U Benzodiazepines Qual (Negative) 300 Urine Cocaine (Negative) 300 U Marijuana (THC) Screen (Negative) 50 Drugs of Abuse Note Absolute Lymphs (Flow) (850-3900) Cells/mcL % CD4 Cells (30-61) Percent Absolute CD4 Count (490-1740) Cells/mcL T-Help/Suppress Ratio (0.86-5.00) Ratio % CD8 Cells (12-42) Percent Absolute CD8 Count (180-1170) Cells/mcL RPR Nonreactive (NONREACTIVE) 09/03/18 09/02/18 09/01/18 Range/Units 02:47 06:17 08:06 WBC (4.8-10.8) K/uL RBC (3.80-5.20) Mil/uL Hgb (11.0-16.0) g/dL Hct (34.0-47.0) % MCV (81.0-99.0) fL MCH (27.0-31.0) pg MCHC (33.0-37.0) g/dL RDW (11.5-14.5) % Plt Count (130-400) K/uL MPV (7.2-11.7) fL Neut % (Auto) (50.0-75.0) % Lymph % (Auto) (20.0-40.0) % [place] % (Auto) (0.0-10.0) % Eos % (Auto) (0.0-4.0) % Baso % (Auto) (0.0-2.0) % Neut # (Auto) (1.8-7.0) K/uL Lymph # (Auto) (1.0-4.3) K/uL [place] # (Auto) (0.0-0.8) K/uL Eos # (Auto) (0.0-0.7) K/uL Baso # (Auto) (0.0-0.2) K/uL Sodium (132-148) mmol/L Potassium (3.6-5.2) mmol/L Chloride (98-107) mmol/L Carbon Dioxide (22-30) mmol/L Anion Gap (10-20) BUN (7-17) mg/dL Creatinine (0.7-1.2) mg/dL Est GFR ( Amer) Est GFR (Non-Af Amer) Random Glucose (65-105) mg/dL Calcium (8.6-10.4) mg/dl Phosphorus (2.5-4.5) mg/dL Magnesium (1.6-2.3) mg/dL Total Bilirubin (0.2-1.3) mg/dL AST (14-36) U/L ALT (9-52) U/L Alkaline Phosphatase (38-126) U/L Total Protein (6.3-8.3) g/dL Albumin (3.5-5.0) g/dL Globulin (2.2-3.9) gm/dL Albumin/Globulin Ratio (1.0-2.1) Procalcitonin 0.44 (0.19-0.49) NG/ML Ur Opiates (GC/MS) Negative (Negative) 300 Ur Methadone, Qual Negative (Negative) 300 Urine Propoxyphene Negative (Negative) 300 Methaqualone Negative (Negative) 300 Ur Barbiturates, Qual Negative (Negative) 300 Ur Phencyclidine (PCP) Negative (Negative) 25 Ur Amphetamines Screen Negative (Negative) 1000 U Benzodiazepines Qual Positive H (Negative) 300 Urine Cocaine Negative (Negative) 300 U Marijuana (THC) Screen Negative (Negative) 50 Drugs of Abuse Note See note Absolute Lymphs (Flow) 971 (850-3900) Cells/mcL % CD4 Cells 25 L (30-61) Percent Absolute CD4 Count 243 L (490-1740) Cells/mcL T-Help/Suppress Ratio 0.42 L (0.86-5.00) Ratio % CD8 Cells 59 H (12-42) Percent Absolute CD8 Count 577 (180-1170) Cells/mcL RPR (NONREACTIVE) Laboratory Results - last 24 hr 09/01/18 09/02/18 09/03/18 08:06 06:17 02:47 WBC RBC Hgb Hct MCV MCH MCHC RDW Plt Count MPV Neut % (Auto) Lymph % (Auto) [place] % (Auto) Eos % (Auto) Baso % (Auto) Neut # (Auto) Lymph # (Auto) [place] # (Auto) Eos # (Auto) Baso # (Auto) Sodium Potassium Chloride Carbon Dioxide Anion Gap BUN Creatinine Est GFR ( Amer) Est GFR (Non-Af Amer) Random Glucose Calcium Phosphorus Magnesium Total Bilirubin AST ALT Alkaline Phosphatase Total Protein Albumin Globulin Albumin/Globulin Ratio Procalcitonin 0.44 Ur Opiates (GC/MS) Negative Ur Methadone, Qual Negative Urine Propoxyphene Negative Methaqualone Negative Ur Barbiturates, Qual Negative Ur Phencyclidine (PCP) Negative Ur Amphetamines Screen Negative U Benzodiazepines Qual Positive H Urine Cocaine Negative U Marijuana (THC) Screen Negative Drugs of Abuse Note See note Absolute Lymphs (Flow) 971 % CD4 Cells 25 L Absolute CD4 Count 243 L T-Help/Suppress Ratio 0.42 L % CD8 Cells 59 H Absolute CD8 Count 577 RPR 09/03/18 09/04/18 09/04/18 05:50 06:07 06:09 WBC 3.4 L RBC 4.16 Hgb 12.0 Hct 36.6 MCV 88.0 MCH 28.8 MCHC 32.7 L RDW 13.9 Plt Count 140 MPV 9.6 Neut % (Auto) 57.8 Lymph % (Auto) 27.0 [place] % (Auto) 8.3 Eos % (Auto) 5.7 H Baso % (Auto) 1.2 Neut # (Auto) 2.0 Lymph # (Auto) 0.9 L [place] # (Auto) 0.3 Eos # (Auto) 0.2 Baso # (Auto) 0.0 Sodium 140 Potassium 3.3 L Chloride 111 H Carbon Dioxide 24 Anion Gap 9 L BUN 6 L Creatinine 0.5 L Est GFR ( Amer) > 60 Est GFR (Non-Af Amer) > 60 Random Glucose 61 L D Calcium 8.1 L Phosphorus 3.0 Magnesium 1.7 Total Bilirubin 0.7 AST 20 ALT 18 Alkaline Phosphatase 48 Total Protein 6.0 L Albumin 3.1 L Globulin 2.9 Albumin/Globulin Ratio 1.1 Procalcitonin Ur Opiates (GC/MS) Ur Methadone, Qual Urine Propoxyphene Methaqualone Ur Barbiturates, Qual Ur Phencyclidine (PCP) Ur Amphetamines Screen U Benzodiazepines Qual Urine Cocaine U Marijuana (THC) Screen Drugs of Abuse Note Absolute Lymphs (Flow) % CD4 Cells Absolute CD4 Count T-Help/Suppress Ratio % CD8 Cells Absolute CD8 Count RPR Nonreactive Radiology Impressions: Radiology Impressions Chest X-Ray 09/03/18 09:23 IMPRESSION: Patchy nodular consolidation at the left lung base. Interval follow-up is recommended and or correlation with chest CT if clinically indicated. Question deformity of the mid left clavicle. Suggestion of left lateral rib deformities. Brain MRI 09/03/18 15:27 IMPRESSION: No evidence of diffusion restriction to suggest acute or subacute infarction. No evidence of intracranial hemorrhage. Atrophy and chronic microvascular ischemic changes. 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 Small infarction in the right parietal lobe. Fingerstick Blood Sugar Results: 80 Review of Systems - Review of Systems Review of Systems: 12 point ROS completed and negative other than what is stated in HPI Critical Care Progress Note - Nutrition Nutrition: Nutrition Category Date Time Status Heart Healthy Diet [DIET] Diets 09/04/18 Lunch Active Assessment/Plan - Assessment and Plan (Free Text) Assessment: 57yo F with PMH CVA with R sided deficits, HTN, HIV, COPD, seizures, MVP, admitted for tonic/clonic seizures. CT head showing chronic L sided changes in frontal and occipital parietal lobes. EEG showing focal cortical abnormalities in L side, no seizures or status epilepticus captured. On Keppra IV, no further witnessed episodes. Patient hemodynamically stable at this time. MRI showing old infarct, no new infarct. Plan: Neuro: - verbal, communicating appropriately - improved from yesterday - witnessed tonic/clonic seizure prior to admission, no further episodes - h/o CVA - Keppra 500mg IV q12h - MRI brain: no acute/subacute infarction. No hemorrhage. old infarction in L hemisphere. small infarction in R parietal lobe. - CT head: encephalomalacia in L frontal and occipital parietal lobes - EEG: No seizure activity. Not in status epilepticus. mild non specific diffuse disturbance of cortical activity in keeping with a diffuse aguilar matter dysfunction, these findings do not support a specific etiology. focal cortical abnormality involving the left frontal/temporal, in keeping with a structural abnormality in the same area. - Neuro consulted, Dr. Bush: recs appreciated - Speech/swallow recommending pureed diet at this time - seizure precautions - aspiration precautions Cardio: - h/o HTN - maintain normotension - crestor 5 Resp: - h/o COPD - duonebs q6h PRN - maintain SpO2 >92% - PNA, empirically treat with aztreonam and vanco GI: - protonix 40mg IV daily Renal: - hypokalemia - repleted with 40meq x2 - D5/NS @100cc/hr Heme: - H/H stable ID: - h/o HIV - HIV ab reactive - CD4 count 243 - antiretroviral therapy resumed - ID consulted, Dr. Wright - recs appreciated - elevated procal, h/o pneumonia - CXR 09/03: patchy nodular consolidation in L lung base - empirically treat HCAP with aztreonam and vanco PPx: - GI: protonix - DVT: SCDs - pureed diet Dispo: no further seizure episodes, MRI negative for acute infarct. plan for downgrade. Patient seen and case discussed with Dr. Andrea <Miguel Andrea - Last Filed: 09/04/18 16:07> CCU Subjective - Physician Review Critical Care Time Spent (in minutes): 40 CCU Objective - Vital Signs / Intake & Output Vital Signs (Last 4 hours): Vital Signs Pulse Resp BP Pulse Ox 09/04/18 14:02 79 13 148/73 100 09/04/18 14:00 79 22 100 09/04/18 13:03 76 19 134/77 100 09/04/18 13:00 84 14 100 Intake and Output (Last 8hrs): Intake & Output 09/04/18 09/04/18 09/04/18 06:59 14:59 22:59 Intake Total 876 1190 Output Total 900 0 Balance -24 1190 Weight 142 lb Intake: Intake, IV Amount 876 800 Left Antecubital 10 Left Hand 866 800 Oral 390 Output: Urine 900 Urine, Voided 900 Emesis 0 0 Other: # Voids Urine, Voided 3 # Bowel Movements 0 0 - Medications Active Medications: Active Medications Generic Name Dose Route Start Last Admin Trade Name Freq PRN Reason Stop Dose Admin Albuterol/Ipratropium 3 ml 09/02/18 04:26 Duoneb 3 Mg/0.5 Mg (3 Ml) Ud INH RQ6 PRN Shortness of Breath Aspirin 81 mg 09/03/18 10:00 09/04/18 09:54 Ecotrin PO 81 mg DAILY FUAD Administration Dolutegravir Sodium 50 mg 09/04/18 10:00 09/04/18 10:30 Tivicay PO 50 mg DAILY FUAD Administration Protocol Duloxetine HCl 30 mg 09/02/18 13:45 09/04/18 09:54 Cymbalta PO 30 mg Q12 FUAD Administration Emtricitabine/Tenofovir 1 tab 09/04/18 10:00 09/04/18 10:30 Truvada 200 Mg-300 Mg PO 1 tab DAILY FUAD Administration Protocol Enoxaparin Sodium 40 mg 09/03/18 10:00 09/04/18 09:52 Lovenox SC 40 mg DAILY FUAD Administration Levetiracetam 500 mg/ Dextrose 105 mls @ 420 mls/hr 09/01/18 18:30 09/04/18 06:27 IVPB 420 mls/hr Q12H FUAD Administration Aztreonam 1 gm/ Sodium 100 mls @ 200 mls/hr 09/03/18 11:00 09/04/18 11:00 Chloride IVPB 200 mls/hr Q8H FUAD Administration Protocol Vancomycin/Sodium Chloride 1 gm in 200 mls @ 133 mls/hr 09/03/18 13:00 09/04/18 13:18 Vancomycin 1 Gm/Ns 200 Ml IVPB 09/08/18 13:01 133 mls/hr Q12H FUAD Administration Protocol Dextrose/Sodium Chloride 1,000 mls @ 100 mls/hr 09/03/18 17:30 09/04/18 06:38 Dextrose 5%/0.9% Ns 1000 Ml IV 100 mls/hr .Q10H FUAD Administration Lorazepam 0.5 mg 09/02/18 15:27 09/02/18 16:35 Ativan IVP 0.5 mg ONCE PRN Administration Agitation Lorazepam 2 mg 09/03/18 14:14 09/03/18 15:10 Ativan IVP 2 mg ONCE PRN Administration Sedation Mupirocin 0.25 gm 09/04/18 10:00 09/04/18 10:00 Bactroban 2% Nasal CARI 0.25 gm BID FUAD Administration Pantoprazole Sodium 40 mg 09/02/18 10:00 09/04/18 09:51 Protonix Inj IVP 40 mg DAILY FAUD Administration Quetiapine Fumarate 200 mg 09/02/18 22:00 09/03/18 22:22 Seroquel PO 200 mg HS FUAD Administration Rosuvastatin Calcium 5 mg 09/04/18 22:00 Crestor PO HS FUAD Saccharomyces Boulardii 250 mg 09/04/18 10:00 09/04/18 13:27 Florastor PO 250 mg BID FUAD Administration Sennosides 8.6 mg 09/04/18 10:00 09/04/18 09:51 Senokot Tab PO 8.6 mg DAILY FUAD Administration - Patient Studies Lab Studies: Microbiology Studies 09/03/18 11:55 Blood Culture - Preliminary Blood NO GROWTH AFTER 24 HOURS 09/03/18 10:50 Blood Culture - Preliminary Blood NO GROWTH AFTER 24 HOURS 09/03/18 02:49 Blood Culture - Preliminary Blood-Venous NO GROWTH AFTER 24 HOURS 09/03/18 02:49 Blood Culture - Preliminary Blood-Venous NO GROWTH AFTER 24 HOURS Lab Studies 09/04/18 09/04/18 09/04/18 Range/Units 09:33 06:09 06:07 WBC 3.4 L (4.8-10.8) K/uL RBC 4.16 (3.80-5.20) Mil/uL Hgb 12.0 (11.0-16.0) g/dL Hct 36.6 (34.0-47.0) % MCV 88.0 (81.0-99.0) fL MCH 28.8 (27.0-31.0) pg MCHC 32.7 L (33.0-37.0) g/dL RDW 13.9 (11.5-14.5) % Plt Count 140 (130-400) K/uL MPV 9.6 (7.2-11.7) fL Neut % (Auto) 57.8 (50.0-75.0) % Lymph % (Auto) 27.0 (20.0-40.0) % [place] % (Auto) 8.3 (0.0-10.0) % Eos % (Auto) 5.7 H (0.0-4.0) % Baso % (Auto) 1.2 (0.0-2.0) % Neut # (Auto) 2.0 (1.8-7.0) K/uL Lymph # (Auto) 0.9 L (1.0-4.3) K/uL [place] # (Auto) 0.3 (0.0-0.8) K/uL Eos # (Auto) 0.2 (0.0-0.7) K/uL Baso # (Auto) 0.0 (0.0-0.2) K/uL Sodium 140 (132-148) mmol/L Potassium 3.3 L (3.6-5.2) mmol/L Chloride 111 H (98-107) mmol/L Carbon Dioxide 24 (22-30) mmol/L Anion Gap 9 L (10-20) BUN 6 L (7-17) mg/dL Creatinine 0.5 L (0.7-1.2) mg/dL Est GFR ( Amer) > 60 Est GFR (Non-Af Amer) > 60 Random Glucose 61 L D (65-105) mg/dL Hemoglobin A1c 5.7 (4.2-6.5) % Calcium 8.1 L (8.6-10.4) mg/dl Phosphorus 3.0 (2.5-4.5) mg/dL Magnesium 1.7 (1.6-2.3) mg/dL Total Bilirubin 0.7 (0.2-1.3) mg/dL AST 20 (14-36) U/L ALT 18 (9-52) U/L Alkaline Phosphatase 48 (38-126) U/L Total Protein 6.0 L (6.3-8.3) g/dL Albumin 3.1 L (3.5-5.0) g/dL Globulin 2.9 (2.2-3.9) gm/dL Albumin/Globulin Ratio 1.1 (1.0-2.1) Triglycerides 47 (0-149) mg/dL Cholesterol 86 (0-199) mg/dL LDL Cholesterol Direct 42 (0-129) mg/dL HDL Cholesterol 35 (30-70) mg/dL Angiotensin Convert Enz (9-67) U/L U [id number]-GR-Gbipahpesi Conf (Negative) 100 Ur Nordiazepam Confirm (Negative) 100 Ur Oxazepam Confirm (Negative) 100 Ur Drug Screen Comment Absolute Lymphs (Flow) (850-3900) Cells/mcL % CD4 Cells (30-61) Percent Absolute CD4 Count (490-1740) Cells/mcL T-Help/Suppress Ratio (0.86-5.00) Ratio % CD8 Cells (12-42) Percent Absolute CD8 Count (180-1170) Cells/mcL RPR (NONREACTIVE) 09/03/18 09/03/18 09/02/18 Range/Units 06:45 05:50 06:17 WBC (4.8-10.8) K/uL RBC (3.80-5.20) Mil/uL Hgb (11.0-16.0) g/dL Hct (34.0-47.0) % MCV (81.0-99.0) fL MCH (27.0-31.0) pg MCHC (33.0-37.0) g/dL RDW (11.5-14.5) % Plt Count (130-400) K/uL MPV (7.2-11.7) fL Neut % (Auto) (50.0-75.0) % Lymph % (Auto) (20.0-40.0) % [place] % (Auto) (0.0-10.0) % Eos % (Auto) (0.0-4.0) % Baso % (Auto) (0.0-2.0) % Neut # (Auto) (1.8-7.0) K/uL Lymph # (Auto) (1.0-4.3) K/uL [place] # (Auto) (0.0-0.8) K/uL Eos # (Auto) (0.0-0.7) K/uL Baso # (Auto) (0.0-0.2) K/uL Sodium (132-148) mmol/L Potassium (3.6-5.2) mmol/L Chloride (98-107) mmol/L Carbon Dioxide (22-30) mmol/L Anion Gap (10-20) BUN (7-17) mg/dL Creatinine (0.7-1.2) mg/dL Est GFR ( Amer) Est GFR (Non-Af Amer) Random Glucose (65-105) mg/dL Hemoglobin A1c (4.2-6.5) % Calcium (8.6-10.4) mg/dl Phosphorus (2.5-4.5) mg/dL Magnesium (1.6-2.3) mg/dL Total Bilirubin (0.2-1.3) mg/dL AST (14-36) U/L ALT (9-52) U/L Alkaline Phosphatase (38-126) U/L Total Protein (6.3-8.3) g/dL Albumin (3.5-5.0) g/dL Globulin (2.2-3.9) gm/dL Albumin/Globulin Ratio (1.0-2.1) Triglycerides (0-149) mg/dL Cholesterol (0-199) mg/dL LDL Cholesterol Direct (0-129) mg/dL HDL Cholesterol (30-70) mg/dL Angiotensin Convert Enz 32 (9-67) U/L U [id number]-Xzvxwykrrt Conf (Negative) 100 Ur Nordiazepam Confirm (Negative) 100 Ur Oxazepam Confirm (Negative) 100 Ur Drug Screen Comment Absolute Lymphs (Flow) 971 (850-3900) Cells/mcL % CD4 Cells 25 L (30-61) Percent Absolute CD4 Count 243 L (490-1740) Cells/mcL T-Help/Suppress Ratio 0.42 L (0.86-5.00) Ratio % CD8 Cells 59 H (12-42) Percent Absolute CD8 Count 577 (180-1170) Cells/mcL RPR Nonreactive (NONREACTIVE) 09/01/18 Range/Units 08:06 WBC (4.8-10.8) K/uL RBC (3.80-5.20) Mil/uL Hgb (11.0-16.0) g/dL Hct (34.0-47.0) % MCV (81.0-99.0) fL MCH (27.0-31.0) pg MCHC (33.0-37.0) g/dL RDW (11.5-14.5) % Plt Count (130-400) K/uL MPV (7.2-11.7) fL Neut % (Auto) (50.0-75.0) % Lymph % (Auto) (20.0-40.0) % [place] % (Auto) (0.0-10.0) % Eos % (Auto) (0.0-4.0) % Baso % (Auto) (0.0-2.0) % Neut # (Auto) (1.8-7.0) K/uL Lymph # (Auto) (1.0-4.3) K/uL [place] # (Auto) (0.0-0.8) K/uL Eos # (Auto) (0.0-0.7) K/uL Baso # (Auto) (0.0-0.2) K/uL Sodium (132-148) mmol/L Potassium (3.6-5.2) mmol/L Chloride (98-107) mmol/L Carbon Dioxide (22-30) mmol/L Anion Gap (10-20) BUN (7-17) mg/dL Creatinine (0.7-1.2) mg/dL Est GFR ( Amer) Est GFR (Non-Af Amer) Random Glucose (65-105) mg/dL Hemoglobin A1c (4.2-6.5) % Calcium (8.6-10.4) mg/dl Phosphorus (2.5-4.5) mg/dL Magnesium (1.6-2.3) mg/dL Total Bilirubin (0.2-1.3) mg/dL AST (14-36) U/L ALT (9-52) U/L Alkaline Phosphatase (38-126) U/L Total Protein (6.3-8.3) g/dL Albumin (3.5-5.0) g/dL Globulin (2.2-3.9) gm/dL Albumin/Globulin Ratio (1.0-2.1) Triglycerides (0-149) mg/dL Cholesterol (0-199) mg/dL LDL Cholesterol Direct (0-129) mg/dL HDL Cholesterol (30-70) mg/dL Angiotensin Convert Enz (9-67) U/L U [id number] Conf Negative (Negative) 100 Ur Nordiazepam Confirm Negative (Negative) 100 Ur Oxazepam Confirm Negative (Negative) 100 Ur Drug Screen Comment See note Absolute Lymphs (Flow) (850-3900) Cells/mcL % CD4 Cells (30-61) Percent Absolute CD4 Count (490-1740) Cells/mcL T-Help/Suppress Ratio (0.86-5.00) Ratio % CD8 Cells (12-42) Percent Absolute CD8 Count (180-1170) Cells/mcL RPR (NONREACTIVE) Laboratory Results - last 24 hr 09/01/18 09/02/18 09/03/18 08:06 06:17 05:50 WBC RBC Hgb Hct MCV MCH MCHC RDW Plt Count MPV Neut % (Auto) Lymph % (Auto) [place] % (Auto) Eos % (Auto) Baso % (Auto) Neut # (Auto) Lymph # (Auto) [place] # (Auto) Eos # (Auto) Baso # (Auto) Sodium Potassium Chloride Carbon Dioxide Anion Gap BUN Creatinine Est GFR ( Amer) Est GFR (Non-Af Amer) Random Glucose Hemoglobin A1c Calcium Phosphorus Magnesium Total Bilirubin AST ALT Alkaline Phosphatase Total Protein Albumin Globulin Albumin/Globulin Ratio Triglycerides Cholesterol LDL Cholesterol Direct HDL Cholesterol Angiotensin Convert Enz U [id number] Conf Negative Ur Nordiazepam Confirm Negative Ur Oxazepam Confirm Negative Ur Drug Screen Comment See note Absolute Lymphs (Flow) 971 % CD4 Cells 25 L Absolute CD4 Count 243 L T-Help/Suppress Ratio 0.42 L % CD8 Cells 59 H Absolute CD8 Count 577 RPR Nonreactive 09/03/18 09/04/18 09/04/18 06:45 06:07 06:09 WBC 3.4 L RBC 4.16 Hgb 12.0 Hct 36.6 MCV 88.0 MCH 28.8 MCHC 32.7 L RDW 13.9 Plt Count 140 MPV 9.6 Neut % (Auto) 57.8 Lymph % (Auto) 27.0 [place] % (Auto) 8.3 Eos % (Auto) 5.7 H Baso % (Auto) 1.2 Neut # (Auto) 2.0 Lymph # (Auto) 0.9 L [place] # (Auto) 0.3 Eos # (Auto) 0.2 Baso # (Auto) 0.0 Sodium 140 Potassium 3.3 L Chloride 111 H Carbon Dioxide 24 Anion Gap 9 L BUN 6 L Creatinine 0.5 L Est GFR ( Amer) > 60 Est GFR (Non-Af Amer) > 60 Random Glucose 61 L D Hemoglobin A1c Calcium 8.1 L Phosphorus 3.0 Magnesium 1.7 Total Bilirubin 0.7 AST 20 ALT 18 Alkaline Phosphatase 48 Total Protein 6.0 L Albumin 3.1 L Globulin 2.9 Albumin/Globulin Ratio 1.1 Triglycerides 47 Cholesterol 86 LDL Cholesterol Direct 42 HDL Cholesterol 35 Angiotensin Convert Enz 32 U [id number] Conf Ur Nordiazepam Confirm Ur Oxazepam Confirm Ur Drug Screen Comment Absolute Lymphs (Flow) % CD4 Cells Absolute CD4 Count T-Help/Suppress Ratio % CD8 Cells Absolute CD8 Count RPR 09/04/18 09:33 WBC RBC Hgb Hct MCV MCH MCHC RDW Plt Count MPV Neut % (Auto) Lymph % (Auto) [place] % (Auto) Eos % (Auto) Baso % (Auto) Neut # (Auto) Lymph # (Auto) [place] # (Auto) Eos # (Auto) Baso # (Auto) Sodium Potassium Chloride Carbon Dioxide Anion Gap BUN Creatinine Est GFR ( Amer) Est GFR (Non-Af Amer) Random Glucose Hemoglobin A1c 5.7 Calcium Phosphorus Magnesium Total Bilirubin AST ALT Alkaline Phosphatase Total Protein Albumin Globulin Albumin/Globulin Ratio Triglycerides Cholesterol LDL Cholesterol Direct HDL Cholesterol Angiotensin Convert Enz U [id number] Conf Ur Nordiazepam Confirm Ur Oxazepam Confirm Ur Drug Screen Comment Absolute Lymphs (Flow) % CD4 Cells Absolute CD4 Count T-Help/Suppress Ratio % CD8 Cells Absolute CD8 Count RPR Radiology Impressions: Radiology Impressions Brain MRI 09/03/18 15:27 IMPRESSION: No evidence of diffusion restriction to suggest acute or subacute infarction. No evidence of intracranial hemorrhage. Atrophy and chronic microvascular ischemic changes. 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 Small infarction in the right parietal lobe. Critical Care Progress Note - Nutrition Nutrition: Nutrition Category Date Time Status Heart Healthy Diet [DIET] Diets 09/04/18 Lunch Active Attending/Attestation - Attestation I have personally seen and examined this patient.: Yes I have fully participated in the care of the patient.: Yes I have reviewed all pertinent clinical information: Yes Notes (Text): 09/04/18 16:06 Patient seen and examined in the intensive care unit. Discussed with housestaff in the morning rounds. Patient is much more awake and responsive No further seizure activity MRI of the brain noted with no acute pathology Stable for transfer to floor Started on antiretroviral therapy Continue antibiotics
[2018-09-04 13:18] LABS: HDL CHOLESTEROL 35 mg/dL (30-70)
[2018-09-04] MEDS: Saccharomyces Boulardi 250 mg Cap PO SCH ×2 (13:27→17:57)
[2018-09-04 13:29] LABS: LDL CHOLESTEROL 42 mg/dL (0-129)
[2018-09-04] MEDS ORDERED: Potassium Chloride 20 mEq ER Tab PO ONE (15:00)
--- NOTE | 2018-09-04 17:07 | CP.PCM.PN ---
Subjective - Date & Time of Evaluation Date of Evaluation: 09/04/18 Time of Evaluation: 17:05 - Subjective Subjective: Neuro Follow-Up Note: Ms. Hinton was evaluated this afternoon in the ICU. Pt still has expressive aphasia but is able to follow commands. She denies any complaints today and states "I'm feeling good." No further seizure activity since being started on the Keppra. Pt denies h/a, dizziness, visual changes, chest pain, sob, abd pa in, tremors. Objective - Vital Signs/Intake and Output Vital Signs (last 24 hours): Temp Pulse Resp BP Pulse Ox 97.8 F 79 13 148/73 100 09/04/18 12:00 09/04/18 14:02 09/04/18 14:02 09/04/18 14:02 09/04/18 14:02 Intake and Output: 09/04/18 09/04/18 06:59 18:59 Intake Total 1776 1190 Output Total 900 0 Balance 876 1190 - Medications Medications: Current Medications Albuterol/Ipratropium (Duoneb 3 Mg/0.5 Mg (3 Ml) Ud) 3 ml INH RQ6 PRN PRN Reason: Shortness of Breath Aspirin (Ecotrin) 81 mg PO DAILY [facility] Last Admin: 09/04/18 09:54 Dose: 81 mg Dolutegravir Sodium (Tivicay) 50 mg PO DAILY [facility]; Protocol Last Admin: 09/04/18 10:30 Dose: 50 mg Duloxetine HCl (Cymbalta) 30 mg PO Q12 [facility] Last Admin: 09/04/18 09:54 Dose: 30 mg Emtricitabine/Tenofovir (Truvada 200 Mg-300 Mg) 1 tab PO DAILY [facility]; Protocol Last Admin: 09/04/18 10:30 Dose: 1 tab Enoxaparin Sodium (Lovenox) 40 mg SC DAILY [facility] Last Admin: 09/04/18 09:52 Dose: 40 mg Levetiracetam 500 mg/ Dextrose 105 mls @ 420 mls/hr IVPB Q12H [facility] Last Admin: 09/04/18 06:27 Dose: 420 mls/hr Aztreonam 1 gm/ Sodium (Chloride) 100 mls @ 200 mls/hr IVPB Q8H [facility]; Protocol Last Admin: 09/04/18 11:00 Dose: 200 mls/hr Vancomycin/Sodium Chloride (Vancomycin 1 Gm/Ns 200 Ml) 1 gm in 200 mls @ 133 mls/hr IVPB Q12H [facility]; Protocol Stop: 09/08/18 13:01 Last Admin: 09/04/18 13:18 Dose: 133 mls/hr Dextrose/Sodium Chloride (Dextrose 5%/0.9% Ns 1000 Ml) 1,000 mls @ 100 mls/hr IV .Q10H [facility] Last Admin: 09/04/18 06:38 Dose: 100 mls/hr Lorazepam (Ativan) 0.5 mg IVP ONCE PRN PRN Reason: Agitation Last Admin: 09/02/18 16:35 Dose: 0.5 mg Lorazepam (Ativan) 2 mg IVP ONCE PRN PRN Reason: Sedation Last Admin: 09/03/18 15:10 Dose: 2 mg Mupirocin (Bactroban 2% Nasal) 0.25 gm CARI BID [facility] Last Admin: 09/04/18 10:00 Dose: 0.25 gm Pantoprazole Sodium (Protonix Inj) 40 mg IVP DAILY [facility] Last Admin: 09/04/18 09:51 Dose: 40 mg Quetiapine Fumarate (Seroquel) 200 mg PO HS [facility] Last Admin: 09/03/18 22:22 Dose: 200 mg Rosuvastatin Calcium (Crestor) 5 mg PO HS [facility] Saccharomyces Boulardii (Florastor) 250 mg PO BID [facility] Last Admin: 09/04/18 13:27 Dose: 250 mg Sennosides (Senokot Tab) 8.6 mg PO DAILY [facility] Last Admin: 09/04/18 09:51 Dose: 8.6 mg - Labs Labs: 09/04/18 06:09 09/04/18 06:07 - Constitutional Appears: Well, Non-toxic, No Acute Distress - Head Exam Head Exam: ATRAUMATIC, NORMAL INSPECTION, NORMOCEPHALIC - Eye Exam Eye Exam: EOMI, Normal appearance, PERRL Pupil Exam: NORMAL ACCOMODATION, PERRL - ENT Exam ENT Exam: Mucous Membranes Moist - Neck Exam Neck Exam: Full ROM, Normal Inspection - Respiratory Exam Respiratory Exam: NORMAL BREATHING PATTERN - Extremities Exam Extremities Exam: absent: Calf Tenderness Additional comments: No focal motor deficits to the left side. Unable to move RUE 2/2 previous CVA; + weakness to RLE 2/2 previous CVA - Neurological Exam Neurological Exam: Alert, Awake Neuro motor strength exam: Left Upper Extremity: 5, Right Upper Extremity: 0 (distal 0/5), Left Lower Extremity: 5, Right Lower Extremity: 4 (distal 4/5) Additional comments: Pt has expressive aphasia with some slurred speech and slight right facial asymmetry 2/2 previous CVA. Unable to move RUE; weakness to the RLE 2/2 previous CVA. Still has neglect on/off to RUE 2/2 previous CVA No focal deficits to the left side. No tremors or abnormal movements. Hypereflexia to the right (from previous CVA). - Psychiatric Exam Psychiatric exam: Normal Affect, Normal Mood - Skin Skin Exam: Normal Color Assessment and Plan (1) New onset seizure Assessment & Plan: Imaging reviewed: -Brain MRI (09/03/18): No evidence of diffusion restriction to suggest acute or subacute infarction. No evidence of intracranial hemorrhage. Atrophy and chronic microvascular ischemic changes. 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 Small infarction in the right parietal lobe. -CT Head (09/01/18): Interval development of encephalomalacia noted within the left high frontal and left occipital parietal lobes. Patchy and confluent non- specific white matter changes. -Continue Keppra 500 mg Q12 while inpatient and upon d/c back to rehab. -Continue seizure precautions, secondary stroke prevention, and DVT ppx. -Continue PT/OT. -Notify neuro team of any acute changes in pt's condition. No further recommendations from a neurological standpoint. Reconsult prn. Thank you for this consultation. Juana Fuller, DNP, [employer]OR d/w Dr. Bush Status: Acute
--- NOTE | 2018-09-04 18:34 | CP.PCM.PN ---
Subjective - Date & Time of Evaluation Date of Evaluation: 09/04/18 Time of Evaluation: 08:00 - Subjective Subjective: IV antibiotics in progress afebrile'IN NAD weakness right side Objective - Vital Signs/Intake and Output Vital Signs (last 24 hours): Temp Pulse Resp BP Pulse Ox 97.4 F L 83 17 141/90 100 09/04/18 16:00 09/04/18 18:02 09/04/18 18:02 09/04/18 18:02 09/04/18 18:02 Intake and Output: 09/04/18 09/04/18 06:59 18:59 Intake Total 1776 1930 Output Total 900 0 Balance 876 1930 - Medications Medications: Current Medications Albuterol/Ipratropium (Duoneb 3 Mg/0.5 Mg (3 Ml) Ud) 3 ml INH RQ6 PRN PRN Reason: Shortness of Breath Aspirin (Ecotrin) 81 mg PO DAILY [facility] Last Admin: 09/04/18 09:54 Dose: 81 mg Dolutegravir Sodium (Tivicay) 50 mg PO DAILY [facility]; Protocol Last Admin: 09/04/18 10:30 Dose: 50 mg Duloxetine HCl (Cymbalta) 30 mg PO Q12 [facility] Last Admin: 09/04/18 09:54 Dose: 30 mg Emtricitabine/Tenofovir (Truvada 200 Mg-300 Mg) 1 tab PO DAILY [facility]; Protocol Last Admin: 09/04/18 10:30 Dose: 1 tab Enoxaparin Sodium (Lovenox) 40 mg SC DAILY [facility] Last Admin: 09/04/18 09:52 Dose: 40 mg Levetiracetam 500 mg/ Dextrose 105 mls @ 420 mls/hr IVPB Q12H [facility] Last Admin: 09/04/18 17:44 Dose: 420 mls/hr Aztreonam 1 gm/ Sodium (Chloride) 100 mls @ 200 mls/hr IVPB Q8H [facility]; Protocol Last Admin: 09/04/18 11:00 Dose: 200 mls/hr Vancomycin/Sodium Chloride (Vancomycin 1 Gm/Ns 200 Ml) 1 gm in 200 mls @ 133 mls/hr IVPB Q12H [facility]; Protocol Stop: 09/08/18 13:01 Last Admin: 09/04/18 13:18 Dose: 133 mls/hr Dextrose/Sodium Chloride (Dextrose 5%/0.9% Ns 1000 Ml) 1,000 mls @ 100 mls/hr IV .Q10H [facility] Last Admin: 09/04/18 06:38 Dose: 100 mls/hr Lorazepam (Ativan) 0.5 mg IVP ONCE PRN PRN Reason: Agitation Last Admin: 09/02/18 16:35 Dose: 0.5 mg Lorazepam (Ativan) 2 mg IVP ONCE PRN PRN Reason: Sedation Last Admin: 09/03/18 15:10 Dose: 2 mg Mupirocin (Bactroban 2% Nasal) 0.25 gm CARI BID [facility] Last Admin: 09/04/18 17:44 Dose: 0.25 gm Pantoprazole Sodium (Protonix Inj) 40 mg IVP DAILY [facility] Last Admin: 09/04/18 09:51 Dose: 40 mg Quetiapine Fumarate (Seroquel) 200 mg PO HS [facility] Last Admin: 09/03/18 22:22 Dose: 200 mg Rosuvastatin Calcium (Crestor) 5 mg PO [facility] Saccharomyces Boulardii (Florastor) 250 mg PO BID [facility] Last Admin: 09/04/18 17:57 Dose: 250 mg Sennosides (Senokot Tab) 8.6 mg PO DAILY [facility] Last Admin: 09/04/18 09:51 Dose: 8.6 mg - Labs Labs: 09/04/18 06:09 09/04/18 06:07 - Constitutional Appears: Non-toxic, Chronically Ill - Head Exam Head Exam: NORMOCEPHALIC - Eye Exam Eye Exam: absent: Scleral icterus Pupil Exam: NORMAL ACCOMODATION - ENT Exam ENT Exam: Mucous Membranes Dry - Respiratory Exam Respiratory Exam: Decreased Breath Sounds - Cardiovascular Exam Cardiovascular Exam: REGULAR RHYTHM - GI/Abdominal Exam GI & Abdominal Exam: Distended - Rectal Exam Rectal Exam: Deferred - Extremities Exam Extremities Exam: absent: Pedal Edema (x) - Back Exam Back Exam: absent: CVA tenderness (L), CVA tenderness (R), paraspinal tenderness - Neurological Exam Neurological Exam: Alert, Awake, Oriented x3 - Psychiatric Exam Psychiatric exam: Depressed - Skin Skin Exam: Dry Assessment and Plan (1) HIV (human immunodeficiency virus infection) Status: Acute (2) Hepatitis C Status: Acute (3) History of stroke with current residual effects Status: Acute (4) New onset seizure Status: Acute - Assessment and Plan (Free Text) Assessment: cuktures so far negative cont IV antibiotics await T cells neuro follow up
[2018-09-05] MEDS: Vancomycin 1 gm/NS 200 ml 1 GM/200 ML BAG IVPB SCH (00:25)
[2018-09-05] MEDS: Aztreonam 1 GM in Sodium Chloride 0.9% 100 ML IVPB SCH ×2 (03:00→11:43)
[2018-09-05 07:03] LABS: BASO % 0.8 % (0.0-2.0); EOS # 0.2 K/uL (0.0-0.7); EOS % 6.6 % (0.0-4.0); HEMOGLOBIN 12.3 g/dL (11.0-16.0); LYMPH # 0.8 K/uL (1.0-4.3); LYMPH % 21.3 % (20.0-40.0); MEAN CELL VOLUME 86.9 fL (81.0-99.0); MEAN CORPUSCULAR HEMOGLOBIN 29.3 pg (27.0-31.0); MEAN CORPUSCULAR HGB CONC 33.7 g/dL (33.0-37.0); MEAN PLATELET VOLUME 8.9 fL (7.2-11.7); MONO # 0.2 K/uL (0.0-0.8); MONO % 6.8 % (0.0-10.0); NEUT # 2.4 K/uL (1.8-7.0); NEUT % 64.5 % (50.0-75.0); RBC 4.2 Mil/uL (3.80-5.20); RED CELL DISTRIBUTION WIDTH 13.7 % (11.5-14.5); WHITE BLOOD COUNT 3.7 K/uL (4.8-10.8)
[2018-09-05] MEDS ORDERED: Potassium Chloride 20 mEq ER Tab PO SCH (08:00)
[2018-09-05 08:08] LABS: ALBUMIN 3.3 g/dL (3.5-5.0); ALT/SGPT 15 U/L (9-52); AST/SGOT 19 U/L (14-36); BLOOD UREA NITROGEN 5 mg/dL (7-17); CALCIUM 8.8 mg/dl (8.6-10.4); GFR NON-AFRICAN AMERICAN > 60
[2018-09-05] MEDS: Enoxaparin 40 mg Syringe SC SCH (09:15)
[2018-09-05] MEDS: Emtricitabine-Tenofovir 200 mg-300 mg Tab PO SCH (09:16)
[2018-09-05] MEDS: Saccharomyces Boulardi 250 mg Cap PO SCH ×2 (09:19→17:06)
[2018-09-05] MEDS: Dextrose 5%/0.9% NS 1,000 ML IV SCH (09:20)
[2018-09-05] MEDS: Mupirocin 2% Ointment (NASAL) NAS SCH ×2 (09:32→17:06)
--- NOTE | 2018-09-05 12:37 | CP.PCM.PN ---
Subjective - Date & Time of Evaluation Date of Evaluation: 09/05/18 Time of Evaluation: 12:30 - Subjective Subjective: Medical Attending Note: Patient seen and examined this afternoon. Patient reports "i have more control" the speech broken but coherent. Patient unable to move right arm. Patient appears pleasant and happy denies other acute complaints. Patient has not had a bowel movement. pending venous doppler over right upper extremity Objective - Vital Signs/Intake and Output Vital Signs (last 24 hours): Temp Pulse Resp BP Pulse Ox 97.2 F L 76 16 114/45 L 89 L 09/05/18 08:00 09/05/18 11:00 09/05/18 11:00 09/05/18 10:08 09/05/18 11:00 Intake and Output: 09/05/18 09/05/18 06:59 18:59 Intake Total 1650 750 Output Total 2350 1350 Balance -700 -600 - Medications Medications: Current Medications Albuterol/Ipratropium (Duoneb 3 Mg/0.5 Mg (3 Ml) Ud) 3 ml INH RQ6 PRN PRN Reason: Shortness of Breath Aspirin (Ecotrin) 81 mg PO DAILY [facility] Last Admin: 09/05/18 09:19 Dose: 81 mg Dolutegravir Sodium (Tivicay) 50 mg PO DAILY [facility]; Protocol Last Admin: 09/05/18 09:17 Dose: 50 mg Duloxetine HCl (Cymbalta) 30 mg PO Q12 [facility] Last Admin: 09/05/18 09:17 Dose: 30 mg Emtricitabine/Tenofovir (Truvada 200 Mg-300 Mg) 1 tab PO DAILY [facility]; Protocol Last Admin: 09/05/18 09:16 Dose: 1 tab Enoxaparin Sodium (Lovenox) 40 mg SC DAILY [facility] Last Admin: 09/05/18 09:15 Dose: 40 mg Levetiracetam 500 mg/ Dextrose 105 mls @ 420 mls/hr IVPB Q12H [facility] Last Admin: 09/05/18 06:30 Dose: 420 mls/hr Aztreonam 1 gm/ Sodium (Chloride) 100 mls @ 200 mls/hr IVPB Q8H [facility]; Protocol Last Admin: 09/05/18 11:43 Dose: 200 mls/hr Vancomycin/Sodium Chloride (Vancomycin 1 Gm/Ns 200 Ml) 1 gm in 200 mls @ 133 mls/hr IVPB Q12H [facility]; Protocol Stop: 09/08/18 13:01 Last Admin: 09/05/18 00:25 Dose: 133 mls/hr Dextrose/Sodium Chloride (Dextrose 5%/0.9% Ns 1000 Ml) 1,000 mls @ 100 mls/hr IV .Q10H [facility] Last Admin: 09/05/18 09:20 Dose: 100 mls/hr Lorazepam (Ativan) 0.5 mg IVP ONCE PRN PRN Reason: Agitation Last Admin: 09/02/18 16:35 Dose: 0.5 mg Lorazepam (Ativan) 2 mg IVP ONCE PRN PRN Reason: Sedation Last Admin: 09/03/18 15:10 Dose: 2 mg Mupirocin (Bactroban 2% Nasal) 0.25 gm CARI BID [facility] Last Admin: 09/05/18 09:32 Dose: 0.25 gm Pantoprazole Sodium (Protonix Inj) 40 mg IVP DAILY [facility] Last Admin: 09/05/18 09:15 Dose: 40 mg Quetiapine Fumarate (Seroquel) 200 mg PO HS [facility] Last Admin: 09/04/18 21:43 Dose: 200 mg Rosuvastatin Calcium (Crestor) 5 mg PO [facility] Last Admin: 09/04/18 21:43 Dose: 5 mg Saccharomyces Boulardii (Florastor) 250 mg PO BID [facility] Last Admin: 09/05/18 09:19 Dose: 250 mg Sennosides (Senokot Tab) 8.6 mg PO DAILY [facility] Last Admin: 09/05/18 09:15 Dose: 8.6 mg - Labs Labs: 09/05/18 07:00 09/05/18 07:00 - Constitutional Appears: Non-toxic, No Acute Distress - Head Exam Head Exam: NORMAL INSPECTION - Eye Exam Eye Exam: EOMI - ENT Exam ENT Exam: Mucous Membranes Moist - Respiratory Exam Respiratory Exam: Decreased Breath Sounds, NORMAL BREATHING PATTERN. absent: Rales, Rhonchi, Wheezes, Stridor - Cardiovascular Exam Cardiovascular Exam: REGULAR RHYTHM, +S1, +S2 - GI/Abdominal Exam GI & Abdominal Exam: Soft, Normal Bowel Sounds. absent: Distended, Firm, Gua rding, Rigid, Tenderness, Rebound - Extremities Exam Extremities Exam: absent: Pedal Edema, Tenderness - Neurological Exam Neurological Exam: Alert, Awake, Oriented x3 Neuro motor strength exam: Left Upper Extremity: 5, Right Upper Extremity: 0, Left Lower Extremity: 5, Right Lower Extremity: 2/1 - Psychiatric Exam Psychiatric exam: Normal Affect, Normal Mood - Skin Skin Exam: Dry, Normal Color, Warm Assessment and Plan (1) New onset seizure Status: Resolved (2) Pneumonia Status: Acute (3) History of stroke with current residual effects Status: Chronic (4) HIV (human immunodeficiency virus infection) Status: Chronic (5) Hepatitis C Status: Chronic (6) Cerebrovascular accident (CVA) with right hemiparesis Status: Chronic (7) HIV (human immunodeficiency virus infection) Status: Chronic (8) MRSA (methicillin resistant Staphylococcus aureus) carrier Status: Chronic (9) Constipation Status: Acute (10) Prophylactic measure Status: Acute Attending/Attestation - Attestation I have personally seen and examined this patient.: Yes I have fully participated in the care of the patient.: Yes I have reviewed all pertinent clinical information, including history, physical exam and plan: Yes Notes (Text): 1) Seizure disorder, new onset Assessment/Plan * observed on icu * video eeg completed * UDS: positive for benzo * On admission, patient given phentyoin 1g at 3PM on 09/01/18 * Patient is on Keppra 500mg IVPB Q12H * Neurology on consult help appreciated * CT head (09/01/18): interval development of encephalomalacia noted within the left high frontol and left occipatal parietal lobes, patchy and confluent nonspecific white matter changes * MRI (04/2018): interval hemorrhagic transformation of subacute infarction in the left posterior centrum semiovale. interval evolution of subacute b/l MCA DOUGH [place] watershed terriotities and left deep white batter border zone territory and small subacute infarction in posterior limb of the left interval capsule. * Had prior modifed barium swallow in apr 2018 when hospitalized for the stroke * Brain MRI September 03, 2018. No evidence of diffusion restriction to suggest acute or subacute infarction. No evidence of intracranial hemorrhage. Atrophy and chronic microvascular ischemic changes. Foci of encephalomalacia in the left cerebral hemisphere suggestive of infarction. Small infarction of the right parietal lobe. 2) History of CVA with right sided residual weakness (noted hemorrhagic conversion in apr 2018) Assessment/Plan * Apr 2018 hospitalization noted hemorrhagic conversion * Neurology on consult * CT head (09/01/18): interval development of encephalomalacia noted within the left high frontol and left occipatal parietal lobes, patchy and confluent nonspecific white matter changes * MRI (04/2018): interval hemorrhagic transformation of subacute infarction in the left posterior centrum semiovale. interval evolution of subacute b/l MCA [place] watershed terriotities and left deep white batter border zone territory and small subacute infarction in posterior limb of the left interval capsule. * Had prior modifed barium swallow in apr 2018 when hospitalized for the stroke * unable to complete Brain MRI in spite of Ativan 4mg 09/02/18; * Brain MRI September 03, 2018. No evidence of diffusion restriction to suggest acute or subacute infarction. No evidence of intracranial hemorrhage. Atrophy and chronic microvascular ischemic changes. Foci of encephalomalacia in the left cerebral hemisphere suggestive of infarction. Small infarction of the right parietal lobe. * Aspirin 81mg PO daily * Crestor 5mg POqHS * PT/OT on board * Prior A1c 5.7 from April 15, 2018, the same on repeat * Prior lipid panel triglycerides 142, cholesterol 135, LDL 54, HDL 39 * New Lipid panel: 47 TG, 86 chol, 42 LDL, 35 HDL * Echocardiogram (04/11/18): ejection fraction: 55-60%, right ventricle is mildly dilated. IVC dilated in size and collapses <50% with inspiration 3) History of HIV Assessment/Plan * Prior HAART therapy (2018-->Tivicay 50mg daily and Truvada 200mg-300mg daily * CD 4 count 413 per 05/03/18; HIV 1 RNA not detected * repeat HIV 1 RNA 1.32--->will need to make sure patient continues her HIV meds on discharge 4) Chronic Hepatitis C Assessment/Plan * Ammonia is normal * unclear if patient has been treated or not;discussed with ID, she has not been treated; she will need to follow-up 5) Bipolar Disorder Depression Paranoia Personality Disorder Assessment/Plan * Seroquel 200mg POHS * Cymbalta 30mg POBID 6) Hypokalemia Assessment/Plan * repleted 7)Healthcare Associated Pneumonia elevated procalcitonin Assessment/Plan * Allergy PCN * Previous hospitalization in Apr 2018 and prior october in 2017 for pneumonia * Chest xray (09/03/18): patchy nodular consolidation at the left lung ba * Aztreonam 1gm IVPB Q8H (active since 09/03/18) to stop today * Vancomycin 1 gram IVPB Q12H (started 09/03/18) to stop today * Discussed with ID, will switch to Avelox 400mg PO daily for 7 days to complete course (09/06/18-09/13/18) * Florastor 250mg PO BID * Duoneb PRN shortness of breathe * Procalcitonin: 0.52-->0.44 * Blood cultures (09/03/18): no growth for 48 hours X2 * Blood culture (09/03/18): no growth for 48 hours X2 8) Constipation Assessment/Plan * Has not eaten much since admission; started diet * Placed on Senna monitor for bowel movement 09/04/18 * Give Lactulose today 9) Right arm swelling Assessment/Plan * note paralysis of right upper extremity * ordered for venous doppler of right upper extremity * noted by nurse swelling from recent IV infiltration 10) Impaired glucose tolerance Assessment/Plan * a1c: 5.7 11) MRSA in Nares Assessment/Plan * Contact isolation * Bactroban 0.25gm CARI BID on 09/04/18 12) Prophylactic measure * seizure precautions * aspiration precautions * Protonix 40mg IV q daily switched to pepcid 20mg PO BID * SCDS * Lovenox 40mg Ivq daily * PT/OT eval * Florastor 250mg PO BID * Social/case management plan for [facility] care Disposition: patient stabilized to the med/surgery floor from ICU. pending venous doppler. Will need to convert IV abx to PO to cover for pneumonia; and if doppler is negative for acute findings will plan to discharge the patient. patient has not had a bowel movement; will add laculose today.
[2018-09-05] MEDS ORDERED: Vancomycin 1 gm/NS 200 ml 1 GM/200 ML BAG IVPB ONE (13:00)
--- NOTE | 2018-09-05 18:34 | CP.PCM.PN ---
Subjective - Date & Time of Evaluation Date of Evaluation: 09/05/18 Time of Evaluation: 08:00 - Subjective Subjective: seen on rounds has swelling RUE venous doppler pending denies chest pain Objective - Vital Signs/Intake and Output Vital Signs (last 24 hours): Temp Pulse Resp BP Pulse Ox 97.8 F 81 11 L 156/83 H 100 09/05/18 16:00 09/05/18 18:00 09/05/18 18:00 09/05/18 16:41 09/05/18 18:00 Intake and Output: 09/05/18 09/05/18 06:59 18:59 Intake Total 1650 1425 Output Total 2350 1550 Balance -700 -125 - Medications Medications: Current Medications Albuterol/Ipratropium (Duoneb 3 Mg/0.5 Mg (3 Ml) Ud) 3 ml INH RQ6 PRN PRN Reason: Shortness of Breath Amlodipine Besylate (Norvasc) 5 mg PO DAILY [facility] Last Admin: 09/05/18 17:40 Dose: 5 mg Aspirin (Ecotrin) 81 mg PO DAILY [facility] Last Admin: 09/05/18 09:19 Dose: 81 mg Dolutegravir Sodium (Tivicay) 50 mg PO DAILY [facility]; Protocol Last Admin: 09/05/18 09:17 Dose: 50 mg Duloxetine HCl (Cymbalta) 30 mg PO Q12 [facility] Last Admin: 09/05/18 09:17 Dose: 30 mg Emtricitabine/Tenofovir (Truvada 200 Mg-300 Mg) 1 tab PO DAILY [facility]; Protocol Last Admin: 09/05/18 09:16 Dose: 1 tab Enoxaparin Sodium (Lovenox) 40 mg SC DAILY [facility] Last Admin: 09/05/18 09:15 Dose: 40 mg Famotidine (Pepcid) 20 mg PO BID [facility] Last Admin: 09/05/18 17:06 Dose: 20 mg Levetiracetam 500 mg/ Dextrose 105 mls @ 420 mls/hr IVPB Q12H [facility] Last Admin: 09/05/18 17:38 Dose: 420 mls/hr Lorazepam (Ativan) 0.5 mg IVP ONCE PRN PRN Reason: Agitation Last Admin: 09/02/18 16:35 Dose: 0.5 mg Lorazepam (Ativan) 2 mg IVP ONCE PRN PRN Reason: Sedation Last Admin: 09/03/18 15:10 Dose: 2 mg Moxifloxacin HCl (Avelox) 400 mg PO DAILY [facility]; Protocol Stop: 09/13/18 10:01 Mupirocin (Bactroban 2% Nasal) 0.25 gm CARI BID [facility] Last Admin: 09/05/18 17:06 Dose: 0.25 gm Quetiapine Fumarate (Seroquel) 200 mg PO [facility] Last Admin: 09/04/18 21:43 Dose: 200 mg Rosuvastatin Calcium (Crestor) 5 mg PO HS [facility] Last Admin: 09/04/18 21:43 Dose: 5 mg Saccharomyces Boulardii (Florastor) 250 mg PO BID [facility] Last Admin: 09/05/18 17:06 Dose: 250 mg Sennosides (Senokot Tab) 8.6 mg PO DAILY [facility] Last Admin: 09/05/18 09:15 Dose: 8.6 mg - Labs Labs: 09/05/18 07:00 09/05/18 07:00 - Constitutional Appears: Non-toxic, Chronically Ill - Head Exam Head Exam: NORMOCEPHALIC (x) - Eye Exam Eye Exam: absent: Scleral icterus Pupil Exam: NORMAL ACCOMODATION - ENT Exam ENT Exam: Mucous Membranes Dry - Neck Exam Neck Exam: absent: Lymphadenopathy - Respiratory Exam Respiratory Exam: Decreased Breath Sounds (x) - Cardiovascular Exam Cardiovascular Exam: REGULAR RHYTHM - GI/Abdominal Exam GI & Abdominal Exam: Distended, Soft - Rectal Exam Rectal Exam: Deferred - Exam Exam: NORMAL INSPECTION - Extremities Exam Extremities Exam: absent: Pedal Edema - Back Exam Back Exam: absent: CVA tenderness (L), CVA tenderness (R) - Neurological Exam Neurological Exam: Alert, Awake Neuro motor strength exam: Left Upper Extremity: 4, Right Upper Extremity: 2/1, Left Lower Extremity: 4, Right Lower Extremity: 2/1 - Psychiatric Exam Psychiatric exam: Depressed - Skin Skin Exam: Dry Assessment and Plan (1) HIV (human immunodeficiency virus infection) Status: Chronic (2) Hepatitis C Status: Chronic (3) History of stroke with current residual effects Status: Chronic (4) New onset seizure Status: Resolved (5) DVT (deep venous thrombosis) Status: Acute - Assessment and Plan (Free Text) Assessment: cont IV rx for pneumonia venous doppler- eliquis started neuro eval and follow up
--- NOTE | 2018-09-05 22:29 | VASCLAB ---
Date of service: 09/05/2018 PROCEDURE: Right Upper Extremity Venous Duplex Exam HISTORY: swelling right upper extremity PRIORS: None. TECHNIQUE: Right upper extremity, internal jugular, subclavian, axillary, brachial, ulnar, radial, basilic and upper cephalic veins were evaluated. Flow was assessed with color Doppler, compressibility, assessment of phasic flow and augmentation response. Report prepared by Glenn Priest, NOMI, RVT FINDINGS: RIGHT: 1. Internal Jugular: 1.1. Compressibility - Fully compressible: Thrombus - None : Flow - Phasic: Augmentation -Normal: Reflux - None. 2. Subclavian: 2.1. Compressibility - Partial: Thrombus - Chronic : Flow - Reduced : Augmentation -Reduced: Reflux - None. 3. Axillary: 3.1. Compressibility - Fully compressible: Thrombus - None : Flow - Phasic: Augmentation -Normal: Reflux - None. 4. Brachial: 4.1. Compressibility - Fully compressible: Thrombus - None: Flow - Phasic: Augmentation -Normal: Reflux - None. 5. Ulnar: 5.1. Compressibility - Fully compressible: Thrombus - None: Flow - Phasic: Augmentation -Normal: Reflux - None. 6. Radial: 6.1. Compressibility - Fully compressible: Thrombus - None: Flow - Phasic: Augmentation - Normal: Reflux - None. 7. Cephalic: 7.1. Compressibility - Fully compressible: Thrombus - None: Flow - Phasic: Augmentation -Normal: Reflux - None. 8. Basilic: 8.1. Compressibility - Fully compressible: Thrombus - None: Flow - Phasic: Augmentation -Normal: Reflux - None. OTHER FINDINGS: SAUMYA Sanchez notified about the findings. 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 Normal venous flow noted in the left internal jugular and left subclavian veins.
--- NOTE | 2018-09-05 22:44 | CP.PCM.PCO ---
Addendum Addendum: 09/05/18 22:42 RUE DVT found on doppler, Notified Neuro, Starting Eliquis 2.5mg BID CK PGY1
[2018-09-06 06:08] LABS: BASO % 0.9 % (0.0-2.0); EOS # 0.3 K/uL (0.0-0.7); EOS % 5.7 % (0.0-4.0); HEMOGLOBIN 12.6 g/dL (11.0-16.0); LYMPH % 22.3 % (20.0-40.0); MEAN CELL VOLUME 86.3 fL (81.0-99.0); MEAN CORPUSCULAR HEMOGLOBIN 29.5 pg (27.0-31.0); MEAN CORPUSCULAR HGB CONC 34.1 g/dL (33.0-37.0); MEAN PLATELET VOLUME 9.6 fL (7.2-11.7); MONO # 0.3 K/uL (0.0-0.8); MONO % 6.9 % (0.0-10.0); NEUT # 2.9 K/uL (1.8-7.0); NEUT % 64.2 % (50.0-75.0); NRBC % 0.1 % (0.0-2.0); RBC 4.28 Mil/uL (3.80-5.20); RED CELL DISTRIBUTION WIDTH 14.2 % (11.5-14.5); WHITE BLOOD COUNT 4.5 K/uL (4.8-10.8)
[2018-09-06 06:43] LABS: ALB/GLOB RATIO 1.2 (1.0-2.1); ALBUMIN 3.7 g/dL (3.5-5.0); ALT/SGPT 17 U/L (9-52); AST/SGOT 27 U/L (14-36); BLOOD UREA NITROGEN 10 mg/dL (7-17); CALCIUM 8.7 mg/dl (8.6-10.4); GFR NON-AFRICAN AMERICAN > 60
[2018-09-06 07:32] VITALS: RESP 20; O2SAT 98
[2018-09-06] MEDS: Mupirocin 2% Ointment (NASAL) NAS SCH ×2 (11:01→18:22)
[2018-09-06] MEDS: Emtricitabine-Tenofovir 200 mg-300 mg Tab PO SCH (11:02)
[2018-09-06] MEDS: Saccharomyces Boulardi 250 mg Cap PO SCH ×2 (11:02→18:22)
[2018-09-06 15:28] VITALS: BP 113/72; PULSE 79; TEMP 9802
--- NOTE | 2018-09-06 17:24 | CP.PCM.DIS ---
Provider - Provider Date of Admission: 09/01/18 16:48 Attending physician: Tamy Quintanilla DO Consults: 09/01/18 16:22 Physician Consult Stat Comment: new onset seizures Consulting Provider: Deedee Bush Consulting Physician: Deedee Bush Reason for Consult: neurology Additional Comments: call placed - no answer, mailbox full 09/02/18 07:31 Physician Consult Routine Comment: Consulting Provider: Deedee Bush Consulting Physician: Deedee Bush Reason for Consult: seizure disorder 09/02/18 09:49 Infectious Disease Consult Routine Comment: known hx of hiv and hep C Consulting Provider: Glenn Wright Consulting Physician: Glenn Wright Reason for Consult: hiv, hepatitis C 09/02/18 12:22 Wound Care [Nursing Referral for Wound Care] Routine Comment: Physician Instructions: Reason For Exam: reassess skin at left back side region/other 09/04/18 09:22 Supervisor Screen Printing [Case Management Referral] Routine Comment: patient's mother admitted in [place] Physician Instructions: Reason For Exam: watermelon inspector placement Reason for Referral: Discharge Planning Time Spent in preparation of Discharge (in minutes): 45 Hospital Course - Lab Results Lab Results: Micro Results 09/03/18 11:55 Blood Blood Culture - Preliminary NO GROWTH AFTER 3 DAYS 09/03/18 10:50 Blood Blood Culture - Preliminary NO GROWTH AFTER 3 DAYS 09/03/18 02:49 Blood-Venous Blood Culture - Preliminary NO GROWTH AFTER 3 DAYS 09/03/18 02:49 Blood-Venous Blood Culture - Preliminary NO GROWTH AFTER 3 DAYS 09/01/18 18:15 Naris MRSA Culture (Admit) - Final MRSA DETECTED Most Recent Lab Values WBC 4.5 K/uL (4.8-10.8) L 09/06/18 06:00 RBC 4.28 Mil/uL (3.80-5.20) 09/06/18 06:00 Hgb 12.6 g/dL (11.0-16.0) 09/06/18 06:00 Hct 36.9 % (34.0-47.0) 09/06/18 06:00 MCV 86.3 fL (81.0-99.0) 09/06/18 06:00 MCH 29.5 pg (27.0-31.0) 09/06/18 06:00 MCHC 34.1 g/dL (33.0-37.0) 09/06/18 06:00 RDW 14.2 % (11.5-14.5) 09/06/18 06:00 Plt Count 164 K/uL (130-400) 09/06/18 06:00 MPV 9.6 fL (7.2-11.7) 09/06/18 06:00 Neut % (Auto) 64.2 % (50.0-75.0) 09/06/18 06:00 Lymph % (Auto) 22.3 % (20.0-40.0) 09/06/18 06:00 [place] % (Auto) 6.9 % (0.0-10.0) 09/06/18 06:00 Eos % (Auto) 5.7 % (0.0-4.0) H 09/06/18 06:00 Baso % (Auto) 0.9 % (0.0-2.0) 09/06/18 06:00 Neut # (Auto) 2.9 K/uL (1.8-7.0) 09/06/18 06:00 Lymph # (Auto) 1.0 K/uL (1.0-4.3) 09/06/18 06:00 [place] # (Auto) 0.3 K/uL (0.0-0.8) 09/06/18 06:00 Eos # (Auto) 0.3 K/uL (0.0-0.7) 09/06/18 06:00 Baso # (Auto) 0.0 K/uL (0.0-0.2) 09/06/18 06:00 Puncture Site Rradial 09/01/18 18:00 pCO2 41 mm/Hg (35-45) 09/01/18 18:00 pO2 77 mm/Hg (80-100) L 09/01/18 18:00 HCO3 23.7 mmol/L (21-28) 09/01/18 18:00 ABG pH 7.37 (7.35-7.45) 09/01/18 18:00 ABG Total CO2 25.0 mmol/L (22-28) 09/01/18 18:00 ABG O2 Saturation 96.6 % (95-98) 09/01/18 18:00 ABG Base Excess -1.5 mmol/L (-2.0-3.0) 09/01/18 18:00 Abundio Test Pos 09/01/18 18:00 ABG Potassium 2.9 mmol/L (3.6-5.2) L 09/01/18 18:00 A-a O2 Difference 71.0 mm/Hg 09/01/18 18:00 Respiratory Index 0.9 09/01/18 18:00 Sodium 144.0 mmol/l (132-148) 09/01/18 18:00 Chloride 112.0 mmol/L (98-107) H 09/01/18 18:00 Glucose 140 mg/dl (65-105) H 09/01/18 18:00 Lactate 0.8 mmol/L (0.7-2.1) 09/01/18 18:00 Liter Flow 2.0 09/01/18 18:00 FiO2 28.0 % 09/01/18 18:00 Sodium 140 mmol/L (132-148) 09/06/18 06:00 Potassium 3.6 mmol/L (3.6-5.2) 09/06/18 06:00 Chloride 105 mmol/L (98-107) 09/06/18 06:00 Carbon Dioxide 27 mmol/L (22-30) 09/06/18 06:00 Anion Gap 12 (10-20) 09/06/18 06:00 BUN 10 mg/dL (7-17) 09/06/18 06:00 Creatinine 0.6 mg/dL (0.7-1.2) L 09/06/18 06:00 Est GFR ( Amer) > 60 09/06/18 06:00 Est GFR (Non-Af Amer) > 60 09/06/18 06:00 POC Glucose (mg/dL) 83 mg/dL (65-110) 09/06/18 15:54 Random Glucose 86 mg/dL (65-105) 09/06/18 06:00 Hemoglobin A1c 5.7 % (4.2-6.5) 09/04/18 09:33 Calcium 8.7 mg/dl (8.6-10.4) 09/06/18 06:00 Phosphorus 3.3 mg/dL (2.5-4.5) 09/06/18 06:00 Magnesium 1.8 mg/dL (1.6-2.3) 09/06/18 06:00 Total Bilirubin 0.3 mg/dL (0.2-1.3) 09/06/18 06:00 AST 27 U/L (14-36) 09/06/18 06:00 ALT 17 U/L (9-52) 09/06/18 06:00 Alkaline Phosphatase 73 U/L (38-126) 09/06/18 06:00 Ammonia 26 umol/L (9-33) 09/01/18 16:22 CK-MB (Mass) < 0.22 ng/mL (0.0-3.38) 09/01/18 17:25 Total Protein 6.8 g/dL (6.3-8.3) 09/06/18 06:00 Albumin 3.7 g/dL (3.5-5.0) 09/06/18 06:00 Globulin 3.1 gm/dL (2.2-3.9) 09/06/18 06:00 Albumin/Globulin Ratio 1.2 (1.0-2.1) 09/06/18 06:00 Triglycerides 47 mg/dL (0-149) 09/04/18 06:07 Cholesterol 86 mg/dL (0-199) 09/04/18 06:07 LDL Cholesterol Direct 42 mg/dL (0-129) 09/04/18 06:07 HDL Cholesterol 35 mg/dL (30-70) 09/04/18 06:07 Angiotensin Convert Enz 32 U/L (9-67) 09/03/18 06:45 Procalcitonin 0.44 NG/ML (0.19-0.49) 09/03/18 02:47 Beta HCG, Quant < 2.39 mIU/ML 09/03/18 05:50 Arterial Blood Potassium 2.9 mmol/L (3.6-5.2) L 09/01/18 18:00 Urine Color Straw (YELLOW) 09/01/18 21:07 Urine Clarity Clear (Clear) 09/01/18 21:07 Urine pH 8.0 (5.0-8.0) 09/01/18 21:07 Ur Specific [place] 1.006 (1.003-1.030) 09/01/18 21:07 Urine Protein Negative mg/dL (NEGATIVE) 09/01/18 21:07 Urine Glucose (UA) 1+ mg/dL (Normal) 09/01/18 21:07 Urine Ketones Negative mg/dL (NEGATIVE) 09/01/18 21:07 Urine Blood Negative (NEGATIVE) 09/01/18 21:07 Urine Nitrate Negative (NEGATIVE) 09/01/18 21:07 Urine Bilirubin Negative (NEGATIVE) 09/01/18 21:07 Urine Urobilinogen Normal mg/dL (0.2-1.0) 09/01/18 21:07 Ur Leukocyte Esterase Neg Juanita/uL (Negative) 09/01/18 21:07 Urine WBC (Auto) < 1 /hpf (0-5) 09/01/18 21:07 Urine RBC (Auto) 2 /hpf (0-3) 09/01/18 21:07 Urine Bacteria Occ (<OCC) H 09/01/18 21:07 Urine HCG, Qual Negative (NEGATIVE) 09/01/18 21:07 Vancomycin Trough 13.2 ug/mL (5.0-10.0) H 09/05/18 00:18 Opiates (GC/MS) negative 09/01/18 18:45 Urine Opiates Screen Negative (NEGATIVE) 09/01/18 21:07 Ur Opiates (GC/MS) Negative 300 (Negative) 09/01/18 08:06 Methadone (GC/MS) negative 09/01/18 18:45 Urine Methadone Screen Negative (NEGATIVE) 09/01/18 21:07 Ur Methadone, Qual Negative 300 (Negative) 09/01/18 08:06 Propoxyphenes negative 09/01/18 18:45 Urine Propoxyphene Negative 300 (Negative) 09/01/18 08:06 Methaqualone Negative 300 (Negative) 09/01/18 08:06 Barbiturates negative 09/01/18 18:45 Ur Barbiturates Screen Negative (NEGATIVE) 09/01/18 21:07 Ur Barbiturates, Qual Negative 300 (Negative) 09/01/18 08:06 Phencyclidine (PCP) negative 09/01/18 18:45 Ur Phencyclidine Scrn Negative (NEGATIVE) 09/01/18 21:07 Ur Phencyclidine (PCP) Negative 25 (Negative) 09/01/18 08:06 Amphetamines negative 09/01/18 18:45 Ur Amphetamines Screen Negative (NEGATIVE) 09/01/18 21:07 U [id number] Conf Negative 100 (Negative) 09/01/18 08:06 Benzodiazepines negative 09/01/18 18:45 U Benzodiazepines Scrn Positive (NEGATIVE) 09/01/18 21:07 U Benzodiazepines Qual Positive 300 (Negative) H 09/01/18 08:06 Ur Nordiazepam Confirm Negative 100 (Negative) 09/01/18 08:06 Ur Oxazepam Confirm Negative 100 (Negative) 09/01/18 08:06 Cocaine & Metabolite negative 09/01/18 18:45 Urine Cocaine Negative 300 (Negative) 09/01/18 08:06 U Oth Cocaine Metabols Negative (NEGATIVE) 09/01/18 21:07 U Cannabinoids Screen Negative (NEGATIVE) 09/01/18 21:07 Marijuana negative 09/01/18 18:45 U Marijuana (THC) Screen Negative 50 (Negative) 09/01/18 08:06 Ur Drug Screen Comment See note 09/01/18 08:06 Drugs of Abuse Note See note 09/01/18 08:06 Drugs of Abuse Comment See note 09/01/18 18:45 Absolute Lymphs (Flow) 971 Cells/mcL (850-3900) 09/02/18 06:17 % CD4 Cells 25 Percent (30-61) L 09/02/18 06:17 Absolute CD4 Count 243 Cells/mcL (490-1740) L 09/02/18 06:17 T-Help/Suppress Ratio 0.42 Ratio (0.86-5.00) L 09/02/18 06:17 % CD8 Cells 59 Percent (12-42) H 09/02/18 06:17 Absolute CD8 Count 577 Cells/mcL (180-1170) 09/02/18 06:17 RPR Nonreactive (NONREACTIVE) 09/03/18 05:50 Hepatitis C Antibody Reactive (Non Reactive) H 09/04/18 15:14 Hep C Ab Signal/Cutoff 29.7 (<1.0) H 09/04/18 15:14 HIV-1 Antibody (EIA) Positive (Negative) H 09/03/18 05:50 HIV-1 RNA Qnt (RT-PCR) 1.32 (Not Detected) H 09/03/18 09:17 HIV-2 Antibody (EIA) Negative (Negative) 09/03/18 05:50 HIV 1&2 Antibody Screen Reactive (NEGATIVE) 09/03/18 05:50 HIV 1&2 Antibody Reactive (Nonreactive) H 09/03/18 05:50 - Hospital Course Hospital Course: HPI Patient is a 57 yo female with 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 Patient is aphasic at baseline, so all information is obtained from medical record. Patient was observed having tonic- clonic seizures at her senior living. A seizure was witnessed by EMS, and patient was given Versed in the field. She was given Phenytoin in the ED. Patient does not have a known seizure disorder; however, she recently had a CVA in April of this year. Hospital Course Pt with hx seizures and residual right-sided weakness was found to have new- onset seizures. Entire stroke work up was negative for acute pathology including MRI brain and CTA h/n. Echo was grossly normal as well. For seizures, patient has been started on Keppra IV BID, per Neurology, Dr. Bush. Patient was cleared for discharge per primary team. Prior to discharge she was diagnosed with a provoked RUE DVT 2/2 LE immobility. Patient started on eliquis 2.5 mg BID - prophylactic dose for patients with DVT risk factors, per Heme/Onc, Dr. Leon. Please note this is just a summary of the events of this hospitalization. For details please see complete medical records. Discharge Exam - Head Exam Head Exam: NORMOCEPHALIC (x) Discharge Plan - Discharge Medications Prescriptions: amLODIPine [Norvasc] 5 mg PO DAILY #30 tab Apixaban [Eliquis] 2.5 mg PO BID #30 tab Aspirin [Ecotrin] 81 mg PO DAILY #30 tabec Levetiracetam [Keppra] 500 mg PO BID 60 Days tablet Moxifloxacin [Avelox] 400 mg PO DAILY #7 tab - Follow Up Plan Condition: GOOD Disposition: HOME/ ROUTINE Instructions: Methicillin-Resistant Staphylococcus aureus (MRSA), Moxifloxacin (Systemic), Seizures, Adult (DC), Pneumonia, Adult (DC), Aspirin, Levetiracetam Additional Instructions: Patient is medically stable for discharge. Patient is on Eliquis for prophylaxis for future clots given the provoked subclavian dvt in right upper arm. patient to continue Avelox 400mg PO daily for 6 more days to complete 7 day course to cover for pneumonia Patient should followup with infectious disease for HIV management, hepatitis C treatment and resolution of pneumonia. Referrals: Glenn Wright MD [Staff Provider] - Deedee Bush MD [Staff Provider] -
--- NOTE | 2018-09-06 18:19 | CP.PCM.PN ---
Subjective - Date & Time of Evaluation Date of Evaluation: 09/06/18 Time of Evaluation: 07:00 - Subjective Subjective: right arm swelling less no fever less pain Objective - Vital Signs/Intake and Output Vital Signs (last 24 hours): Temp Pulse Resp BP Pulse Ox 9802 F H 79 20 113/72 98 09/06/18 15:00 09/06/18 15:00 09/06/18 15:00 09/06/18 15:00 09/06/18 15:00 Intake and Output: 09/06/18 09/06/18 06:59 18:59 Intake Total 40 Output Total 700 800 Balance -660 -800 - Medications Medications: Current Medications Albuterol/Ipratropium (Duoneb 3 Mg/0.5 Mg (3 Ml) Ud) 3 ml INH RQ6 PRN PRN Reason: Shortness of Breath Amlodipine Besylate (Norvasc) 5 mg PO DAILY [facility] Last Admin: 09/06/18 11:01 Dose: 5 mg Apixaban (Eliquis) 2.5 mg PO BID [facility] Last Admin: 09/06/18 11:01 Dose: 2.5 mg Aspirin (Ecotrin) 81 mg PO DAILY [facility] Last Admin: 09/06/18 11:01 Dose: 81 mg Dolutegravir Sodium (Tivicay) 50 mg PO DAILY [facility]; Protocol Last Admin: 09/06/18 11:01 Dose: 50 mg Duloxetine HCl (Cymbalta) 30 mg PO Q12 [facility] Last Admin: 09/06/18 11:01 Dose: 30 mg Emtricitabine/Tenofovir (Truvada 200 Mg-300 Mg) 1 tab PO DAILY [facility]; Protocol Last Admin: 09/06/18 11:02 Dose: 1 tab Famotidine (Pepcid) 20 mg PO BID [facility] Last Admin: 09/06/18 11:01 Dose: 20 mg Levetiracetam 500 mg/ Dextrose 105 mls @ 420 mls/hr IVPB Q12H [facility] Last Admin: 09/06/18 05:39 Dose: 420 mls/hr Lorazepam (Ativan) 0.5 mg IVP ONCE PRN PRN Reason: Agitation Last Admin: 09/02/18 16:35 Dose: 0.5 mg Lorazepam (Ativan) 2 mg IVP ONCE PRN PRN Reason: Sedation Last Admin: 09/03/18 15:10 Dose: 2 mg Moxifloxacin HCl (Avelox) 400 mg PO DAILY [facility]; Protocol Stop: 09/13/18 10:01 Last Admin: 09/06/18 11:00 Dose: 400 mg Mupirocin (Bactroban 2% Nasal) 0.25 gm CARI BID [facility] Last Admin: 09/06/18 11:01 Dose: 0.25 gm Quetiapine Fumarate (Seroquel) 200 mg PO [facility] Last Admin: 09/05/18 21:23 Dose: 200 mg Rosuvastatin Calcium (Crestor) 5 mg PO [facility] Last Admin: 09/05/18 21:23 Dose: 5 mg Saccharomyces Boulardii (Florastor) 250 mg PO BID [facility] Last Admin: 09/06/18 11:02 Dose: 250 mg Sennosides (Senokot Tab) 8.6 mg PO DAILY [facility] Last Admin: 09/06/18 11:01 Dose: 8.6 mg - Labs Labs: 09/06/18 06:00 09/06/18 06:00 - Constitutional Appears: Non-toxic, No Acute Distress, Chronically Ill - Head Exam Head Exam: ATRAUMATIC, NORMAL INSPECTION, NORMOCEPHALIC - Eye Exam Eye Exam: EOMI, Normal appearance, PERRL Pupil Exam: NORMAL ACCOMODATION, PERRL - ENT Exam ENT Exam: Mucous Membranes Moist, Normal Exam - Neck Exam Neck Exam: Full ROM, Normal Inspection. absent: Lymphadenopathy - Respiratory Exam Respiratory Exam: Clear to Ausculation Bilateral, NORMAL BREATHING PATTERN - Cardiovascular Exam Cardiovascular Exam: REGULAR RHYTHM, +S1, +S2. absent: Murmur - GI/Abdominal Exam GI & Abdominal Exam: Soft, Normal Bowel Sounds. absent: Tenderness - Rectal Exam Rectal Exam: Deferred - Exam Exam: NORMAL INSPECTION - Extremities Exam Extremities Exam: Full ROM, Normal Capillary Refill, Normal Inspection. absent: Joint Swelling, Pedal Edema - Back Exam Back Exam: NORMAL INSPECTION - Neurological Exam Neurological Exam: Alert, Awake, CN II-XII Intact, Oriented x3. absent: Normal Gait Neuro motor strength exam: Left Upper Extremity: 4, Right Upper Extremity: 2/1, Left Lower Extremity: 4, Right Lower Extremity: 2/1 - Psychiatric Exam Psychiatric exam: Normal Affect, Normal Mood - Skin Skin Exam: Dry, Intact, Warm. absent: Erythema, Normal Color Assessment and Plan (1) HIV (human immunodeficiency virus infection) Status: Chronic (2) Hepatitis C Status: Chronic (3) History of stroke with current residual effects Status: Chronic (4) New onset seizure Status: Resolved (5) DVT (deep venous thrombosis) Status: Acute - Assessment and Plan (Free Text) Assessment: d/c on IV antibiotics for pneumonia cont HAART Rx needs rx of Hep C
== END 2018-09-06 20:51 | DRG 100 ==
LOC: C.ER 14:07 → C.9E 16:48 → C.9I 17:14 → C.5S 09-06 05:08
PROVIDERS: ADMIT Family Medicine; ATTEND Hospitalist
DX: R56.9 Unspecified convulsions (principal); J18.9 Pneumonia, unspecified organism; J44.0 Chronic obstructive pulmonary disease with (acute) lower respiratory infection; I69.251 Hemiplegia and hemiparesis following other nontraumatic intracranial hemorrhage affecting right dominant side; I82.B21 Chronic embolism and thrombosis of right subclavian vein; I12.9 Hypertensive chronic kidney disease with stage 1 through stage 4 chronic kidney disease, or unspecified chronic kidney disease; B18.2 Chronic viral hepatitis C; E78.00 Pure hypercholesterolemia, unspecified; E78.5 Hyperlipidemia, unspecified; E87.6 Hypokalemia; F22 Delusional disorders; F31.9 Bipolar disorder, unspecified; F60.9 Personality disorder, unspecified; I34.1 Nonrheumatic mitral (valve) prolapse; N18.9 Chronic kidney disease, unspecified; Z87.891 Personal history of nicotine dependence; F41.9 Anxiety disorder, unspecified; F45.9 Somatoform disorder, unspecified; G62.9 Polyneuropathy, unspecified; Z21 Asymptomatic human immunodeficiency virus [HIV] infection status; F11.11 Opioid abuse, in remission; R13.10 Dysphagia, unspecified; I69.191 Dysphagia following nontraumatic intracerebral hemorrhage; I69.220 Aphasia following other nontraumatic intracranial hemorrhage; Y95 Nosocomial condition; Z22.322 Carrier or suspected carrier of Methicillin resistant Staphylococcus aureus; Z79.82 Long term (current) use of aspirin; Z88.0 Allergy status to penicillin; K59.00 Constipation, unspecified